=== PATIENT | male | born 1955 | race Caucasian/White ===

== ENCOUNTER 2017-10-21 11:21 | Inpatient (IN) | payer OTHER ==
[~2017-10-21] VITALS: Ht 190.5 cm; Wt 79.4 kg
--- NOTE | 2017-10-21 11:32 | ED AMS/SEIZURE/WEAK/DIZZY ---
History of Present Illness General Chief Complaint: General Adult Stated Complaint: BIBA AMS, FAILURE TO THRIVE Source: patient, old records Exam Limitations: poor historian Vital Signs & Intake/Output Vital Signs & Intake/Output Vital Signs Date Time Temp Pulse Resp B/P B/P Pulse O2 O2 Flow FiO2 Mean Ox Delivery Rate 10/21 1743 97 119/69 10/21 1630 92 20 112/68 94 Room Air 10/21 1534 99.6 94 22 112/69 95 Room Air 10/21 1418 98.7 10/21 1317 100.6 10/21 1307 100.6 115 20 110/69 96 Room Air 10/21 1208 94 Room Air 10/21 1134 98.1 122 26 106/68 93 Room Air Allergies Coded Allergies: No Known Allergies (10/21/17) Triage Nurses Notes Reviewed? yes Onset: Gradual Duration: constant Timing: unknown Injury Environment: home Severity: severe Severity Numbers: 10 HPI: Patient is a 61-year-old male with a past medical history of insulin-dependent diabetes who was brought in by ambulance and which EMS states that they received a phone call from family members for concerns of failure to thrive which patient lives in private residence by himself or EMS states that the home was very unhygienic where patient has concerns of confusion and blood sugar was noted to be 599 IV fluids were administered patient's history is limited due to confusion Patient denies any illicit drug use or alcohol use Patient denies any fever chills chest pain nausea vomiting abdominal pain He states he is compliant with his insulin PT IS C/O COUGH (Aaron Davis) Reconcile Medications Carvedilol (Coreg) 12.5 MG TABLET 1 TAB PO BID CAD Oxycodone HCl 15 MG TABLET 1 TAB PO TID PAIN (Braydon Barraza MD) Past History Travel History Traveled to [place] past 21 day No Medical History Any Pertinent Medical History? see below for history Endocrine: diabetes Surgical History Surgical History: unobtainable Family History Hx Contributory? No (Aaron Davis) Review of Systems Review of Systems Constitutional: Reports: see HPI. EENTM: Reports: no symptoms. Respiratory: Reports: see HPI, cough, short of breath. Cardiovascular: Reports: no symptoms. GI: Reports: no symptoms. Genitourinary: Reports: no symptoms. Musculoskeletal: Reports: no symptoms. Skin: Reports: no symptoms. Neurological/Psychological: Reports: no symptoms. Hematologic/Endocrine: Reports: no symptoms. Immunologic/Allergic: Reports: no symptoms. All Other Systems: Reviewed and Negative (Aaron Davis) Physical Exam Physical Exam General Appearance: lethargic Head: atraumatic Eyes: Bilateral: normal appearance, PERRL, EOMI. Ears, Nose, Throat: hearing grossly normal, DRY MUCOUS MEMBRANES Neck: normal inspection Respiratory: decreased breath sounds, rhonchi, TACHYPNEA Cardiovascular: tachycardia Peripheral Pulses: 2+ radial (R) Gastrointestinal: tenderness Neurologic/Psych: awake, ORIENTED X 1 Comments: RIGHT FOOT- NOTED 3 CM OPEN NECROTIC ULCER OF PLANTAR ASPECT OF FOOT Core Measures ACS in differential dx? Yes CVA/TIA Diagnosis Yes Sepsis Present: Yes Sepsis Focused Exam Completed? Yes (Aaron Davis) Progress Differential Diagnosis: arrythmia, alcohol intoxication, anemia, benign positional vertigo, CVA/stroke, dehydration, drug intoxication, encephalitis, electrolyte imbalance, GI bleed, hypoglycemia, hypoxia, intracranial Hem., intracranial mass/tumor, labrynthitis, meningitis, migraine PABON, multiple sclerosis, pneumonia, postural hypotension, presyncope, post-traumatic vertigo, sepsis, seizure disorder, subarachnoid Hem., UTI/pyelo, vertebrobasilar insuff Plan of Care: Orders Procedure Date/time Status Nothing by Mouth 10/22 B Active ICU LAB BUNDLE 10/22 0500 Active CBC WITHOUT DIFFERENTIAL 10/22 0500 Active TROPONIN LEVEL 10/21 2200 Active LACTIC ACID 10/21 2200 Active EKG 10/21 2200 Active LACTIC ACID 10/21 1900 Active LACTIC ACID 10/21 1730 Active BASIC METABOLIC PANEL 10/21 1730 Active Pathway - chart 10/21 1712 Active House Staff 10/21 1712 Active Code Status 10/21 1712 Active ECHOCARDIOGRAM 10/21 1712 Active TROPONIN LEVEL 10/21 1623 Complete Patient Data 10/21 1618 Active Admit to inpatient 10/21 1529 Active LACTIC ACID 10/21 1433 Complete Robles, Insertion/Removal/Asses 10/21 1358 Active CULTURE,URINE 10/21 1358 Active Add-on Test (ER Only) 10/21 1309 Active ETHANOL 10/21 1154 Complete DIRECT BILIRUBIN 10/21 1154 Complete COMPREHENSIVE METABOLIC PANEL 10/21 1154 Complete CREATINE PHOSPHOKINASE 10/21 1154 Active BLOOD CULTURE 10/21 1147 Active RAPID VIRAL INFLUENZA A 10/21 1145 Complete PARTIAL THROMBOPLASTIN TIME 10/21 1145 Complete PROTHROMBIN TIME 10/21 1145 Complete AMMONIA 10/21 1145 Complete WESTERGREN SED RATE 10/21 1145 Complete D-DIMER 10/21 1145 Complete C-REACTIVE PROTEIN 10/21 1145 Complete TROPONIN LEVEL 10/21 1134 Complete ARTERIAL BLOOD GAS (GEN) 10/21 1133 Active URINE DRUG SCREEN FOR ER ONLY 10/21 1133 Complete URINALYSIS 10/21 1133 Complete LACTIC ACID 10/21 1133 Active CBC WITHOUT DIFFERENTIAL 10/21 1133 Complete ACETONE 10/21 1133 Active EKG 10/21 1133 Active Lab Add-on Test 10/21 UNK Active VTE Mechanical Prophylaxis 10/21 UNK Active Vital Signs 10/21 UNK Active Nursing Misc 10/21 UNK Active Intake & Output 10/21 UNK Active FingerStick- Glucose 10/21 UNK Active CIWA 10/21 UNK Active Current Medications Sig/Lai Start time Last Medication Dose Stop Time Status Admin Heparin Sodium 5,000 UNIT Q8 10/21 2200 UNVr (Porcine) Insulin Human Regular 100 UNIT Q24H 10/21 1715 UNVr 10/21 (Novolin R (Insulin 1752 Drip)) Sodium Chloride 100 ML (Normal Saline 0.9%) Potassium Chloride 20 MEQ Q13H 10/21 171 UNVr (KCl 20MEQ in NS 1000ML) Sodium Chloride 1,000 ML (Normal Saline 0.9%) Folic Acid 1 MG DAILY 10/21 1703 UNVr 10/21 (Folic Acid) 1826 Multivitamins 1 TAB DAILY 10/21 1703 UNVr 10/21 (Theragran Vitamins) 1826 Thiamine HCl 100 MG DAILY 10/21 1703 UNVr 10/21 (Vitamin B1) 1826 Acetaminophen 1,000 MG Q6P PRN 10/21 1700 UNVr (Ofirmev) Vancomycin HCl 1,500 MG ONCE ONE 10/21 1245 CAN 10/21 1246 Laboratory Tests 10/21/17 1842: Sodium Pending, Potassium Pending, Chloride Pending, Carbon Dioxide Pending, Anion Gap Pending, BUN Pending, Creatinine Pending, BUN/Creatinine Ratio Pending , Glucose Pending, Lactic Acid Pending, Calcium Pending 10/21/17 1710: Troponin I 0.80 *H 10/21/17 1532: Urine Opiates Screen 204, Methadone Screen < 40, Barbiturate Screen < 60, Ur Phencyclidine Scrn < 6.00, Amphetamines Screen < 100, U Benzodiazepines Scrn < 85, Urine Cocaine Screen < 50, Urine Cannabis Screen 47.50, Urinalysis MOD H, Urine Color YEL, Urine Clarity HAZY H, Urine pH 6.0, Ur Specific [place] 1.015, Urine Protein 100 H, Urine Ketones TRACE H, Urine Nitrite POS H, Urine Bilirubin POS@ICTO H, Urine Urobilinogen 2.0 H, Ur Leukocyte Esterase SMALL H , Ur Microscopic SEDIMENT EXAMINED, Urine RBC 3-5, Urine WBC RARE, Urine Bacteria MOD H, Urine Hemoglobin LARGE H, Urine Glucose NEG 10/21/17 1418: Lactic Acid 3.1 H 10/21/17 1230: pH 7.42, pCO2 24 L, pO2 74 L, HCO3 15 L, ABG O2 Sat (Measured) 92.0 L, Carboxyhemoglobin 1.2 L, O2 Concentration % RA, O2 Delivery Method RA, Phlebotomy Draw Site RIGHT RADIAL 10/21/17 1154: Lactic Acid 5.1 H, Creatine Kinase Pending 10/21/17 1154: Ammonia < 9 L, C-Reactive Prot, Quant > 9.0 H, ESR Westergren 125 H, Serum Alcohol < 10.0 10/21/17 1154: Anion Gap 20 H, Estimated GFR 39 L, BUN/Creatinine Ratio 21.1, Glucose 467 H, Calcium 9.0, Total Bilirubin 2.3 H, Direct Bilirubin 1.7 H, AST 51, ALT 31, Alkaline Phosphatase 183 H, Troponin I 0.85 *H, Total Protein 5.3 L, Albumin 2.6 L, Globulin 2.7, Albumin/Globulin Ratio 1.0 L, PT 14.0 H, INR 1.28 H, APTT 31, D-Dimer High Sensitivty 4828 H, CBC w Diff MAN DIFF ORDERED, RBC 4.39 L, MCV 85.2, MCH 28.5, MCHC 33.4, RDW 14.5, MPV 8.9, Gran % 94.8 H, Lymphocytes % 3.2 L, Monocytes % 1.8, Eosinophils % 0.1, Basophils % 0.1, Absolute Granulocytes 12.1 H, Segmented Neutrophils 72, Band Neutrophils 20 H, Absolute Lymphocytes 0.4 L, Lymphocytes 7 L, Monocytes 1 L, Absolute Monocytes 0.2, Absolute Eosinophils 0, Absolute Basophils 0, Platelet Estimate ADEQUATE, [place] Cells RARE, Acetone Level NEGATIVE Microbiology 10/21 1532 URINE ROUT: Urine Culture - RECD 10/21 1210 BLOOD: Blood Culture - RECD 10/21 1200 NASOPHARYN: Influenza Virus A & B Rapid Smear - COMP 10/21 1200 BLOOD: Blood Culture - RECD Differential diagnoses include osteomyelitis, and sepsis Initially patient's glucose was noted to be 400 patient was given IV fluid resuscitation and subcutaneous insulin, glucose did not improve much IV insulin was administered with continuous IV fluid liter bolus administration. It was resulted me. Findings of elevated troponin, discussed admission with Dr. Hansen who is aware discussed admission with Dr. Pena for concerns of osteomyelitis who is aware however antibiotics were administered due to concerns of sepsis Patient's blood pressure remains to be stable Vanco Fortaz was administered Patient was given aspirin for concerns of elevated troponin Discussed patient with Dr. Canada who ACCEPTED the patient to the ICU DR BARRAZA also discussed patient with Dr. Canada 1209-please note that when I discussed patient's critical findings with him and my advice that he will be admitted to the hospital he is refusing this however due to his physical presentation of confusion he has not capacity to make decisions and medical admission is warranted at this time. Diagnostic Imaging: Viewed by Me: Radiology Read. Radiology Impression: acute abnormality Initial ED EKG: SINUS TACHYCARDIA 120 BPM WITH WIDENING qrs AND LBBB Comments: PATIENT: MICHELA GRUBER PRESENT AGE: 61 PATIENT ACCOUNT NO: [id number] : 59 LOCATION: [facility] ORDERING PHYSICIAN: Aaron MCFARLANE SERVICE DATE: 10/21/17 EXAM TYPE: NUC - LUNG SCAN (V/Q) EXAMINATION: PULMONARY VENTILATION PERFUSION STUDY CLINICAL INFORMATION: Shortness of breath, elevated d-dimer COMPARISON: No previous lung scan is available for comparison. CT of the chest radiographs of the chest dated 10/21/2017 are available for comparison. TECHNIQUE: Serial gamma scintillation camera images were obtained over the posterior chest during the single breath, equilibrium rebreathing and washout of 10.2 mCi Xe 133 gas. The patient then received 3.8 mCi Tc-99m MAA intravenously and a 6-view perfusion study was performed. FINDINGS: Ventilation images: On the single breath and equilibrium images there is homogeneous distribution of gas bilaterally. During the washout phase there is minimal retention bilaterally. Perfusion images: No segmental perfusion defects are present. There is minimal heterogeneity bilaterally. There are no focal anatomic appearing perfusion defects present. IMPRESSION: Very low probability of pulmonary embolism. DICTATED BY: Michela Parrish MD DATE/TIME DICTATED:10/21/171629 GAMBRELER:DREAD DATE/TIME TRANSCRIBED:10/21/171629 PATIENT: MICHELA GRUBER PRESENT AGE: 61 PATIENT ACCOUNT NO: [id number] : 59 LOCATION: [facility] ORDERING PHYSICIAN: Aaron MCFARLANE SERVICE DATE: 10/21/17 EXAM TYPE: CAT - CT ABD & PELVIS W/O IV CONTRAS; CT CHEST WO IV CONTRAST EXAMINATION: CT CHEST WITHOUT IV CONTRAST CT ABDOMEN AND PELVIS WITHOUT IV CONTRAST CLINICAL INFORMATION: Cough and chest congestion. Abdominal pain. COMPARISON: CXR from 10/21/2017 TECHNIQUE: Noncontrast multidetector CT imaging examination of the chest, abdomen and pelvis was performed. Axial images are displayed at 0.625 mm and 5 mm slice thickness. Coronal and sagittal reformatted images were generated at the technologist's workstation and submitted for review. DLP: 580 mGy-cm FINDINGS: CHEST - LUNGS and PLEURA: There are secretions along the posterior tracheal wall extending to level the daniel. Linear strand of mucus within the lumen of the right mainstem bronchus. Bronchial garnett are thickened in both lungs. Mild paraseptal emphysema of the upper lobes. Interlobular septa are thickened, bilaterally, consistent with mild edema. There are scattered bilateral nodular opacities and airspace opacities with intermixed ground glass attenuation, suggestive of multilobar pneumonia. Some of the opacities exhibit the reverse halo sign (atoll sign). Also, some of the opacities have central lucencies, suspicious for cavitary change. No pneumothorax or pleural effusion. MEDIASTINUM: Mild cardiomegaly and three-vessel coronary artery atherosclerotic calcification. The main pulmonary artery is 3 cm diameter. Thoracic aorta is normal in caliber. Mild atherosclerotic calcification of the aortic arch. No pericardial effusion. The esophagus and thyroid gland are unremarkable. LYMPHATICS: No axillary lymphadenopathy. No bulky hilar lymphadenopathy. The largest right hilar lymph node is 1 cm short axis dimension. Multiple lymph nodes are present within the mediastinum, largest in the subcarinal region measuring 1.2 cm AP. CHEST WALL/BONES: Bone density appears diffusely decreased. Old, healed fractures of the right lateral eighth rib and left lateral ninth rib. There are old appearing compression fractures of multiple vertebra. ABDOMEN AND PELVIS - HEPATOBILIARY: Liver has normal size, contour and attenuation. No evidence of focal hepatic lesion or intrahepatic bile duct dilatation. Gallbladder lumen is slightly hyperdense, suggesting presence of sludge. No radiopaque calculi, wall edema or pericholecystic inflammatory change. PANCREAS: Pancreas is diffusely atrophied. SPLEEN: Prominent spleen is 15 cm AP. No focal splenic lesion. ADRENAL GLANDS: Unremarkable. KIDNEYS, URETERS, BLADDER: Probable 0.7 cm hyperdense cyst of the mid left kidney. There is bilateral perinephric edema. There is a small, 0.2 cm calyceal stone of the left lower pole. No evidence of ureterolithiasis or hydroureteronephrosis. Urinary bladder exhibits borderline wall thickening there is perivesical edema. No bladder calculi. GI TRACT AND PERITONEUM: Stomach is unremarkable. Bowel loops are normal in caliber. Mild diverticulosis of the sigmoid colon without diverticulitis. No ascites or pneumoperitoneum. ABDOMINAL WALL: A fat-containing umbilical hernia measures 2.4 cm wide. VASCULAR: Atherosclerotic calcification of the abdominal aorta and iliac arteries without aneurysm. LYMPH NODES: No pathologic sized lymph nodes within the abdomen or pelvis. PELVIC VISCERA: Prominent prostate gland measures 4.8 x 3.5 cm and there is periprostatic edema and perivesical edema in the pelvis. No pelvic abscess. OSSEOUS STRUCTURES: Bone density appears diffusely decreased. Old L1 compression fracture with approximately 25% anterior height loss. Moderate discovertebral degenerative change of L5-S1. No aggressive osseous lesions. IMPRESSION: - Within the chest, there is mild pulmonary edema without pleural effusions. There are patchy nodular and airspace opacities in both lungs, and some of the pulmonary opacities have central cavitation. Also, some of the lesions exhibit the reversed halo sign (i.e., atoll sign), as may be seen in infectious disease and other disorders, such as vasculitis. Unable to exclude septic emboli. Other findings in the chest include atherosclerotic disease of coronary arteries and cardiomegaly. The mild hilar and mediastinal lymphadenopathy is likely reactive to the pulmonary disease. - Within the abdomen, findings include bilateral perinephric edema without ureterolithiasis or hydronephrosis. Also, there is perivesical and periprostatic edema within the pelvis. Urinary tract infection and prostatitis are possible. Consider correlation with urinalysis and urine culture. DICTATED BY: Saran Lizama MD DATE/TIME DICTATED:10/21/17 1544 GAMBRELER:DREAD DATE/TIME TRANSCRIBED: PATIENT: MICHELA GRUBER PRESENT AGE: 61 PATIENT ACCOUNT NO: [id number] : 59 LOCATION: [facility] ORDERING PHYSICIAN: Aaron MCFARLANE SERVICE DATE: 10/21/17 EXAM TYPE: CAT - CT ABD & PELVIS W/O IV CONTRAS; CT CHEST WO IV CONTRAST EXAMINATION: CT CHEST WITHOUT IV CONTRAST CT ABDOMEN AND PELVIS WITHOUT IV CONTRAST CLINICAL INFORMATION: Cough and chest congestion. Abdominal pain. COMPARISON: CXR from 10/21/2017 TECHNIQUE: Noncontrast multidetector CT imaging examination of the chest, abdomen and pelvis was performed. Axial images are displayed at 0.625 mm and 5 mm slice thickness. Coronal and sagittal reformatted images were generated at the technologist's workstation and submitted for review. DLP: 580 mGy-cm FINDINGS: CHEST - LUNGS and PLEURA: There are secretions along the posterior tracheal wall extending to level the daniel. Linear strand of mucus within the lumen of the right mainstem bronchus. Bronchial garnett are thickened in both lungs. Mild paraseptal emphysema of the upper lobes. Interlobular septa are thickened, bilaterally, consistent with mild edema. There are scattered bilateral nodular opacities and airspace opacities with intermixed ground glass attenuation, suggestive of multilobar pneumonia. Some of the opacities exhibit the reverse halo sign (atoll sign). Also, some of the opacities have central lucencies, suspicious for cavitary change. No pneumothorax or pleural effusion. MEDIASTINUM: Mild cardiomegaly and three-vessel coronary artery atherosclerotic calcification. The main pulmonary artery is 3 cm diameter. Thoracic aorta is normal in caliber. Mild atherosclerotic calcification of the aortic arch. No pericardial effusion. The esophagus and thyroid gland are unremarkable. LYMPHATICS: No axillary lymphadenopathy. No bulky hilar lymphadenopathy. The largest right hilar lymph node is 1 cm short axis dimension. Multiple lymph nodes are present within the mediastinum, largest in the subcarinal region measuring 1.2 cm AP. CHEST WALL/BONES: Bone density appears diffusely decreased. Old, healed fractures of the right lateral eighth rib and left lateral ninth rib. There are old appearing compression fractures of multiple vertebra. ABDOMEN AND PELVIS - HEPATOBILIARY: Liver has normal size, contour and attenuation. No evidence of focal hepatic lesion or intrahepatic bile duct dilatation. Gallbladder lumen is slightly hyperdense, suggesting presence of sludge. No radiopaque calculi, wall edema or pericholecystic inflammatory change. PANCREAS: Pancreas is diffusely atrophied. SPLEEN: Prominent spleen is 15 cm AP. No focal splenic lesion. ADRENAL GLANDS: Unremarkable. KIDNEYS, URETERS, BLADDER: Probable 0.7 cm hyperdense cyst of the mid left kidney. There is bilateral perinephric edema. There is a small, 0.2 cm calyceal stone of the left lower pole. No evidence of ureterolithiasis or hydroureteronephrosis. Urinary bladder exhibits borderline wall thickening there is perivesical edema. No bladder calculi. GI TRACT AND PERITONEUM: Stomach is unremarkable. Bowel loops are normal in caliber. Mild diverticulosis of the sigmoid colon without diverticulitis. No ascites or pneumoperitoneum. ABDOMINAL WALL: A fat-containing umbilical hernia measures 2.4 cm wide. VASCULAR: Atherosclerotic calcification of the abdominal aorta and iliac arteries without aneurysm. LYMPH NODES: No pathologic sized lymph nodes within the abdomen or pelvis. PELVIC VISCERA: Prominent prostate gland measures 4.8 x 3.5 cm and there is periprostatic edema and perivesical edema in the pelvis. No pelvic abscess. OSSEOUS STRUCTURES: Bone density appears diffusely decreased. Old L1 compression fracture with approximately 25% anterior height loss. Moderate discovertebral degenerative change of L5-S1. No aggressive osseous lesions. IMPRESSION: - Within the chest, there is mild pulmonary edema without pleural effusions. There are patchy nodular and airspace opacities in both lungs, and some of the pulmonary opacities have central cavitation. Also, some of the lesions exhibit the reversed halo sign (i.e., atoll sign), as may be seen in infectious disease and other disorders, such as vasculitis. Unable to exclude septic emboli. Other findings in the chest include atherosclerotic disease of coronary arteries and cardiomegaly. The mild hilar and mediastinal lymphadenopathy is likely reactive to the pulmonary disease. - Within the abdomen, findings include bilateral perinephric edema without ureterolithiasis or hydronephrosis. Also, there is perivesical and periprostatic edema within the pelvis. Urinary tract infection and prostatitis are possible. Consider correlation with urinalysis and urine culture. DICTATED BY: Saran Lizama MD DATE/TIME DICTATED:10/21/171543 GAMBRELER:DREAD DATE/TIME TRANSCRIBED: PATIENT: MICHELA GRUBER PRESENT AGE: 61 PATIENT ACCOUNT NO: [id number] : 59 LOCATION: [facility] ORDERING PHYSICIAN: Aaron MCFARLANE SERVICE DATE: 10/21/17 EXAM TYPE: CAT - CT HEAD WO IV CONTRAST EXAMINATION: CT HEAD WITHOUT CONTRAST CLINICAL INFORMATION: Confusion COMPARISON: None TECHNIQUE: Contiguous axial imaging was performed from the skull base to vertex without intravenous administration of contrast. DLP: 615 mGy-cm FINDINGS: There is no evidence of acute intracranial hemorrhage or territorial infarction. No abnormal mass effect or midline shift is seen. Dill to white matter differentiation is well preserved. No extra-axial fluid collections are identified. The ventricles are normal in size. There is no abnormal attenuation within the brain parenchyma. The osseous structures and soft tissues are normal. There has been a right ocular lens extraction. Incidental trochlea calcifications are visualized bilaterally. There is near complete opacification of the right frontal and scattered right anterior ethmoid air cells. There is complete opacification of the imaged right maxillary sinus. The left maxillary sinus is diminutive with sclerotic and thickened garnett and mild mucosal thickening. There appears to have been prior antrostomy on the left. The visualized nasal cavity and nasopharynx are clear. There is trace opacification at the mastoid tips bilaterally. The middle ear cavities are clear. IMPRESSION: No acute intracranial pathology. Scattered and fairly extensive inflammatory disease within the paranasal sinuses asymmetrically on the right. Partially visualized postsurgical changes involving the left maxillary sinus with sclerosis and thickening of the left maxillary wall compatible with sequela of chronic inflammation. DICTATED BY: Castillo Cordova MD DATE/TIME DICTATED:10/21/171447 GAMBRELER:DREAD PATIENT: MICHELA GRUBER PRESENT AGE: 61 PATIENT ACCOUNT NO: [id number] : 59 LOCATION: [facility] ORDERING PHYSICIAN: Aaron MCFARLANE SERVICE DATE: 03/ EXAM TYPE: RAD - XRY-CHEST XRAY, TWO VIEWS EXAMINATION: XR CHEST CLINICAL INFORMATION: Shortness of breath COMPARISON: None TECHNIQUE: 2 views of the chest were obtained. FINDINGS: Diffuse thickening of peribronchial interstitium from airway inflammation and/or interstitial edema. Also, septal lines are seen in the periphery of each mid to lower lung zone. Patchy opacity is present in the right upper lobe. No pleural effusion or pneumothorax. Cardiac silhouette is borderline enlarged. The 0.7 cm nodular opacity projecting over the left anterior fifth rib on the frontal radiograph probably represents a nipple shadow. Bones appear diffusely osteopenic. IMPRESSION: - Mild cardiomegaly and diffuse pulmonary edema. - The patchy opacity in the right upper lobe could represent edema or pneumonia. - The nodular focus projecting over the left anterior fifth rib on the frontal view probably represents a nipple shadow. This could be confirmed on a follow-up radiograph obtained with nipple markers. DICTATED BY: Saran Lizama MD DATE/TIME DICTATED:10/21/17 1354 GAMBRELER:DRAED DATE/TIME TRANSCRIBED:10/21/17 / PATIENT: MICHELA GRUBER PRESENT AGE: 61 PATIENT ACCOUNT NO: [id number] : 59 LOCATION: [facility] ORDERING PHYSICIAN: Aaron MCFARLANE SERVICE DATE: 10/21/17 EXAM TYPE: RAD - XRY-FOOT COMPLETE, R EXAMINATION: XR FOOT, RIGHT CLINICAL INFORMATION: Necrotic open wound on the plantar aspect of the foot. COMPARISON: There are no prior studies for comparison. TECHNIQUE: AP, lateral, and oblique views of the right foot. FINDINGS: There are severe bony destructive changes involving the distal aspects of the second third and fourth metatarsals. The bony destructive changes involving the third digit are particularly concerning with irregularity of the distal aspect of the metatarsal concerning for acute bony destructive changes, the findings are less prominent on the fourth metatarsal and minimally present in the distal second metatarsal. Extensive degenerative changes are present in the first digit with prominent hallux valgus deformity and bulky osteophyte formation at the metatarsal phalangeal joint. Extensive degenerative changes involving the distal fifth metatarsal phalangeal joint involving numerous subchondral cysts. The skin defect is identified in the mid foot at the level of the tarsometatarsal joints on the plantar aspect of the foot extending towards the forefoot.. IMPRESSION: 1. Extensive bony destructive changes are present in the second through fourth digits, most concerning in the second and third digits with non corticated distal aspects of the remaining portion of the metadiaphysis of the second and third digits. Findings are concerning for acute osteomyelitis. 2. Open wound with skin defect identified on the plantar aspect of the midfoot, the ulcer is present at the level of the mid foot closer to the tarsal metatarsal joint spaces rather than the distal metatarsal regions however. DICTATED BY: Shoshana Chen MD DATE/TIME DICTATED:10/21/171352 PATIENT: MICHELA GRUBER PRESENT AGE: 61 PATIENT ACCOUNT NO: [id number] : 59 LOCATION: [facility] ORDERING PHYSICIAN: Aaron MCFARLANE SERVICE DATE: 10/21/17 EXAM TYPE: RAD - XRY-FINGERS, RIGHT EXAMINATION: XR FINGER, RIGHT CLINICAL INFORMATION: Chronic wound at the distal aspect of the right fifth digit. Shortness of breath. COMPARISON: None TECHNIQUE: PA, lateral, and oblique views of the right small finger. FINDINGS: Bones are diffusely osteopenic. There is a ulceration at the lateral (radial) margin of the small finger distal phalanx. No underlying osseous changes ostomy line is identified. There is diffuse uniform joint space narrowing at the wrist and MCP joints with ulnar deviation in the palmar subluxation of the proximal phalanges. There is significant cortical irregularity at the second, third, and fourth metacarpal heads with resultant osteophytes. Erosions are likely present at the metacarpal heads, though these may be cystic changes related to the adjacent arthropathy. No significant erosions are identified around the carpus. There is sclerosis along the ulnar margin of the lunate due to remodeling from abutment of the ulna. There is marked triscaphe joint space narrowing without erosions. IMPRESSION: Soft tissue ulceration at the radial margin of the small finger distal phalanx without underlying findings of osteomyelitis. Diffuse uniform joint space narrowing in the wrist and MCP joints with superimposed palmar subluxation and ulnar deviation of the proximal phalanges as well as erosive/cystic changes at the metacarpal heads. These findings may represent the sequela of rheumatoid arthritis or, alternatively, degenerative arthritis superimposed upon a nonerosive arthropathy such as systemic lupus erythematosus. DICTATED BY: Ayaz Moncada MD DATE/TIME DICTATED:10/21/176 GAMBRELER:DREAD DATE/TIME TRANSCRIBED:10/21/17 (Aaron Davis) ED Sepsis Exam Date of Focused Sepsis Exam: 10/21/17 Time of Focused Sepsis Exam: 1101 Sepsis Cardiac Exam: Tachycardia Sepsis Resp Exam: DECREASE BREATH SOUNDS Sepsis Cap Refill Exam: <2 Sec Sepsis Peripheral Pulse Exam: Normal Sepsis Peripheral Pulse Location: Radial Sepsis Skin Color Exam: Normal for Ethnicity Skin Temp/Moisture Exam: Warm/Dry (Aaron Davis) Departure Departure Disposition: STILL A PATIENT Condition: Critical Clinical Impression Primary Impression: Sepsis Secondary Impressions: ANURAG (acute kidney injury), Bandemia, Elevated troponin, Hyperglycemia, Osteomyelitis of right foot, Pneumonia, Pyelonephritis, UTI ( urinary tract infection) Departure Forms: Customer Survey General Discharge Information Admission Note Spoke With: Migue Canada MD Documentation of Exam: Documentation of any treatments & extenuating circumstances including Concerns Regarding Discharge (functional status, medication knowledge or non-compliance, living conditions, etc.) that warrant an admission rather than observation: [ Patient requires ICU admission, patient requires IV fluids IV antibiotics and infectious disease consult cardiology consult podiatry consult repeat labs, endocrinology consult] (Aaron Davis) Departure Prescriptions: Current Visit Scripts Oxycodone HCl 1 TAB PO TID #90 TAB Carvedilol (Coreg) 1 TAB PO BID #60 TAB PA/HEAD TEACHER Co-Sign Statement Statement: ED Attending supervision documentation- x I saw and evaluated the patient. I have also reviewed all the pertinent lab results and diagnostic results. I agree with the findings and the plan of care as documented in the PA's/HEAD TEACHER's documentation. Multiple infectious sources poor follow up care. elevated troponin/NSTEMI [] I have reviewed the ED Record and agree with the PA's/HEAD TEACHER's documentation. [] Additions or exceptions (if any) to the PAs/HEAD TEACHER's note and plan are summarized below: [] (Shawn CARD,Braydon) Critical Care Note Critical Care Note Critical Care Time: 75-104 min (Aaron Davis)
[2017-10-21 12:13] LABS: ABSOLUTE BASOPHIL COUNT 0 /CUMM (0.0-0.2); ABSOLUTE EOSINOPHIL COUNT 0 /CUMM (0.0-0.7); ABSOLUTE GRANULOCYTE CT 12.1 /CUMM (1.4-6.5); ABSOLUTE LYMPH COUNT 0.4 /CUMM (1.2-3.4); ABSOLUTE MONOCYTE COUNT 0.2 /CUMM (0.10-0.60); BASOPHIL % 0.1 % (0.0-2.0); EOSINOPHIL % 0.1 % (0-5); GRANULOCYTE % 94.8 % (42.2-75.2); HEMATOCRIT 37.4 % (42-52); MEAN CORPUSCULAR HGB 28.5 PG (27.0-31.0); MEAN CORPUSCULAR HGB CONC 33.4 G/DL (33.0-37.0); MEAN CORPUSCULAR VOLUME 85.2 FL (80.0-94.0); MEAN PLATELET VOLUME 8.9 FL (7.4-10.4); PLATELET COUNT 179 /CUMM (130-400); RBC DISTRIBUTION WIDTH 14.5 % (11.5-14.5); RED BLOOD CELL CT 4.39 /CUMM (4.70-6.10); WHITE BLOOD CELL COUNT 12.8 /CUMM (4.8-10.8)
[2017-10-21 12:34] LABS: PTT 31 SEC (25-37)
--- NOTE | 2017-10-21 14:00 | RADIOLOGY REPORT ---
EXAMINATION: XR FOOT, RIGHT CLINICAL INFORMATION: Necrotic open wound on the plantar aspect of the foot. COMPARISON: There are no prior studies for comparison. TECHNIQUE: AP, lateral, and oblique views of the right foot. FINDINGS: There are severe bony destructive changes involving the distal aspects of the second third and fourth metatarsals. The bony destructive changes involving the third digit are particularly concerning with irregularity of the distal aspect of the metatarsal concerning for acute bony destructive changes, the findings are less prominent on the fourth metatarsal and minimally present in the distal second metatarsal. Extensive degenerative changes are present in the first digit with prominent hallux valgus deformity and bulky osteophyte formation at the metatarsal phalangeal joint. Extensive degenerative changes involving the distal fifth metatarsal phalangeal joint involving numerous subchondral cysts. The skin defect is identified in the mid foot at the level of the tarsometatarsal joints on the plantar aspect of the foot extending towards the forefoot.. IMPRESSION: 1. Extensive bony destructive changes are present in the second through fourth digits, most concerning in the second and third digits with non corticated distal aspects of the remaining portion of the metadiaphysis of the second and third digits. Findings are concerning for acute osteomyelitis. 2. Open wound with skin defect identified on the plantar aspect of the midfoot, the ulcer is present at the level of the mid foot closer to the tarsal metatarsal joint spaces rather than the distal metatarsal regions however.
--- NOTE | 2017-10-21 14:01 | RADIOLOGY REPORT ---
EXAMINATION: XR CHEST CLINICAL INFORMATION: Shortness of breath COMPARISON: None TECHNIQUE: 2 views of the chest were obtained. FINDINGS: Diffuse thickening of peribronchial interstitium from airway inflammation and/or interstitial edema. Also, septal lines are seen in the periphery of each mid to lower lung zone. Patchy opacity is present in the right upper lobe. No pleural effusion or pneumothorax. Cardiac silhouette is borderline enlarged. The 0.7 cm nodular opacity projecting over the left anterior fifth rib on the frontal radiograph probably represents a nipple shadow. Bones appear diffusely osteopenic. IMPRESSION: - Mild cardiomegaly and diffuse pulmonary edema. - The patchy opacity in the right upper lobe could represent edema or pneumonia. - The nodular focus projecting over the left anterior fifth rib on the frontal view probably represents a nipple shadow. This could be confirmed on a follow-up radiograph obtained with nipple markers.
--- NOTE | 2017-10-21 14:05 | RADIOLOGY REPORT ---
EXAMINATION: XR FINGER, RIGHT CLINICAL INFORMATION: Chronic wound at the distal aspect of the right fifth digit. Shortness of breath. COMPARISON: None TECHNIQUE: PA, lateral, and oblique views of the right small finger. FINDINGS: Bones are diffusely osteopenic. There is a ulceration at the lateral (radial) margin of the small finger distal phalanx. No underlying osseous changes ostomy line is identified. There is diffuse uniform joint space narrowing at the wrist and MCP joints with ulnar deviation in the palmar subluxation of the proximal phalanges. There is significant cortical irregularity at the second, third, and fourth metacarpal heads with resultant osteophytes. Erosions are likely present at the metacarpal heads, though these may be cystic changes related to the adjacent arthropathy. No significant erosions are identified around the carpus. There is sclerosis along the ulnar margin of the lunate due to remodeling from abutment of the ulna. There is marked triscaphe joint space narrowing without erosions. IMPRESSION: Soft tissue ulceration at the radial margin of the small finger distal phalanx without underlying findings of osteomyelitis. Diffuse uniform joint space narrowing in the wrist and MCP joints with superimposed palmar subluxation and ulnar deviation of the proximal phalanges as well as erosive/cystic changes at the metacarpal heads. These findings may represent the sequela of rheumatoid arthritis or, alternatively, degenerative arthritis superimposed upon a nonerosive arthropathy such as systemic lupus erythematosus.
--- NOTE | 2017-10-21 14:55 | CT SCAN REPORT ---
EXAMINATION: CT HEAD WITHOUT CONTRAST CLINICAL INFORMATION: Confusion COMPARISON: None TECHNIQUE: Contiguous axial imaging was performed from the skull base to vertex without intravenous administration of contrast. DLP: 615 mGy-cm FINDINGS: There is no evidence of acute intracranial hemorrhage or territorial infarction. No abnormal mass effect or midline shift is seen. Dill to white matter differentiation is well preserved. No extra-axial fluid collections are identified. The ventricles are normal in size. There is no abnormal attenuation within the brain parenchyma. The osseous structures and soft tissues are normal. There has been a right ocular lens extraction. Incidental trochlea calcifications are visualized bilaterally. There is near complete opacification of the right frontal and scattered right anterior ethmoid air cells. There is complete opacification of the imaged right maxillary sinus. The left maxillary sinus is diminutive with sclerotic and thickened garnett and mild mucosal thickening. There appears to have been prior antrostomy on the left. The visualized nasal cavity and nasopharynx are clear. There is trace opacification at the mastoid tips bilaterally. The middle ear cavities are clear. IMPRESSION: No acute intracranial pathology. Scattered and fairly extensive inflammatory disease within the paranasal sinuses asymmetrically on the right. Partially visualized postsurgical changes involving the left maxillary sinus with sclerosis and thickening of the left maxillary wall compatible with sequela of chronic inflammation.
--- NOTE | 2017-10-21 16:11 | CT SCAN REPORT ---
EXAMINATION: CT CHEST WITHOUT IV CONTRAST CT ABDOMEN AND PELVIS WITHOUT IV CONTRAST CLINICAL INFORMATION: Cough and chest congestion. Abdominal pain. COMPARISON: CXR from 10/21/2017 TECHNIQUE: Noncontrast multidetector CT imaging examination of the chest, abdomen and pelvis was performed. Axial images are displayed at 0.625 mm and 5 mm slice thickness. Coronal and sagittal reformatted images were generated at the technologist's workstation and submitted for review. DLP: 580 mGy-cm FINDINGS: CHEST - LUNGS and PLEURA: There are secretions along the posterior tracheal wall extending to level the daniel. Linear strand of mucus within the lumen of the right mainstem bronchus. Bronchial garnett are thickened in both lungs. Mild paraseptal emphysema of the upper lobes. Interlobular septa are thickened, bilaterally, consistent with mild edema. There are scattered bilateral nodular opacities and airspace opacities with intermixed ground glass attenuation, suggestive of multilobar pneumonia. Some of the opacities exhibit the reverse halo sign (atoll sign). Also, some of the opacities have central lucencies, suspicious for cavitary change. No pneumothorax or pleural effusion. MEDIASTINUM: Mild cardiomegaly and three-vessel coronary artery atherosclerotic calcification. The main pulmonary artery is 3 cm diameter. Thoracic aorta is normal in caliber. Mild atherosclerotic calcification of the aortic arch. No pericardial effusion. The esophagus and thyroid gland are unremarkable. LYMPHATICS: No axillary lymphadenopathy. No bulky hilar lymphadenopathy. The largest right hilar lymph node is 1 cm short axis dimension. Multiple lymph nodes are present within the mediastinum, largest in the subcarinal region measuring 1.2 cm AP. CHEST WALL/BONES: Bone density appears diffusely decreased. Old, healed fractures of the right lateral eighth rib and left lateral ninth rib. There are old appearing compression fractures of multiple vertebra. ABDOMEN AND PELVIS - HEPATOBILIARY: Liver has normal size, contour and attenuation. No evidence of focal hepatic lesion or intrahepatic bile duct dilatation. Gallbladder lumen is slightly hyperdense, suggesting presence of sludge. No radiopaque calculi, wall edema or pericholecystic inflammatory change. PANCREAS: Pancreas is diffusely atrophied. SPLEEN: Prominent spleen is 15 cm AP. No focal splenic lesion. ADRENAL GLANDS: Unremarkable. KIDNEYS, URETERS, BLADDER: Probable 0.7 cm hyperdense cyst of the mid left kidney. There is bilateral perinephric edema. There is a small, 0.2 cm calyceal stone of the left lower pole. No evidence of ureterolithiasis or hydroureteronephrosis. Urinary bladder exhibits borderline wall thickening there is perivesical edema. No bladder calculi. GI TRACT AND PERITONEUM: Stomach is unremarkable. Bowel loops are normal in caliber. Mild diverticulosis of the sigmoid colon without diverticulitis. No ascites or pneumoperitoneum. ABDOMINAL WALL: A fat-containing umbilical hernia measures 2.4 cm wide. VASCULAR: Atherosclerotic calcification of the abdominal aorta and iliac arteries without aneurysm. LYMPH NODES: No pathologic sized lymph nodes within the abdomen or pelvis. PELVIC VISCERA: Prominent prostate gland measures 4.8 x 3.5 cm and there is periprostatic edema and perivesical edema in the pelvis. No pelvic abscess. OSSEOUS STRUCTURES: Bone density appears diffusely decreased. Old L1 compression fracture with approximately 25% anterior height loss. Moderate discovertebral degenerative change of L5-S1. No aggressive osseous lesions. IMPRESSION: - Within the chest, there is mild pulmonary edema without pleural effusions. There are patchy nodular and airspace opacities in both lungs, and some of the pulmonary opacities have central cavitation. Also, some of the lesions exhibit the reversed halo sign (i.e., atoll sign), as may be seen in infectious disease and other disorders, such as vasculitis. Unable to exclude septic emboli. Other findings in the chest include atherosclerotic disease of coronary arteries and cardiomegaly. The mild hilar and mediastinal lymphadenopathy is likely reactive to the pulmonary disease. - Within the abdomen, findings include bilateral perinephric edema without ureterolithiasis or hydronephrosis. Also, there is perivesical and periprostatic edema within the pelvis. Urinary tract infection and prostatitis are possible. Consider correlation with urinalysis and urine culture.
--- NOTE | 2017-10-21 16:18 | History & Physical ---
Masood Loco MD 10/21/17 1617: General Information and HPI History of Present Illness: 61-year-old man with past medical history significant for insulin-dependent diabetes mellitus and coronary artery disease status post stent "for years ago" brought in by ambulance for evaluation of altered mental status and "failure to thrive". Patient was reportedly altered upon ED arrival but now is awake and alert and oriented to person, place, and time. He reports that on Saturday he "overdid it" when he ate a large amount of pizza. All weekend he states that he remained in bed with profound fatigue and denies any other symptoms. He admits to decreased oral intake and often is noncompliant with his medications. Review of systems Specifically he denies any headache, fever, chills, blurred/double vision, headedness/dizziness, chest pain, palpitations, heartburn, shortness of breath, cough, nausea, vomiting, diarrhea. Past medical [id number] diabetes mellitus, hypertension, hyperlipidemia, coronary artery disease, BPH Allergies-no known drug allergies Medications-reconciled and all [facility] medical record Surgical history-none Family history-unknown Social history Patient reports drinking 6 beers per day for "many years", smokes 2 packs of cigarettes per day since age 17, uses marijuana daily. Lives alone in a duplex in [place] and has a made help with cooking/cleaning. 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 Patient is often noncompliant with his physician follow-ups and medication regimen. He does not exercise, plays sports , or go to the gym. He has no dietary restrictions. Reportedly uses [facility] in [facility] for most of his meds, but they had no record of him. [facility] on [address] in [place] reports only monthly prescriptions of Oxycodone with a distant history of coreg that he hasnt picked up. 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 Home Who Do You Live With? self Primary Language: Turkish Smoking Status: Current Everyday Smoker ETOH Use: heavy use Illicit Drug Use: UTD Functional Ability ADLs Independent: dressing, eating, toileting, bathing. Ambulation: independent IADLs Independent: shopping, finances, telephone, transportation, medication admin. Needs Assist: housework, food prep. Employment History Employment Employed Profession/Employer [employer] Review of Systems Review of Systems Constitutional: Reports: see HPI. Exam & Diagnostic Data Last 24 Hrs of Vital Signs/I&O Vital Signs Date Time Temp Pulse Resp B/P B/P Pulse O2 O2 Flow FiO2 Mean Ox Delivery Rate 10/21 1534 99.6 94 22 112/69 95 Room Air 10/21 1418 98.7 10/21 1317 100.6 10/21 1307 100.6 115 20 110/69 96 Room Air 10/21 1208 94 Room Air 10/21 1134 98.1 122 26 106/68 93 Room Air Intake & Output 10/21 1600 10/21 0800 10/21 0000 Intake Total 5250 Output Total 400 Balance 4850 Intake, IV 5250 Output, Urine 400 Patient 88.451 kg Weight Weight Reported by Patient Measurement Method Physical Exam General Appearance Alert, Oriented X3, Cooperative, No Acute Distress Skin No Rashes, No Breakdown HEENT Atraumatic, PERRLA, EOMI, Mucous Membr. moist/pink, Poor dentition Neck Supple, No JVD Cardiovascular Regular Rate, Normal S1, Normal S2, No Murmurs, Gallops Lungs Diminish bibasilar airflow with occasional rhonchi Abdomen Normal Bowel Sounds, Soft, No Tenderness, No Hepatospenomegaly, No Masses Neurological Normal Speech, Strength at 5/5 X4 Ext, Normal Tone, Sensation Intact, Cranial Nerves 3-12 NL Extremities No Clubbing, No Cyanosis, Skin changes to right foot without any obvious drainage Vascular Normal Pulses, Pulses Symmetrical Sepsis Peripheral Pulse Location: Dorsalis Pedis Sepsis Peripheral Pulse Exam: Normal Sepsis Cap Refill Exam: <2 Sec Last 24 Hrs of Labs/[place]: Laboratory Tests 10/21/17 1710: Troponin I Pending 10/21/17 1532: Urine Opiates Screen 204, Methadone Screen < 40, Barbiturate Screen < 60, Ur Phencyclidine Scrn < 6.00, Amphetamines Screen < 100, U Benzodiazepines Scrn < 85, Urine Cocaine Screen < 50, Urine Cannabis Screen 47.50, Urinalysis MOD H, Urine Color YEL, Urine Clarity HAZY H, Urine pH 6.0, Ur Specific Gregory 1.015, Urine Protein 100 H, Urine Ketones TRACE H, Urine Nitrite POS H, Urine Bilirubin POS@ICTO H, Urine Urobilinogen 2.0 H, Ur Leukocyte Esterase SMALL H , Ur Microscopic SEDIMENT EXAMINED, Urine RBC 3-5, Urine WBC RARE, Urine Bacteria MOD H, Urine Hemoglobin LARGE H, Urine Glucose NEG 10/21/17 1418: Lactic Acid 3.1 H 10/21/17 1230: pH 7.42, pCO2 24 L, pO2 74 L, HCO3 15 L, ABG O2 Sat (Measured) 92.0 L, Carboxyhemoglobin 1.2 L, O2 Concentration % RA, O2 Delivery Method RA, Phlebotomy Draw Site RIGHT RADIAL 10/21/17 1154: Lactic Acid 5.1 H 10/21/17 1154: Ammonia < 9 L, C-Reactive Prot, Quant > 9.0 H, ESR Westergren 125 H, Serum Alcohol < 10.0 10/21/17 1154: Anion Gap 20 H, Estimated GFR 39 L, BUN/Creatinine Ratio 21.1, Glucose 467 H, Calcium 9.0, Total Bilirubin 2.3 H, Direct Bilirubin 1.7 H, AST 51, ALT 31, Alkaline Phosphatase 183 H, Troponin I 0.85 *H, Total Protein 5.3 L, Albumin 2.6 L, Globulin 2.7, Albumin/Globulin Ratio 1.0 L, PT 14.0 H, INR 1.28 H, APTT 31, D-Dimer High Sensitivty 4828 H, CBC w Diff MAN DIFF ORDERED, RBC 4.39 L, MCV 85.2, MCH 28.5, MCHC 33.4, RDW 14.5, MPV 8.9, Gran % 94.8 H, Lymphocytes % 3.2 L, Monocytes % 1.8, Eosinophils % 0.1, Basophils % 0.1, Absolute Granulocytes 12.1 H, Segmented Neutrophils 72, Band Neutrophils 20 H, Absolute Lymphocytes 0.4 L, Lymphocytes 7 L, Monocytes 1 L, Absolute Monocytes 0.2, Absolute Eosinophils 0, Absolute Basophils 0, Platelet Estimate ADEQUATE, Theresa Cells RARE, Acetone Level NEGATIVE Microbiology 10/21 1532 URINE ROUT: Urine Culture - RECD 10/21 1210 BLOOD: Blood Culture - RECD 10/21 1200 NASOPHARYN: Influenza Virus A & B Rapid Smear - COMP 10/21 1200 BLOOD: Blood Culture - RECD Diagnostic Data EKG Results ST with LBBB CXR Results IMPRESSION: - Mild cardiomegaly and diffuse pulmonary edema. - The patchy opacity in the right upper lobe could represent edema or pneumonia. - The nodular focus projecting over the left anterior fifth rib on the frontal view probably represents a nipple shadow. This could be confirmed on a follow-up radiograph obtained with nipple markers. Assessment/Plan Assessment: 61-year-old man with past medical history of only insulin-dependent diabetes mellitus brought in by ambulance for evaluation of altered mental status and "failure to thrive". ED course -Vitals: MAXIMUM TEMPERATURE 100.6, HR 92-1-2, RR 20-26, SBP 106-119, DBP 68-69, O2 93-96% on room air -CBC: WBC/bands 12.8/20, Hgb/HCT 12.5/37.4, platelet 179 -BMP: Sodium 142, potassium 4.4, chloride 107, CO2 16, urea 38, creatinine 1.8, anion gap 20, glucose 467 -LFT: AST 51, ALT 31, ALP 183, total bilirubin 2.3, direct bilirubin 1.7 -Miscellaneous: ESR 125, CRP >9, lactic acid 5.1, troponin I 0.85, ammonia <9, albumin 2.6, acetone negative -Coags: INR 1.28, d-dimer 4828 -Urinalysis: Trace ketones with positive nitrates/leukocyte esterase, large hemoglobin with moderate bacteria, rare WBC -Urine toxicology: Positive for opiates and cannabis -ABG: PH 7.42, PCO2 24, PO2 74, HCO3 15 -EKG: Sinus tachycardia with left bundle branch block -Rapid Flu: negative -CXR: - Mild cardiomegaly and diffuse pulmonary edema. - The patchy opacity in the right upper lobe could represent edema or pneumonia. - The nodular focus projecting over the left anterior fifth rib on the frontal view probably represents a nipple shadow. This could be confirmed on a follow-up radiograph obtained with nipple markers. -Right foot x-ray: 1. Extensive bony destructive changes are present in the second through fourth digits, most concerning in the second and third digits with non corticated distal aspects of the remaining portion of the metadiaphysis of the second and third digits. Findings are concerning for acute osteomyelitis. 2. Open wound with skin defect identified on the plantar aspect of the midfoot, the ulcer is present at the level of the mid foot closer to the tarsal metatarsal joint spaces rather than the distal metatarsal regions however. -Right hand x-ray: -Soft tissue ulceration at the radial margin of the small finger distal phalanx without underlying findings of osteomyelitis. -Diffuse uniform joint space narrowing in the wrist and MCP joints with superimposed palmar subluxation and ulnar deviation of the proximal phalanges as well as erosive/cystic changes at the metacarpal heads. These findings may represent the sequela of rheumatoid arthritis or, alternatively, degenerative arthritis superimposed upon a nonerosive arthropathy such as systemic lupus erythematosus. -CT chest/abdomen/pelvis: - Within the chest, there is mild pulmonary edema without pleural effusions. There are patchy nodular and airspace opacities in both lungs, and some of the pulmonary opacities have central cavitation. Also, some of the lesions exhibit the reversed halo sign (i.e., atoll sign), as may be seen in infectious disease and other disorders, such as vasculitis. Unable to exclude septic emboli. Other findings in the chest include atherosclerotic disease of coronary arteries and cardiomegaly. The mild hilar and mediastinal lymphadenopathy is likely reactive to the pulmonary disease. - Within the abdomen, findings include bilateral perinephric edema without ureterolithiasis or hydronephrosis. Also, there is perivesical and periprostatic edema within the pelvis. Urinary tract infection and prostatitis are possible. Consider correlation with urinalysis and urine culture. -CT head without IV contrast: -No acute intracranial pathology. -Scattered and fairly extensive inflammatory disease within the paranasal sinuses asymmetrically on the right. Partially visualized postsurgical changes involving the left maxillary sinus with sclerosis and thickening of the left maxillary wall compatible with sequela of chronic inflammation. -VQ scan: -Very low probability of pulmonary embolism. -ED Interventions: -ASA 325 mg PO ONCE -NS 6L Bolus -Vancomycin 1 g IV ONCE -Ceftazidime 1 g IV ONCE -Novolin 16 units IV -Actaminophen 1 g IV -Blood/Urine cultures Patient's altered mental status in the context of sepsis and infection is most likely due to a toxic metabolic encephalopathy. Elevated ESR/CRP with x-ray findings suggestive of osteomyelitis are likely the cause; however chest x-ray has findings consistent with pulmonary edema versus pneumonia. Patient meets sepsis criteria through tachycardia, leukocytosis/bandemia, and temperature. Patient's acute kidney injury is most likely due to prerenal azotemia. Patient is being kept NPO overnight for debridement of his right foot tomorrow. CAT scan of his chest/abdomen/pelvis demonstrated pulmonary edema with opacities with central cavitations and perinephric edema, periprostatic edema, and possible prostatitis without any nephrolithiasis or hydronephrosis. VQ scan was low probability for pulmonary embolism. Patient has hyperglycemia with negative acetone; and and gap is elevated but pH is otherwise normal. Patient does not appear to be in diabetic ketoacidosis but given his multiple medical comorbidities and persistently high glucose he is empirically started on an insulin drip. Patient's troponins are elevated without subjective chest pain. EKG demonstrates a left bundle branch block. Serial troponins, echocardiogram, and cardiology evaluation. CT demonstrated cavitary pulmonary lesions concerning for septic emboli for which endocarditis must be considered. Problem list -Sepsis -Altered mental status, probable toxic metabolic encephalopathy -Possible pneumonia -Possible pyelonephritis -Prostatitis -Cavitary pulmonary lesions, possible septic emboli -Right foot second-fourth digit osteomyelitis -Elevated lactic acid -Acute kidney injury, probable prerenal azotemia -Anion gap metabolic acidosis -Hyperglycemia -Elevated troponins, possibly demand ischemia -Left bundle branch block -Insulin-dependent diabetes mellitus -Hypertension -Hyperlipidemia -CAD s/p stent 2013 Plan -ICU admission -Accu-Cheks every hour -Insulin drip @ 2 units/hr -CIWA -Normal saline at 75 mL per hour + 20 KCl -Vancomycin 1g IV daily, adjust for creatinine clearance -Ceftazidime 1 g IV Q8H -Thiamine / Folate / Multivitamin -Confirm home med list -Cardiology consult for elevated troponins -Infectious disease consult for infectious evaluation -Podiatry consult for right foot osteomyelitis -Endocrinology consult for hyperglycemia -Follow-up cultures and sensitivities -Trend troponins/EKG until peak or 3 negative sets -Trend lactic acid until normal -Obtain sputum culture -Check CPK -Echocardiogram -Pain control with acetaminophen -Nothing by mouth for OR in morning -DVT prophylaxis with subcutaneous heparin -FULL CODE As Ranked By This Provider Problem List: 1. Sepsis 2. Osteomyelitis of right foot Core Measures/Misc (04/21) Acute Coronary Syndrome ACS Diagnosis: No Congestive Heart Failure Congestive Heart Failure Diagnosis No Cerebrovascular Accident CVA/TIA Diagnosis: No VTE (View Protocol) VTE Risk Factors Age>40 No Mechanical VTE Prophylaxis d/t N/A MechProphylax Ordered No VTE Pharm Prophylaxis d/t NA PharmProphylax ordered Sepsis (View protocol) Sepsis Present: Yes Dread CARD,Migue Rodriguez 10/21/172025: Attending MD Review Statement Attending Statement Attending MD Statement: examined this patient, discuss w/resident/PA/STUDENT UNION CONSULTANT, agreed w/resident/PA/STUDENT UNION CONSULTANT, discussed with nursing, reviewed images
--- NOTE | 2017-10-21 16:38 | NUCLEAR MEDICINE REPORT ---
EXAMINATION: PULMONARY VENTILATION PERFUSION STUDY CLINICAL INFORMATION: Shortness of breath, elevated d-dimer COMPARISON: No previous lung scan is available for comparison. CT of the chest radiographs of the chest dated 10/21/2017 are available for comparison. TECHNIQUE: Serial gamma scintillation camera images were obtained over the posterior chest during the single breath, equilibrium rebreathing and washout of 10.2 mCi Xe 133 gas. The patient then received 3.8 mCi Tc-99m MAA intravenously and a 6-view perfusion study was performed. FINDINGS: Ventilation images: On the single breath and equilibrium images there is homogeneous distribution of gas bilaterally. During the washout phase there is minimal retention bilaterally. Perfusion images: No segmental perfusion defects are present. There is minimal heterogeneity bilaterally. There are no focal anatomic appearing perfusion defects present. IMPRESSION: Very low probability of pulmonary embolism.
[2017-10-21] MEDS ORDERED: COREG12.5 M1 PO (18:00)
[2017-10-21] MEDS ORDERED: OXYCODONE HCL15 M1 PO (18:00)
--- NOTE | 2017-10-21 18:37 | Cons- Infect Disease ---
General Information and HPI Consulting Request Date of Consult: 10/21/17 Requested By: Migue Canada MD Reason for Consult: Rule out sepsis Source of Information: patient History of Present Illness: This is a 61-year-old man with a heavy smoking and alcohol history, coronary artery disease, status post stent, diabetes, status post left transmetatarsal amputation, with a chronic plantar ulcer on the right foot for the past 6 months , admitted today after he was found by the police at home, unkempt and covered in urine, with a history of increasing fatigue, weakness and decreased po intake for the past 3 days. On admission he was febrile to 100.6, with a blood pressure of 106/68. Laboratory data revealed a white blood cell count of 13,000 , with 72 segs and 20 bands, glucose 467, BUN/creatinine 38 and 1.8, bilirubin 2.3, alk phosphatase 183, troponin 0.85, serum alcohol level less than 10, INR 1.28, d-dimer 4828. Urinalysis 3-5 RBCs/rare WBCs. Chest x-ray revealed a patchy opacity in the right upper lobe, with mild cardiomegaly and diffuse pulmonary edema. X-ray of the right foot revealed extensive bony destructive changes in the second through fourth digits. X-ray of the right fingers revealed findings suggesting the sequelae of rheumatoid arthritis or degenerative arthritis superimposed on a non-erosive arthropathy. CT of the head was negative for any acute process. CT of the chest, abdomen and pelvis revealed mild pulmonary edema, with patchy nodular airspace opacities in both lungs, with central cavitation in some of the opacities; some of the lesions exhibit the reversed halo sign; bilateral perinephric edema, with a prominent prostate. A lung scan revealed a very low probability of pulmonary embolism. He was given IV fluids and begun on an insulin drip. He was also given Vancomycin and Ceftazidime. At present he does not report any specific complaints. He denies any chest pain, shortness of breath or cough. He has no GI or symptoms and he denies any pain in his right foot. 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 Home Who Do You Live With? self Primary Language: Hebrew Smoking Status: Current Everyday Smoker ETOH Use: heavy use Illicit Drug Use: UTD Functional Ability ADLs Independent: dressing, eating, toileting, bathing. Ambulation: independent IADLs Independent: shopping, finances, telephone, transportation, medication admin. Needs Assist: housework, food prep. Employment History Employment: Employed Profession/Employer: [employer] Review of Systems Review of Systems All Other Systems: Reviewed and Negative Exam & Diagnostic Data Last 24 Hrs of Vital Signs/I&O Vital Signs Date Time Temp Pulse Resp B/P B/P Pulse O2 O2 Flow FiO2 Mean Ox Delivery Rate 10/21 1743 97 119/69 10/21 1630 92 20 112/68 94 Room Air 10/21 1534 99.6 94 22 112/69 95 Room Air 10/21 1418 98.7 10/21 1317 100.6 10/21 1307 100.6 115 20 110/69 96 Room Air 10/21 1208 94 Room Air 10/21 1134 98.1 122 26 106/68 93 Room Air Intake & Output 10/21 1600 10/21 0800 10/21 0000 Intake Total 5250 Output Total 400 Balance 4850 Intake, IV 5250 Output, Urine 400 Patient 195 lb Weight Weight Reported by Patient Measurement Method Physical Exam Other Physical Findings: MAXIMUM TEMPERATURE 100.6. He is awake and alert in no acute distress. Skin reveals no rash. HEENT dry oral mucosa. Neck is supple with no adenopathy. Lungs are clear. Heart regular rhythm with no murmur. Abdomen is soft, nontender with positive bowel sounds. Back no CVA tenderness. Extremities status post left TMA; right foot with a deep, necrotic plantar ulcer, with purulent drainage; decreased pulses bilaterally, with no cyanosis, clubbing or edema; right fifth finger necrotic, with slight surrounding erythema, tender to palpation. Neuro is without focality. Robles catheter is in place. Last 24 Hours of Lab Results: Laboratory Tests 10/21 10/21 10/21 1710 1532 1418 Chemistry Lactic Acid (0.7 - 2.1 mmol/L) 3.1 H Troponin I (<0.11 ng/ml) 0.80 *H Toxicology Urine Opiates Screen (>2000 NG/ML) 204 Methadone Screen (>300 NG/ML) < 40 Barbiturate Screen (>200 NG/ML) < 60 Ur Phencyclidine Scrn (>25 NG/ML) < 6.00 Amphetamines Screen (>1000 NG/ML) < 100 U Benzodiazepines Scrn (>200 NG/ML) < 85 Urine Cocaine Screen (>300 NG/ML) < 50 Urine Cannabis Screen (>50 NG/ML) 47.50 Urines Urinalysis MOD H Urine Color (YEL,AMB,STR) YEL Urine Clarity (CLEAR) HAZY H Urine pH (5.0 - 8.0) 6.0 Ur Specific [place] (1.001 - 1.035) 1.015 Urine Protein (NEG,<30 MG/DL) 100 H Urine Ketones (NEG) TRACE H Urine Nitrite (NEG) POS H Urine Bilirubin (NEG) POS@ICTO H Urine Urobilinogen (0.1 - 1.0 EU/dl) 2.0 H Ur Leukocyte Esterase (NEG) SMALL H Ur Microscopic SEDIMENT EXAMINED Urine RBC (0 - 5 /HPF) 3-5 Urine WBC (0 - 2 /HPF) RARE Urine Bacteria (NEG/NONE) MOD H Urine Hemoglobin (NEG) LARGE H Urine Glucose (N MG/DL) NEG 10/21 10/21 10/21 1230 1154 1154 Blood Gas pH (7.35 - 7.45 PH) 7.42 pCO2 (35 - 45 TORR) 24 L pO2 (80 - 100 TORR) 74 L HCO3 (21 - 28 MEQ/L) 15 L ABG O2 Sat (Measured) (>96.0 %) 92.0 L Carboxyhemoglobin (1.5 - 5.0 %) 1.2 L O2 Concentration % RA O2 Delivery Method RA Chemistry Lactic Acid (0.7 - 2.1 mmol/L) 5.1 H Ammonia (9 - 30 umol/L) < 9 L Creatine Kinase (55 - 170 U/L) Pending C-Reactive Prot, Quant (<1.0 mg/dL) > 9.0 H Hematology ESR Westergren (0 - 10 MM) 125 H Miscellaneous Phlebotomy Draw Site RIGHT RADIAL Toxicology Serum Alcohol (<10 MG/DL) < 10.0 10/21 1154 Chemistry Sodium (137 - 145 mmol/L) 142 Potassium (3.5 - 5.1 mmol/L) 4.4 Chloride (98 - 107 mmol/L) 107 Carbon Dioxide (22 - 30 mmol/L) 16 L Anion Gap (5 - 16) 20 H BUN (9 - 20 mg/dL) 38 H Creatinine (0.7 - 1.2 mg/dL) 1.8 H Estimated GFR (>60 ml/min) 39 L BUN/Creatinine Ratio (7 - 25 %) 21.1 Glucose (65 - 99 mg/dL) 467 H Calcium (8.4 - 10.2 mg/dL) 9.0 Total Bilirubin (0.2 - 1.3 mg/dL) 2.3 H Direct Bilirubin (< 0.4 mg/dL) 1.7 H AST (17 - 59 U/L) 51 ALT (21 - 72 U/L) 31 Alkaline Phosphatase (< 127 U/L) 183 H Troponin I (<0.11 ng/ml) 0.85 *H Total Protein (6.3 - 8.2 g/dL) 5.3 L Albumin (3.5 - 5.0 g/dL) 2.6 L Globulin (1.9 - 4.2 gm/dL) 2.7 Albumin/Globulin Ratio (1.1 - 2.2 %) 1.0 L Coagulation PT (9.4 - 12.5 SEC) 14.0 H INR (0.90 - 1.17) 1.28 H APTT (25 - 37 SEC) 31 D-Dimer High Sensitivty (0 - 243 ng/ml) 4828 H Hematology CBC w Diff MAN DIFF ORDERED WBC (4.8 - 10.8 /CUMM) 12.8 H RBC (4.70 - 6.10 /CUMM) 4.39 L Hgb (14.0 - 18.0 G/DL) 12.5 L Hct (42 - 52 %) 37.4 L MCV (80.0 - 94.0 FL) 85.2 MCH (27.0 - 31.0 PG) 28.5 MCHC (33.0 - 37.0 G/DL) 33.4 RDW (11.5 - 14.5 %) 14.5 Plt Count (130 - 400 /CUMM) 179 MPV (7.4 - 10.4 FL) 8.9 Gran % (42.2 - 75.2 %) 94.8 H Lymphocytes % (20.5 - 51.1 %) 3.2 L Monocytes % (1.7 - 9.3 %) 1.8 Eosinophils % (0 - 5 %) 0.1 Basophils % (0.0 - 2.0 %) 0.1 Absolute Granulocytes (1.4 - 6.5 /CUMM) 12.1 H Segmented Neutrophils (42.2 - 75.2 %) 72 Band Neutrophils (0.0 - 5.0 %) 20 H Absolute Lymphocytes (1.2 - 3.4 /CUMM) 0.4 L Lymphocytes (20.5 - 51.1 %) 7 L Monocytes (1.7 - 9.3 %) 1 L Absolute Monocytes (0.10 - 0.60 /CUMM) 0.2 Absolute Eosinophils (0.0 - 0.7 /CUMM) 0 Absolute Basophils (0.0 - 0.2 /CUMM) 0 Platelet Estimate (ADEQUATE) ADEQUATE Theresa Cells RARE Toxicology Acetone Level (NEGATIVE) NEGATIVE Last 24 Hours of [place] Results: Blood cultures October 21 pending Urine culture October 21 pending Rapid flu swab October 21 negative Diagnostic Data Recent Imaging Findings: Chest x-ray revealed a patchy opacity in the right upper lobe, with mild cardiomegaly and diffuse pulmonary edema. X-ray of the right foot revealed extensive bony destructive changes in the second through fourth digits. X-ray of the right fingers revealed findings suggesting the sequelae of rheumatoid arthritis or degenerative arthritis superimposed on a non-erosive arthropathy. CT of the head was negative for any acute process. CT of the chest, abdomen and pelvis revealed mild pulmonary edema, with patchy nodular airspace opacities in both lungs, with central cavitation in some of the opacities; some of the lesions exhibit the reversed halo sign; bilateral perinephric edema, with a prominent prostate. V/Q scan revealed a very low probability of pulmonary embolism. 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 for the past 6 months , admitted today after he was found by the police at home, unkempt and covered in urine, with a history of increasing fatigue, weakness and decreased po intake for the past 3 days, found to have a low-grade fever with a deep, foul-smelling plantar ulcer on the right foot, with a leukocytosis/bandemia, renal insufficiency, elevated liver enzymes, and an elevated troponin, with an x-ray of the right foot suggestive of osteomyelitis of the right second through fourth digits and with a CT of the chest revealing patchy nodular airspace opacities in both lungs, some of which contain central cavitation. His clinical picture is consistent with sepsis. He has several possible sources including the right foot, with a chronic, deep, foul-smelling plantar ulcer and with the x-ray suggesting underlying osteomyelitis, the lungs, with bilateral patchy opacities, some containing central cavitation, suggestive of multiple lung abscesses or embolic disease, and the right fifth finger, with a necrotic, tender lesion. Endocarditis must be considered, given the question of embolic disease to the lungs, though there is no history of IV drug abuse. He is apparently scheduled for right foot surgery in the a.m. and suspect he may require a transmetatarsal amputation and, possibly, eventually, a right BKA. He was covered broadly with antibiotics in the ER and these can be continued pending cultures, possibly with the addition of anaerobic coverage. The elevated troponin is of unclear significance with his renal failure. Suggestion: 1. Await right foot surgery in the a.m. 2. Plastic surgery evaluation of his right fifth finger 3. Attempt to obtain a sputum culture 4. Follow-up echocardiogram 5. Add Flagyl 500 mg IV every 8 hours 6. Continue Vancomycin 1 g IV every 24 hours (would increase to every 12 hours if his repeat creatinine this evening is decreased) and Ceftazidime 1 g IV every 8 hours Consult Acknowledgment - Thank you for your consult request.
[2017-10-21 20:00] VITALS: BP 130/96
--- NOTE | 2017-10-21 20:21 | Admission Certification ---
Admission Certification Certification Statement - As attending physician, I certify that at the time of - admission, based on clinical presentation, severity of - symptoms, need for further diagnostic testing and - therapeutic interventions, and risk of adverse outcomes - without in-hospital treatment, in my clinical assessment, - this patient requires an acute hospital stay for a minimum - of two nights or longer. I have also considered psychsocial - factors such as support system, advanced age, financial - issues, cognitive issues, and failed out-patient treatments, - past re-admission history, safety of patient, and lack of - compliance as applicable. Specific rationale supporting this admission is: The patient is being admitted to the [facility] for sepsis of urologic origin. He requires frequent monitoring and volume resusicitation of for sepsis.
--- NOTE | 2017-10-21 20:35 | Cons- Endocrinology ---
General Information and HPI Consulting Request Date of Consult: 10/21/17 Requested By: ICU team Reason for Consult: management of severe hyperglycemia in the setting of sepsis Source of Information: patient, old records Exam Limitations: confusion, poor historian History of Present Illness: 61-year-old man with past medical history significant for diabetes mellitus and coronary artery disease status post stent placement, was brought in by ambulance for evaluation of altered mental status. On Saturday he "overdid it" when he ate a large amount of pizza. Then patient was in bed with profound fatigue over the weekend. In ER, his glucose level was over 400 along with Cr 1.8, bicarb 16, AG 20, troponin 0.8 and CPK 1485. He received sc insulin 8 units and NS 6 liters in ER. X-ray of the right foot revealed extensive bony destructive changes. X-ray of the right fingers revealed findings suggesting the sequelae of rheumatoid arthritis or degenerative arthritis superimposed on a non-erosive arthropathy. Drug screening was positive for opiates and marijuana. Currently he is in ICU and is receiving D5NS with KCL at 75 ml/hour and insulin drip 2 units per hour. He will be NPO overnight for foot procedure tomorrow. Allergies/Medications Allergies: Coded Allergies: No Known Allergies (10/21/17) Home Med List: Carvedilol (Coreg) 12.5 MG TABLET 1 TAB PO BID CAD Clopidogrel Bisulfate (Clopidogrel) 75 MG TABLET 1 TAB PO DAILY CAD/CHI ( Reported) Ibuprofen (Motrin Ib) 200 MG TABLET 1 TAB PO Q6H PRN PAIN (Reported) Insulin Regular (Novolin R Inj) 1,000 UNITS/10 ML KELVIN 15 UNITS SC BID DIABETES (Reported) Leflunomide (Arava) 20 MG TABLET 1 TAB PO DAILY RHEUMATOID ARTHRITIS ( Reported) Lisinopril 20 MG TABLET 1 TAB PO DAILY HTN (Reported) Oxycodone HCl 15 MG TABLET 1 TAB PO TID PAIN Prednisone 5 MG TABLET 1 TAB PO DAILY RHEUMATOID ARTHRITIS (Reported) Review of Systems Review of Systems Constitutional: Reports: see HPI, malaise, weakness. Cardiovascular: Denies: chest pain. Respiratory: Denies: short of breath. GI: Denies: abdominal pain. Musculoskeletal: Reports: see HPI. Hematologic/Endocrine: Reports: polydipsia. 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 Home Who Do You Live With? self Primary Language: Tajik Smoking Status: Current Everyday Smoker ETOH Use: heavy use Illicit Drug Use: UTD Functional Ability ADLs Independent: dressing, eating, toileting, bathing. Ambulation: independent IADLs Independent: shopping, finances, telephone, transportation, medication admin. Needs Assist: housework, food prep. Employment History Employment: Employed Profession/Employer: [employer] Exam & Diagnostic Data Last 24 Hrs of Vital Signs/I&O Vital Signs Date Time Temp Pulse Resp B/P B/P Pulse O2 O2 Flow FiO2 Mean Ox Delivery Rate 10/21 1916 99.0 115 18 133/87 98 Room Air 10/21 1743 97 119/69 10/21 1630 92 20 112/68 94 Room Air 10/21 1534 99.6 94 22 112/69 95 Room Air 10/21 1418 98.7 10/21 1317 100.6 10/21 1307 100.6 115 20 110/69 96 Room Air 10/21 1208 94 Room Air 10/21 1134 98.1 122 26 106/68 93 Room Air Intake & Output 10/21 1600 10/21 0800 10/21 0000 Intake Total 5250 Output Total 400 Balance 4850 Intake, IV 5250 Output, Urine 400 Patient 195 lb Weight Weight Reported by Patient Measurement Method Physical Exam General Appearance: lethargic Neck: supple Respiratory: decreased breath sounds Cardiovascular: regular rate/rhythm Extremities: lesions in his right foot. Labs/[place] Results: Laboratory Tests 10/21 10/21 10/21 1842 1710 1532 Chemistry Sodium (137 - 145 mmol/L) 146 H Potassium (3.5 - 5.1 mmol/L) 3.8 Chloride (98 - 107 mmol/L) 117 H Carbon Dioxide (22 - 30 mmol/L) 16 L Anion Gap (5 - 16) 13 BUN (9 - 20 mg/dL) 37 H Creatinine (0.7 - 1.2 mg/dL) 1.5 H Estimated GFR (>60 ml/min) 48 L BUN/Creatinine Ratio (7 - 25 %) 24.7 Glucose (65 - 99 mg/dL) 223 H Lactic Acid (0.7 - 2.1 mmol/L) 3.1 H Calcium (8.4 - 10.2 mg/dL) 7.3 L Troponin I (<0.11 ng/ml) 0.80 *H Toxicology Urine Opiates Screen (>2000 NG/ML) 204 Methadone Screen (>300 NG/ML) < 40 Barbiturate Screen (>200 NG/ML) < 60 Ur Phencyclidine Scrn (>25 NG/ML) < 6.00 Amphetamines Screen (>1000 NG/ML) < 100 U Benzodiazepines Scrn (>200 NG/ML) < 85 Urine Cocaine Screen (>300 NG/ML) < 50 Urine Cannabis Screen (>50 NG/ML) 47.50 Urines Urinalysis MOD H Urine Color (YEL,AMB,STR) YEL Urine Clarity (CLEAR) HAZY H Urine pH (5.0 - 8.0) 6.0 Ur Specific [place] (1.001 - 1.035) 1.015 Urine Protein (NEG,<30 MG/DL) 100 H Urine Ketones (NEG) TRACE H Urine Nitrite (NEG) POS H Urine Bilirubin (NEG) POS@ICTO H Urine Urobilinogen (0.1 - 1.0 EU/dl) 2.0 H Ur Leukocyte Esterase (NEG) SMALL H Ur Microscopic SEDIMENT EXAMINED Urine RBC (0 - 5 /HPF) 3-5 Urine WBC (0 - 2 /HPF) RARE Urine Bacteria (NEG/NONE) MOD H Urine Hemoglobin (NEG) LARGE H Urine Glucose (N MG/DL) NEG 10/21 10/21 10/21 10/21 1418 1230 1154 1154 Blood Gas pH (7.35 - 7.45 PH) 7.42 pCO2 (35 - 45 TORR) 24 L pO2 (80 - 100 TORR) 74 L HCO3 (21 - 28 MEQ/L) 15 L ABG O2 Sat (Measured) (>96.0 %) 92.0 L Carboxyhemoglobin (1.5 - 5.0 %) 1.2 L O2 Concentration % RA O2 Delivery Method RA Chemistry Lactic Acid (0.7 - 2.1 mmol/L) 3.1 H 5.1 H Ammonia (9 - 30 umol/L) < 9 L C-Reactive Prot, Quant (<1.0 mg/dL) > 9.0 H Hematology ESR Westergren (0 - 10 MM) 125 H Miscellaneous Phlebotomy Draw Site RIGHT RADIAL Toxicology Serum Alcohol (<10 MG/DL) < 10.0 10/21 1154 Chemistry Sodium (137 - 145 mmol/L) 142 Potassium (3.5 - 5.1 mmol/L) 4.4 Chloride (98 - 107 mmol/L) 107 Carbon Dioxide (22 - 30 mmol/L) 16 L Anion Gap (5 - 16) 20 H BUN (9 - 20 mg/dL) 38 H Creatinine (0.7 - 1.2 mg/dL) 1.8 H Estimated GFR (>60 ml/min) 39 L BUN/Creatinine Ratio (7 - 25 %) 21.1 Glucose (65 - 99 mg/dL) 467 H Calcium (8.4 - 10.2 mg/dL) 9.0 Total Bilirubin (0.2 - 1.3 mg/dL) 2.3 H Direct Bilirubin (< 0.4 mg/dL) 1.7 H AST (17 - 59 U/L) 51 ALT (21 - 72 U/L) 31 Alkaline Phosphatase (< 127 U/L) 183 H Creatine Kinase (55 - 170 U/L) 1485 H Troponin I (<0.11 ng/ml) 0.85 *H Total Protein (6.3 - 8.2 g/dL) 5.3 L Albumin (3.5 - 5.0 g/dL) 2.6 L Globulin (1.9 - 4.2 gm/dL) 2.7 Albumin/Globulin Ratio (1.1 - 2.2 %) 1.0 L Coagulation PT (9.4 - 12.5 SEC) 14.0 H INR (0.90 - 1.17) 1.28 H APTT (25 - 37 SEC) 31 D-Dimer High Sensitivty (0 - 243 ng/ml) 4828 H Hematology CBC w Diff MAN DIFF ORDERED WBC (4.8 - 10.8 /CUMM) 12.8 H RBC (4.70 - 6.10 /CUMM) 4.39 L Hgb (14.0 - 18.0 G/DL) 12.5 L Hct (42 - 52 %) 37.4 L MCV (80.0 - 94.0 FL) 85.2 MCH (27.0 - 31.0 PG) 28.5 MCHC (33.0 - 37.0 G/DL) 33.4 RDW (11.5 - 14.5 %) 14.5 Plt Count (130 - 400 /CUMM) 179 MPV (7.4 - 10.4 FL) 8.9 Gran % (42.2 - 75.2 %) 94.8 H Lymphocytes % (20.5 - 51.1 %) 3.2 L Monocytes % (1.7 - 9.3 %) 1.8 Eosinophils % (0 - 5 %) 0.1 Basophils % (0.0 - 2.0 %) 0.1 Absolute Granulocytes (1.4 - 6.5 /CUMM) 12.1 H Segmented Neutrophils (42.2 - 75.2 %) 72 Band Neutrophils (0.0 - 5.0 %) 20 H Absolute Lymphocytes (1.2 - 3.4 /CUMM) 0.4 L Lymphocytes (20.5 - 51.1 %) 7 L Monocytes (1.7 - 9.3 %) 1 L Absolute Monocytes (0.10 - 0.60 /CUMM) 0.2 Absolute Eosinophils (0.0 - 0.7 /CUMM) 0 Absolute Basophils (0.0 - 0.2 /CUMM) 0 Platelet Estimate (ADEQUATE) ADEQUATE Theresa Cells RARE Toxicology Acetone Level (NEGATIVE) NEGATIVE Assessment/Plan Assessment/Plan 61-year-old man with past medical history significant for diabetes mellitus and coronary artery disease status post stent placement, was brought in by ambulance for evaluation of altered mental status. DM management: 1. start Levemir 20 units twice a day; 2. continue D5 1/2 NS at 75 ml/hour; 3. monitor electrolytes tonight; 4. start Novolog coverage every 4 hours--detail see the inpatient DM order; 5. monitor FSGs. will follow. Inpatient Diabetes Orders Every 4 Hours: Bolus Insulin: Novolog < 80 mg/dl: no coverage 80-100 mg/dl: no coverage 101-120 mg/dl: 3 units 121-150 mg/dl: 3 units 151-200 mg/dl: 5 units 201-250 mg/dl: 7 units 251-300 mg/dl: 9 units 301-350 mg/dl: 11 units 351-400 mg/dl: 13 units > 400 mg/dl: 15 units Consult Acknowledgment - Thank you for your consult request.
--- NOTE | 2017-10-21 20:37 | Event Note ---
Event Note Event Note: Situation: Repeat chemistry demonstrated improved anion gap and blood glucose Background 61 year old man with multiple medical problems admitted for multifactorial sepsis with right foot osteomyelitis. He is an insulin dependent diabetes with initially high glucose for which an insulin drip was started. Assessment Case discussed with certified medical coder Dr. Franco whom advised changing fluids to D5 1/2 NS + KCl and to discontinued insulin drip and start levemir and novolog insulin every four hours. Plan: -D5 1/2 NS + 20 mEq KCL @75mL/hr -Levemir 20 units SC BID -Novolog SSI -Accuchecks Q4H -Discontinue insulin drip -Remain NPO for surgery / AMS
--- NOTE | 2017-10-21 20:47 | RADIOLOGY REPORT ---
EXAMINATION: XR PORTABLE CHEST CLINICAL INFORMATION: Tachypnea. Question pulmonary edema or effusion. Cavitary lesions. Sepsis. Status post 7 L of fluid. COMPARISON: CT chest from 2:36 PM the same day. TECHNIQUE: Portable frontal view of the chest was obtained. FINDINGS: The cardiomediastinal silhouette is stable across modalities. There is hazy opacification at the periphery of the right lung and patchy/nodular opacification seen in both lungs, which are much better visualized on the recent CT, and appear to correlate with some platelike and multifocal nodular areas of opacification. Superimposed on this there is no convincing evidence of evolving pulmonary edema. No pleural effusions or pneumothorax. No acute osseous abnormalities are visualized. IMPRESSION: Stable appearance of the chest since the chest CT of earlier the same day demonstrating multifocal nodular opacities within the lungs, with a more platelike area of faint opacification in the right lung corresponding to a larger area of airspace consolidation on CT, without interval development of pulmonary edema.
[2017-10-21] MEDS ORDERED: PREDNISONE5 M1 PO (21:24)
[2017-10-21] MEDS ORDERED: ARAVA20 M1 PO (21:24)
[2017-10-21] MEDS ORDERED: NOVOLIN R100 UNIT/1 SC (21:25)
[2017-10-21] MEDS ORDERED: MOTRIN IB200 M1 PO (21:25)
[2017-10-21] MEDS ORDERED: LISINOPRIL20 M1 PO (21:25)
[2017-10-21] MEDS ORDERED: CLOPIDOGREL75 M1 PO (21:26)
--- NOTE | 2017-10-21 21:43 | Cons- Cardiology ---
General Information and HPI Consulting Request Date of Consult: 10/21/17 Requested By: Migue Canada MD History of Present Illness: This patient is a 61 year old male with history of hypertension, dyslipidemia, diabetes and known coronary artery disease who was brought to the ER for evaluation of unresponsiveness. When he did not respond to a text the patient's former girlfriend called EMS who found the patient confused and incontinent lying in urine. He also had a very elevated blood glucose. The patient was living in unclean surroundings. It is reported that he had eaten a pizza a couple nithgs back and then remained in bed. The patient denies any chest discomfort, shortness of breath, lightheadedness or palpitations. At baseline, he can walk at only a moderate rate but he attributes his inability to be more active on a large hole he has in his right foot. It should be noted that this patient is non-compliant with taking his medications. In the ER the patient was noted to have an elevated troponin of 0.85. Allergies/Medications Allergies: Coded Allergies: No Known Allergies (10/21/17) Home Med List: Carvedilol (Coreg) 12.5 MG TABLET 1 TAB PO BID CAD Clopidogrel Bisulfate (Clopidogrel) 75 MG TABLET 1 TAB PO DAILY CAD/CHI ( Reported) Ibuprofen (Motrin Ib) 200 MG TABLET 1 TAB PO Q6H PRN PAIN (Reported) Insulin Regular (Novolin R Inj) 1,000 UNITS/10 ML KELVIN 15 UNITS SC BID DIABETES (Reported) Leflunomide (Arava) 20 MG TABLET 1 TAB PO DAILY RHEUMATOID ARTHRITIS ( Reported) Lisinopril 20 MG TABLET 1 TAB PO DAILY HTN (Reported) Oxycodone HCl 15 MG TABLET 1 TAB PO TID PAIN Prednisone 5 MG TABLET 1 TAB PO DAILY RHEUMATOID ARTHRITIS (Reported) Review of Systems Review of Systems: A review of systems is remarkable for a severe foot ulcer. 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 Home Who Do You Live With? self Primary Language: Bulgarian Smoking Status: Current Everyday Smoker ETOH Use: heavy use Illicit Drug Use: UTD Functional Ability ADLs Independent: dressing, eating, toileting, bathing. Ambulation: independent IADLs Independent: shopping, finances, telephone, transportation, medication admin. Needs Assist: housework, food prep. Employment History Employment: Employed Profession/Employer [employer] Exam & Diagnostic Data Vital Signs and I&O Vital Signs Date Time Temp Pulse Resp B/P B/P Pulse O2 O2 Flow FiO2 Mean Ox Delivery Rate 10/21 1916 99.0 115 18 133/87 98 Room Air 10/21 1743 97 119/69 10/21 1630 92 20 112/68 94 Room Air 10/21 1534 99.6 94 22 112/69 95 Room Air 10/21 1418 98.7 10/21 1317 100.6 10/21 1307 100.6 115 20 110/69 96 Room Air 10/21 1208 94 Room Air 10/21 1134 98.1 122 26 106/68 93 Room Air Intake & Output 10/21 1600 10/21 0800 10/21 0000 10/20 1600 10/20 0800 10/20 0000 Intake Total 5250 Output Total 400 Balance 4850 Intake, IV 5250 Output, Urine 400 Patient 195 lb Weight Weight Reported by Patient Measurement Method Physical Exam: General: WD/WN male in NAD; alert and oriented x 3 HEENT: NC/AT, PERRL, EOMI Neck: no JVD, no carotid bruit Heart: RRR with 2/6 systolic murmur Lungs: clear bilaterally Abdomen: soft, NT, +ve bowel sounds Extremties: no edema, left TMA, right plantar uler Assessment/Plan Assessment/Plan * This patient has a mildly increased troponin consistent with a type 2 WV. There may be some artifactual rise in troponin from decreased clearance in the setting of decreased renal function. There is no clear evidence of decompensated congestive heart failure. This patient should be on a statin, aspirin, Coreg and an ACEI. * This patient has osteomyelitis and anticipates surgery for this condition. He is at mildly increased risk due to his current WV but this is not considered high risk surgery. * Obtain an echocardiogram. Consult Acknowledgment - Thank you for your consult request.
[2017-10-21 22:00] VITALS: BP 115/59
--- NOTE | 2017-10-21 23:05 | ECHOCARDIOGRAM REPORT ---
MICHELA GRUBER Age: 61 : 1955 Gender: M Exam Date: 10/21/2017 17:43 Exam Location: ER Ht (in): 74 Wt (lb): 195 BSA: 2.15 BP: 112 / 69 Ordering Physician: Masood Loco MD Referring Physician: Chencho Hansen MD, PhD Technologist: Lilo Garcia ORIANA Room Number: ER#1 Indications: HYPOTENSION Rhythm: Sinus Technical Quality: fair FINDINGS Left Ventricle Normal left ventricular size with mild left ventricular hypertrophy. Mildly decreasaed systolic function with anterioseptal hypokinesis at the base and mid ventricle Normal left ventricular diastolic filling pattern for age. The ejection fraction is visually estimated at 40%. Right Ventricle The right ventricle is normal in size and function. Right Atrium The right atrium is normal in size. Left Atrium The left atrium is mildly enlarged. The interatrial septum is intact. Mitral Valve The mitral valve is normal in structure and function. There is mild mitral regurgitation. Aortic Valve Structurally normal aortic valve without significant sclerosis or stenosis. There is no aortic regurgitation. Tricuspid Valve The tricuspid valve is normal in structure and function. There is trace tricuspid regurgitation. Pulmonary artery systolic pressure is normal. Pulmonic Valve Structurally normal pulmonic valve. There is trace pulmonic regurgitation. Pericardium Normal pericardium without effusion. No pleural effusion. Great Vessels Normal aortic root dimension. The aortic arch and great vessels are well seen and are normal. CONCLUSIONS 1. Mildly decreased EF of 45% with anteroseptal hypokinesis. 2. Mild left ventricular hypertrophy. 3. Mild left atrial enalargement. 4. Mild mitrak regurgitationl 5. Trace pulmonic regurgitation. Chencho Hansen M.D. (Electronically Signed) Final Date: 21 October 2017 23:04 MEASUREMENTS (Male / Female) Normal Values 2D ECHO LV Diastolic Diameter PLAX 6.0 cm 4.2 - 5.9 / 3.9 - 5.3 cm LV Systolic Diameter PLAX 4.9 cm 2.1 - 4.0 cm LV Fractional Shortening PLAX 18.3 % 25 - 46 % LV Ejection Fraction 2D Teich 37.3 % IVS Diastolic Thickness 1.2 cm LVPW Diastolic Thickness 1.2 cm LV Relative Wall Thickness 0.4 RV Internal Dim ED PLAX 3.0 cm 1.9 - 3.8 cm LVOT Diameter 1.9 cm Aortic Root Diameter 3.2 cm LA Systolic Diameter LX 4.3 cm 3.0 - 4.0 / 2.7 - 3.8 cm LA Volume 28.0 cm 18 - 58 / 22 - 52 cm Ascending Aorta Diameter 3.1 cm DOPPLER AV Peak Velocity 174.0 cm/s AV Peak Gradient 12.1 mmHg AV Mean Velocity 112.0 cm/s AV Mean Gradient 6.0 mmHg AV Velocity Time Integral 28.0 cm LVOT Peak Velocity 107.0 cm/s LVOT Peak Gradient 4.6 mmHg LVOT Mean Velocity 67.5 cm/s LVOT Mean Gradient 2.0 mmHg LVOT Velocity Time Integral 17.7 cm LVOT Stroke Volume 50.2 cm AV Area Cont Eq vti 1.8 cm AV Area Cont Eq pk 1.7 cm MV Peak Velocity 90.3 cm/s MV Peak Gradient 3.3 mmHg MV Mean Velocity 60.4 cm/s MV Mean Gradient 2.0 mmHg Mitral E Point Velocity 101.0 cm/s Mitral A Point Velocity 74.5 cm/s Mitral E to A Ratio 1.4 MV PHT Velocity 93.7 cm/s MV Deceleration Hoke 359.0 cm/s MV Pressure Half Time 78.3 ms MV Area PHT 2.8 cm MV Deceleration Time 124.0 ms PV Peak Velocity 121.0 cm/s PV Peak Gradient 5.9 mmHg PV Mean Velocity 74.5 cm/s PV Mean Gradient 3.0 mmHg PV Velocity Time Integral 22.9 cm LV E' Lateral Velocity 10.6 cm/s Mitral E to LV E' Lateral Ratio 9.5 LV E' Septal Velocity 6.5 cm/s Mitral E to LV E' Septal Ratio 15.5
[2017-10-22] VITALS (9 sets, daily range): BP systolic 90–104; BP diastolic 50–66
[2017-10-22 05:24] LABS: ABSOLUTE BASOPHIL COUNT 0 /CUMM (0.0-0.2); ABSOLUTE EOSINOPHIL COUNT 0.1 /CUMM (0.0-0.7); ABSOLUTE GRANULOCYTE CT 8.7 /CUMM (1.4-6.5); ABSOLUTE LYMPH COUNT 0.4 /CUMM (1.2-3.4); ABSOLUTE MONOCYTE COUNT 0.1 /CUMM (0.10-0.60); BASOPHIL % 0.4 % (0.0-2.0); EOSINOPHIL % 0.7 % (0-5); MEAN CORPUSCULAR HGB 28.3 PG (27.0-31.0); MEAN CORPUSCULAR HGB CONC 32.7 G/DL (33.0-37.0); MEAN CORPUSCULAR VOLUME 86.5 FL (80.0-94.0); MEAN PLATELET VOLUME 9.2 FL (7.4-10.4); PLATELET COUNT 145 /CUMM (130-400); RBC DISTRIBUTION WIDTH 14.6 % (11.5-14.5); RED BLOOD CELL CT 3.41 /CUMM (4.70-6.10); WHITE BLOOD CELL COUNT 9.3 /CUMM (4.8-10.8)
[2017-10-22 05:38] LABS: HEMATOCRIT 29.5 % (42-52)
--- NOTE | 2017-10-22 07:47 | Cons- CRCU ---
General Information and HPI Allergies/Medications Allergies: Coded Allergies: No Known Allergies (10/21/17) Home Med List: Carvedilol (Coreg) 12.5 MG TABLET 1 TAB PO BID CAD Clopidogrel Bisulfate (Clopidogrel) 75 MG TABLET 1 TAB PO DAILY CAD/CHI ( Reported) Ibuprofen (Motrin Ib) 200 MG TABLET 1 TAB PO Q6H PRN PAIN (Reported) Insulin Regular (Novolin R Inj) 1,000 UNITS/10 ML KELVIN 15 UNITS SC BID DIABETES (Reported) Leflunomide (Arava) 20 MG TABLET 1 TAB PO DAILY RHEUMATOID ARTHRITIS ( Reported) Lisinopril 20 MG TABLET 1 TAB PO DAILY HTN (Reported) Oxycodone HCl 15 MG TABLET 1 TAB PO TID PAIN Prednisone 5 MG TABLET 1 TAB PO DAILY RHEUMATOID ARTHRITIS (Reported) Past History Travel History Traveled to [facility] past 21 day No Medical History Neurological: NONE EENT: NONE Cardiovascular: hypertension, hyperlipidemia, myocardial infarction Respiratory: NONE Gastrointestinal: NONE Hepatic: NONE Renal: NONE Musculoskeletal: osteoarthritis Psychiatric: chronic pain disorder Endocrine: diabetes Blood Disorders: NONE Cancer(s): NONE 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 Home Who Do You Live With? self Primary Language: [place] Smoking Status: Current Everyday Smoker ETOH Use: heavy use Illicit Drug Use: UTD Functional Ability ADLs Independent: dressing, eating, toileting, bathing. Ambulation: independent IADLs Independent: shopping, finances, telephone, transportation, medication admin. Needs Assist: housework, food prep. Employment History Employment: Employed Profession/Employer: [employer] Assessment/Plan CRCU Consult Acknowledgment - Thank you for your consult request.
--- NOTE | 2017-10-22 08:41 | PN- CRCU ---
Subjective HPI/Critical Care Issues: The patient is awake and alert. He remains intermittently confused. He is currently afebrile and is hemodynamically stable. There were no significant overnight events reported. Objective Current Medications: Current Medications Sig/Lai Start time Last Medication Dose Route Stop Time Status Admin Acetaminophen 1,000 MG Q6P PRN 10/21 1700 AC IV Acetaminophen 0 .STK-MED ONE 10/21 1317 DC PO Acetaminophen 0 .STK-MED ONE 10/21 1317 DC IV Acetaminophen 1,000 MG ONCE ONE 10/21 1315 DC 10/21 N/A 1 UNIT IV 10/21 1329 1317 Aspirin 0 .STK-MED ONE 10/21 1318 DC PO Aspirin 325 MG ONCE ONE 10/21 1315 DC 10/21 PO 10/21 1316 1317 Ceftazidime 1,000 MG IQ8 10/22 0000 AC 10/22 IV 0002 Ceftazidime 0 .STK-MED ONE 10/21 1254 DC .ROUTE Ceftazidime 1,000 MG ONCE ONE 10/21 1245 DC 10/21 IV 10/21 1246 1301 Folic Acid 0 .STK-MED ONE 10/21 1824 DC PO Folic Acid 1 MG DAILY 10/21 1703 AC 10/21 PO 1826 Heparin Sodium 5,000 UNIT Q8 10/21 2200 AC 10/22 (Porcine) SC 0645 Insulin Aspart 0 Q4 10/21 2200 AC 10/22 SC 0653 Insulin Detemir 20 UNITS BID 10/21 2200 AC 10/21 SC 2113 Insulin Human Regular 100 UNIT Q24H 10/21 1715 DC 10/21 Sodium Chloride 100 ML IV 1752 Insulin Human Regular 8 UNITS ONCE ONE 10/21 1430 DC 10/21 IV 10/21 1431 1542 Insulin Human Regular 8 UNITS ONCE ONE 10/21 1200 DC 10/21 SC 10/21 1201 1159 Multivitamins 0 .STK-MED ONE 10/21 1824 DC PO Multivitamins 1 TAB DAILY 10/21 1703 AC 10/21 PO 1826 Potassium Chloride 20 MEQ .[Q13] 10/21 2015 CAN IV Potassium Chloride 20 MEQ Q13H 10/21 2014 AC 10/21 Dextrose/Sodium 1,000 ML IV 2016 Chloride Potassium Chloride 20 MEQ Q13H 10/21 1930 DC Dextrose/Sodium 1,000 ML IV Chloride Potassium Chloride 20 MEQ .[Q13] 10/21 1915 CAN IV Potassium Chloride 20 MEQ Q13H 10/21 1715 DC 10/21 Sodium Chloride 1,000 ML IV 1903 Prednisone 5 MG DAILY 10/22 1000 AC PO Sodium Chloride 500 ML BOLUS ONE 10/21 1545 DC 10/21 IV 10/21 1644 1633 Sodium Chloride 1,000 ML BOLUS ONE 10/21 1515 DC 10/21 IV 10/21 1614 1415 Sodium Chloride 1,000 ML BOLUS ONE 10/21 1400 DC 10/21 IV 10/21 1459 1317 Sodium Chloride 1,000 ML BOLUS ONE 10/21 1245 DC 10/21 IV 10/21 1344 1240 Sodium Chloride 1,000 ML BOLUS ONE 10/21 1200 DC 10/21 IV 10/21 1259 1206 Sodium Chloride 1,000 ML BOLUS ONE 10/21 1145 DC 10/21 IV 10/21 1244 1200 Thiamine HCl 0 .STK-MED ONE 10/21 1824 DC PO Thiamine HCl 100 MG DAILY 10/21 1703 AC 10/21 PO 1826 Vancomycin HCl 1,000 MG DAILY 10/22 1000 AC Dextrose/Water 250 ML IV Vancomycin HCl 1,500 MG ONCE ONE 10/21 1245 CAN IV 10/21 1246 Vancomycin HCl 1,500 MG ONCE ONE 10/21 1245 DC 10/21 Sodium Chloride 250 ML IV 10/21 1414 1316 Physical Exam General Appearance awake, follows commands, not oriented to place HEENT Atraumatic, PERRLA Neck Supple, No JVD Cardiovascular Regular Rate, Normal S1, Normal S2, No Murmurs Lungs Diminished bibasilar airflow with occasional rhonchi Abdomen Normal Bowel Sounds, Soft, No Tenderness, No Hepatospenomegaly, No Masses Neurological Normal Speech, Strength at 5/5 X4 Ext, Normal Tone, Sensation Intact Extremities No Clubbing, No Cyanosis, Skin changes to right foot without any obvious drainage Vital Signs & I&O Last 24 Hrs of Vitals and I&O: Vital Signs Date Time Temp Pulse Resp B/P B/P Pulse O2 O2 Flow FiO2 Mean Ox Delivery Rate 10/22 0400 93 Room Air 10/22 0000 98.6 116 20 104/50 10/22 0000 98.6 116 20 104/50 94 Room Air 10/22 0000 93 Room Air 10/21 2200 111 32 115/59 10/22 1999 111 20 130/96 10/22 1999 99.1 111 20 130/96 10/21 2000 95 Room Air 10/21 1916 99.0 115 18 133/87 98 Room Air 10/21 1743 97 119/69 10/21 1630 92 20 112/68 94 Room Air 10/21 1534 99.6 94 22 112/69 95 Room Air 10/21 1418 98.7 10/21 1317 100.6 10/21 1307 100.6 115 20 110/69 96 Room Air 10/21 1208 94 Room Air 10/21 1134 98.1 122 26 106/68 93 Room Air Intake & Output 10/22 1600 10/22 0800 10/22 0000 Intake Total 506 396 Output Total 580 250 Balance -74 146 Intake, IV 506 396 Output, Urine 580 250 Patient 189 lb Weight Weight Bed scale Measurement Method Results Last 24 Hrs of Lab Results: Laboratory Tests 10/22/17 0805: Lactic Acid Pending 10/22/17 0435: Anion Gap 11, Estimated GFR 52 L, Glucose 120 H, Lactic Acid 2.5 H, Calcium 7.5 L, Phosphorus 1.9 L, Magnesium 2.2, Total Bilirubin 2.7 H, AST 110 H, ALT 45, Troponin I Pending, Albumin 1.9 L, CBC w Diff MAN DIFF ORDERED, RBC 3.41 L, MCV 86.5, MCH 28.3, MCHC 32.7 L, RDW 14.6 H, MPV 9.2, Gran % 93.0 H, Lymphocytes % 4.8 L, Monocytes % 1.1 L, Eosinophils % 0.7, Basophils % 0.4, Absolute Granulocytes 8.7 H, Segmented Neutrophils 74, Band Neutrophils 17 H, Absolute Lymphocytes 0.4 L, Lymphocytes 7 L, Monocytes 2, Absolute Monocytes 0.1, Absolute Eosinophils 0.1, Absolute Basophils 0, Platelet Estimate ADEQUATE, Polychromasia 1+, Hypochromic-Microcytic 1+, Poikilocytosis 1+, Ovalocytes 1+, [place] Cells FEW, Elliptocytes FEW, Fld Total RBCs Counted 100 10/22/17 0230: Lactic Acid 2.2 H 10/21/17 2215: Anion Gap 9, Estimated GFR 48 L, BUN/Creatinine Ratio 25.3 H, Lactic Acid 2.7 H, Troponin I 0.84 *H 10/21/17 2100: Lactic Acid Cancelled 10/21/17 1842: Anion Gap 13, Estimated GFR 48 L, BUN/Creatinine Ratio 24.7, Glucose 223 H, Lactic Acid 3.1 H, Calcium 7.3 L 10/21/17 1710: Troponin I 0.80 *H 10/21/17 1532: Urine Opiates Screen 204, Methadone Screen < 40, Barbiturate Screen < 60, Ur Phencyclidine Scrn < 6.00, Amphetamines Screen < 100, U Benzodiazepines Scrn < 85, Urine Cocaine Screen < 50, Urine Cannabis Screen 47.50, Urinalysis MOD H, Urine Color YEL, Urine Clarity HAZY H, Urine pH 6.0, Ur Specific [place] 1.015, Urine Protein 100 H, Urine Ketones TRACE H, Urine Nitrite POS H, Urine Bilirubin POS@ICTO H, Urine Urobilinogen 2.0 H, Ur Leukocyte Esterase SMALL H , Ur Microscopic SEDIMENT EXAMINED, Urine RBC 3-5, Urine WBC RARE, Urine Bacteria MOD H, Urine Hemoglobin LARGE H, Urine Glucose NEG 10/21/17 1418: Lactic Acid 3.1 H 10/21/17 1230: pH 7.42, pCO2 24 L, pO2 74 L, HCO3 15 L, ABG O2 Sat (Measured) 92.0 L, Carboxyhemoglobin 1.2 L, O2 Concentration % RA, O2 Delivery Method RA, Phlebotomy Draw Site RIGHT RADIAL 10/21/17 1154: Lactic Acid 5.1 H 10/21/17 1154: Ammonia < 9 L, C-Reactive Prot, Quant > 9.0 H, ESR [place]gren 125 H, Serum Alcohol < 10.0 10/21/17 1154: Anion Gap 20 H, Estimated GFR 39 L, BUN/Creatinine Ratio 21.1, Glucose 467 H, Calcium 9.0, Total Bilirubin 2.3 H, Direct Bilirubin 1.7 H, AST 51, ALT 31, Alkaline Phosphatase 183 H, Creatine Kinase 1485 H, Troponin I 0.85 *H, Total Protein 5.3 L, Albumin 2.6 L, Globulin 2.7, Albumin/Globulin Ratio 1.0 L, PT 14.0 H, INR 1.28 H, APTT 31, D-Dimer High Sensitivty 4828 H, CBC w Diff MAN DIFF ORDERED, RBC 4.39 L, MCV 85.2, MCH 28.5, MCHC 33.4, RDW 14.5, MPV 8.9, Gran % 94.8 H, Lymphocytes % 3.2 L, Monocytes % 1.8, Eosinophils % 0.1, Basophils % 0.1, Absolute Granulocytes 12.1 H, Segmented Neutrophils 72, Band Neutrophils 20 H, Absolute Lymphocytes 0.4 L, Lymphocytes 7 L, Monocytes 1 L , Absolute Monocytes 0.2, Absolute Eosinophils 0, Absolute Basophils 0, Platelet Estimate ADEQUATE, [place] Cells RARE, Acetone Level NEGATIVE Impression/Plan Impression/Plan Impression/Plan: 1. Sepsis, with significant right foot ulcerations which will need amputation per podiatry. Blood cultures positive for gram-negative rods. 2. Altered mental status, with toxic metabolic encephalopathy. 3. Possible aspiration pneumonia. 4. ETOH abuse. 5. Prostatitis. 6. Cavitary pulmonary lesions, possible septic emboli. 7. Lactic acidosis due to sepsis. 8. Acute kidney injury, with improving creatinine post resuscitation with fluids. 9. Elevated troponins, possibly demand ischemia with left bundle branch block. 10. Insulin-dependent diabetes mellitus 11. Multiple comorbidities including hypertension, hyperlipidemia and CAD status post stenting in 2014. Recommendations: * Psychiatry evaluation for competency. * Cardiac clearance for possible amputation tomorrow. Will follow cardiology recommendations. * Follow up culture data. * Continue empiric antibiotics for gram-negative rods found and blood cultures ( Vanco and ceftaz). Will follow up ID recommendations. * Continue Levemir, NovoLog and Accu-Cheks as per endocrinology. * Advance diet as there is no plan for surgery today. * Decrease IV fluids to 50 ML per hour. * Monitor strict I's and O's. * Monitor CIWA scores. * Continue multivitamin, thiamine and folate. * DVT prophylaxis at all times.
--- NOTE | 2017-10-22 11:24 | PN- Infect Dx ---
Subjective Subjective: MAXIMUM TEMPERATURE 100.6. His blood pressure is borderline. He apparently complained of multiple joint aches secondary to his arthritis. Objective Last 24 Hrs of Vital Signs/I&O Vital Signs Date Time Temp Pulse Resp B/P B/P Pulse O2 O2 Flow FiO2 Mean Ox Delivery Rate 10/22 1000 106 30 90/57 10/22 0800 99.3 108 30 104/50 10/22 0800 99.0 108 30 104/50 93 Room Air 10/22 0800 93 Room Air 10/22 0400 93 Room Air 10/22 0000 98.6 116 20 104/50 10/22 0000 98.6 116 20 104/50 94 Room Air 10/22 0000 93 Room Air 10/21 2200 111 32 115/59 10/22 1999 111 20 130/96 10/22 1999 99.1 111 20 130/96 10/21 2000 95 Room Air 10/21 1916 99.0 115 18 133/87 98 Room Air 10/21 1743 97 119/69 10/21 1630 92 20 112/68 94 Room Air 10/21 1534 99.6 94 22 112/69 95 Room Air 10/21 1418 98.7 10/21 1317 100.6 10/21 1307 100.6 115 20 110/69 96 Room Air 10/21 1208 94 Room Air 10/21 1134 98.1 122 26 106/68 93 Room Air Intake & Output 10/22 1600 10/22 0800 10/22 0000 Intake Total 506 396 Output Total 580 250 Balance -74 146 Intake, IV 506 396 Output, Urine 580 250 Patient 189 lb Weight Weight Bed scale Measurement Method Physical Exam Other Physical Findings: He is lethargic and mildly confused but in no acute distress Lungs scattered rhonchi Heart regular rhythm with no murmur Abdomen is soft, nontender with positive bowel sounds Extremities right wrist swelling and tenderness on minimal palpation; right foot dressing intact Robles catheter remains in place Results Last 24 Hours of Lab Results: Laboratory Tests 10/22 10/22 10/22 0950 0805 0435 Chemistry Sodium (137 - 145 mmol/L) 150 H Potassium (3.5 - 5.1 mmol/L) 3.9 Chloride (98 - 107 mmol/L) 121 H Carbon Dioxide (22 - 30 mmol/L) 18 L Anion Gap (5 - 16) 11 BUN (9 - 20 mg/dL) 40 H Creatinine (0.7 - 1.2 mg/dL) 1.4 H Estimated GFR (>60 ml/min) 52 L Glucose (65 - 99 mg/dL) 120 H Lactic Acid (0.7 - 2.1 mmol/L) 2.3 H 2.5 H Calcium (8.4 - 10.2 mg/dL) 7.5 L Phosphorus (2.5 - 4.5 mg/dL) 1.9 L Magnesium (1.6 - 2.3 mg/dL) 2.2 Total Bilirubin (0.2 - 1.3 mg/dL) 2.7 H AST (17 - 59 U/L) 110 H ALT (21 - 72 U/L) 45 Troponin I (<0.11 ng/ml) Pending 0.87 *H Albumin (3.5 - 5.0 g/dL) 1.9 L Hematology CBC w Diff MAN DIFF ORDERED WBC (4.8 - 10.8 /CUMM) 9.3 RBC (4.70 - 6.10 /CUMM) 3.41 L Hgb (14.0 - 18.0 G/DL) 9.6 L Hct (42 - 52 %) 29.5 L MCV (80.0 - 94.0 FL) 86.5 MCH (27.0 - 31.0 PG) 28.3 MCHC (33.0 - 37.0 G/DL) 32.7 L RDW (11.5 - 14.5 %) 14.6 H Plt Count (130 - 400 /CUMM) 145 MPV (7.4 - 10.4 FL) 9.2 Gran % (42.2 - 75.2 %) 93.0 H Lymphocytes % (20.5 - 51.1 %) 4.8 L Monocytes % (1.7 - 9.3 %) 1.1 L Eosinophils % (0 - 5 %) 0.7 Basophils % (0.0 - 2.0 %) 0.4 Absolute Granulocytes (1.4 - 6.5 /CUMM) 8.7 H Segmented Neutrophils (42.2 - 75.2 %) 74 Band Neutrophils (0.0 - 5.0 %) 17 H Absolute Lymphocytes (1.2 - 3.4 /CUMM) 0.4 L Lymphocytes (20.5 - 51.1 %) 7 L Monocytes (1.7 - 9.3 %) 2 Absolute Monocytes (0.10 - 0.60 /CUMM) 0.1 Absolute Eosinophils (0.0 - 0.7 /CUMM) 0.1 Absolute Basophils (0.0 - 0.2 /CUMM) 0 Platelet Estimate (ADEQUATE) ADEQUATE Polychromasia 1+ Hypochromic-Microcytic 1+ Poikilocytosis 1+ Ovalocytes 1+ Theresa Cells FEW Elliptocytes FEW Other Body Source Fld Total RBCs Counted (%) 100 10/22 10/21 10/21 10/21 10/21 0230 2215 2100 1842 1710 Chemistry Sodium (137 - 145 mmol/L) 144 146 H Potassium (3.5 - 5.1 mmol/L) 3.7 3.8 Chloride (98 - 107 mmol/L) 117 H 117 H Carbon Dioxide (22 - 30 mmol/L) 18 L 16 L Anion Gap (5 - 16) 9 13 BUN (9 - 20 mg/dL) 38 H 37 H Creatinine (0.7 - 1.2 mg/dL) 1.5 H 1.5 H Estimated GFR (>60 ml/min) 48 L 48 L BUN/Creatinine Ratio (7 - 25 %) 25.3 H 24.7 Glucose (65 - 99 mg/dL) 223 H Lactic Acid (0.7 - 2.1 mmol/L) 2.2 H 2.7 H Cancelled 3.1 H Calcium (8.4 - 10.2 mg/dL) 7.3 L Troponin I (<0.11 ng/ml) 0.84 *H 0.80 *H 10/21 10/21 1532 1418 Chemistry Lactic Acid (0.7 - 2.1 mmol/L) 3.1 H Toxicology Urine Opiates Screen (>2000 NG/ML) 204 Methadone Screen (>300 NG/ML) < 40 Barbiturate Screen (>200 NG/ML) < 60 Ur Phencyclidine Scrn (>25 NG/ML) < 6.00 Amphetamines Screen (>1000 NG/ML) < 100 U Benzodiazepines Scrn (>200 NG/ML) < 85 Urine Cocaine Screen (>300 NG/ML) < 50 Urine Cannabis Screen (>50 NG/ML) 47.50 Urines Urinalysis MOD H Urine Color (YEL,AMB,STR) YEL Urine Clarity (CLEAR) HAZY H Urine pH (5.0 - 8.0) 6.0 Ur Specific Burke (1.001 - 1.035) 1.015 Urine Protein (NEG,<30 MG/DL) 100 H Urine Ketones (NEG) TRACE H Urine Nitrite (NEG) POS H Urine Bilirubin (NEG) POS@ICTO H Urine Urobilinogen (0.1 - 1.0 EU/dl) 2.0 H Ur Leukocyte Esterase (NEG) SMALL H Ur Microscopic SEDIMENT EXAMINED Urine RBC (0 - 5 /HPF) 3-5 Urine WBC (0 - 2 /HPF) RARE Urine Bacteria (NEG/NONE) MOD H Urine Hemoglobin (NEG) LARGE H Urine Glucose (N MG/DL) NEG 10/21 10/21 10/21 1230 1154 1154 Blood Gas pH (7.35 - 7.45 PH) 7.42 pCO2 (35 - 45 TORR) 24 L pO2 (80 - 100 TORR) 74 L HCO3 (21 - 28 MEQ/L) 15 L ABG O2 Sat (Measured) (>96.0 %) 92.0 L Carboxyhemoglobin (1.5 - 5.0 %) 1.2 L O2 Concentration % RA O2 Delivery Method RA Chemistry Lactic Acid (0.7 - 2.1 mmol/L) 5.1 H Ammonia (9 - 30 umol/L) < 9 L C-Reactive Prot, Quant (<1.0 mg/dL) > 9.0 H Hematology ESR Westergren (0 - 10 MM) 125 H Miscellaneous Phlebotomy Draw Site RIGHT RADIAL Toxicology Serum Alcohol (<10 MG/DL) < 10.0 10/21 1154 Chemistry Sodium (137 - 145 mmol/L) 142 Potassium (3.5 - 5.1 mmol/L) 4.4 Chloride (98 - 107 mmol/L) 107 Carbon Dioxide (22 - 30 mmol/L) 16 L Anion Gap (5 - 16) 20 H BUN (9 - 20 mg/dL) 38 H Creatinine (0.7 - 1.2 mg/dL) 1.8 H Estimated GFR (>60 ml/min) 39 L BUN/Creatinine Ratio (7 - 25 %) 21.1 Glucose (65 - 99 mg/dL) 467 H Calcium (8.4 - 10.2 mg/dL) 9.0 Total Bilirubin (0.2 - 1.3 mg/dL) 2.3 H Direct Bilirubin (< 0.4 mg/dL) 1.7 H AST (17 - 59 U/L) 51 ALT (21 - 72 U/L) 31 Alkaline Phosphatase (< 127 U/L) 183 H Creatine Kinase (55 - 170 U/L) 1485 H Troponin I (<0.11 ng/ml) 0.85 *H Total Protein (6.3 - 8.2 g/dL) 5.3 L Albumin (3.5 - 5.0 g/dL) 2.6 L Globulin (1.9 - 4.2 gm/dL) 2.7 Albumin/Globulin Ratio (1.1 - 2.2 %) 1.0 L Coagulation PT (9.4 - 12.5 SEC) 14.0 H INR (0.90 - 1.17) 1.28 H APTT (25 - 37 SEC) 31 D-Dimer High Sensitivty (0 - 243 ng/ml) 4828 H Hematology CBC w Diff MAN DIFF ORDERED WBC (4.8 - 10.8 /CUMM) 12.8 H RBC (4.70 - 6.10 /CUMM) 4.39 L Hgb (14.0 - 18.0 G/DL) 12.5 L Hct (42 - 52 %) 37.4 L MCV (80.0 - 94.0 FL) 85.2 MCH (27.0 - 31.0 PG) 28.5 MCHC (33.0 - 37.0 G/DL) 33.4 RDW (11.5 - 14.5 %) 14.5 Plt Count (130 - 400 /CUMM) 179 MPV (7.4 - 10.4 FL) 8.9 Gran % (42.2 - 75.2 %) 94.8 H Lymphocytes % (20.5 - 51.1 %) 3.2 L Monocytes % (1.7 - 9.3 %) 1.8 Eosinophils % (0 - 5 %) 0.1 Basophils % (0.0 - 2.0 %) 0.1 Absolute Granulocytes (1.4 - 6.5 /CUMM) 12.1 H Segmented Neutrophils (42.2 - 75.2 %) 72 Band Neutrophils (0.0 - 5.0 %) 20 H Absolute Lymphocytes (1.2 - 3.4 /CUMM) 0.4 L Lymphocytes (20.5 - 51.1 %) 7 L Monocytes (1.7 - 9.3 %) 1 L Absolute Monocytes (0.10 - 0.60 /CUMM) 0.2 Absolute Eosinophils (0.0 - 0.7 /CUMM) 0 Absolute Basophils (0.0 - 0.2 /CUMM) 0 Platelet Estimate (ADEQUATE) ADEQUATE Theresa Cells RARE Toxicology Acetone Level (NEGATIVE) NEGATIVE Last 24 Hours of [place] Results: Blood cultures 2 October 21 positive for Staph aureus Urine culture October 21 greater than 100,000 colonies of Staph aureus Recent Imaging Studies: Echocardiogram October 21 reveals mild mitral regurgitation, with no vegetations noted; mildly decreased ejection fraction of 45% Assessment/Plan ID Impression: Staph aureus sepsis, most likely secondary to his necrotic, purulent, chronic right foot plantar ulcer, with his x-ray revealing evidence of osteomyelitis of the second through fourth digits. He was scheduled for a right transmetatarsal amputation today, but this apparently is to be deferred secondary to patient's reluctance and apparent concern regarding his elevated troponin. He appears to have defervesced and white blood cell count has decreased on Vancomycin, which was not redosed overnight, and Ceftazidime and, given his culture results, his antibiotics can be adjusted. His bilateral pulmonary opacities, some containing central cavitation, likely represents seeding from the Staph aureus bacteremia. His multiple joint complaints may be secondary to his underlying arthritis but can also be seen with Staph aureus sepsis/endocarditis. His positive urine culture also likely represents seeding from his bacteremia. Suggestion: 1. Await decision regarding right foot surgery 2. Repeat blood cultures 2 3. Plastic surgery evaluation of his right fifth finger 4. Will need to consider a ANNA at some point 5. Discontinue Ceftazidime and Flagyl 6. Continue Vancomycin 1.5 g IV every 24 hours
--- NOTE | 2017-10-22 11:49 | PN- Resident CRCU ---
Subjective HPI/CRCU Issues: Patient was seen and examined today. Patient is alert and oriented to time and person, but not place. Patient reports bilateral arm and hand pain 2/2 arthritis on steroids. Patient denies chest pain, palpitations, shortness of breath, fever /chills, abdominal pain, nausea/vomitting, or foot pain. Objective Vital Signs & I&O Last 8 Hrs of Vitals and I&O: Vital Signs Date Time Temp Pulse Resp B/P B/P Pulse O2 O2 Flow FiO2 Mean Ox Delivery Rate 10/22 1800 102 30 95/56 10/22 1600 98.1 103 32 92/50 10/22 1600 98.1 103 32 92/50 95 Nasal 2.0L Cannula 10/22 1600 95 Nasal 2.0L Cannula 10/22 1400 105 34 94/52 10/22 1200 98.8 105 30 96/54 10/22 1200 96 Room Air 10/22 1000 106 30 90/57 10/22 0800 99.3 108 30 104/50 10/22 0800 99.0 108 30 104/50 93 Room Air 10/22 0800 93 Room Air 10/22 0400 93 Room Air 10/22 0000 98.6 116 20 104/50 10/22 0000 98.6 116 20 104/50 94 Room Air 10/22 0000 93 Room Air 10/21 2200 111 32 115/59 10/22 1999 111 20 130/96 10/22 1999 99.1 111 20 130/96 10/21 2000 95 Room Air Intake & Output 10/22 1600 10/22 0800 10/22 0000 Intake Total 720 506 396 Output Total 375 580 250 Balance 345 -74 146 Intake, IV 720 506 396 Output, Urine 375 580 250 Patient 189 lb Weight Weight Bed scale Measurement Method Intake & Output 10/22 1600 Intake Total 720 Output Total 375 Balance 345 Intake, IV 720 Output, Urine 375 Exam General Appearance: well developed/nourished, no apparent distress, alert, awake , comfortable Head: atraumatic Respiratory: crackles, rhonchi, mild respiratory distress, appears to be taking shallow rapid breaths Cardiovascular: regular rate/rhythm Gastrointestinal: normal bowel sounds, soft, non-tender Extremities: left foot s/p TMA, right foot covered with gauze, patient has a plantar deep necrotic lesion, with decreased sensation of foot, decreased pulses bilaterally Cranial Nerves: normal hearing, normal speech, PERRL Current Medications: Current Medications Sig/Lai Start time Last Medication Dose Route Stop Time Status Admin Acetaminophen 1,000 MG Q6P PRN 10/21 1700 AC IV Ceftazidime 1,000 MG IQ8 10/22 0930 CAN IV Ceftazidime 1,000 MG IQ8 10/22 0000 DC 10/22 IV 0819 Dextrose/Water 1,000 ML ONCE ONE 10/22 0830 DC 10/22 IV 10/22 2149 0845 Folic Acid 1 MG DAILY 10/21 1703 AC 10/21 PO 1826 Furosemide 20 MG ONCE ONE 10/22 1230 DC 10/22 IV 10/22 1231 1310 Heparin Sodium 5,000 UNIT Q8 10/21 2200 AC 10/22 (Porcine) SC 1411 Hydrocortisone 50 MG Q12 10/22 2200 AC Sodium Succinate IV Hydrocortisone 25 MG ONE ONE 10/22 1215 DC 10/22 Sodium Succinate IV 10/22 1216 1246 Hydrocortisone 25 MG ONE ONE 10/22 1030 DC 10/22 Sodium Succinate IV 10/22 1031 1031 Insulin Aspart 0 Q4 10/21 2200 AC 10/22 SC 1711 Insulin Detemir 8 UNITS BID 10/22 2200 AC SC Insulin Detemir 12 UNITS BID 10/22 1000 DC SC Insulin Detemir 20 UNITS BID 10/21 2200 DC 10/21 SC 2113 Insulin Human Regular 100 UNIT Q24H 10/21 1715 DC 10/21 Sodium Chloride 100 ML IV 1752 Metronidazole 500 MG IQ8 10/22 0930 DC 10/22 N/A 1 UNIT IV 1121 Multivitamins 1 TAB DAILY 10/21 170 AC 10/21 PO 1826 Potassium Chloride 20 MEQ .[Q13] 10/21 2014 CAN IV Potassium Chloride 20 MEQ Q13H 10/21 2014 DC 10/21 Dextrose/Sodium 1,000 ML IV 2016 Chloride Potassium Chloride 20 MEQ Q13H 10/21 1930 DC Dextrose/Sodium 1,000 ML IV Chloride Potassium Phosphate 15 mMol ONE ONE 10/22 1045 DC 10/22 Dextrose/Water 250 ML IV 10/22 1449 1126 Prednisone 5 MG DAILY 10/22 1000 AC PO Thiamine HCl 100 MG DAILY 10/21 1703 AC 10/21 PO 1826 Vancomycin HCl 1,500 MG DAILY 10/22 1124 AC 10/22 Dextrose/Water 250 ML IV 1214 Vancomycin HCl 1,000 MG DAILY 10/22 1000 DC Dextrose/Water 250 ML IV Vancomycin HCl 1,250 MG Q12H 10/22 1000 DC Dextrose/Water 250 ML IV Results Results: Laboratory Tests 10/22/17 1600: Anion Gap 11, Estimated GFR 48 L, Glucose 165 H, Lactic Acid 2.0, Calcium 7.4 L, Phosphorus 3.6, Magnesium 2.1, Total Bilirubin 3.7 H, AST 136 H, ALT 52, Albumin 1.9 L 10/22/17 1327: Lactic Acid Cancelled 10/22/17 1215: pH 7.45, pCO2 22 L, pO2 71 L, HCO3 15 L, ABG O2 Sat (Measured) 92.0 L, P-50 (Temp Corrected) N, Carboxyhemoglobin 2.0, O2 Concentration % .21, Temperature 99.3, O2 Delivery Method RA, Phlebotomy Draw Site RIGHT RADIAL 10/22/17 1150: Anion Gap 15, Estimated GFR 48 L, Glucose 88, Lactic Acid 2.2 H, Calcium 7.9 L, Phosphorus 2.4 L, Magnesium 2.2, Total Bilirubin 3.4 H, AST 137 H, ALT 44, Sbq-W-Bmyxoojqwlx Pept 32999 H, Albumin 2.0 L 10/22/17 0950: Troponin I 0.79 *H 10/22/17 0805: Lactic Acid 2.3 H 10/22/17 0435: Anion Gap 11, Estimated GFR 52 L, Glucose 120 H, Hemoglobin A1c 7.2 H, Lactic Acid 2.5 H, Calcium 7.5 L, Phosphorus 1.9 L, Magnesium 2.2, Total Bilirubin 2.7 H, AST 110 H, ALT 45, Troponin I 0.87 *H, Albumin 1.9 L, Cortisol AM Sample 50.1 H, CBC w Diff MAN DIFF ORDERED, RBC 3.41 L, MCV 86.5, MCH 28.3, MCHC 32.7 L, RDW 14.6 H, MPV 9.2, Gran % 93.0 H, Lymphocytes % 4.8 L, Monocytes % 1.1 L, Eosinophils % 0.7, Basophils % 0.4, Absolute Granulocytes 8.7 H, Segmented Neutrophils 74, Band Neutrophils 17 H, Absolute Lymphocytes 0.4 L, Lymphocytes 7 L, Monocytes 2, Absolute Monocytes 0.1, Absolute Eosinophils 0.1, Absolute Basophils 0, Platelet Estimate ADEQUATE, Polychromasia 1+, Hypochromic-Microcytic 1+, Poikilocytosis 1+, Ovalocytes 1+, Theresa Cells FEW, Elliptocytes FEW, Fld Total RBCs Counted 100 10/22/17 0230: Lactic Acid 2.2 H 10/21/17 2215: Anion Gap 9, Estimated GFR 48 L, BUN/Creatinine Ratio 25.3 H, Lactic Acid 2.7 H, Troponin I 0.84 *H 10/21/17 2100: Lactic Acid Cancelled 10/21/17 1842: Anion Gap 13, Estimated GFR 48 L, BUN/Creatinine Ratio 24.7, Glucose 223 H, Lactic Acid 3.1 H, Calcium 7.3 L 10/21/17 1710: Troponin I 0.80 *H 10/21/17 1532: Urine Opiates Screen 204, Methadone Screen < 40, Barbiturate Screen < 60, Ur Phencyclidine Scrn < 6.00, Amphetamines Screen < 100, U Benzodiazepines Scrn < 85, Urine Cocaine Screen < 50, Urine Cannabis Screen 47.50, Urinalysis MOD H, Urine Color YEL, Urine Clarity HAZY H, Urine pH 6.0, Ur Specific [place] 1.015, Urine Protein 100 H, Urine Ketones TRACE H, Urine Nitrite POS H, Urine Bilirubin POS@ICTO H, Urine Urobilinogen 2.0 H, Ur Leukocyte Esterase SMALL H , Ur Microscopic SEDIMENT EXAMINED, Urine RBC 3-5, Urine WBC RARE, Urine Bacteria MOD H, Urine Hemoglobin LARGE H, Urine Glucose NEG 10/21/17 1418: Lactic Acid 3.1 H 10/21/17 1230: pH 7.42, pCO2 24 L, pO2 74 L, HCO3 15 L, ABG O2 Sat (Measured) 92.0 L, Carboxyhemoglobin 1.2 L, O2 Concentration % RA, O2 Delivery Method RA, Phlebotomy Draw Site RIGHT RADIAL 10/21/17 1154: Lactic Acid 5.1 H 10/21/17 1154: Ammonia < 9 L, C-Reactive Prot, Quant > 9.0 H, ESR Westergren 125 H, Serum Alcohol < 10.0 10/21/17 1154: Anion Gap 20 H, Estimated GFR 39 L, BUN/Creatinine Ratio 21.1, Glucose 467 H, Calcium 9.0, Total Bilirubin 2.3 H, Direct Bilirubin 1.7 H, AST 51, ALT 31, Alkaline Phosphatase 183 H, Creatine Kinase 1485 H, Troponin I 0.85 *H, Total Protein 5.3 L, Albumin 2.6 L, Globulin 2.7, Albumin/Globulin Ratio 1.0 L, PT 14.0 H, INR 1.28 H, APTT 31, D-Dimer High Sensitivty 4828 H, CBC w Diff MAN DIFF ORDERED, RBC 4.39 L, MCV 85.2, MCH 28.5, MCHC 33.4, RDW 14.5, MPV 8.9, Gran % 94.8 H, Lymphocytes % 3.2 L, Monocytes % 1.8, Eosinophils % 0.1, Basophils % 0.1, Absolute Granulocytes 12.1 H, Segmented Neutrophils 72, Band Neutrophils 20 H, Absolute Lymphocytes 0.4 L, Lymphocytes 7 L, Monocytes 1 L , Absolute Monocytes 0.2, Absolute Eosinophils 0, Absolute Basophils 0, Platelet Estimate ADEQUATE, [place] Cells RARE, Acetone Level NEGATIVE Microbiology 10/21 1200 NASOPHARYN: Influenza Virus A & B Rapid Smear - COMP Impression/Plan Impression/Problem List Impression: 61-year-old man with past medical history of only insulin-dependent diabetes mellitus brought in by ambulance for evaluation of altered mental status and "failure to thrive". ED course -Vitals: MAXIMUM TEMPERATURE 100.6, HR 92-1-2, RR 20-26, SBP 106-119, DBP 68-69, O2 93-96% on room air -CBC: WBC/bands 12.8/20, Hgb/HCT 12.5/37.4, platelet 179 -BMP: Sodium 142, potassium 4.4, chloride 107, CO2 16, urea 38, creatinine 1.8, anion gap 20, glucose 467 -LFT: AST 51, ALT 31, ALP 183, total bilirubin 2.3, direct bilirubin 1.7 -Miscellaneous: ESR 125, CRP >9, lactic acid 5.1, troponin I 0.85, ammonia <9, albumin 2.6, acetone negative -Coags: INR 1.28, d-dimer 4828 -Urinalysis: Trace ketones with positive nitrates/leukocyte esterase, large hemoglobin with moderate bacteria, rare WBC -Urine toxicology: Positive for opiates and cannabis -ABG: PH 7.42, PCO2 24, PO2 74, HCO3 15 -EKG: Sinus tachycardia with left bundle branch block -Rapid Flu: negative -CXR: - Mild cardiomegaly and diffuse pulmonary edema. - The patchy opacity in the right upper lobe could represent edema or pneumonia. - The nodular focus projecting over the left anterior fifth rib on the frontal view probably represents a nipple shadow. This could be confirmed on a follow-up radiograph obtained with nipple markers. -Right foot x-ray: 1. Extensive bony destructive changes are present in the second through fourth digits, most concerning in the second and third digits with non corticated distal aspects of the remaining portion of the metadiaphysis of the second and third digits. Findings are concerning for acute osteomyelitis. 2. Open wound with skin defect identified on the plantar aspect of the midfoot, the ulcer is present at the level of the mid foot closer to the tarsal metatarsal joint spaces rather than the distal metatarsal regions however. -Right hand x-ray: -Soft tissue ulceration at the radial margin of the small finger distal phalanx without underlying findings of osteomyelitis. -Diffuse uniform joint space narrowing in the wrist and MCP joints with superimposed palmar subluxation and ulnar deviation of the proximal phalanges as well as erosive/cystic changes at the metacarpal heads. These findings may represent the sequela of rheumatoid arthritis or, alternatively, degenerative arthritis superimposed upon a nonerosive arthropathy such as systemic lupus erythematosus. -CT chest/abdomen/pelvis: - Within the chest, there is mild pulmonary edema without pleural effusions. There are patchy nodular and airspace opacities in both lungs, and some of the pulmonary opacities have central cavitation. Also, some of the lesions exhibit the reversed halo sign (i.e., atoll sign), as may be seen in infectious disease and other disorders, such as vasculitis. Unable to exclude septic emboli. Other findings in the chest include atherosclerotic disease of coronary arteries and cardiomegaly. The mild hilar and mediastinal lymphadenopathy is likely reactive to the pulmonary disease. - Within the abdomen, findings include bilateral perinephric edema without ureterolithiasis or hydronephrosis. Also, there is perivesical and periprostatic edema within the pelvis. Urinary tract infection and prostatitis are possible. Consider correlation with urinalysis and urine culture. -CT head without IV contrast: -No acute intracranial pathology. -Scattered and fairly extensive inflammatory disease within the paranasal sinuses asymmetrically on the right. Partially visualized postsurgical changes involving the left maxillary sinus with sclerosis and thickening of the left maxillary wall compatible with sequela of chronic inflammation. -VQ scan: -Very low probability of pulmonary embolism. -ED Interventions: -ASA 325 mg PO ONCE -NS 6L Bolus -Vancomycin 1 g IV ONCE -Ceftazidime 1 g IV ONCE -Novolin 16 units IV -Actaminophen 1 g IV -Blood/Urine cultures CAT scan of his chest/abdomen/pelvis demonstrated pulmonary edema with opacities with central cavitations and perinephric edema, periprostatic edema, and possible prostatitis without any nephrolithiasis or hydronephrosis. VQ scan was low probability for pulmonary embolism. Patient is admitted to the ICU for management of the following: Respiratory: Acute hypoxic respiratory failure in setting of congestive heart failure: Patient today had increased respiratory effort with crackles heard of lung exam. A chest xray was obtained showing vascular congestion and a proBNP was elevated to 21,700. Patient received 6L of NS boluses on day of admission due to sepsis and lactic acidosis. An ABG was performed showing an ABG O2 saturation of 92%. - respiratory therapy on board - continue to monitor vitals closely - IV lasix x 1 today - oxygen supplementation with nasal cannula Infection: Sepsis secondary to right foot osteomyelitis Patient was initially being covered with Vancomycin, Ceftazidine and Flagyl for MRSA, gram negative coverage including pseudomonas and anaerobic organisms in the setting of diabetic food infection. Patient's cultures growing gram positive cocci in clusters. - IV Vancomycin dosed based on renal clearance @ 1.5 gm IV q24 hours - Patient will require a vanc trough level before fourth dose - continue to follow up blood cultures for sensitivities - repeated blood cultures today Cavitary lesions on CT - concern for septic emboli Transthoracic echo negative for vegetations. Patient may require ANNA. UTI/Pyelonephritis Urine culture growing staph aureus likely seeding from bacteremia. CT Abd showed perinephric stranding indicating possible pyelonephritis. No stones or hydronephrosis seen. Patient has no CVA tenderness at this time. - Continue IV Vancomycin - Follow up urine culture for sensitivities Cardiac: Elevated troponins Patient's troponins peaked to 0.87. EKG showing a left bundle branch block. Elevated troponins likely due to demand ischemia in the setting of kidney failure and sepsis. Patient seen by cardiology. Recommended aspirin, statin, abdi inhibitor and coreg. The latter two have been held in the setting of acute renal failure and hypotension. ECHO was done showing mildly decreased EF of 45% with anteroseptal hypokinesis. - continue to follow cardiology recommendations - continue aspirin and statin Heme: Anemia Patient had an acute drop in his H/H. There is no evidence of bleeding at this time. Likely hemodilutional after recieivng multiple boluses of IV fluids. - continue to monitor H/H Metabolic: Diabetes Patient presented with hyperglycemia with an elevated anion gap without ketones with a normal pH. Due to patient's multiple comorbidities and perisitently high sugars he was started on an insulin drip which was discontinued after a few hours. Patient has hyperglycemia with negative acetone; and and gap is elevated but pH is otherwise normal. Patient does not appear to be in diabetic ketoacidosis but given his multiple medical comorbidities and persistently high glucose he is empirically started on an insulin drip. Alimentary: Patient was initially NPO in setting of AMS and in anticipation of surgery today. Surgery was held today. Patient had a formal swallow evaluation and was started on a mechanical ground diet with thin liquis. NPO for possible surgery tomorrow pending podiatry recommendations Neurology: AMS Patient's altered mental status in the context of sepsis and infection is most likely due to a toxic metabolic encephalopathy. CT head was negative for acute intracranial pathology. Patient has no focal neurological deficits except for decreased sensation in his feet bilaterally which is likely in diabetic neuropathy. - continue to monitor with neurochecks - formal psychiatry evaluation for competency Nephrology: Acute kidney injury: Likely in the setting of prerenal azotemia and hypoperfusion due to sepsis. Patient has received multiple fluid boluses. IV fluids are currently being used cautiously in setting of congestive heart failure and respiratory distress. - continue to monitor creatinine - continue to monitor strict I/O - avoid nephrotoxic agents DVT PPx: SQ Heparin, ALPS Code: Full code Problem List: 1. Sepsis 2. Osteomyelitis of right foot 3. UTI (urinary tract infection) 4. ANURAG (acute kidney injury) 5. Elevated troponin 6. Pneumonia Pain Ratin Tomorrow's Labs & Rationales: cbc cmp Plan DVT/Prophylaxis: mechanical, pharmacological
--- NOTE | 2017-10-22 11:57 | RADIOLOGY REPORT ---
EXAMINATION: XR PORTABLE CHEST CLINICAL INFORMATION: Fluid overload, tachypnea with ejection fraction 45%. COMPARISON: Portable chest x-ray dated 10/21/2017. TECHNIQUE: Portable frontal view of the chest was obtained. FINDINGS: There is prominence and indistinctness of the central pulmonary vasculature, however no blunting the costophrenic angles is noted. The cardiac silhouette is not enlarged. Increasing densities are noted in the lateral aspects of both lower lungs thought to represent superimposed soft tissue rather than interval development of focal areas of airspace opacification, however repeat imaging follow-up is recommended.. IMPRESSION: 1. Indistinctness of the central pulmonary vasculature is consistent with pulmonary vascular congestion. No definite pleural effusions are noted. 2. Increased densities in the lateral aspects of the lower lungs is thought to represent superimposition of soft tissue rather than new focal areas of airspace opacification. Follow-up imaging is recommended.
--- NOTE | 2017-10-22 12:04 | PN- Diabetes ---
Assessment/Plan Diabetes Assessment: 61-year-old man with past medical history significant for diabetes mellitus and coronary artery disease status post stent placement, was brought in by ambulance for evaluation of altered mental status. Patient has a necrotic, purulent, chronic right foot plantar ulcer. He was scheduled for a right transmetatarsal amputation today which was deferred secondary to patient's reluctance and his current condition. His BP has been borderline low. He used to take prednisone chronically for his arthritis. Overnight, he was put on levemir 20 units twice a day, Novolog coverage every 4 hours and D51/2 NS at 75 ml/hour. His FSGs were 173, 161, 144 and 120. The blood culture was positive for Gram positive cocci in cluster. Am lab showed sodium 150. Plan: 1. decrease Levemir to 8 units twice a day; 2. adjust Novolog coverrage every 4 hours; detail see the insulin order sheet; 3. recommend stress dose of steroid-- hydrocortisone 50 mg iv twice a day; 4. recommend changing IVF to D5 w and monitoring electrolytes twice a day; 5. monitor FSGs and vital sign; the target of his glucose level is between 100 and 200. will follow. Subjective Subjective: He appears confused and lethargic. Objective Last 24 Hrs of Vital Signs/I&O Vital Signs Date Time Temp Pulse Resp B/P B/P Pulse O2 O2 Flow FiO2 Mean Ox Delivery Rate 10/22 1000 106 30 90/57 10/22 0800 99.3 108 30 104/50 10/22 0800 99.0 108 30 104/50 93 Room Air 10/22 0800 93 Room Air 10/22 0400 93 Room Air 10/22 0000 98.6 116 20 104/50 03 0000 98.6 116 20 104/50 94 Room Air 10/22 0000 93 Room Air 10/21 2200 111 32 115/59 10/22 1999 111 20 130/96 10/22 1999 99.1 111 20 130/96 10/22 1999 95 Room Air 10/21 1916 99.0 115 18 133/87 98 Room Air 10/21 1743 97 119/69 10/21 1630 92 20 112/68 94 Room Air 10/21 1534 99.6 94 22 112/69 95 Room Air 10/21 1418 98.7 03 1317 100.6 10/21 1307 100.6 115 20 110/69 96 Room Air Intake & Output 10/22 1600 10/22 0800 10/22 0000 Intake Total 506 396 Output Total 580 250 Balance -74 146 Intake, IV 506 396 Output, Urine 580 250 Patient 189 lb Weight Weight Bed scale Measurement Method Findings Pertinent Lab/[place] Results: Laboratory Tests 10/22 10/22 10/22 1150 0950 0805 Chemistry Sodium Pending Potassium Pending Chloride Pending Carbon Dioxide Pending Anion Gap Pending BUN Pending Creatinine Pending Glucose Pending Lactic Acid (0.7 - 2.1 mmol/L) Pending 2.3 H Calcium Pending Phosphorus Pending Magnesium Pending Total Bilirubin Pending AST Pending ALT Pending Troponin I (<0.11 ng/ml) 0.79 *H Albumin Pending 10/22 10/22 10/21 0435 0230 2215 Chemistry Sodium (137 - 145 mmol/L) 150 H 144 Potassium (3.5 - 5.1 mmol/L) 3.9 3.7 Chloride (98 - 107 mmol/L) 121 H 117 H Carbon Dioxide (22 - 30 mmol/L) 18 L 18 L Anion Gap (5 - 16) 11 9 BUN (9 - 20 mg/dL) 40 H 38 H Creatinine (0.7 - 1.2 mg/dL) 1.4 H 1.5 H Estimated GFR (>60 ml/min) 52 L 48 L BUN/Creatinine Ratio (7 - 25 %) 25.3 H Glucose (65 - 99 mg/dL) 120 H Hemoglobin A1c (4.2 - 5.8 %) 7.2 H Lactic Acid (0.7 - 2.1 mmol/L) 2.5 H 2.2 H 2.7 H Calcium (8.4 - 10.2 mg/dL) 7.5 L Phosphorus (2.5 - 4.5 mg/dL) 1.9 L Magnesium (1.6 - 2.3 mg/dL) 2.2 Total Bilirubin (0.2 - 1.3 mg/dL) 2.7 H AST (17 - 59 U/L) 110 H ALT (21 - 72 U/L) 45 Troponin I (<0.11 ng/ml) 0.87 *H 0.84 *H Albumin (3.5 - 5.0 g/dL) 1.9 L Cortisol AM Sample (4.46 - 22.7 ug/dL) Pending Hematology CBC w Diff MAN DIFF ORDERED WBC (4.8 - 10.8 /CUMM) 9.3 RBC (4.70 - 6.10 /CUMM) 3.41 L Hgb (14.0 - 18.0 G/DL) 9.6 L Hct (42 - 52 %) 29.5 L MCV (80.0 - 94.0 FL) 86.5 MCH (27.0 - 31.0 PG) 28.3 MCHC (33.0 - 37.0 G/DL) 32.7 L RDW (11.5 - 14.5 %) 14.6 H Plt Count (130 - 400 /CUMM) 145 MPV (7.4 - 10.4 FL) 9.2 Gran % (42.2 - 75.2 %) 93.0 H Lymphocytes % (20.5 - 51.1 %) 4.8 L Monocytes % (1.7 - 9.3 %) 1.1 L Eosinophils % (0 - 5 %) 0.7 Basophils % (0.0 - 2.0 %) 0.4 Absolute Granulocytes (1.4 - 6.5 /CUMM) 8.7 H Segmented Neutrophils (42.2 - 75.2 %) 74 Band Neutrophils (0.0 - 5.0 %) 17 H Absolute Lymphocytes (1.2 - 3.4 /CUMM) 0.4 L Lymphocytes (20.5 - 51.1 %) 7 L Monocytes (1.7 - 9.3 %) 2 Absolute Monocytes (0.10 - 0.60 /CUMM) 0.1 Absolute Eosinophils (0.0 - 0.7 /CUMM) 0.1 Absolute Basophils (0.0 - 0.2 /CUMM) 0 Platelet Estimate (ADEQUATE) ADEQUATE Polychromasia 1+ Hypochromic-Microcytic 1+ Poikilocytosis 1+ Ovalocytes 1+ Theresa Cells FEW Elliptocytes FEW Other Body Source Fld Total RBCs Counted (%) 100 10/21 10/21 10/21 2100 1842 1710 Chemistry Sodium (137 - 145 mmol/L) 146 H Potassium (3.5 - 5.1 mmol/L) 3.8 Chloride (98 - 107 mmol/L) 117 H Carbon Dioxide (22 - 30 mmol/L) 16 L Anion Gap (5 - 16) 13 BUN (9 - 20 mg/dL) 37 H Creatinine (0.7 - 1.2 mg/dL) 1.5 H Estimated GFR (>60 ml/min) 48 L BUN/Creatinine Ratio (7 - 25 %) 24.7 Glucose (65 - 99 mg/dL) 223 H Lactic Acid (0.7 - 2.1 mmol/L) Cancelled 3.1 H Calcium (8.4 - 10.2 mg/dL) 7.3 L Troponin I (<0.11 ng/ml) 0.80 *H 10/21 10/21 1532 1418 Chemistry Lactic Acid (0.7 - 2.1 mmol/L) 3.1 H Toxicology Urine Opiates Screen (>2000 NG/ML) 204 Methadone Screen (>300 NG/ML) < 40 Barbiturate Screen (>200 NG/ML) < 60 Ur Phencyclidine Scrn (>25 NG/ML) < 6.00 Amphetamines Screen (>1000 NG/ML) < 100 U Benzodiazepines Scrn (>200 NG/ML) < 85 Urine Cocaine Screen (>300 NG/ML) < 50 Urine Cannabis Screen (>50 NG/ML) 47.50 Urines Urinalysis MOD H Urine Color (YEL,AMB,STR) YEL Urine Clarity (CLEAR) HAZY H Urine pH (5.0 - 8.0) 6.0 Ur Specific [place] (1.001 - 1.035) 1.015 Urine Protein (NEG,<30 MG/DL) 100 H Urine Ketones (NEG) TRACE H Urine Nitrite (NEG) POS H Urine Bilirubin (NEG) POS@ICTO H Urine Urobilinogen (0.1 - 1.0 EU/dl) 2.0 H Ur Leukocyte Esterase (NEG) SMALL H Ur Microscopic SEDIMENT EXAMINED Urine RBC (0 - 5 /HPF) 3-5 Urine WBC (0 - 2 /HPF) RARE Urine Bacteria (NEG/NONE) MOD H Urine Hemoglobin (NEG) LARGE H Urine Glucose (N MG/DL) NEG 10/21 1230 Blood Gas pH (7.35 - 7.45 PH) 7.42 pCO2 (35 - 45 TORR) 24 L pO2 (80 - 100 TORR) 74 L HCO3 (21 - 28 MEQ/L) 15 L ABG O2 Sat (Measured) (>96.0 %) 92.0 L Carboxyhemoglobin (1.5 - 5.0 %) 1.2 L O2 Concentration % RA O2 Delivery Method RA Miscellaneous Phlebotomy Draw Site RIGHT RADIAL
--- NOTE | 2017-10-22 23:27 | PN- Cardiology ---
Subjective Subjective: * Patient reports not feeling well without any specific complaints of chest discomfort or shortness of breath. * sinus rhythm * troponin is trending down Objective Vital Signs and I&Os Vital Signs Date Time Temp Pulse Resp B/P B/P Pulse O2 O2 Flow FiO2 Mean Ox Delivery Rate 10/22 2200 98.6 96 28 103/66 10/23 1999 98.6 72 28 102/54 10/22 2000 97 Nasal 2.0L Cannula 10/22 1800 102 30 95/56 10/22 1600 98.1 103 32 92/50 10/22 1600 98.1 103 32 92/50 95 Nasal 2.0L Cannula 10/22 1600 95 Nasal 2.0L Cannula 10/22 1400 105 34 94/52 10/22 1200 98.8 105 30 96/54 10/22 1200 96 Room Air 10/22 1000 106 30 90/57 10/22 0800 99.3 108 30 104/50 10/22 0800 99.0 108 30 104/50 93 Room Air 10/22 0800 93 Room Air 10/22 0400 93 Room Air 10/22 0000 98.6 116 20 104/50 10/22 0000 98.6 116 20 104/50 94 Room Air 10/22 0000 93 Room Air Intake & Output 10/22 1600 10/22 0800 10/22 0000 10/21 1600 10/21 0800 10/21 0000 Intake Total 720 481 054 4837 Output Total 375 580 250 400 Balance 345 -74 146 4850 Intake, IV 720 027 235 7402 Output, Urine 375 580 250 400 Patient 189 lb 195 lb Weight Weight Bed scale Reported by Patient Measurement Method Physical Exam: General: WD/WN male in NAD; alert and oriented x 3 HEENT: NC/AT, PERRL, EOMI Neck: no JVD, no carotid bruit Heart: RRR with 2/6 systolic murmur Lungs: clear bilaterally Abdomen: soft, NT, +ve bowel sounds Extremties: no edema, left TMA, right plantar uler Assessment/Plan Assessment/Plan * This patient has a mildly increased troponin consistent with a type 2 GA. There may be some artifactual rise in troponin from decreased clearance in the setting of decreased renal function. There is no clear evidence of decompensated congestive heart failure. This patient should be on a statin, aspirin and Coreg 3.125mg BID. * This patient has osteomyelitis and anticipates surgery for this condition. In consideration of his GA he is at mildly increased, but not prohibitive risk, for this low risk surgery. * Obtain an echocardiogram. Continue telemetry? Yes
[2017-10-23] VITALS (12 sets, daily range): BP systolic 99–141; BP diastolic 58–73
[2017-10-23 05:40] LABS: ABSOLUTE BASOPHIL COUNT 0 /CUMM (0.0-0.2); ABSOLUTE EOSINOPHIL COUNT 0 /CUMM (0.0-0.7); ABSOLUTE GRANULOCYTE CT 8.4 /CUMM (1.4-6.5); ABSOLUTE LYMPH COUNT 1.1 /CUMM (1.2-3.4); ABSOLUTE MONOCYTE COUNT 0 /CUMM (0.10-0.60); BASOPHIL % 0 % (0.0-2.0); EOSINOPHIL % 0.2 % (0-5); GRANULOCYTE % 88.3 % (42.2-75.2); HEMATOCRIT 25.3 % (42-52); MEAN CORPUSCULAR HGB 28.7 PG (27.0-31.0); MEAN CORPUSCULAR HGB CONC 33.8 G/DL (33.0-37.0); MEAN CORPUSCULAR VOLUME 84.7 FL (80.0-94.0); MEAN PLATELET VOLUME 9.6 FL (7.4-10.4); PLATELET COUNT 145 /CUMM (130-400); RBC DISTRIBUTION WIDTH 15.2 % (11.5-14.5); RED BLOOD CELL CT 2.99 /CUMM (4.70-6.10); WHITE BLOOD CELL COUNT 9.5 /CUMM (4.8-10.8)
--- NOTE | 2017-10-23 06:21 | PN- Resident CRCU ---
Subjective HPI/CRCU Issues: Patient had no acute events overnight. Was seen and examined today. Patient is alert and oriented 3 however expresses delusions of "letting his dog eat him." Patient denies any chest pain, palpitations, shortness of breath, abdominal pain, nausea/vomiting, lower extremity pain. Patient states he's having bilateral hand/arm pain. Vitals: MAXIMUM TEMPERATURE: 98.6, heart rate: 70s to 90s, respiration rate 22-30, blood pressure systolic 99-141 over diastolic 54-73, saturating at 95-99% on 2 L nasal cannula. Labs: WBC: 9.5, H&H 8.6 and 25.3, platelets 145 Sodium 151, potassium 4.0, chloride 122, bicarbonate 18, BUN 49, creatinine 1.5, glucose 159, calcium 7.7, phosphorus 3.5, magnesium 2.4, T bili 2.7, AST 127, ALT 63, albumin 1.9, vitamin B12 909, folate 15.5, TSH 0.964, free T4 0.84 Microbiology: Blood cultures 2 from October 22 growing gram-positive cocci Urine culture from October 21 growing MRSA Blood culture 2 from October 21 growing MRSA Objective Vital Signs & I&O Last 8 Hrs of Vitals and I&O: Vital Signs Date Time Temp Pulse Resp B/P B/P Pulse O2 O2 Flow FiO2 Mean Ox Delivery Rate 10/23 1600 97.5 88 20 141/73 10/23 1600 97.5 88 20 120/60 99 Nasal 2.0L Cannula 10/23 1600 98 Room Air 10/23 1400 82 22 128/68 10/23 1200 98.0 90 24 110/60 10/23 1200 96 Nasal 2.0L Cannula 10/23 1000 87 22 118/62 10/23 0800 98.2 91 22 120/64 10/23 0800 98.2 91 22 120/64 95 Nasal 2.0L Cannula 10/23 0800 95 Nasal 2.0L Cannula 10/23 0600 98.1 74 24 117/59 10/23 0400 98.1 76 26 99/58 10/23 0400 95 Nasal 2.0L Cannula 10/23 0200 97.9 82 26 104/61 10/23 0000 97.9 96 30 106/58 10/23 0000 97.9 96 29 106/58 95 Nasal 2.0L Cannula 10/23 0000 95 Nasal 2.0L Cannula 10/22 2199 98.6 96 28 103/66 10/23 1999 98.6 72 28 102/54 10/23 1999 97 Nasal 2.0L Cannula 10/22 1800 102 30 95/56 Intake & Output 10/23 1600 10/23 0800 10/23 0000 Intake Total 520 360 Output Total 675 450 550 Balance -155 -450 -190 Intake, IV 280 Intake, Oral 240 360 Number 1 Bowel Movements Output, Urine 675 450 550 Patient 189 lb Weight Intake & Output 10/23 1600 Intake Total 520 Output Total 675 Balance -155 Intake, IV 280 Intake, Oral 240 Output, Urine 675 Patient 189 lb Weight Exam General Appearance: well developed/nourished, no apparent distress, alert, awake , comfortable Head: atraumatic Ears, Nose, Throat: dry mucosal membranes Respiratory: crackles, rhonchi Cardiovascular: regular rate/rhythm Gastrointestinal: normal bowel sounds, soft, non-tender Extremities: right foot plantar surface with large area of necrosis with visible bone, no discharge, right hand fifth digit with a necrotic lesion on the tip, decreased cap refill in the right fifth digit left foot s/p tma, poorly palpable pulses bilaterally Cranial Nerves: normal hearing, normal speech, PERRL Sepsis Skin Exam (color): Normal for Ethnicity Current Medications: Current Medications Sig/Lai Start time Last Medication Dose Route Stop Time Status Admin Acetaminophen 1,000 MG Q6P PRN 10/21 1699 AC IV Aspirin 81 MG DAILY 10/23 1000 AC 10/23 PO 1601 Atorvastatin Cal[place] 80 [place] [address]/23 170 AC PO Folic Acid 1 MG DAILY 10/21 170 AC 10/23 PO 1601 Heparin Sodium 5,000 UNIT Q8 10/21 2199 AC 10/23 (Porcine) SC 1420 Hydrocortisone 50 MG Q12 10/22 2199 AC 10/23 Sodium Succinate IV 0955 Insulin Aspart 0 TIDAC 10/23 170 AC 10/23 SC 1627 Insulin Aspart 0 Q4 10/21 2199 DC 10/22 SC 2136 Insulin Detemir 8 UNITS BID 10/22 2199 AC 10/23 SC 1420 Insulin Human Regular 0 Q4 10/23 1000 DC SC Insulin Human Regular 0 Q6 10/23 0245 DC 10/23 SC 0612 Multivitamins 1 TAB DAILY 10/21 1702 AC 10/23 PO 1601 Prednisone 5 MG DAILY 10/22 1000 AC PO Thiamine HCl 100 MG DAILY 10/21 1703 AC 10/23 PO 1601 Vancomycin HCl 1,500 MG DAILY 10/22 1124 AC 10/23 Dextrose/Water 250 ML IV 0923 Impression/Plan Impression/Problem List Impression: 61-year-old man with past medical history of only insulin-dependent diabetes mellitus brought in by ambulance for evaluation of altered mental status and "failure to thrive". ED course -Vitals: MAXIMUM TEMPERATURE 100.6, HR 92-1-2, RR 20-26, SBP 106-119, DBP 68-69, O2 93-96% on room air -CBC: WBC/bands 12.8/20, Hgb/HCT 12.5/37.4, platelet 179 -BMP: Sodium 142, potassium 4.4, chloride 107, CO2 16, urea 38, creatinine 1.8, anion gap 20, glucose 467 -LFT: AST 51, ALT 31, ALP 183, total bilirubin 2.3, direct bilirubin 1.7 -Miscellaneous: ESR 125, CRP >9, lactic acid 5.1, troponin I 0.85, ammonia <9, albumin 2.6, acetone negative -Coags: INR 1.28, d-dimer 4828 -Urinalysis: Trace ketones with positive nitrates/leukocyte esterase, large hemoglobin with moderate bacteria, rare WBC -Urine toxicology: Positive for opiates and cannabis -ABG: PH 7.42, PCO2 24, PO2 74, HCO3 15 -EKG: Sinus tachycardia with left bundle branch block -Rapid Flu: negative -CXR: - Mild cardiomegaly and diffuse pulmonary edema. - The patchy opacity in the right upper lobe could represent edema or pneumonia. - The nodular focus projecting over the left anterior fifth rib on the frontal view probably represents a nipple shadow. This could be confirmed on a follow-up radiograph obtained with nipple markers. -Right foot x-ray: 1. Extensive bony destructive changes are present in the second through fourth digits, most concerning in the second and third digits with non corticated distal aspects of the remaining portion of the metadiaphysis of the second and third digits. Findings are concerning for acute osteomyelitis. 2. Open wound with skin defect identified on the plantar aspect of the midfoot, the ulcer is present at the level of the mid foot closer to the tarsal metatarsal joint spaces rather than the distal metatarsal regions however. -Right hand x-ray: -Soft tissue ulceration at the radial margin of the small finger distal phalanx without underlying findings of osteomyelitis. -Diffuse uniform joint space narrowing in the wrist and MCP joints with superimposed palmar subluxation and ulnar deviation of the proximal phalanges as well as erosive/cystic changes at the metacarpal heads. These findings may represent the sequela of rheumatoid arthritis or, alternatively, degenerative arthritis superimposed upon a nonerosive arthropathy such as systemic lupus erythematosus. -CT chest/abdomen/pelvis: - Within the chest, there is mild pulmonary edema without pleural effusions. There are patchy nodular and airspace opacities in both lungs, and some of the pulmonary opacities have central cavitation. Also, some of the lesions exhibit the reversed halo sign (i.e., atoll sign), as may be seen in infectious disease and other disorders, such as vasculitis. Unable to exclude septic emboli. Other findings in the chest include atherosclerotic disease of coronary arteries and cardiomegaly. The mild hilar and mediastinal lymphadenopathy is likely reactive to the pulmonary disease. - Within the abdomen, findings include bilateral perinephric edema without ureterolithiasis or hydronephrosis. Also, there is perivesical and periprostatic edema within the pelvis. Urinary tract infection and prostatitis are possible. Consider correlation with urinalysis and urine culture. -CT head without IV contrast: -No acute intracranial pathology. -Scattered and fairly extensive inflammatory disease within the paranasal sinuses asymmetrically on the right. Partially visualized postsurgical changes involving the left maxillary sinus with sclerosis and thickening of the left maxillary wall compatible with sequela of chronic inflammation. -VQ scan: -Very low probability of pulmonary embolism. -ED Interventions: -ASA 325 mg PO ONCE -NS 6L Bolus -Vancomycin 1 g IV ONCE -Ceftazidime 1 g IV ONCE -Novolin 16 units IV -Actaminophen 1 g IV -Blood/Urine cultures CAT scan of his chest/abdomen/pelvis demonstrated pulmonary edema with opacities with central cavitations and perinephric edema, periprostatic edema, and possible prostatitis without any nephrolithiasis or hydronephrosis. VQ scan was low probability for pulmonary embolism. Patient is admitted to the ICU for management of the following: Respiratory: Acute hypoxic respiratory failure in setting of congestive heart failure: Patient today had increased respiratory effort with crackles heard of lung exam. A chest xray was obtained showing vascular congestion and a proBNP was elevated to 21,700. Patient received 6L of NS boluses on day of admission due to sepsis and lactic acidosis. An ABG was performed on 10/22 showing an ABG O2 saturation of 92%. Patient received IV lasix x 1 on 10/22. - respiratory therapy on board - continue to monitor vitals closely - oxygen supplementation with nasal cannula Infection: Sepsis secondary to right foot osteomyelitis Patient was initially being covered with Vancomycin, Ceftazidine and Flagyl for MRSA, gram negative coverage including pseudomonas and anaerobic organisms in the setting of diabetic foot infection. Patient's cultures from 10/22 growing gram positive cocci in clusters. - IV Vancomycin dosed based on renal clearance @ 1.5 gm IV q24 hours - Patient will require a vanc trough level before fourth dose - continue to follow up blood cultures for sensitivities - repeated blood cultures today - NPO for possible surgery tomorrow pending MRI today Cavitary lesions on CT - concern for septic emboli Transthoracic echo negative for vegetations. Patient may require ANNA. UTI/Pyelonephritis Urine culture growing staph aureus likely seeding from bacteremia. CT Abd showed perinephric stranding indicating possible pyelonephritis. No stones or hydronephrosis seen. Patient has no CVA tenderness at this time. - Continue IV Vancomycin for MRSA UTI Cardiac: Elevated troponins Patient's troponins peaked to 0.87. EKG showing a left bundle branch block. Elevated troponins likely due to demand ischemia in the setting of kidney failure and sepsis. Patient seen by cardiology. Recommended aspirin, statin, abdi inhibitor and coreg. The latter two have been held in the setting of acute renal failure and hypotension. ECHO was done showing mildly decreased EF of 45% with anteroseptal hypokinesis. - continue to follow cardiology recommendations - continue aspirin and statin Heme: Anemia Patient had an acute drop in his H/H. There is no evidence of bleeding at this time. Likely hemodilutional after recieivng multiple boluses of IV fluids. - continue to monitor H/H Metabolic: Diabetes Patient presented with hyperglycemia with an elevated anion gap without ketones with a normal pH. Due to patient's multiple comorbidities and perisitently high sugars he was started on an insulin drip which was discontinued after a few hours. Patient has hyperglycemia with negative acetone; and and gap is elevated but pH is otherwise normal. Patient does not appear to be in diabetic ketoacidosis but given his multiple medical comorbidities and persistently high glucose he is empirically started on an insulin drip. Hypernatremia Likely secondary to withholding IV fluids in the setting of fluid overload and respiratory distress and IV lasix. As patient is not going to surgery today, will encourage good PO intake. - repeat BEP tonight Alimentary: Patient had a formal swallow evaluation and was started on a mechanical ground diet with thin liquis. NPO for possible surgery tomorrow pending podiatry recommendations and MRI today Neurology: AMS Patient's altered mental status in the context of sepsis and infection is most likely due to a toxic metabolic encephalopathy. CT head was negative for acute intracranial pathology. Patient has no focal neurological deficits except for decreased sensation in his feet bilaterally which is likely in diabetic neuropathy. Patient failed formal psychiatry evaluation for competency. Patient' s daughter is the person to contact regarding consent for procedures. - continue to monitor with neurochecks Nephrology: Acute kidney injury: Likely in the setting of prerenal azotemia and hypoperfusion due to sepsis. Patient has received multiple fluid boluses. IV fluids are currently being used cautiously in setting of congestive heart failure and respiratory distress. - continue to monitor creatinine - continue to monitor strict I/O - avoid nephrotoxic agents DVT PPx: SQ Heparin, ALPS Code: Full code Problem List: 1. Sepsis 2. Osteomyelitis of right foot 3. Elevated troponin 4. UTI (urinary tract infection) 5. Hyperglycemia Pain Ratin Tomorrow's Labs & Rationales: cbc bep Plan DVT/Prophylaxis: mechanical, pharmacological
--- NOTE | 2017-10-23 09:21 | PN- Infect Dx ---
Subjective Subjective: Afebrile on steroids. He does not offer any complaints. Objective Last 24 Hrs of Vital Signs/I&O Vital Signs Date Time Temp Pulse Resp B/P B/P Pulse O2 O2 Flow FiO2 Mean Ox Delivery Rate 10/23 0600 98.1 74 24 117/59 10/23 0400 98.1 76 26 99/58 10/23 0400 95 Nasal 2.0L Cannula 10/23 0200 97.9 82 26 104/61 10/23 0000 97.9 96 30 106/58 10/23 0000 97.9 96 29 106/58 95 Nasal 2.0L Cannula 10/23 0000 95 Nasal 2.0L Cannula 10/22 2200 98.6 96 28 103/66 10/22 2000 98.6 72 28 102/54 10/22 2000 97 Nasal 2.0L Cannula 10/22 1800 102 30 95/56 10/22 1600 98.1 103 32 92/50 10/22 1600 98.1 103 32 92/50 95 Nasal 2.0L Cannula 10/22 1600 95 Nasal 2.0L Cannula 10/22 1400 105 34 94/52 10/22 1200 98.8 105 30 96/54 10/22 1200 96 Room Air 10/22 1000 106 30 90/57 Intake & Output 10/23 1600 10/23 0800 10/23 0000 Intake Total 360 Output Total 450 550 Balance -450 -190 Intake, Oral 360 Number 1 Bowel Movements Output, Urine 450 550 Patient 189 lb Weight Physical Exam Other Physical Findings: He is awake and alert but confused, in no acute distress Lungs decreased breath sounds bilaterally Heart regular rhythm with no murmur Abdomen is soft, nontender with positive bowel sounds Extremities deep, necrotic foul-smelling plantar ulcer of the right foot; tender joints in both wrists and shoulders; necrotic lesion on the right fifth finger Robles catheter remains in place Results Last 24 Hours of Lab Results: Laboratory Tests 10/23 10/22 10/22 0455 1600 1327 Chemistry Sodium (137 - 145 mmol/L) 151 H 147 H Potassium (3.5 - 5.1 mmol/L) 4.0 4.0 Chloride (98 - 107 mmol/L) 122 H 119 H Carbon Dioxide (22 - 30 mmol/L) 18 L 17 L Anion Gap (5 - 16) 12 11 BUN (9 - 20 mg/dL) 49 H 41 H Creatinine (0.7 - 1.2 mg/dL) 1.5 H 1.5 H Estimated GFR (>60 ml/min) 48 L 48 L Glucose (65 - 99 mg/dL) 159 H 165 H Lactic Acid (0.7 - 2.1 mmol/L) 2.0 Cancelled Calcium (8.4 - 10.2 mg/dL) 7.7 L 7.4 L Phosphorus (2.5 - 4.5 mg/dL) 3.5 3.6 Magnesium (1.6 - 2.3 mg/dL) 2.4 H 2.1 Total Bilirubin (0.2 - 1.3 mg/dL) 2.7 H 3.7 H AST (17 - 59 U/L) 127 H 136 H ALT (21 - 72 U/L) 63 52 Albumin (3.5 - 5.0 g/dL) 1.9 L 1.9 L Hematology CBC w Diff MAN DIFF ORDERED WBC (4.8 - 10.8 /CUMM) 9.5 RBC (4.70 - 6.10 /CUMM) 2.99 L Hgb (14.0 - 18.0 G/DL) 8.6 L Hct (42 - 52 %) 25.3 L MCV (80.0 - 94.0 FL) 84.7 MCH (27.0 - 31.0 PG) 28.7 MCHC (33.0 - 37.0 G/DL) 33.8 RDW (11.5 - 14.5 %) 15.2 H Plt Count (130 - 400 /CUMM) 145 MPV (7.4 - 10.4 FL) 9.6 Gran % (42.2 - 75.2 %) 88.3 H Lymphocytes % (20.5 - 51.1 %) 11.2 L Monocytes % (1.7 - 9.3 %) 0.3 L Eosinophils % (0 - 5 %) 0.2 Basophils % (0.0 - 2.0 %) 0 Absolute Granulocytes (1.4 - 6.5 /CUMM) 8.4 H Segmented Neutrophils (42.2 - 75.2 %) 73 Band Neutrophils (0.0 - 5.0 %) 12 H Absolute Lymphocytes (1.2 - 3.4 /CUMM) 1.1 L Lymphocytes (20.5 - 51.1 %) 10 L Monocytes (1.7 - 9.3 %) 5 Absolute Monocytes (0.10 - 0.60 /CUMM) 0 L Absolute Eosinophils (0.0 - 0.7 /CUMM) 0 Absolute Basophils (0.0 - 0.2 /CUMM) 0 Platelet Estimate (ADEQUATE) ADEQUATE Polychromasia 1+ Anisocytosis 1+ Stomatocytes FEW Theresa Cells 1+ Elliptocytes FEW 10/22 10/22 10/22 1215 1150 0950 Blood Gas pH (7.35 - 7.45 PH) 7.45 pCO2 (35 - 45 TORR) 22 L pO2 (80 - 100 TORR) 71 L HCO3 (21 - 28 MEQ/L) 15 L ABG O2 Sat (Measured) (>96.0 %) 92.0 L P-50 (Temp Corrected) N Carboxyhemoglobin (1.5 - 5.0 %) 2.0 O2 Concentration % .21 Temperature (97.0 - 100.0 FARH) 99.3 O2 Delivery Method RA Chemistry Sodium (137 - 145 mmol/L) 154 H Potassium (3.5 - 5.1 mmol/L) 3.7 Chloride (98 - 107 mmol/L) 122 H Carbon Dioxide (22 - 30 mmol/L) 17 L Anion Gap (5 - 16) 15 BUN (9 - 20 mg/dL) 39 H Creatinine (0.7 - 1.2 mg/dL) 1.5 H Estimated GFR (>60 ml/min) 48 L Glucose (65 - 99 mg/dL) 88 Lactic Acid (0.7 - 2.1 mmol/L) 2.2 H Calcium (8.4 - 10.2 mg/dL) 7.9 L Phosphorus (2.5 - 4.5 mg/dL) 2.4 L Magnesium (1.6 - 2.3 mg/dL) 2.2 Total Bilirubin (0.2 - 1.3 mg/dL) 3.4 H AST (17 - 59 U/L) 137 H ALT (21 - 72 U/L) 44 Troponin I (<0.11 ng/ml) 0.79 *H Ijv-[id number] Pept (<125 pg/mL) 01498 H Albumin (3.5 - 5.0 g/dL) 2.0 L Miscellaneous Phlebotomy Draw Site RIGHT RADIAL Last 24 Hours of [place] Results: Blood cultures October 21 positive for MRSA Blood cultures October 22 positive for gram-positive cocci Recent Imaging Studies: Chest x-ray October 22 pulmonary vasculature congestion Assessment/Plan ID Impression: Stable, with temperatures and white blood cell count normal (on steroids), on Vancomycin Day 2 of treatment for MRSA sepsis, presumably secondary to his chronic necrotic, purulent, foul-smelling right foot plantar ulcer, with his x- ray revealing evidence of osteomyelitis of the second through fourth digits. He is scheduled for a right transmetatarsal amputation, but this is apparently pending consent, which he apparently is unable to provide, and suspect he may require a right BKA given the extent of his ulcer. His bilateral pulmonary opacities, some containing central cavitation, likely represents seeding from the Staph aureus bacteremia. His multiple joint complaints may be secondary to sepsis or endocarditis, with seeding of the joints also a possibility. His positive urine culture presumably represents seeding from his bacteremia. Suggestion: 1. Await decision regarding right foot surgery 2. Repeat blood cultures 2 3. Plastic surgery evaluation of his right fifth finger 4. Will need to consider a ANNA at some point 5. Continue Vancomycin
--- NOTE | 2017-10-23 11:01 | Cons- Psychiatry ---
Psychiatric Consult Date of Consult: 10/23/17 Reason for Consult: "For competency" Re-formulated as: Does the patient have the capacity to make a decision about a medically necessary surgery." History of Present Illness: 61-year-old , domiciled male brought in by ambulance from home on 10/21/2017 at 1146 with a chief complaint of altered mental status, probable urinary tract infection and infected right foot wound. His family, who lives 2 hours away, including a daughter, Winsome, [phone], and son Nam, [phone], and Winsome's mother, Donya, all live 2 hours away, and couldn't contact the patient for 3 days. Upon EMS arrival, triage note indicates that the house was unkempt the patient was found covered in urine, confused, tachypneic, with blood glucose of 409. The patient has a history of insulin-dependent diabetes mellitus. 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 Allergies: Coded Allergies: No Known Allergies (10/21/17) Current Medications: Current Medications Sig/Lai Start time Last Medication Dose Route Stop Time Status Admin Acetaminophen 1,000 MG Q6P PRN 10/21 170 AC IV Aspirin 81 MG DAILY 10/23 1000 AC PO Atorvastatin Calcium 80 MG 1700 10/23 1700 AC PO Ceftazidime 1,000 MG IQ8 10/22 0000 DC 10/22 IV 0819 Dextrose/Water 1,000 ML ONCE ONE 10/22 0830 DC 10/22 IV 10/22 2149 0845 Folic Acid 1 MG DAILY 10/21 1703 AC 10/21 PO 1826 Furosemide 20 MG ONCE ONE 10/22 1230 DC 10/22 IV 10/22 1231 1310 Heparin Sodium 5,000 UNIT Q8 10/21 2200 AC 10/23 (Porcine) SC 0612 Hydrocortisone 50 MG Q12 10/22 220 AC 10/23 Sodium Succinate IV 0955 Hydrocortisone 25 MG ONE ONE 10/22 1215 DC 10/22 Sodium Succinate IV 10/22 1216 1246 Insulin Aspart 0 Q4 10/21 2200 DC 10/22 SC 2136 Insulin Detemir 8 UNITS BID 10/22 2200 AC 10/22 SC 2136 Insulin Detemir 12 UNITS BID 10/22 1000 DC SC Insulin Human Regular 0 Q4 10/23 1000 AC SC Insulin Human Regular 0 Q6 10/23 0245 DC 10/23 SC 0612 Metronidazole 500 MG IQ8 10/22 0930 DC 10/22 N/A 1 UNIT IV 1121 Multivitamins 1 TAB DAILY 10/21 1703 AC 10/21 PO 1826 Potassium Phosphate 15 mMol ONE ONE 10/22 1045 DC 10/22 Dextrose/Water 250 ML IV 10/22 1449 1126 Prednisone 5 MG DAILY 10/22 1000 AC PO Thiamine HCl 100 MG DAILY 10/21 1703 AC 10/21 PO 1826 Vancomycin HCl 1,500 MG DAILY 10/22 1124 AC 10/23 Dextrose/Water 250 ML IV 0955 Vancomycin HCl 1,250 MG Q12H 10/22 1000 DC Dextrose/Water 250 ML IV Past History Past Medical History Neurological: NONE EENT: NONE Cardiovascular: hypertension, hyperlipidemia, myocardial infarction Respiratory: NONE Gastrointestinal: NONE Hepatic: NONE Renal: NONE Musculoskeletal: osteoarthritis Psychiatric: chronic pain disorder, substance abuse Endocrine: diabetes Blood Disorders: NONE Cancer(s): NONE CARE CONSULTANT/Reproductive: NONE Past Surgical History Surgical History: amputation of toes on the left foot Psychosocial History Strengths/Capabilities: Supportive family Physical Limitations (Interventions): Unknown at this time, but probable difficulty with ambulation Psychiatric Treatment History Psych Treatment Psychiatric Treatment No (denies) Diagnosis: Delirium due to medical condition Risk Factors: chronic/serious med cond., substance abuse, lack of outcome concern, lives alone, male Substance Use/Abuse History Drug Use/Abuse Substances Used/Abused Yes Substance Used/Abused Marijuana First Use not evaluated Last Used prior to admission How much used/taken 2 with 3 "tokes" per day How often daily For how long not evaluated Substance Abuse Treatment Substance Abuse Treatment Past Substance Abuse [place] No (denies) Assessment/Plan Mental Status Orientation: Confused, Person Affect: Constricted Speech: Slurred, Soft Neuro-vegetative: WNL Mental Status Exam: The patient is lying in his bed, drowsy, but arousable. He is calm and cooperative. Folstein/MMSE score today was 9/25. 3 stage commands, write a sentence, and copy a design, where not evaluated, due to the patient's difficulty in moving his hands. He had deficits in orientation, knows who he is, the year the day or week the state, knows that he is in the hospital and that the president is Mr. Cho. He is not oriented to season day month town or what part of the hospital he is in. He is able to register 3 objects, but could not recall any of them. He is unable to perform subtraction at this time. He is able to spell the word world forward, but when asked to spell it backwards he spells it forward on 2 occasions. He identifies a pen as a "striker" and a TV as "[employer]." He is able to repeat a phrase correctly. He denies any history of auditory or visual hallucinations. He denies feelings of depression or anxiety. He denies hopelessness, helplessness, worthlessness or guilty feelings. He denies suicidal or homicidal ideation, and denies any history of suicide attempt. He reports his current substance use as 2-3 bottles of Heineken light per day, and smokes cannabis, "a couple of tokes per day" to relax. He denies the use of other drugs. He reports that he lives by himself, and identified his daughter, Winsome, and reported his son's name differently on 2 occasions. He offered a confused explanation for the identity of Winsome's mother, Donya and could not remember her name. Capacity evaluation: 1. The patient is able to express a choice. 2. He is able to understand that he has an infection in his foot requires treatment, currently with an antibiotic, and a proposal to to breathe the wound. 3. He is able to appreciate the facts in the case, and states that he needs to care for the infected wound in his foot, and that if he does not have the surgery, possibly including amputation, he could lose his foot. After further explanation, the patient is able to state that if he does not have the surgery, he could also lose his life. 4. The patient endorses the current antibiotic regimen, as well as the idea for surgery to his foot. At this time, he would authorize a cleaning out of the wound, although we understand that a decision for a partial amputation may not be able to be made until debridement of the wound. The patient does not wish to have any amputation. He would prefer to delay the surgery for a week or 2, and the reason for this is, "there is too much going on." Lab Results: Laboratory Tests 10/23 10/22 10/22 0455 1600 1327 Chemistry Sodium (137 - 145 mmol/L) 151 H 147 H Potassium (3.5 - 5.1 mmol/L) 4.0 4.0 Chloride (98 - 107 mmol/L) 122 H 119 H Carbon Dioxide (22 - 30 mmol/L) 18 L 17 L Anion Gap (5 - 16) 12 11 BUN (9 - 20 mg/dL) 49 H 41 H Creatinine (0.7 - 1.2 mg/dL) 1.5 H 1.5 H Estimated GFR (>60 ml/min) 48 L 48 L Glucose (65 - 99 mg/dL) 159 H 165 H Lactic Acid (0.7 - 2.1 mmol/L) 2.0 Cancelled Calcium (8.4 - 10.2 mg/dL) 7.7 L 7.4 L Phosphorus (2.5 - 4.5 mg/dL) 3.5 3.6 Magnesium (1.6 - 2.3 mg/dL) 2.4 H 2.1 Total Bilirubin (0.2 - 1.3 mg/dL) 2.7 H 3.7 H AST (17 - 59 U/L) 127 H 136 H ALT (21 - 72 U/L) 63 52 Albumin (3.5 - 5.0 g/dL) 1.9 L 1.9 L Hematology CBC w Diff MAN DIFF ORDERED WBC (4.8 - 10.8 /CUMM) 9.5 RBC (4.70 - 6.10 /CUMM) 2.99 L Hgb (14.0 - 18.0 G/DL) 8.6 L Hct (42 - 52 %) 25.3 L MCV (80.0 - 94.0 FL) 84.7 MCH (27.0 - 31.0 PG) 28.7 MCHC (33.0 - 37.0 G/DL) 33.8 RDW (11.5 - 14.5 %) 15.2 H Plt Count (130 - 400 /CUMM) 145 MPV (7.4 - 10.4 FL) 9.6 Gran % (42.2 - 75.2 %) 88.3 H Lymphocytes % (20.5 - 51.1 %) 11.2 L Monocytes % (1.7 - 9.3 %) 0.3 L Eosinophils % (0 - 5 %) 0.2 Basophils % (0.0 - 2.0 %) 0 Absolute Granulocytes (1.4 - 6.5 /CUMM) 8.4 H Segmented Neutrophils (42.2 - 75.2 %) 73 Band Neutrophils (0.0 - 5.0 %) 12 H Absolute Lymphocytes (1.2 - 3.4 /CUMM) 1.1 L Lymphocytes (20.5 - 51.1 %) 10 L Monocytes (1.7 - 9.3 %) 5 Absolute Monocytes (0.10 - 0.60 /CUMM) 0 L Absolute Eosinophils (0.0 - 0.7 /CUMM) 0 Absolute Basophils (0.0 - 0.2 /CUMM) 0 Platelet Estimate (ADEQUATE) ADEQUATE Polychromasia 1+ Anisocytosis 1+ Stomatocytes FEW [place] Cells 1+ Elliptocytes FEW 10/22 10/22 1215 1150 Blood Gas pH (7.35 - 7.45 PH) 7.45 pCO2 (35 - 45 TORR) 22 L pO2 (80 - 100 TORR) 71 L HCO3 (21 - 28 MEQ/L) 15 L ABG O2 Sat (Measured) (>96.0 %) 92.0 L P-50 (Temp Corrected) N Carboxyhemoglobin (1.5 - 5.0 %) 2.0 O2 Concentration % .21 Temperature (97.0 - 100.0 FARH) 99.3 O2 Delivery Method RA Chemistry Sodium (137 - 145 mmol/L) 154 H Potassium (3.5 - 5.1 mmol/L) 3.7 Chloride (98 - 107 mmol/L) 122 H Carbon Dioxide (22 - 30 mmol/L) 17 L Anion Gap (5 - 16) 15 BUN (9 - 20 mg/dL) 39 H Creatinine (0.7 - 1.2 mg/dL) 1.5 H Estimated GFR (>60 ml/min) 48 L Glucose (65 - 99 mg/dL) 88 Lactic Acid (0.7 - 2.1 mmol/L) 2.2 H Calcium (8.4 - 10.2 mg/dL) 7.9 L Phosphorus (2.5 - 4.5 mg/dL) 2.4 L Magnesium (1.6 - 2.3 mg/dL) 2.2 Total Bilirubin (0.2 - 1.3 mg/dL) 3.4 H AST (17 - 59 U/L) 137 H ALT (21 - 72 U/L) 44 [id number] Pept (<125 pg/mL) 78716 H Albumin (3.5 - 5.0 g/dL) 2.0 L Miscellaneous Phlebotomy Draw Site RIGHT RADIAL Diffential Diagnosis: Delirium due to another medical condition, specifically an infective process. Impression: Although the patient is able to meet 3 of the 4 criteria for capacity to make a decision about his important surgery, his reasoning does not indicate sufficient grasp of the urgency. He states that he wants to put off the surgery because "there's too much going on," however, he is not suicidal, yet even after explanation that he could likely relapse into sepsis, and possibly , the patient does not want to change his mind about having the surgery. The Folstein score indicates moderate cognitive impairment. In the setting of suspected delirium, the patient does not have capacity to make decision about surgery today. His next of kin is his daughter, Winsome, who is present. A reversible dementia screen should be completed. High suspicion for alcohol withdrawal should be considered, despite the patient' s report of only 2-3 beers per day. Wernicke-Korsakoff cannot be ruled out at this point. Provisional Treatment Plan: 1. The patient does not have capacity to make a decision about his surgery today. 2. Please complete and reversible dementia screen, including vitamin B12/folate , TSHR, Lyme titer, RPR/VDRL. Head imaging has been completed, and shows no acute process. Please correct any electrolyte abnormalities, as indicated. The patient does have at least one infective process, osteomyelitis in the right foot. We also suspect that he may have a urinary tract infection, possibly affecting his mental status. 3. Please start high-dose thiamine therapy, under the proactive assumption that the patient may be detoxing from alcohol. Please start CIWA protocol for monitoring alcohol withdrawal, and initiate alcohol withdrawal protocol, if indicated. 4. Please feel free to consult with the hospital legal department regarding decisional capacity, although we suspect this will probably pass to one of his children. We may have other thoughts on this for the day is out. Case discussed with the validation leader psychiatrist, Dr. Gabriela Sorto, who agrees with the plan. Thank you for this consult.
--- NOTE | 2017-10-23 14:15 | PN- Diabetes ---
Assessment/Plan Diabetes Assessment: 61-year-old man with past medical history significant for diabetes mellitus and coronary artery disease status post stent placement, was brought in by ambulance for evaluation of altered mental status. Patient has a necrotic, purulent, chronic right foot plantar ulcer. He was scheduled for a right transmetatarsal amputation today which was deferred secondary to patient's reluctance and his current condition. His BP has been borderline low. He used to take prednisone chronically for his arthritis. He was placed on stress dose of steroid-- Hydrocortisone 50 mg iv twice a day. Currently he is on levemir 8 units twice a day, RISS every 6 hours. IVF was discontinued due to fluid overload. The blood culture was positive for Gram positive cocci in cluster. Am lab showed sodium 151. Patient is kept NPO for possible foot procedure today. His FSGs were 167, 174 and 165. Plan: 1. continue the current stress dose of steroid--- hydrocortisone 50 mg iv twice a day; 2. continue Levemir 8 units twice a day; 3. continue RISS everey 6 hours for now; 4. encourage patient to drink more water when he is ready to eat and to monitor electrolytes twice a day. will follow. Subjective Subjective: Patient stated that he didn't want to ahve surgery done. However, he appears confused. Objective Last 24 Hrs of Vital Signs/I&O Vital Signs Date Time Temp Pulse Resp B/P B/P Pulse O2 O2 Flow FiO2 Mean Ox Delivery Rate 10/23 1200 98.0 90 24 110/60 10/23 1200 96 Nasal 2.0L Cannula 10/23 1000 87 22 118/62 10/23 0800 98.2 91 22 120/64 10/23 0800 98.2 91 22 120/64 95 Nasal 2.0L Cannula 10/23 0800 95 Nasal 2.0L Cannula 10/23 0600 98.1 74 24 117/59 10/23 0400 98.1 76 26 99/58 10/23 0400 95 Nasal 2.0L Cannula 10/23 0200 97.9 82 26 104/61 10/23 0000 97.9 96 30 106/58 10/23 0000 97.9 96 29 106/58 95 Nasal 2.0L Cannula 10/23 0000 95 Nasal 2.0L Cannula 10/22 2200 98.6 96 28 103/66 10/22 2000 98.6 72 28 102/54 03/20 2000 97 Nasal 2.0L Cannula 10/22 1800 102 30 95/56 10/22 1600 98.1 103 32 92/50 10/22 1600 98.1 103 32 50 95 Nasal 2.0L Cannula 10/22 1600 95 Nasal 2.0L Cannula Intake & Output 10/23 1600 10/23 0800 10/23 0000 Intake Total 360 Output Total 450 550 Balance -450 -190 Intake, Oral 360 Number 1 Bowel Movements Output, Urine 450 550 Patient 189 lb Weight Findings Pertinent Lab/[place] Results: Laboratory Tests 10/23 10/23 10/22 0500 0455 1600 Chemistry Sodium (137 - 145 mmol/L) 151 H 147 H Potassium (3.5 - 5.1 mmol/L) 4.0 4.0 Chloride (98 - 107 mmol/L) 122 H 119 H Carbon Dioxide (22 - 30 mmol/L) 18 L 17 L Anion Gap (5 - 16) 12 11 BUN (9 - 20 mg/dL) 49 H 41 H Creatinine (0.7 - 1.2 mg/dL) 1.5 H 1.5 H Estimated GFR (>60 ml/min) 48 L 48 L Glucose (65 - 99 mg/dL) 159 H 165 H Lactic Acid (0.7 - 2.1 mmol/L) 2.0 Calcium (8.4 - 10.2 mg/dL) 7.7 L 7.4 L Phosphorus (2.5 - 4.5 mg/dL) 3.5 3.6 Magnesium (1.6 - 2.3 mg/dL) 2.4 H 2.1 Total Bilirubin (0.2 - 1.3 mg/dL) 2.7 H 3.7 H AST (17 - 59 U/L) 127 H 136 H ALT (21 - 72 U/L) 63 52 Albumin (3.5 - 5.0 g/dL) 1.9 L 1.9 L Vitamin B12 (239 - 931 pg/mL) 909 Folate (2.76 - 20.0 ng/mL) 15.5 TSH (0.270 - 4.200 uIU/mL) 0.964 Free T4 (0.64 - 1.79 ng/dL) 0.84 Hematology CBC w Diff MAN DIFF ORDERED WBC (4.8 - 10.8 /CUMM) 9.5 RBC (4.70 - 6.10 /CUMM) 2.99 L Hgb (14.0 - 18.0 G/DL) 8.6 L Hct (42 - 52 %) 25.3 L MCV (80.0 - 94.0 FL) 84.7 MCH (27.0 - 31.0 PG) 28.7 MCHC (33.0 - 37.0 G/DL) 33.8 RDW (11.5 - 14.5 %) 15.2 H Plt Count (130 - 400 /CUMM) 145 MPV (7.4 - 10.4 FL) 9.6 Gran % (42.2 - 75.2 %) 88.3 H Lymphocytes % (20.5 - 51.1 %) 11.2 L Monocytes % (1.7 - 9.3 %) 0.3 L Eosinophils % (0 - 5 %) 0.2 Basophils % (0.0 - 2.0 %) 0 Absolute Granulocytes (1.4 - 6.5 /CUMM) 8.4 H Segmented Neutrophils (42.2 - 75.2 %) 73 Band Neutrophils (0.0 - 5.0 %) 12 H Absolute Lymphocytes (1.2 - 3.4 /CUMM) 1.1 L Lymphocytes (20.5 - 51.1 %) 10 L Monocytes (1.7 - 9.3 %) 5 Absolute Monocytes (0.10 - 0.60 /CUMM) 0 L Absolute Eosinophils (0.0 - 0.7 /CUMM) 0 Absolute Basophils (0.0 - 0.2 /CUMM) 0 Platelet Estimate (ADEQUATE) ADEQUATE Polychromasia 1+ Anisocytosis 1+ Stomatocytes FEW Theresa Cells 1+ Elliptocytes FEW Serology RPR Titer/FTA (NONREACTIVE) NONREACTIVE Lyme Disease Antibody (RATIO) Pending
--- NOTE | 2017-10-23 18:18 | PN- Cardiology ---
Subjective Subjective: * No complaints. * sinus rhythm with BBB * H/H 8.6/25.3 Objective Vital Signs and I&Os Vital Signs Date Time Temp Pulse Resp B/P B/P Pulse O2 O2 Flow FiO2 Mean Ox Delivery Rate 10/23 1600 97.5 88 20 141/73 10/23 1600 97.5 88 20 120/60 99 Nasal 2.0L Cannula 10/23 1600 98 Room Air 10/23 1400 82 22 128/68 10/23 1200 98.0 90 24 110/60 10/23 1200 96 Nasal 2.0L Cannula 10/23 1000 87 22 118/62 10/23 0800 98.2 91 22 120/64 10/23 0800 98.2 91 22 120/64 95 Nasal 2.0L Cannula 10/23 0800 95 Nasal 2.0L Cannula 10/23 0600 98.1 74 24 117/59 10/23 0400 98.1 76 26 99/58 10/23 0400 95 Nasal 2.0L Cannula 10/23 0200 97.9 82 26 104/61 10/23 0000 97.9 96 30 106/58 10/23 0000 97.9 96 29 106/58 95 Nasal 2.0L Cannula 10/23 0000 95 Nasal 2.0L Cannula 10/22 2200 98.6 96 28 103/66 10/23 1999 98.6 72 28 102/54 10/23 1999 97 Nasal 2.0L Cannula Intake & Output 10/23 1600 10/23 0800 10/23 0000 10/22 1600 10/22 0800 10/22 0000 Intake Total 520 360 720 506 396 Output Total 675 450 550 375 580 250 Balance -155 -450 -190 345 -74 146 Intake, IV 280 720 506 396 Intake, Oral 240 360 Number 1 Bowel Movements Output, Urine 675 450 550 375 580 250 Patient 189 lb 189 lb Weight Weight Bed scale Measurement Method Physical Exam: General: WD/WN male in NAD; alert and oriented x 3 HEENT: NC/AT, PERRL, EOMI Neck: no JVD, no carotid bruit Heart: RRR with 2/6 systolic murmur Lungs: clear bilaterally Abdomen: soft, NT, +ve bowel sounds Extremties: no edema, left TMA, right plantar ulcer Assessment/Plan Assessment/Plan * This patient has a mildly increased troponin consistent with a type 2 NH. There may be some artifactual rise in troponin from decreased clearance in the setting of decreased renal function. There is no clear evidence of decompensated congestive heart failure. This patient should be on a statin, aspirin and Coreg 3.125mg BID. * This patient has osteomyelitis and anticipates surgery for this condition. In consideration of his NH he is at mildly increased, but not prohibitive risk, for this low risk surgery. * H/H is trending down. Not clearly dilutional. The patient has an elevated sodium and creatinine consistent with a pre-renal state. Would pursue an anemia workup with iron, B12, folate, serum haptoglobin, reticulocyte count and guaiac all stools. Follow CBC. Continue telemetry? Yes
[2017-10-24] VITALS (7 sets, daily range): BP systolic 112–150; BP diastolic 56–67
[2017-10-24 05:16] LABS: ABSOLUTE BASOPHIL COUNT 0 /CUMM (0.0-0.2); ABSOLUTE EOSINOPHIL COUNT 0 /CUMM (0.0-0.7); ABSOLUTE GRANULOCYTE CT 11.8 /CUMM (1.4-6.5); ABSOLUTE LYMPH COUNT 0.5 /CUMM (1.2-3.4); ABSOLUTE MONOCYTE COUNT 0.1 /CUMM (0.10-0.60); BASOPHIL % 0 % (0.0-2.0); EOSINOPHIL % 0 % (0-5); GRANULOCYTE % 95.1 % (42.2-75.2); HEMATOCRIT 25.8 % (42-52); MEAN CORPUSCULAR HGB 28.1 PG (27.0-31.0); MEAN CORPUSCULAR HGB CONC 33.5 G/DL (33.0-37.0); MEAN PLATELET VOLUME 9.4 FL (7.4-10.4); PLATELET COUNT 151 /CUMM (130-400); RED BLOOD CELL CT 3.07 /CUMM (4.70-6.10); WHITE BLOOD CELL COUNT 12.4 /CUMM (4.8-10.8)
--- NOTE | 2017-10-24 07:44 | PN- Resident CRCU ---
See Addendum Subjective HPI/CRCU Issues: Overnight issues: Patient reports headache. Denies pain elsewhere. Denies chest pain, SOB, palpitations, fever/chills, abdominal pain, n/v/c/d. Denies foot pain. Vitals: MAXIMUM TEMPERATURE 98.3, heart rate 80-108, sinus rhythm. Sinus tach, bundle branch block, respiratory rate 2238, blood pressure 103-132/60-77, 92-98% on room air previously on 2 L nasal cannula Total intake 930, total output 1994 Labs: WBC 12.4 with 95.1% granulocytes, 95 segmented neutrophils, 1 band (up from 9.5) , H&H 8.6 and 25.8, platelets 151 Sodium 147, potassium 4.1, chloride 117, bicarbonate 17, BUN 54, creatinine 1.2, calcium 7.5, phosphorus 2.9, magnesium 2.3, total bili 2.4, AST 156, ALT 82, albumin 1.9 Microbiology: Blood cultures 2 from October 22 growing gram-positive cocci Blood cultures 2 from October 22 growing gram-positive cocci Urine culture from October 21 growing MRSA Blood culture 2 from October 21 growing MRSA Objective Vital Signs & I&O Last 8 Hrs of Vitals and I&O: Vital Signs Date Time Temp Pulse Resp B/P B/P Pulse O2 O2 Flow FiO2 Mean Ox Delivery Rate 10/24 1221 93 148/70 Exam General Appearance: well developed/nourished, alert, awake, confused, alert and oriented x2 Head: atraumatic Respiratory: normal breath sounds, lungs clear Cardiovascular: regular rate/rhythm Gastrointestinal: normal bowel sounds, soft, non-tender Extremities: right foot plantar necrotic ulcer covered with a dry kerlix, left foot s/p tma, right hand fifth digit necrosis at tip Cranial Nerves: normal hearing, normal speech, PERRL Skin Temp/Moisture Exam: Warm/Dry Sepsis Skin Exam (color): Normal for Ethnicity Current Medications: Current Medications Sig/Lai Start time Last Medication Dose Route Stop Time Status Admin Acetaminophen 1,000 MG Q6P PRN 10/21 1700 AC IV Aspirin 81 MG DAILY 10/23 1000 AC 10/24 PO 1027 Atorvastatin Calcium 80 MG 1700 10/23 1700 AC 10/23 PO 1811 Carvedilol 3.125 MG BID 10/24 1000 AC 10/24 PO 1221 Folic Acid 1 MG DAILY 10/21 1703 AC 10/24 PO 1224 Heparin Sodium 5,000 UNIT Q8 10/21 2200 AC 10/24 (Porcine) SC 1339 Hydrocortisone 50 MG Q12 10/22 220 AC 10/24 Sodium Succinate IV 1027 Insulin Aspart 0 TIDAC/HS 10/24 1200 AC 10/24 SC 10/24 2300 1235 Insulin Aspart 0 TIDAC 10/23 1700 DC 10/23 SC 10/23 2300 1627 Insulin Detemir 8 UNITS BID 10/22 220 AC 10/24 SC 1027 Insulin Human Regular 0 Q6 10/24 2359 AC SC Insulin Human Regular 0 Q6 10/23 2359 DC 10/24 SC 0631 Multivitamins 1 TAB DAILY 10/21 170 AC 10/24 PO 1224 Potassium Chloride 40 MEQ ONCE ONE 10/24 0045 DC 10/24 PO 10/24 0046 0057 Prednisone 5 MG DAILY 10/22 1000 AC 10/24 PO 1027 Thiamine HCl 500 MG Q8H 10/24 2130 AC Sodium Chloride 250 ML IV 10/27 0629 Thiamine HCl 500 MG TID 10/24 1000 DC 10/24 Sodium Chloride 250 ML IV 10/26 2259 1334 Thiamine HCl 100 MG DAILY 10/21 1703 DC 10/23 PO 1601 Vancomycin HCl 1,000 MG Q12 10/24 2199 AC Dextrose/Water 250 ML IV Vancomycin HCl 1,500 MG DAILY 10/22 1124 DC 10/24 Dextrose/Water 250 ML IV 1027 Impression/Plan Impression/Problem List Impression: 61-year-old man with past medical history of only insulin-dependent diabetes mellitus brought in by ambulance for evaluation of altered mental status and "failure to thrive". ED course -Vitals: MAXIMUM TEMPERATURE 100.6, HR 92-1-2, RR 20-26, SBP 106-119, DBP 68-69, O2 93-96% on room air -CBC: WBC/bands 12.8/20, Hgb/HCT 12.5/37.4, platelet 179 -BMP: Sodium 142, potassium 4.4, chloride 107, CO2 16, urea 38, creatinine 1.8, anion gap 20, glucose 467 -LFT: AST 51, ALT 31, ALP 183, total bilirubin 2.3, direct bilirubin 1.7 -Miscellaneous: ESR 125, CRP >9, lactic acid 5.1, troponin I 0.85, ammonia <9, albumin 2.6, acetone negative -Coags: INR 1.28, d-dimer 4828 -Urinalysis: Trace ketones with positive nitrates/leukocyte esterase, large hemoglobin with moderate bacteria, rare WBC -Urine toxicology: Positive for opiates and cannabis -ABG: PH 7.42, PCO2 24, PO2 74, HCO3 15 -EKG: Sinus tachycardia with left bundle branch block -Rapid Flu: negative -CXR: - Mild cardiomegaly and diffuse pulmonary edema. - The patchy opacity in the right upper lobe could represent edema or pneumonia. - The nodular focus projecting over the left anterior fifth rib on the frontal view probably represents a nipple shadow. This could be confirmed on a follow-up radiograph obtained with nipple markers. -Right foot x-ray: 1. Extensive bony destructive changes are present in the second through fourth digits, most concerning in the second and third digits with non corticated distal aspects of the remaining portion of the metadiaphysis of the second and third digits. Findings are concerning for acute osteomyelitis. 2. Open wound with skin defect identified on the plantar aspect of the midfoot, the ulcer is present at the level of the mid foot closer to the tarsal metatarsal joint spaces rather than the distal metatarsal regions however. -Right hand x-ray: -Soft tissue ulceration at the radial margin of the small finger distal phalanx without underlying findings of osteomyelitis. -Diffuse uniform joint space narrowing in the wrist and MCP joints with superimposed palmar subluxation and ulnar deviation of the proximal phalanges as well as erosive/cystic changes at the metacarpal heads. These findings may represent the sequela of rheumatoid arthritis or, alternatively, degenerative arthritis superimposed upon a nonerosive arthropathy such as systemic lupus erythematosus. -CT chest/abdomen/pelvis: - Within the chest, there is mild pulmonary edema without pleural effusions. There are patchy nodular and airspace opacities in both lungs, and some of the pulmonary opacities have central cavitation. Also, some of the lesions exhibit the reversed halo sign (i.e., atoll sign), as may be seen in infectious disease and other disorders, such as vasculitis. Unable to exclude septic emboli. Other findings in the chest include atherosclerotic disease of coronary arteries and cardiomegaly. The mild hilar and mediastinal lymphadenopathy is likely reactive to the pulmonary disease. - Within the abdomen, findings include bilateral perinephric edema without ureterolithiasis or hydronephrosis. Also, there is perivesical and periprostatic edema within the pelvis. Urinary tract infection and prostatitis are possible. Consider correlation with urinalysis and urine culture. -CT head without IV contrast: -No acute intracranial pathology. -Scattered and fairly extensive inflammatory disease within the paranasal sinuses asymmetrically on the right. Partially visualized postsurgical changes involving the left maxillary sinus with sclerosis and thickening of the left maxillary wall compatible with sequela of chronic inflammation. -VQ scan: -Very low probability of pulmonary embolism. -ED Interventions: -ASA 325 mg PO ONCE -NS 6L Bolus -Vancomycin 1 g IV ONCE -Ceftazidime 1 g IV ONCE -Novolin 16 units IV -Actaminophen 1 g IV -Blood/Urine cultures CAT scan of his chest/abdomen/pelvis demonstrated pulmonary edema with opacities with central cavitations and perinephric edema, periprostatic edema, and possible prostatitis without any nephrolithiasis or hydronephrosis. VQ scan was low probability for pulmonary embolism. Patient is admitted to the ICU for management of the following: Respiratory: Acute hypoxic respiratory failure in setting of congestive heart failure: Patient today had increased respiratory effort with crackles heard of lung exam. A chest xray was obtained showing vascular congestion and a proBNP was elevated to 21,700. Patient received 6L of NS boluses on day of admission due to sepsis and lactic acidosis. An ABG was performed on 10/22 showing an ABG O2 saturation of 92%. Patient received IV lasix x 1 on 10/22. Patient weaned off oxygen today. - respiratory therapy on board - continue to monitor vitals closely Infection: Sepsis secondary to right foot osteomyelitis Patient was initially being covered with Vancomycin, Ceftazidine and Flagyl for MRSA, gram negative coverage including pseudomonas and anaerobic organisms in the setting of diabetic foot infection. Patient's cultures from 10/22 and 10/23 growing gram positive cocci in clusters. MRI showing osteomyelitis - IV Vancomycin dosed increased to 1mg IV BID as renal function has improved - Patient will require a vanc trough level before fourth dose - continue to follow up blood cultures for sensitivities - repeated blood cultures today - NPO for possible surgery tomorrow Cavitary lesions on CT - concern for septic emboli Transthoracic echo negative for vegetations. Patient may require ANNA. UTI/Pyelonephritis Urine culture growing staph aureus likely seeding from bacteremia. CT Abd showed perinephric stranding indicating possible pyelonephritis. No stones or hydronephrosis seen. Patient has no CVA tenderness at this time. - Continue IV Vancomycin for MRSA UTI Cardiac: Elevated troponins Patient's troponins peaked to 0.87. EKG showing a left bundle branch block. Elevated troponins likely due to demand ischemia in the setting of kidney failure and sepsis. Patient seen by cardiology. Recommended aspirin, statin, abdi inhibitor and coreg. The latter two have been held in the setting of acute renal failure and hypotension. ECHO was done showing mildly decreased EF of 45% with anteroseptal hypokinesis. - continue to follow cardiology recommendations - continue aspirin and statin Heme: Anemia Patient had an acute drop in his H/H. There is no evidence of bleeding at this time. Likely hemodilutional after recieivng multiple boluses of IV fluids. - continue to monitor H/H Metabolic: Diabetes Patient presented with hyperglycemia with an elevated anion gap without ketones with a normal pH. Due to patient's multiple comorbidities and perisitently high sugars he was started on an insulin drip which was discontinued after a few hours. Patient has hyperglycemia with negative acetone; and and gap is elevated but pH is otherwise normal. Due to patient's multiple medical comorbidities and persistently high glucose he was empirically started on an insulin drip for a few hours on day of admission. - Insulin SS with accuchecks TIDAC/qHS - Novolog SS today - Novolin SS after midnight - Consistent Carbohydrate diet - Levemir 8 units BID - Endocrinology consulted. Appreciate recommendations. Adrenal Insufficiency - IV hydrocortisone 50mg BID - If patient requires general anesthesia tomorrow with surgery must be given 100mg IV hydrocortison prior to anesthesia Hypernatremia Likely secondary to withholding IV fluids in the setting of fluid overload and respiratory distress and IV lasix. As patient is not going to surgery today, will encourage good PO intake. Alimentary: Patient had a formal swallow evaluation and was started on a mechanical ground diet with thin liquis. NPO for possible surgery tomorrow Neurology: AMS Patient's altered mental status in the context of sepsis and infection is most likely due to a toxic metabolic encephalopathy. CT head was negative for acute intracranial pathology. Patient has no focal neurological deficits except for decreased sensation in his feet bilaterally which is likely in diabetic neuropathy. Patient failed formal psychiatry evaluation for competency. Patient' s daughter is the person to contact regarding consent for procedures. - continue to monitor with neurochecks Nephrology: Acute kidney injury: Likely in the setting of prerenal azotemia and hypoperfusion due to sepsis. Patient has received multiple fluid boluses. IV fluids are currently being used cautiously in setting of congestive heart failure and respiratory distress. Creatinine improving. - continue to monitor creatinine - continue to monitor strict I/O - avoid nephrotoxic agents DVT PPx: SQ Heparin, ALPS Code: Full code Problem List: 1. Sepsis 2. Osteomyelitis of right foot 3. ANURAG (acute kidney injury) Pain Ratin Pain Location: head Tomorrow's Labs & Rationales: cbc- infection bep - hypernatremia, anurag Plan DVT/Prophylaxis: mechanical, pharmacological
--- NOTE | 2017-10-24 09:58 | MRI REPORT ---
EXAMINATION: MRI RIGHT FOOT CLINICAL INFORMATION: Osteomyelitis, right mid foot. COMPARISON: X-ray 10/21/2017 TECHNIQUE: MRI in a high-field magnet without contrast. FINDINGS: Open wound with soft tissue defect along the plantar aspect of the midfoot, measuring 2.6 cm transverse x 2.8 cm proximal - distal. There is edema in the underlying soft tissues/muscles, presumably reflecting cellulitis. There is a focus of fluid in the plantar aspect of the midfoot, reference image 18 series 6, 7, 8 series 4, measuring 0.8 cm transverse x 0.6 cm proximal distal. Differential consideration includes abscess. Absence of the distal aspect of the 2nd metatarsal, which may reflect destructive changes or postsurgical changes. There is edema in the distal margin of the residual 2nd metatarsal with bright T2, low T1 signal, suspicious for osteomyelitis. There is an ossification noted medial to the 2nd metatarsal on x-ray, less evident on the MRI. There is edema marginating the 1st tarsometatarsal joint, appearing degenerative in nature. Destructive changes/postsurgical changes involving the distal aspect of the 3rd and 4th metatarsals. No significant marrow edema to indicate definite osteomyelitis in this region. Marked degenerative changes present in the 5th MTP joint. Marked degenerative changes in the 1st MTP joint as well. Prominent hallux valgus with bony irregularity and subchondral edema marginating the joint, probably related to the marked degenerative changes rather than infectious etiology. There are abnormal changes noted in the hallux sesamoids as well, probably related to arthritic changes. Limited evaluation of the toes with flexed positioning of the toes, without definite osteomyelitis evident. There is edema in the intrinsic muscles of the foot. Visualized tendons are intact.No evidence of edema. IMPRESSION: 1. Soft tissue defect/wound on the plantar aspect of the midfoot measuring 2.6 x 2.8 cm. Fluid collection in the plantar soft tissues measuring 0.8 x 0.6 cm, which could represent an abscess. 2. Absence of the distal 2nd metatarsal. This may be secondary to destructive changes or postsurgical changes. Abnormal edema in the distal aspect of the residual 2nd metatarsal shaft, suspicious for osteomyelitis. 3. Marked abnormality associated with the 1st and 5th MTP joint. Marked abnormality in the hallux sesamoids as well. These findings are suspected to represent advanced arthritic changes. Infectious etiology cannot be excluded in the appropriate clinical circumstance. If there is clinical concern for infection in this region, further evaluation with a WBC bone scan may be helpful. 4. Destructive changes/postsurgical changes of the distal aspect of the 3rd and 4th metatarsals. No definite acute osteomyelitis is evident by MRI.
--- NOTE | 2017-10-24 10:01 | PN- Infect Dx ---
Subjective Subjective: Afebrile on steroids without complaints Objective Last 24 Hrs of Vital Signs/I&O Vital Signs Date Time Temp Pulse Resp B/P B/P Pulse O2 O2 Flow FiO2 Mean Ox Delivery Rate 10/24 0600 101 36 133/67 10/24 0400 97.8 90 20 112/60 10/24 0400 94 Room Air 10/24 0200 98 26 127/66 10/24 0000 98.2 98 20 120/62 10/24 0000 94 Nasal Room Air Cannula 10/24 0000 98.2 98 30 120/60 94 Nasal 2.0L Cannula 10/23 2200 98.3 94 28 133/66 10/24 1999 97.4 79 20 120/60 10/24 1999 97.4 79 20 120/60 96 Room Air 10/23 1954 96 Room Air 10/23 1800 76 28 109/65 10/23 1600 97.5 88 20 141/73 10/23 1600 97.5 88 20 120/60 99 Nasal 2.0L Cannula 10/23 1600 98 Room Air 10/23 1400 82 22 128/68 10/23 1200 98.0 90 24 110/60 10/23 1200 96 Nasal 2.0L Cannula 10/23 1000 87 22 118/62 Intake & Output 10/24 1600 10/24 0800 10/24 0000 Intake Total 50 360 Output Total 670 650 Balance -620 -290 Intake, Oral 50 360 Output, Urine 670 650 Physical Exam Other Physical Findings: He is easily arousable and in no acute distress Lungs are clear Heart regular rhythm with no murmur Abdomen is soft, nontender with positive bowel sounds Extremities right necrotic plantar ulcer unchanged with no surrounding erythema; tender on palpation over both upper extremities, with full range of motion over the joints; necrotic right fifth finger unchanged Robles catheter remains in place Results Last 24 Hours of Lab Results: Laboratory Tests 10/24 10/23 0350 2143 Chemistry Sodium (137 - 145 mmol/L) 147 H 142 Potassium (3.5 - 5.1 mmol/L) 4.1 3.6 Chloride (98 - 107 mmol/L) 117 H 115 H Carbon Dioxide (22 - 30 mmol/L) 17 L 18 L Anion Gap (5 - 16) 13 10 BUN (9 - 20 mg/dL) 54 H 52 H Creatinine (0.7 - 1.2 mg/dL) 1.2 1.2 Estimated GFR (>60 ml/min) > 60 > 60 Glucose (65 - 99 mg/dL) 168 H 147 H Calcium (8.4 - 10.2 mg/dL) 7.5 L 7.6 L Phosphorus (2.5 - 4.5 mg/dL) 2.9 2.9 Magnesium (1.6 - 2.3 mg/dL) 2.3 2.3 Total Bilirubin (0.2 - 1.3 mg/dL) 2.4 H 2.4 H AST (17 - 59 U/L) 156 H 144 H ALT (21 - 72 U/L) 82 H 72 Albumin (3.5 - 5.0 g/dL) 1.9 L 1.9 L Hematology CBC w Diff MAN DIFF ORDERED WBC (4.8 - 10.8 /CUMM) 12.4 H RBC (4.70 - 6.10 /CUMM) 3.07 L Hgb (14.0 - 18.0 G/DL) 8.6 L Hct (42 - 52 %) 25.8 L MCV (80.0 - 94.0 FL) 84.0 MCH (27.0 - 31.0 PG) 28.1 MCHC (33.0 - 37.0 G/DL) 33.5 RDW (11.5 - 14.5 %) 15.0 H Plt Count (130 - 400 /CUMM) 151 MPV (7.4 - 10.4 FL) 9.4 Gran % (42.2 - 75.2 %) 95.1 H Lymphocytes % (20.5 - 51.1 %) 3.9 L Monocytes % (1.7 - 9.3 %) 1.0 L Eosinophils % (0 - 5 %) 0 Basophils % (0.0 - 2.0 %) 0 Absolute Granulocytes (1.4 - 6.5 /CUMM) 11.8 H Segmented Neutrophils (42.2 - 75.2 %) 95 H Band Neutrophils (0.0 - 5.0 %) 1 Absolute Lymphocytes (1.2 - 3.4 /CUMM) 0.5 L Lymphocytes (20.5 - 51.1 %) 2 L Monocytes (1.7 - 9.3 %) 2 Absolute Monocytes (0.10 - 0.60 /CUMM) 0.1 Absolute Eosinophils (0.0 - 0.7 /CUMM) 0 Absolute Basophils (0.0 - 0.2 /CUMM) 0 Platelet Estimate (ADEQUATE) ADEQUATE Normochromic RBCs VERIFIED Poikilocytosis 2+ Ovalocytes 1+ Theresa Cells 1+ Other Body Source Fld Total RBCs Counted (%) 100 Last 24 Hours of [place] Results: Blood cultures October 22 positive for MRSA Blood cultures October 23 positive for gram-positive cocci in clusters Assessment/Plan ID Impression: Persistent MRSA bacteremia, most likely secondary to the infected right foot plantar ulcer, with plans for probable transmetatarsal amputation either today or tomorrow, status post MRI of the right foot yesterday, with results pending. He remains afebrile (on steroids) with his white blood cell count increased today, possibly secondary to steroids, on Vancomycin Day 3. His bilateral pulmonary opacities, some containing central cavitation, likely represent seeding from the Staph aureus bacteremia. His multiple joint complaints may be secondary to sepsis or endocarditis, with seeding of the joints also a possibility. His liver enzymes are slightly increased, possibly secondary to sepsis versus alcoholic hepatitis versus seeding of the liver from the bacteremia, with his initial CT of the abdomen and pelvis negative, versus another process. Suggestion: 1. Repeat blood cultures 2 2. Follow-up MRI of the right foot 3. Await right foot surgery 4. Plastic surgery evaluation of his right fifth finger 5. Consider ANNA at some point 6. Increase Vancomycin to 1 g IV every 12 hours
--- NOTE | 2017-10-24 10:28 | PN- Diabetes ---
Assessment/Plan Diabetes Assessment: 61-year-old man with past medical history significant for diabetes mellitus and coronary artery disease status post stent placement, was brought in by ambulance for evaluation of altered mental status. Patient has a necrotic, purulent, chronic right foot plantar ulcer. He was scheduled for a right transmetatarsal amputation which was deferred secondary to patient's reluctance and his current condition. His BP was borderline low. He used to take prednisone chronically for his arthritis. He was placed on stress dose of steroid-- Hydrocortisone 50 mg iv twice a day. Currently he is on levemir 8 units twice a day, RISS every 6 hours. Patient is kept NPO for possible foot procedure. His FSGs were 187, 139, 137 and 168. The blood culture was positive for Gram positive cocci in cluster. Plan: 1. continue the current stress dose of steroid--- hydrocortisone 50 mg iv twice a day; 2. continue Levemir 8 units twice a day; 3. continue RISS everey 6 hours for now; 4. encourage patient to drink more water when he is ready to eat and to monitor electrolytes twice a day. will follow. Plan: continue the current treatment for now; if the foot procedure requirs general anesthesia, I will recommend hydrocortisone 100 mg iv x 1 right before the induction of anesthesia. continue monitoring his FSGs and electrolytes. will follow. Subjective Subjective: He has been kept NPO again. Objective Last 24 Hrs of Vital Signs/I&O Vital Signs Date Time Temp Pulse Resp B/P B/P Pulse O2 O2 Flow FiO2 Mean Ox Delivery Rate 10/24 0600 101 36 133/67 10/24 0400 97.8 90 20 112/60 10/24 0400 94 Room Air 10/24 0200 98 26 127/66 10/24 0000 98.2 98 20 120/62 10/24 0000 94 Nasal Room Air Cannula 10/24 0000 98.2 98 30 120/60 94 Nasal 2.0L Cannula 10/23 2200 98.3 94 28 133/66 10/24 1999 97.4 79 20 120/60 10/24 1999 97.4 79 20 120/60 96 Room Air 10/23 1954 96 Room Air 10/23 1800 76 28 109/65 10/23 1600 97.5 88 20 141/73 10/23 1600 97.5 88 20 120/60 99 Nasal 2.0L Cannula 10/23 1600 98 Room Air 10/23 1400 82 22 128/68 10/23 1200 98.0 90 24 110/60 10/23 1200 96 Nasal 2.0L Cannula Intake & Output 10/24 1600 10/24 0800 10/24 0000 Intake Total 50 360 Output Total 670 650 Balance -620 -290 Intake, Oral 50 360 Output, Urine 670 650 Findings Pertinent Lab/[place] Results: Laboratory Tests 10/24 10/24 10/23 0500 0350 2143 Chemistry Sodium (137 - 145 mmol/L) 147 H 142 Potassium (3.5 - 5.1 mmol/L) 4.1 3.6 Chloride (98 - 107 mmol/L) 117 H 115 H Carbon Dioxide (22 - 30 mmol/L) 17 L 18 L Anion Gap (5 - 16) 13 10 BUN (9 - 20 mg/dL) 54 H 52 H Creatinine (0.7 - 1.2 mg/dL) 1.2 1.2 Estimated GFR (>60 ml/min) > 60 > 60 Glucose (65 - 99 mg/dL) 168 H 147 H Calcium (8.4 - 10.2 mg/dL) 7.5 L 7.6 L Phosphorus (2.5 - 4.5 mg/dL) 2.9 2.9 Magnesium (1.6 - 2.3 mg/dL) 2.3 2.3 Iron (49 - 181 ug/dL) 12 L TIBC (261 - 462 ug/dL) Pending Ferritin (17.9 - 464 ng/mL) Pending Total Bilirubin (0.2 - 1.3 mg/dL) 2.4 H 2.4 H AST (17 - 59 U/L) 156 H 144 H ALT (21 - 72 U/L) 82 H 72 Albumin (3.5 - 5.0 g/dL) 1.9 L 1.9 L Hematology CBC w Diff MAN DIFF ORDERED WBC (4.8 - 10.8 /CUMM) 12.4 H RBC (4.70 - 6.10 /CUMM) 3.07 L Hgb (14.0 - 18.0 G/DL) 8.6 L Hct (42 - 52 %) 25.8 L MCV (80.0 - 94.0 FL) 84.0 MCH (27.0 - 31.0 PG) 28.1 MCHC (33.0 - 37.0 G/DL) 33.5 RDW (11.5 - 14.5 %) 15.0 H Plt Count (130 - 400 /CUMM) 151 MPV (7.4 - 10.4 FL) 9.4 Gran % (42.2 - 75.2 %) 95.1 H Lymphocytes % (20.5 - 51.1 %) 3.9 L Monocytes % (1.7 - 9.3 %) 1.0 L Eosinophils % (0 - 5 %) 0 Basophils % (0.0 - 2.0 %) 0 Absolute Granulocytes (1.4 - 6.5 /CUMM) 11.8 H Segmented Neutrophils (42.2 - 75.2 %) 95 H Band Neutrophils (0.0 - 5.0 %) 1 Absolute Lymphocytes (1.2 - 3.4 /CUMM) 0.5 L Lymphocytes (20.5 - 51.1 %) 2 L Monocytes (1.7 - 9.3 %) 2 Absolute Monocytes (0.10 - 0.60 /CUMM) 0.1 Absolute Eosinophils (0.0 - 0.7 /CUMM) 0 Absolute Basophils (0.0 - 0.2 /CUMM) 0 Platelet Estimate (ADEQUATE) ADEQUATE Normochromic RBCs VERIFIED Poikilocytosis 2+ Ovalocytes 1+ [place] Cells 1+ Haptoglobin Pending Other Body Source Fld Total RBCs Counted (%) 100
--- NOTE | 2017-10-24 13:47 | Cons- Plastic Surgery ---
General Information and HPI Consulting Request Date of Consult: 10/24/17 Requested By: Dread CARD,Migue Rodriguez Reason for Consult: Right small finger injury Source of Information: patient (md) Exam Limitations: not alert/orientated, confusion History of Present Illness: Patient was brought to the hospital with septic condition. While being treated it was noted he had an as sure the distal right small finger. Remote history of questionable septic emboli according to in turn. Patient although confused reports no trauma to his hands that he remembers and ex- who is present and states he does not use finger sticks. He denies pain at the site and no active drainage ex- states it's been there 6 months. Allergies/Medications Allergies: Coded Allergies: No Known Allergies (10/21/17) Home Med List: Carvedilol (Coreg) 12.5 MG TABLET 1 TAB PO BID CAD Clopidogrel Bisulfate (Clopidogrel) 75 MG TABLET 1 TAB PO DAILY CAD/CHI ( Reported) Ibuprofen (Motrin Ib) 200 MG TABLET 1 TAB PO Q6H PRN PAIN (Reported) Insulin Regular (Novolin R Inj) 1,000 UNITS/10 ML KELVIN 15 UNITS SC BID DIABETES (Reported) Leflunomide (Arava) 20 MG TABLET 1 TAB PO DAILY RHEUMATOID ARTHRITIS ( Reported) Lisinopril 20 MG TABLET 1 TAB PO DAILY HTN (Reported) Oxycodone HCl 15 MG TABLET 1 TAB PO TID PAIN Prednisone 5 MG TABLET 1 TAB PO DAILY RHEUMATOID ARTHRITIS (Reported) Past History Medical History Neurological: NONE EENT: NONE Cardiovascular: hypertension, hyperlipidemia, myocardial infarction Respiratory: NONE Gastrointestinal: NONE Hepatic: NONE Renal: NONE Musculoskeletal: osteoarthritis Psychiatric: chronic pain disorder, substance abuse Endocrine: diabetes Blood Disorders: NONE Cancer(s): NONE 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 Home Who Do You Live With? self Primary Language: Divehi Smoking Status: Current Everyday Smoker ETOH Use: heavy use Illicit Drug Use: UTD Functional Ability ADLs Independent: dressing, eating, toileting, bathing. Ambulation: independent IADLs Independent: shopping, finances, telephone, transportation, medication admin. Needs Assist: housework, food prep. Employment History Employment: Employed Profession/Employer: [employer] Review of Systems Review of Systems: Patient confused Exam & Diagnostic Data Vital Signs and I&O Vital Signs Date Time Temp Pulse Resp B/P B/P Pulse O2 O2 Flow FiO2 Mean Ox Delivery Rate 10/24 1221 93 148/70 10/24 0600 101 36 133/67 10/24 0400 97.8 90 20 112/60 10/24 0400 94 Room Air 10/24 0200 98 26 127/66 10/24 0000 98.2 98 20 120/62 10/24 0000 94 Nasal Room Air Cannula 10/24 0000 98.2 98 30 120/60 94 Nasal 2.0L Cannula 10/23 2200 98.3 94 28 133/66 10/24 1999 97.4 79 20 120/60 10/24 1999 97.4 79 20 120/60 96 Room Air 10/23 1954 96 Room Air 10/23 1800 76 28 109/65 10/23 1600 97.5 88 20 141/73 10/23 1600 97.5 88 20 120/60 99 Nasal 2.0L Cannula 10/23 1600 98 Room Air 10/23 1400 82 22 128/68 Intake & Output 10/24 1600 10/24 0800 10/24 0000 10/23 1600 10/23 0800 10/23 0000 Intake Total 50 360 520 360 Output Total 670 650 675 450 550 Balance -620 -290 -155 -450 -190 Intake, IV 280 Intake, Oral 50 360 240 360 Number 1 Bowel Movements Output, Urine 670 650 675 450 550 Patient 189 lb Weight Physical Exam: Right hand shows the radial volar right small finger soft tissue pad with necrosis that is dry without surrounding cellulitis nor would contents beneath. It involves the distal radial aspect of the nail bed with loss of nail plate adherence is nontender. X-ray shows no involvement of the cortical bone Assessment/Plan Assessment/Plan Stable soft tissue necrosis right small finger question etiology. Patient is less than cooperative. With x-ray negative can follow-up as an outpatient for debridement and the biopsy is necessary. Follow-up office upon discharge. Ends dictation Consult Acknowledgment - Thank you for your consult request.
--- NOTE | 2017-10-24 21:31 | PN- Cardiology ---
Subjective Subjective: * Patient reports intermittent chest pain which was first noted a couple months ago. No current shortness of breath. * increased LFT's and increased WBC count Objective Vital Signs and I&Os Vital Signs Date Time Temp Pulse Resp B/P B/P Pulse O2 O2 Flow FiO2 Mean Ox Delivery Rate 10/25 2115 97.8 77 18 145/65 95 10/24 1600 97.4 71 20 122/56 10/24 1600 97.4 71 20 122/56 99 Room Air 10/24 1221 93 148/70 10/24 0800 98.3 94 22 150/62 10/24 0800 98.3 94 22 150/62 93 Room Air 10/24 0600 101 36 133/67 10/24 0400 97.8 90 20 112/60 10/24 0400 94 Room Air 10/24 0200 98 26 127/66 10/24 0000 98.2 98 20 120/62 10/24 0000 94 Nasal Room Air Cannula 10/24 0000 98.2 98 30 120/60 94 Nasal 2.0L Cannula 10/23 2200 98.3 94 28 133/66 Intake & Output 10/24 1600 10/24 0800 10/24 0000 10/23 1600 10/23 0800 10/23 0000 Intake Total 1475 50 360 520 360 Output Total 1000 670 650 675 450 550 Balance 475 -620 -290 -155 -450 -190 Intake, IV 515 280 Intake, Oral 960 50 360 240 360 Number 0 1 Bowel Movements Output, Urine 1000 670 650 675 450 550 Patient 189 lb Weight Physical Exam: General: WD/WN male in NAD; alert and oriented x 3 HEENT: NC/AT, PERRL, EOMI Neck: no JVD, no carotid bruit Heart: RRR with 2/6 systolic murmur Lungs: clear bilaterally Abdomen: soft, NT, +ve bowel sounds Extremties: no edema, left TMA, right plantar ulcer Assessment/Plan Assessment/Plan * This patient has a mildly increased troponin consistent with a type 2 ME. There may be some artifactual rise in troponin from decreased clearance in the setting of decreased renal function. In consideration of his chest pain and increased cardiac enzymes and peripheral vascular disease it is almost certain that this patient has myocardial ischemia. There is no clear evidence of decompensated congestive heart failure. This patient should be on a statin, aspirin and Coreg 3.125mg BID. Add NTG paste 1/2 inch Q 6 hours. * This patient has osteomyelitis and anticipates surgery for this condition. In consideration of his ME he is at mildly increased, but not prohibitive risk, for this low risk surgery. * H/H is trending down. Not clearly dilutional. The patient has an elevated sodium and creatinine consistent with a pre-renal state. Would pursue an anemia workup including reticulocyte count and guaiac all stools. Follow CBC. Continue telemetry? Yes
[2017-10-25 06:30] VITALS: BP 132/72
--- NOTE | 2017-10-25 07:25 | PN- Housestaff ---
Reggie CARD,Monica 10/25/17 0725: Subjective Follow-up For: MRSA osteomyelitis with persistent bacteremia Right foot TMA - today Steroid dependence with adrenal insufficiency Subjective: Seen and examined Remained stable, oriented 3. Not very comprehensive. Still in pain, daughter (POA) at bedside. Informed about the procedure and obtained consent from her before the procedure. Review of Systems Constitutional: Reports: see HPI. Objective Last 24 Hrs of Vital Signs/I&O Vital Signs Date Time Temp Pulse Resp B/P B/P Pulse O2 O2 Flow FiO2 Mean Ox Delivery Rate 10/24 2202 87 140/60 10/24 2116 97.8 77 18 145/65 95 10/24 1600 97.4 71 20 122/56 10/24 1600 97.4 71 20 122/56 99 Room Air 10/24 1221 93 148/70 10/24 0800 98.3 94 22 150/62 10/24 0800 98.3 94 22 150/62 93 Room Air Intake & Output 10/25 0800 10/25 0000 10/24 1600 Intake Total 60 1475 Output Total 1000 Balance 60 475 Intake, IV 515 Intake, Oral 60 960 Number 0 Bowel Movements Output, Urine 1000 Physical Exam General Appearance: Alert, Oriented X3, Cooperative Skin: No Rashes, No Breakdown, WOUND IN THE RIGHT LOWER EXTREMITY, SCAB IN THE LEFT FOOT Skin Temp/Moisture Exam: Warm/Dry HEENT: Atraumatic, PERRLA, EOMI Neck: Supple Cardiovascular: Normal S1, Normal S2 Lungs: Clear to Auscultation, Normal Air Movement Abdomen: Normal Bowel Sounds, Soft, No Tenderness Neurological: Normal Speech Extremities: No Clubbing, No Cyanosis Current Medications: Current Medications Sig/Lai Start time Last Medication Dose Route Stop Time Status Admin Acetaminophen 1,000 MG Q6P PRN 10/21 170 AC IV Aspirin 81 MG DAILY 10/23 1000 AC 10/25 PO 0927 Atorvastatin Calcium 80 MG 1700 10/23 1700 AC 10/24 PO 1756 Carvedilol 3.125 MG BID 10/24 1000 AC 10/25 PO 0937 Fentanyl Citrate 0 .STK-MED ONE 10/25 1227 DC .ROUTE Folic Acid 1 MG DAILY 10/21 1703 AC 10/25 PO 0928 Heparin Sodium 5,000 UNIT Q8 10/210 AC 10/25 (Porcine) SC 0645 Hydrocortisone 100 MG ONE ONE 10/25 1200 DC 10/25 Sodium Succinate IV 10/25 1201 1229 Hydrocortisone 25 MG Q12 10/25 1000 AC 10/25 Sodium Succinate IV 0928 Hydrocortisone 50 MG Q12 10/22 2200 DC 10/24 Sodium Succinate IV 220 Insulin Aspart 0 TIDAC 10/26 0800 AC SC Insulin Aspart 0 TIDAC/HS 10/24 1200 DC 10/24 SC 10/24 2300 1755 Insulin Detemir 8 UNITS BID 10/22 2200 AC 10/25 SC 0931 Insulin Human Regular 0 Q6 10/24 2359 DC 10/25 SC 0643 Midazolam HCl 0 .STK-MED ONE 10/25 1228 DC .ROUTE Multivitamins 1 TAB DAILY 10/21 1703 AC 10/25 PO 0928 Prednisone 5 MG DAILY 10/22 1000 DC 10/24 PO 1027 Thiamine HCl 500 MG Q8H 10/24 2130 AC 10/25 Sodium Chloride 250 ML IV 10/27 0629 1601 Vancomycin HCl 1,000 MG Q12 10/24 220 AC 10/25 Dextrose/Water 250 ML IV 09 Last 24 Hrs of Lab/[place] Results Last 24 Hrs of Labs/Mics: Laboratory Tests 10/25/17 0636: Anion Gap 14, Estimated GFR > 60, Glucose 180 H, Calcium 7.6 L, Phosphorus 3.2 , Magnesium 2.2, Total Bilirubin 2.0 H, AST 106 H, ALT 83 H, Albumin 1.9 L, CBC w Diff NO MAN DIFF REQ, RBC 3.05 L, MCV 83.4, MCH 28.6, MCHC 34.3, RDW 15.2 H, MPV 9.2, Gran % 95.0 H, Lymphocytes % 4.9 L, Monocytes % 0.1 L, Eosinophils % 0, Basophils % 0, Absolute Granulocytes 10.9 H, Absolute Lymphocytes 0.6 L, Absolute Monocytes 0 L, Absolute Eosinophils 0, Absolute Basophils 0 Microbiology 10/25 1315 EXTREMITIE: Gross Specimen Examination - RES 10/25 131 EXTREMITIE: Gram Stain - RES 10/25 0950 BLOOD: Blood Culture - RECD 10/25 08 BLOOD: Blood Culture - RECD Assessment/Plan Assessment: Patient is a 61-year-old male with past medical history significant for insulin- dependent diabetes mellitus, rheumatoid arthritis on prednisone & leflunomide, coronary artery disease status post stenting, left TMA, chronic right foot ulcer was brought to [place] after found by division order analyst at home altered and unkempt, covered with the urine. Vitals at admission is significant for MAXIMUM TEMPERATURE of 100.6, blood pressure 106/68 mmHg. White count of 13,000 with 72 segments and bands. Troponin of 0.85, elevated d-dimer. Chest x-ray showing patchy opacity in the right upper lobe and mild cardiomegaly. X-ray of Right foot revealed extensive destructive changes in the second to fourth digits. CT of chest is significant for central cavitation and opacities in both lungs. CT abdomen Prominent perinephric edema with prominent prostate. Admitted to ICU initially on 10/21/2017 given sepsis secondary to diabetic foot infection. He did have persistent MRSA bacteremia with extensive seeding into lungs, urine, joints. Once he was hemodynamic stable transferred to telemetry overnight. Plan Problem list MRSA osteomyelitis with persistent bacteremia Iatrogenic Steroid induced adrenal insufficiency Insulin-dependent diabetic mellitus Cavitation in the lung Type II LA Encephalopathy Inflammatory anemia MRSA osteomyelitis with persistent bacteremia Appear secondary to uncontrolled diabetes and on steroids giving room for rapid progression. Initially started broad with IV ceftazidime and Flagyl and transitioned to IV vancomycin after cultures results. MRI did show abscess of right foot. Blood cultures were persistently positive. ESR 125. Underwent tarsometatarsal amputation today. Needs ANNA to rule out endocarditis ( predictably positive). 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 Placed on IV hydrocortisone to maintain his blood pressure. Today he is transitioned to IV 25 mg q12 of hydrocortisone. Before the surgery a single dose of IV 100 mg given (stress dose). Endocrinology has been following the patient. * Continue hydrocodone 25 mg IV every 12 * Monitor blood pressure * Single dose of midazolam and fentanyl were given during anesthesia. Insulin-dependent diabetic mellitus HbA1c of 7.2. Sugars remained relatively controlled on current regimen * Continue Levemir 8 units twice a day and NovoLog sliding scale per endocrinology. Intermixed ground glass attenuation on imaging suggestive of ? multilobar pneumonia Imaging shows opacities exhibiting reverse halo sign ( atoll sign). Also, some of the opacities have central lucencies, suspicious for cavitary change. Given MRSA bacteremia, seeding should be first differential. However patient has been on leflunomide so tuberculosis should be second in the differential. * Saturating well on room air * Continue to monitor Type II LA Probes trended down. He had a history of coronary artery disease with diabetes. Echocardiogram did show EF of 40% with anteroseptal hypokinesis (?old). Mild mitral regurgitation without any obvious digitations. Further evaluation with ANNA is mandatory. Cardiology has been following would appreciate their recommendations. * Continue ASA, Coreg, Statin for now * ANNA next week Encephalopathy Patient continues to be altered despite aggressive treatment of his infection. Given his alcohol history continue IV thiamine for the benefit of doubt ( Wernicke's). Urine toxicology rule out upper etiologies including opiates. * Continue IV thiamine Inflammatory anemia H&H of 8.7/25 with ferritin 1500, iron of 12, TIBC 143 suggestive of anemia of chronic disease/inflammation related. Obvious source could be osteomyelitis. Treating current condition should help with his anemia as well. * Monitor H&H * Start oral iron when feasible. DVT prophylaxis SC heparin Code status full code patient is not competent, daughter is POA and makes all the decisions. Problem List: 1. Sepsis 2. Bandemia 3. Osteomyelitis of right foot 4. Elevated troponin Pain Ratin Pain Location: right foot Pain Goal: Pain 4 or less Pain Plan: IV morphine Tomorrow's Labs & Rationales: cbc, bep to monitor H&H, Cr postoperative Gina CARD,Tiffani 10/25/17 1245: Attending MD Review Statement Attending Statement Attending MD Statement: examined this patient, discuss w/resident/PA/PIGGERY WORKER, agreed w/resident/PA/PIGGERY WORKER, discussed with family, reviewed EMR data (avail), discussed with nursing, discussed with case mgmt, amended to note Attending Assessment/Plan: Patient seen and examined. He was transferred out of the intensive care unit yesterday. Each are reviewed. Case discussed with care providers. Family is present at bedside. On examination he is alert and oriented 3. He denies any acute distress. Heart sounds are regular. Lungs are clear to auscultation bilaterally. Abdomen soft and nontender. He has no peripheral edema. He has intact dressing over the right foot. He is status post transmetatarsal amputation of the left foot. Problems: 1. Acute hypoxic respiratory failure; secondary to congestive heart failure. 2. MRSA bacteremia with septic emboli to the lungs from right foot osteomyelitis. 3. Elevated troponins likely secondary to demand ischemia. Troponin peaked is not consistent with a myocardial infarction. 4. Anemia. 5. Uncontrolled diabetes requiring insulin drip on admission. 6. Adrenal insufficiency; on steroid therapy. 7. Toxic metabolic encephalopathy; improving. 8. Acute kidney injury; improving. 9. Hypernatremia. Plan: -Patient is scheduled to undergo debridement and possible amputation by podiatry service today. -Continue antibiotic therapy with vancomycin with duration as directed by the ID service. -Endocrinology recommendations appreciated for management of his adrenal insufficiency and diabetes mellitus. -Likely due to volume depletion brought about by glucosuria from his hyperglycemia. Patient did not receive aggressive IV hydration on admission due to respiratory symptoms. Levels are currently improving. -If hypernatremia begins to worsen would recommend calculating free water deficit and correcting slowly with half normal saline. Worsening hypernatremia should be avoided in order to prevent worsening of his encephalopathy.
[2017-10-25 08:00] VITALS: BP 144/70
--- NOTE | 2017-10-25 08:00 | Transfer of Care Summary ---
Hospital Course Course Hospital Course: 61-year-old man with past medical history of insulin-dependent diabetes mellitus s/p left TMA, rheumatoid arthritis on steroids, diabetic neuropathy, CAD s/p stents brought in by ambulance for evaluation of altered mental status and "failure to thrive". Patient is admitted to the ICU for management of the followin. Acute hypoxic respiratory failure 2/2 congestive heart failure 2. Sepsis 2/2 Right Foot Osteomyeltitis 3. Gram Positive Bacteremia 4. AMS 2/2 Sepsis 5. Hyperglycemia 6. Diabetes Mellitus 7. ANURAG 8. Adrenal Insufficiency 9. Cavitary Pulmonary Lesions 10. Anemia 11. Chronic wound of Right 5th Digit Acute hypoxic respiratory failure in setting of congestive heart failure: Patient had increased respiratory effort with with clinical evidence of hypervolemia with CXR showing vascular congestion and elevated proBNP. Patient received 6L of NS boluses on day of admission due to sepsis and lactic acidosis. Patient was diuresed cautiously with lasix x 1 with imrpovement in respiration and was weaned off oxygen. - respiratory therapy on board - continue to monitor vitals closely Sepsis secondary to right foot osteomyelitis and gram positive bacteremia Patient was initially being covered with Vancomycin, Ceftazidine and Flagyl for MRSA, gram negative coverage including pseudomonas and anaerobic organisms in the setting of open necrotic diabetic foot infection. Patient's cultures from and 10/23 growing gram positive cocci in clusters. Right foot MRI showing osteomyelitis. Patient had cavitary lesions in the lungs on CT which was concerning for septic emboli raising concern for endocarditis however these may be due to seeding from bacteremia. - IV Vancomycin dosed increased to 1mg IV BID as renal function has improved - Patient will require a vanc trough level before fourth dose - Continue to follow up blood cultures for sensitivities - Follow up on repeat blood cultures. - Patient was kept NPO on 10/[address] Otero on 10/25 - Patient may require ANNA. Encephalopathy Patient's altered mental status in the context of sepsis and infection is most likely due to a toxic metabolic encephalopathy. CT head was negative for acute intracranial pathology. Patient has no focal neurological deficits except for decreased sensation in his feet bilaterally which is likely in diabetic neuropathy. Patient failed formal psychiatry evaluation for competency. Patient' s daughter is the person to contact regarding consent for procedures. Patient also has known alcohol use which leads to consideration of wernicke's encephalopathy. Patient was started on high dose IV thiamine. - continue high dose IV thiamine - continue multivitamin and folic acid - continue to monitor with neurochecks UTI/Pyelonephritis Urine culture growing staph aureus likely seeding from bacteremia. CT Abd showed perinephric stranding indicating possible pyelonephritis. No stones or hydronephrosis seen. Patient has no CVA tenderness at this time. - Continue IV Vancomycin presumed MRSA Type II [place] Patient's troponins peaked to 0.87. EKG showing a left bundle branch block. Elevated troponins likely due to supply demand ischemia in the setting of sepsis. Patient seen by cardiology. Recommended aspirin, statin, abdi inhibitor and coreg. The latter two have been held in the setting of acute renal failure and hypotension. ECHO was done showing mildly decreased EF of 45% with anteroseptal hypokinesis. - continue to follow cardiology recommendations - continue aspirin and statin Diabetes: Patient presented with hyperglycemia with an elevated anion gap without ketones with a normal pH. Due to patient's multiple comorbidities and perisitently high sugars he was started on an insulin drip which was discontinued after a few hours. - Insulin SS with accuchecks TIDAC/qHS - Levemir 8 units BID - Endocrinology consulted. Adrenal Insufficiency Patient was on chronic steroids prior to admission. - IV hydrocortisone 50mg BID - If patient requires general anesthesia for surgery on 10/25, he must be given 100mg IV hydrocortisone prior to anesthesia. ANURAG: Likely in the setting of prerenal azotemia and hypoperfusion due to sepsis. Patient has received multiple fluid boluses. IV fluids are currently being used cautiously in setting of congestive heart failure and respiratory distress. Creatinine improving. - continue to monitor creatinine - continue to monitor strict I/O - avoid nephrotoxic agents Normocytic Anemia: Patient had an acute drop in his H/H which may be hemodilutional. No evidence of acute bleeding. B12 and folate levels wnl. - monitor H/H - iron studies DVT PPx: SQ Heparin, ALPS Diet: Diabetic diet (mechanical ground diet with thin liquids) Code: Full code Pertinent Lab Results: CHEST XRAY (10/21): IMPRESSION: - Mild cardiomegaly and diffuse pulmonary edema. - The patchy opacity in the right upper lobe could represent edema or pneumonia. - The nodular focus projecting over the left anterior fifth rib on the frontal view probably represents a nipple shadow. This could be confirmed on a follow-up radiograph obtained with nipple markers. RIGHT FOOT XRAY (10/21): IMPRESSION: 1. Extensive bony destructive changes are present in the second through fourth digits, most concerning in the second and third digits with non corticated distal aspects of the remaining portion of the metadiaphysis of the second and third digits. Findings are concerning for acute osteomyelitis. 2. Open wound with skin defect identified on the plantar aspect of the midfoot, the ulcer is present at the level of the mid foot closer to the tarsal metatarsal joint spaces rather than the distal metatarsal regions however. XRAY of RIGHT FINGER: IMPRESSION: Soft tissue ulceration at the radial margin of the small finger distal phalanx without underlying findings of osteomyelitis. Diffuse uniform joint space narrowing in the wrist and MCP joints with superimposed palmar subluxation and ulnar deviation of the proximal phalanges as well as erosive/cystic changes at the metacarpal heads. These findings may represent the sequela of rheumatoid arthritis or, alternatively, degenerative arthritis superimposed upon a nonerosive arthropathy such as systemic lupus erythematosus. ABD PELVIS CT: IMPRESSION: - Within the chest, there is mild pulmonary edema without pleural effusions. There are patchy nodular and airspace opacities in both lungs, and some of the pulmonary opacities have central cavitation. Also, some of the lesions exhibit the reversed halo sign (i.e., atoll sign), as may be seen in infectious disease and other disorders, such as vasculitis. Unable to exclude septic emboli. Other findings in the chest include atherosclerotic disease of coronary arteries and cardiomegaly. The mild hilar and mediastinal lymphadenopathy is likely reactive to the pulmonary disease. - Within the abdomen, findings include bilateral perinephric edema without ureterolithiasis or hydronephrosis. Also, there is perivesical and periprostatic edema within the pelvis. Urinary tract infection and prostatitis are possible. Consider correlation with urinalysis and urine culture. HEAD CT: IMPRESSION: No acute intracranial pathology. Scattered and fairly extensive inflammatory disease within the paranasal sinuses asymmetrically on the right. Partially visualized postsurgical changes involving the left maxillary sinus with sclerosis and thickening of the left maxillary wall compatible with sequela of chronic inflammation. V/Q SCAN: IMPRESSION: Very low probability of pulmonary embolism. ECHO: CONCLUSIONS 1. Mildly decreased EF of 45% with anteroseptal hypokinesis. 2. Mild left ventricular hypertrophy. 3. Mild left atrial enalargement. 4. Mild mitrak regurgitationl 5. Trace pulmonic regurgitation. CHEST XRAY (10/22): IMPRESSION: 1. Indistinctness of the central pulmonary vasculature is consistent with pulmonary vascular congestion. No definite pleural effusions are noted. 2. Increased densities in the lateral aspects of the lower lungs is thought to represent superimposition of soft tissue rather than new focal areas of airspace opacification. Follow-up imaging is recommended. FOOT MRI: IMPRESSION: 1. Soft tissue defect/wound on the plantar aspect of the midfoot measuring 2.6 x 2.8 cm. Fluid collection in the plantar soft tissues measuring 0.8 x 0.6 cm, which could represent an abscess. 2. Absence of the distal 2nd metatarsal. This may be secondary to destructive changes or postsurgical changes. Abnormal edema in the distal aspect of the residual 2nd metatarsal shaft, suspicious for osteomyelitis. 3. Marked abnormality associated with the 1st and 5th MTP joint. Marked abnormality in the hallux sesamoids as well. These findings are suspected to represent advanced arthritic changes. Infectious etiology cannot be excluded in the appropriate clinical circumstance. If there is clinical concern for infection in this region, further evaluation with a WBC bone scan may be helpful. 4. Destructive changes/postsurgical changes of the distal aspect of the 3rd and 4th metatarsals. No definite acute osteomyelitis is evident by MRI. Assessment/Plan: See above
[2017-10-25 08:01] LABS: ABSOLUTE BASOPHIL COUNT 0 /CUMM (0.0-0.2); ABSOLUTE EOSINOPHIL COUNT 0 /CUMM (0.0-0.7); ABSOLUTE GRANULOCYTE CT 10.9 /CUMM (1.4-6.5); ABSOLUTE LYMPH COUNT 0.6 /CUMM (1.2-3.4); ABSOLUTE MONOCYTE COUNT 0 /CUMM (0.10-0.60); BASOPHIL % 0 % (0.0-2.0); EOSINOPHIL % 0 % (0-5); HEMATOCRIT 25.4 % (42-52); MEAN CORPUSCULAR HGB 28.6 PG (27.0-31.0); MEAN CORPUSCULAR HGB CONC 34.3 G/DL (33.0-37.0); MEAN CORPUSCULAR VOLUME 83.4 FL (80.0-94.0); MEAN PLATELET VOLUME 9.2 FL (7.4-10.4); PLATELET COUNT 171 /CUMM (130-400); RBC DISTRIBUTION WIDTH 15.2 % (11.5-14.5); RED BLOOD CELL CT 3.05 /CUMM (4.70-6.10); WHITE BLOOD CELL COUNT 11.5 /CUMM (4.8-10.8)
--- NOTE | 2017-10-25 11:21 | PN- Infect Dx ---
Subjective Subjective: Afebrile on steroids. He does not offer any complaints. Objective Last 24 Hrs of Vital Signs/I&O Vital Signs Date Time Temp Pulse Resp B/P B/P Pulse O2 O2 Flow FiO2 Mean Ox Delivery Rate 10/25 0937 100 144/70 10/25 0630 99.5 104 18 132/72 96 10/24 2203 87 140/60 10/24 2116 97.8 77 18 145/65 95 10/24 1600 97.4 71 20 122/56 10/24 1600 97.4 71 20 12256 99 Room Air 10/24 1221 93 148/70 Intake & Output 10/25 1600 10/25 0800 10/25 0000 Intake Total 270 60 Output Total 1000 Balance -730 60 Intake, IV 270 Intake, Oral 0 60 Output, Urine 1000 Physical Exam Other Physical Findings: He is somewhat more alert and responsive in no acute distress Lungs scattered rhonchi Heart regular rhythm with no murmur Abdomen is soft, nontender with positive bowel sounds Extremities less tenderness on palpation of both upper extremities, with full range of motion of all joints Robles catheter remains in place Results Last 24 Hours of Lab Results: Laboratory Tests 10/26 635 Chemistry Sodium (137 - 145 mmol/L) 146 H Potassium (3.5 - 5.1 mmol/L) 4.0 Chloride (98 - 107 mmol/L) 116 H Carbon Dioxide (22 - 30 mmol/L) 16 L Anion Gap (5 - 16) 14 BUN (9 - 20 mg/dL) 45 H Creatinine (0.7 - 1.2 mg/dL) 1.1 Estimated GFR (>60 ml/min) > 60 Glucose (65 - 99 mg/dL) 180 H Calcium (8.4 - 10.2 mg/dL) 7.6 L Phosphorus (2.5 - 4.5 mg/dL) 3.2 Magnesium (1.6 - 2.3 mg/dL) 2.2 Total Bilirubin (0.2 - 1.3 mg/dL) 2.0 H AST (17 - 59 U/L) 106 H ALT (21 - 72 U/L) 83 H Albumin (3.5 - 5.0 g/dL) 1.9 L Hematology CBC w Diff NO MAN DIFF REQ WBC (4.8 - 10.8 /CUMM) 11.5 H RBC (4.70 - 6.10 /CUMM) 3.05 L Hgb (14.0 - 18.0 G/DL) 8.7 L Hct (42 - 52 %) 25.4 L MCV (80.0 - 94.0 FL) 83.4 MCH (27.0 - 31.0 PG) 28.6 MCHC (33.0 - 37.0 G/DL) 34.3 RDW (11.5 - 14.5 %) 15.2 H Plt Count (130 - 400 /CUMM) 171 MPV (7.4 - 10.4 FL) 9.2 Gran % (42.2 - 75.2 %) 95.0 H Lymphocytes % (20.5 - 51.1 %) 4.9 L Monocytes % (1.7 - 9.3 %) 0.1 L Eosinophils % (0 - 5 %) 0 Basophils % (0.0 - 2.0 %) 0 Absolute Granulocytes (1.4 - 6.5 /CUMM) 10.9 H Absolute Lymphocytes (1.2 - 3.4 /CUMM) 0.6 L Absolute Monocytes (0.10 - 0.60 /CUMM) 0 L Absolute Eosinophils (0.0 - 0.7 /CUMM) 0 Absolute Basophils (0.0 - 0.2 /CUMM) 0 Last 24 Hours of [place] Results: Blood cultures October 24 positive for gram-positive cocci in clusters Recent Imaging Studies: MRI of the right foot October 23 revealed a soft tissue defect in the plantar aspect of the midfoot, with a fluid collection in the soft tissues; absence of the distal second metatarsal, possibly secondary to destructive changes with abnormal edema in the distal aspect of the residual second metatarsal shaft suspicious for osteomyelitis; marked abnormality associated with the first and fifth MTP joint and the hallux sesamoids, felt to represent advanced arthritic changes; destructive changes of the distal aspect of the third and fourth metatarsals with no definite osteomyelitis Assessment/Plan ID Impression: Persistent MRSA bacteremia, most likely secondary to the infected right foot plantar ulcer, with the MRI results revealing evidence of a probable abscess as well as osteomyelitis, and he is scheduled for a probable transmetatarsal amputation later today. He remains afebrile (on steroids) with his white blood cell count mildly increased, possibly secondary to steroids, now Day 4 of Vancomycin. His bilateral pulmonary opacities, some containing central cavitation, likely represent seeding from the Staph aureus bacteremia, but endocarditis remains a concern. His multiple joint complaints appears somewhat improved today and may be secondary to sepsis or endocarditis. His elevated liver enzymes are likely secondary to sepsis or alcoholic hepatitis and are decreasing. Suggestion: 1. Repeat blood cultures 2 2. Await right foot surgery later today 3. Remove Robles catheter 4. Taper steroids 5. Consider ANNA at some point 6. Consider Vascular surgery evaluation 7. Continue Vancomycin
--- NOTE | 2017-10-25 11:57 | PN- Diabetes ---
Assessment/Plan Diabetes Assessment: 61-year-old man with past medical history significant for diabetes mellitus and coronary artery disease status post stent placement, was brought in by ambulance for evaluation of altered mental status. Patient has a necrotic, purulent, chronic right foot plantar ulcer. He was scheduled for a right transmetatarsal amputation which was deferred secondary to patient's reluctance and his current condition. His BP was borderline low. He used to take prednisone chronically for his arthritis. He was placed on stress dose of steroid-- Hydrocortisone 50 mg iv twice a day. Currently he is on levemir 8 units twice a day, RISS every 6 hours. Patient is kept NPO for foot procedure. His FSGs were 168, 200, 211, 218 and 194. The blood culture was positive for Gram positive cocci in cluster. Plan: 1. Decrease hydrocortisone to 25 mg iv twice a day; 2. if the foot procedure requirs general anesthesia, I will recommend hydrocortisone 100 mg iv x 1 right before the induction of anesthesia; if the foot procedure doesn't requirs general anesthesia, I will recommend hydrocortisone 50 mg iv x 1 right before the procedure. 3. continue the current insulin regimen for now; 4. continue monitoring his FSGs and electrolytes. will follow. Subjective Subjective: He is still confused. Objective Last 24 Hrs of Vital Signs/I&O Vital Signs Date Time Temp Pulse Resp B/P B/P Pulse O2 O2 Flow FiO2 Mean Ox Delivery Rate 10/25 0937 100 144/70 10/25 0630 99.5 104 18 132/72 96 10/24 2203 87 140/60 10/24 2116 97.8 77 18 145/65 95 10/24 1600 97.4 71 20 122/56 10/24 1600 97.4 71 20 122/56 99 Room Air 10/24 1221 93 148/70 Intake & Output 10/25 1600 10/25 0800 10/25 0000 Intake Total 270 60 Output Total 1000 Balance -730 60 Intake, IV 270 Intake, Oral 0 60 Output, Urine 1000 Findings Pertinent Lab/[place] Results: Laboratory Tests 10/25 0636 Chemistry Sodium (137 - 145 mmol/L) 146 H Potassium (3.5 - 5.1 mmol/L) 4.0 Chloride (98 - 107 mmol/L) 116 H Carbon Dioxide (22 - 30 mmol/L) 16 L Anion Gap (5 - 16) 14 BUN (9 - 20 mg/dL) 45 H Creatinine (0.7 - 1.2 mg/dL) 1.1 Estimated GFR (>60 ml/min) > 60 Glucose (65 - 99 mg/dL) 180 H Calcium (8.4 - 10.2 mg/dL) 7.6 L Phosphorus (2.5 - 4.5 mg/dL) 3.2 Magnesium (1.6 - 2.3 mg/dL) 2.2 Total Bilirubin (0.2 - 1.3 mg/dL) 2.0 H AST (17 - 59 U/L) 106 H ALT (21 - 72 U/L) 83 H Albumin (3.5 - 5.0 g/dL) 1.9 L Hematology CBC w Diff NO MAN DIFF REQ WBC (4.8 - 10.8 /CUMM) 11.5 H RBC (4.70 - 6.10 /CUMM) 3.05 L Hgb (14.0 - 18.0 G/DL) 8.7 L Hct (42 - 52 %) 25.4 L MCV (80.0 - 94.0 FL) 83.4 MCH (27.0 - 31.0 PG) 28.6 MCHC (33.0 - 37.0 G/DL) 34.3 RDW (11.5 - 14.5 %) 15.2 H Plt Count (130 - 400 /CUMM) 171 MPV (7.4 - 10.4 FL) 9.2 Gran % (42.2 - 75.2 %) 95.0 H Lymphocytes % (20.5 - 51.1 %) 4.9 L Monocytes % (1.7 - 9.3 %) 0.1 L Eosinophils % (0 - 5 %) 0 Basophils % (0.0 - 2.0 %) 0 Absolute Granulocytes (1.4 - 6.5 /CUMM) 10.9 H Absolute Lymphocytes (1.2 - 3.4 /CUMM) 0.6 L Absolute Monocytes (0.10 - 0.60 /CUMM) 0 L Absolute Eosinophils (0.0 - 0.7 /CUMM) 0 Absolute Basophils (0.0 - 0.2 /CUMM) 0
--- NOTE | 2017-10-25 14:11 | Operative Report ---
Operative/Inv Procedure Report Surgery Date: 10/25/17 Name of Procedure: 1 open TMA right foot Pre-Operative Diagnosis: 1 osteomyelitis right forefoot Post-Operative Diagnosis: The same Estimated Blood Loss: less than 50ml Surgeon/Marketing Communications Manager: CAMPOS WILKINSON DPM Anesthesia: moderate sedation, block Operative/Procedure Note Note: After obtaining informed consent the patient was brought to the operating room and placed on the operating table in the supine position. The patient isn't securely fastened to the operating table utilizing safety belt. After administration of IV sedation, 10 mL of 0.5% Marcaine plain was infiltrated about the patient's right ankle. The right foot and ankle then scrubbed prepped and draped in usual aseptic manner. Attention directed right foot, where a fishmouth-type and sedation encompassing the first and fifth digits was marked out a skin marker. A 15 blade was utilized to develop full-thickness flaps dorsally and plantarly. A sagittal bone saw was utilized performed through and through osteotomies to the first, second, third, fourth and fifth metatarsal shaft. The distal osseous segment was freed and passed from the operative field. Specimen was sent for both microbiologic and pathologic inspection. The open wound was then irrigated with 3 L of normal sterile saline infusion 50,000 units of bacitracin. Following this, the foot was redraped and surgeon's top was changed clean gloves. Any bleeding vessels identified were cauterized or ligated as encountered. Nipple was then packed with iodoform and 3-0 nylon retention sutures were placed. The foot was then dressed with 4 x 4's EBD pad Kerlix and Rene wrap. The patient is noted tolerate both procedure and anesthesia well and the patient was transported from the operating room to recovery with vital signs stable.
[2017-10-25 15:31] VITALS: BP 136/70
--- NOTE | 2017-10-25 22:08 | PN- Cardiology ---
Subjective Subjective: * Patient reports intermittent chest pain which was first noted a couple months ago. No current current chest paint or shortness of breath. * Decreaseing, but still abnormal LFT's and increased WBC count * status post transmetatarsal amputation Objective Vital Signs and I&Os Vital Signs Date Time Temp Pulse Resp B/P B/P Pulse O2 O2 Flow FiO2 Mean Ox Delivery Rate 10/25 1600 Nasal 2.0L Cannula 10/25 1531 97.9 72 20 136/70 94 10/25 0937 100 144/70 10/25 0800 100 144/70 10/25 0630 99.5 104 18 132/72 96 10/24 2203 87 140/60 Intake & Output 10/25 1600 10/25 0800 10/25 0000 10/24 1600 10/24 0800 10/24 0000 Intake Total 850 371 98 5584 50 360 Output Total 700 1000 1000 670 650 Balance 150 -730 60 475 -620 -290 Intake, IV 850 270 515 Intake, Oral 0 60 960 50 360 Number 0 Bowel Movements Output, Urine 700 1000 1000 670 650 Physical Exam: General: WD/WN male in NAD; alert and oriented x 3 HEENT: NC/AT, PERRL, EOMI Neck: no JVD, no carotid bruit Heart: RRR with 2/6 systolic murmur Lungs: clear bilaterally Abdomen: soft, NT, +ve bowel sounds Extremties: no edema, left TMA, right TMA amputation Assessment/Plan Assessment/Plan * This patient has a mildly increased troponin consistent with a type 2 IA although there may be some artifactual rise in troponin from decreased clearance in the setting of decreased renal function. In consideration of his chest pain and increased cardiac enzymes and peripheral vascular disease it is almost certain that this patient has myocardial ischemia. There is no clear evidence of decompensated congestive heart failure. This patient should be on a statin, aspirin and Coreg 3.125mg BID. Add NTG paste 1/2 inch Q 6 hours. Continue telemetry? Yes
[2017-10-25 22:20] VITALS: BP 118/62
[2017-10-26 07:15] VITALS: BP 136/82
--- NOTE | 2017-10-26 08:27 | PN- Housestaff ---
Subjective Follow-up For: MRSA osteomyelitis with persistent bacteremia Right foot TMA - today Steroid dependence with adrenal insufficiency Chest pain Tele-Events Since Last Visit: Normal sinus rhythm, bundle branch block, 7080 Subjective: Patient was seen and examined at bedside, complaints of chest pain 10/10 in severity, not related to breathing or movement, not reproducible with palpation. Denies any abdominal pain, nausea, vomiting, diarrhea or constipation. Blood culture from 10/25 was positive for gram-positive cocci. Review of Systems Constitutional: Reports: see HPI. Objective Last 24 Hrs of Vital Signs/I&O Vital Signs Date Time Temp Pulse Resp B/P B/P Pulse O2 O2 Flow FiO2 Mean Ox Delivery Rate 10/26 0715 97.5 93 18 136/82 95 Nasal Cannula 10/26 0501 98.1 10/26 0000 Nasal 2.0L Cannula 10/25 2251 99.6 10/25 2220 99.0 100 18 118/62 95 Nasal 2.0L Cannula 10/25 2204 103 118/62 10/25 1600 Nasal 2.0L Cannula 10/25 1531 97.9 72 20 136/70 94 10/25 0937 100 144/70 Intake & Output 10/26 1600 10/26 0800 10/26 0000 Intake Total 110 1810 Output Total 800 Balance 110 1010 Intake, IV 10 560 Intake, Oral 100 1250 Number 1 1 Bowel Movements Output, Urine 800 Patient 197 lb Weight Weight Bed scale Measurement Method Physical Exam General Appearance: Alert, Cooperative, No Acute Distress, lethargic Neck: Supple, No JVD, No thryomegaly Cardiovascular: Normal S1, Normal S2 Lungs: Clear to Auscultation, Normal Air Movement Abdomen: Normal Bowel Sounds, Soft, No Tenderness Neurological: Normal Speech Extremities: No Clubbing, No Cyanosis Vascular: Normal Pulses Current Medications: Current Medications Sig/Lai Start time Last Medication Dose Route Stop Time Status Admin Acetaminophen 1,000 MG Q6P PRN 10/21 170 AC 10/25 IV 2251 Aspirin 81 MG DAILY 10/23 1000 AC 10/26 PO 1041 Atorvastatin Calcium 80 MG 1700 10/23 1700 AC 10/25 PO 1814 Carvedilol 3.125 MG BID 10/24 1000 AC 10/26 PO 1042 Fentanyl Citrate 0 .STK-MED ONE 10/25 1227 DC .ROUTE Folic Acid 1 MG DAILY 10/21 1703 AC 10/26 PO 1042 Heparin Sodium 5,000 UNIT Q8 10/21 2200 AC 10/26 (Porcine) SC 0534 Hydrocortisone 100 MG ONE ONE 10/25 1200 DC 10/25 Sodium Succinate IV 10/25 1201 1229 Hydrocortisone 25 MG Q12 10/25 1000 AC 10/26 Sodium Succinate IV 1043 Insulin Aspart 0 TIDAC 10/26 0800 DC SC Insulin Aspart 0 TIDAC 10/25 1830 AC 10/26 SC 0819 Insulin Detemir 8 UNITS BID 10/22 2200 AC 10/26 SC 1043 Insulin Human Regular 0 Q6 10/24 2359 DC 10/25 SC 0643 Meperidine HCl 50 MG .STK-MED ONE 10/25 1411 DC IM 10/25 1412 Midazolam HCl 0 .STK-MED ONE 10/25 1228 DC .ROUTE Morphine Sulfate 4 MG .STK-MED ONE 10/25 1427 DC IM 10/25 1428 Morphine Sulfate 4 MG .STK-MED ONE 10/25 1411 DC IM 10/25 1412 Multivitamins 1 TAB DAILY 10/21 1703 AC 10/26 PO 1042 Nitroglycerin 0.5 GM Q6 10/26 0850 AC 10/26 TOP 0905 Thiamine HCl 500 MG Q8H 10/24 2130 AC 10/26 Sodium Chloride 250 ML IV 10/27 0629 0533 Vancomycin HCl 1,000 MG Q12 10/24 220 AC 10/26 Dextrose/Water 250 ML IV 1042 Last 24 Hrs of Lab/[place] Results Last 24 Hrs of Labs/Mics: Laboratory Tests 10/26/17 0930: Troponin I 0.15 *H 10/26/17 0700: Anion Gap 12, Estimated GFR > 60, BUN/Creatinine Ratio 33.3 H, CBC w Diff MAN DIFF ORDERED, RBC 3.05 L, MCV 84.5, MCH 28.3, MCHC 33.5, RDW 15.3 H, MPV 9.4, Gran % 89.8 H, Lymphocytes % 9.2 L, Monocytes % 0.5 L, Eosinophils % 0.2, Basophils % 0.3, Absolute Granulocytes 7.3 H, Segmented Neutrophils 85 H, Band Neutrophils 9 H, Absolute Lymphocytes 0.8 L, Lymphocytes 6 L, Absolute Monocytes 0 L, Absolute Eosinophils 0, Absolute Basophils 0, Nucleated RBCs 1 H, Platelet Estimate ADEQUATE, Polychromasia 1+, Hypochromic-Microcytic 1+, Poikilocytosis 1+, Anisocytosis 1+ Microbiology 10/26 929 BLOOD: Blood Culture - RECD 10/26 929 BLOOD: Blood Culture - RECD 10/25 1314 EXTREMITIE: Gross Specimen Examination - RES 10/25 1314 EXTREMITIE: Gram Stain - RES Assessment/Plan Assessment: Patient is a 61-year-old male with past medical history significant for insulin- dependent diabetes mellitus, rheumatoid arthritis on prednisone & leflunomide, coronary artery disease status post stenting, left TMA, chronic right foot ulcer was brought to [facility] after found by upper cutter machine at home altered and unkempt, covered with the urine. Vitals at admission is significant for MAXIMUM TEMPERATURE of 100.6, blood pressure 106/68 mmHg. White count of 13,000 with 72 segments and bands. Troponin of 0.85, elevated d-dimer. Chest x-ray showing patchy opacity in the right upper lobe and mild cardiomegaly. X-ray of Right foot revealed extensive destructive changes in the second to fourth digits. CT of chest is significant for central cavitation and opacities in both lungs. CT abdomen Prominent perinephric edema with prominent prostate. Admitted to ICU initially on 10/21/2017 given sepsis secondary to diabetic foot infection. He did have persistent MRSA bacteremia with extensive seeding into lungs, urine, joints. Once he was hemodynamic stable transferred to telemetry overnight. Plan Problem list MRSA osteomyelitis with persistent bacteremia Iatrogenic Steroid induced adrenal insufficiency Insulin-dependent diabetic mellitus Cavitation in the lung Type II ME Encephalopathy Inflammatory anemia MRSA osteomyelitis with persistent bacteremia Appear secondary to uncontrolled diabetes and on steroids giving room for rapid progression. Initially started broad with IV ceftazidime and Flagyl and transitioned to IV vancomycin after cultures results. MRI did show abscess of right foot. Blood cultures were persistently positive. ESR 125. Underwent tarsometatarsal amputation yesterday. Needs ANNA to rule out endocarditis ( predictably positive). Blood culture from 0 10/25 was positive for gram-positive cocci. 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 Placed on IV hydrocortisone to maintain his blood pressure. Today he is transitioned to IV 25 mg q12 of hydrocortisone. Before the surgery a single dose of IV 100 mg given (stress dose). Endocrinology has been following the patient. * Continue hydrocodone 25 mg IV every 12 * Monitor blood pressure * Single dose of midazolam and fentanyl were given during anesthesia. Insulin-dependent diabetic mellitus HbA1c of 7.2. Sugars remained relatively controlled on current regimen * Continue Levemir 8 units twice a day and NovoLog sliding scale per endocrinology. Intermixed ground glass attenuation on imaging suggestive of ? multilobar pneumonia Imaging shows opacities exhibiting reverse halo sign ( atoll sign). Also, some of the opacities have central lucencies, suspicious for cavitary change. Given MRSA bacteremia, seeding should be first differential. However patient has been on leflunomide so tuberculosis should be second in the differential. * Saturating well on room air * Continue to monitor Type II ME Probes trended down. He had a history of coronary artery disease with diabetes. Echocardiogram did show EF of 40% with anteroseptal hypokinesis (?old). Mild mitral regurgitation without any obvious digitations. Further evaluation with ANNA is mandatory. Cardiology has been following would appreciate their recommendations. * Continue ASA, Coreg, Statin for now * ANNA next week Chest pain: Nitropaste 0.5 g every 6 as needed Tropes trending down No EKG changes Encephalopathy Patient continues to be altered despite aggressive treatment of his infection. Given his alcohol history continue IV thiamine for the benefit of doubt ( Wernicke's). Urine toxicology rule out upper etiologies including opiates. * Continue IV thiamine Inflammatory anemia H&H of 8.7/25 with ferritin 1500, iron of 12, TIBC 143 suggestive of anemia of chronic disease/inflammation related. Obvious source could be osteomyelitis. Treating current condition should help with his anemia as well. * Monitor H&H * Start oral iron when feasible. DVT prophylaxis SC heparin Code status full code patient is not competent, daughter is POA and makes all the decisions. Problem List: 1. UTI (urinary tract infection) 2. Pyelonephritis 3. Osteomyelitis of right foot Pain Ratin Pain Location: N/A Pain Goal: Remain pain free Pain Plan: PATHWAY Tomorrow's Labs & Rationales: CBC BEP BLOOD CULTURE
[2017-10-26 08:56] LABS: ABSOLUTE BASOPHIL COUNT 0 /CUMM (0.0-0.2); ABSOLUTE EOSINOPHIL COUNT 0 /CUMM (0.0-0.7); ABSOLUTE GRANULOCYTE CT 7.3 /CUMM (1.4-6.5); ABSOLUTE LYMPH COUNT 0.8 /CUMM (1.2-3.4); ABSOLUTE MONOCYTE COUNT 0 /CUMM (0.10-0.60); BASOPHIL % 0.3 % (0.0-2.0); EOSINOPHIL % 0.2 % (0-5); GRANULOCYTE % 89.8 % (42.2-75.2); HEMATOCRIT 25.7 % (42-52); MEAN CORPUSCULAR HGB 28.3 PG (27.0-31.0); MEAN CORPUSCULAR HGB CONC 33.5 G/DL (33.0-37.0); MEAN CORPUSCULAR VOLUME 84.5 FL (80.0-94.0); MEAN PLATELET VOLUME 9.4 FL (7.4-10.4); PLATELET COUNT 161 /CUMM (130-400); RBC DISTRIBUTION WIDTH 15.3 % (11.5-14.5); RED BLOOD CELL CT 3.05 /CUMM (4.70-6.10); WHITE BLOOD CELL COUNT 8.2 /CUMM (4.8-10.8)
--- NOTE | 2017-10-26 11:06 | PN- Cardiology ---
Subjective Subjective: The patient is complaining of chest pain today. This is poorly characterized. His EKG shows left bundle branch block and is nondiagnostic. Troponin is 0.15 which is significantly less than previous and probably just a residual of his previous elevation. However it will need to be trended. He is currently on nitroglycerin paste, carvedilol, atorvastatin, aspirin. Objective Vital Signs and I&Os Vital Signs Date Time Temp Pulse Resp B/P B/P Pulse O2 O2 Flow FiO2 Mean Ox Delivery Rate 10/26 1042 98.8 96 20 120/68 10/26 0715 97.5 93 18 136/82 95 Nasal Cannula 10/26 0501 98.1 10/26 0000 Nasal 2.0L Cannula 10/25 225 99.6 10/25 2220 99.0 100 18 118/62 95 Nasal 2.0L Cannula 10/25 2204 103 118/62 10/25 1600 Nasal 2.0L Cannula 10/25 1531 97.9 72 20 136/70 94 Intake & Output 10/26 1600 10/26 0800 10/26 0000 10/25 1600 10/25 0800 10/25 0000 Intake Total 110 1810 850 270 60 Output Total 689 324 5298 Balance 110 1010 150 -730 60 Intake, IV 10 560 850 270 Intake, Oral 100 1250 0 60 Number 1 1 Bowel Movements Output, Urine 475 840 2303 Patient 197 lb Weight Weight Bed scale Measurement Method Physical Exam: He is somewhat lethargic Chest is clear Heart reveals regular rhythm and no murmurs Extremities are unchanged Current Medications: Current Medications Sig/Lai Start time Last Medication Dose Route Stop Time Status Admin Acetaminophen 1,000 MG Q6P PRN 10/21 1700 AC 10/25 IV 2251 Aspirin 81 MG DAILY 10/23 1000 AC 10/26 PO 1041 Atorvastatin Calcium 80 MG 1700 10/23 1700 AC 10/25 PO 1814 Carvedilol 3.125 MG BID 10/24 1000 AC 10/26 PO 1042 Fentanyl Citrate 0 .STK-MED ONE 10/25 1227 DC .ROUTE Folic Acid 1 MG DAILY 10/21 1703 AC 10/26 PO 1042 Heparin Sodium 5,000 UNIT Q8 10/21 2200 AC 10/26 (Porcine) SC 0534 Hydrocortisone 100 MG ONE ONE 10/25 1200 DC 10/25 Sodium Succinate IV 10/25 1201 1229 Hydrocortisone 25 MG Q12 10/25 1000 AC 10/26 Sodium Succinate IV 1043 Insulin Aspart 0 TIDAC 10/26 0800 DC SC Insulin Aspart 0 TIDAC 10/25 1830 AC 10/26 SC 0819 Insulin Detemir 8 UNITS BID 10/22 2200 AC 10/26 SC 1043 Insulin Human Regular 0 Q6 10/24 2359 DC 10/25 SC 0643 Meperidine HCl 50 MG .STK-MED ONE 10/25 1411 DC IM 10/25 1412 Midazolam HCl 0 .STK-MED ONE 10/25 1228 DC .ROUTE Morphine Sulfate 4 MG .STK-MED ONE 10/25 1427 DC IM 10/25 1428 Morphine Sulfate 4 MG .STK-MED ONE 10/25 1411 DC IM 10/25 1412 Multivitamins 1 TAB DAILY 10/21 1703 AC 10/26 PO 1042 Nitroglycerin 0.5 GM Q6 10/26 0850 AC 10/26 TOP 0905 Thiamine HCl 500 MG Q8H 10/24 2130 AC 10/26 Sodium Chloride 250 ML IV 10/27 0629 0533 Vancomycin HCl 1,000 MG Q12 10/24 2200 AC 10/26 Dextrose/Water 250 ML IV 1042 Results Last 48 Hrs of Labs/Mics: Laboratory Tests 10/26/17 0930: Troponin I Pending 10/26/17 0700: Anion Gap 12, Estimated GFR > 60, BUN/Creatinine Ratio 33.3 H, CBC w Diff MAN DIFF ORDERED, RBC 3.05 L, MCV 84.5, MCH 28.3, MCHC 33.5, RDW 15.3 H, MPV 9.4, Gran % 89.8 H, Lymphocytes % 9.2 L, Monocytes % 0.5 L, Eosinophils % 0.2, Basophils % 0.3, Absolute Granulocytes 7.3 H, Segmented Neutrophils 85 H, Band Neutrophils 9 H, Absolute Lymphocytes 0.8 L, Lymphocytes 6 L, Absolute Monocytes 0 L, Absolute Eosinophils 0, Absolute Basophils 0, Nucleated RBCs 1 H, Platelet Estimate ADEQUATE, Polychromasia 1+, Hypochromic-Microcytic 1+, Poikilocytosis 1+, Anisocytosis 1+ 10/25/17 0636: Anion Gap 14, Estimated GFR > 60, Glucose 180 H, Calcium 7.6 L, Phosphorus 3.2 , Magnesium 2.2, Total Bilirubin 2.0 H, AST 106 H, ALT 83 H, Albumin 1.9 L, CBC w Diff NO MAN DIFF REQ, RBC 3.05 L, MCV 83.4, MCH 28.6, MCHC 34.3, RDW 15.2 H, MPV 9.2, Gran % 95.0 H, Lymphocytes % 4.9 L, Monocytes % 0.1 L, Eosinophils % 0, Basophils % 0, Absolute Granulocytes 10.9 H, Absolute Lymphocytes 0.6 L, Absolute Monocytes 0 L, Absolute Eosinophils 0, Absolute Basophils 0 Assessment/Plan Assessment/Plan The patient is having chest pain. He undoubtedly has underlying ischemic heart disease. We will trend his troponins. He is not a good candidate for invasive evaluation because of his underlying problems including sepsis and renal disease. I would continue him on his usual cardiac medications at this time. Continue telemetry? Yes
--- NOTE | 2017-10-26 12:37 | PN- Att Addend ---
Attending Addendum Attending Brief Note Patient seen and examined. Plan of care discussed with the medical team and the patient. Available lab work and radiology test reports were reviewed. Patient is lying in bed this morning and he appears lethargic. He denies any pain in the right foot. He is status post TMA yesterday. He denies any fever chills chest pain difficulty breathing nausea vomiting or abdominal pain. Exam: General: Patient awake lethargic he is partially oriented without any distress CVS: S1 plus S2 without any murmur or gallops Chest: Few scattered crepitation without any wheeze. There is no respiratory distress. Abdomen: Soft non-tender, bowel sound present, no guarding or rebound TABLET COATER: Awake alert oriented without any focal neuro deficit and follows commands appropriately Extremities: Right foot is covered in dressing; No edema; no clubbing or cyanosis noted Current Medications Sig/Lai Start time Last Medication Dose Route Stop Time Status Admin Acetaminophen 1,000 MG Q6P PRN 10/21 1700 AC 10/25 IV 2251 Aspirin 81 MG DAILY 10/23 1000 AC 10/26 PO 1041 Atorvastatin Calcium 80 MG 1700 10/23 1700 AC 10/25 PO 1814 Carvedilol 3.125 MG BID 10/24 1000 AC 10/26 PO 1042 Folic Acid 1 MG DAILY 10/21 1703 AC 10/26 PO 1042 Heparin Sodium 5,000 UNIT Q8 10/21 2200 AC 10/26 (Porcine) SC 0534 Hydrocortisone 25 MG Q12 10/25 1000 AC 10/26 Sodium Succinate IV 1043 Insulin Aspart 0 TIDAC/HS 10/26 1700 UNVr SC Insulin Aspart 0 TIDAC 10/26 0800 DC SC Insulin Aspart 0 TIDAC 10/25 1830 DC 10/26 SC 0819 Insulin Detemir 10 UNITS BID 10/26 2200 UNVr SC Insulin Detemir 8 UNITS BID 10/22 2200 DC 10/26 SC 1043 Insulin Human Regular 0 Q6 10/24 2359 DC 10/25 SC 0643 Meperidine HCl 50 MG .STK-MED ONE 10/25 1411 DC IM 10/25 1412 Morphine Sulfate 4 MG .STK-MED ONE 10/25 1427 DC IM 10/25 1428 Morphine Sulfate 4 MG .STK-MED ONE 10/25 1411 DC IM 10/25 1412 Multivitamins 1 TAB DAILY 10/21 1703 AC 10/26 PO 1042 Nitroglycerin 0.5 GM Q6 10/26 0850 10/26 TOP 0905 Thiamine HCl 500 MG Q8H 10/24 2130 10/26 Sodium Chloride 250 ML IV 10/27 0629 0533 Vancomycin HCl 1,000 MG Q12 10/24 2200 10/26 Dextrose/Water 250 ML IV 1042 Laboratory Tests 10/26/17 0930: Troponin I 0.15 *H 10/26/17 0700: Anion Gap 12, Estimated GFR > 60, BUN/Creatinine Ratio 33.3 H, CBC w Diff MAN DIFF ORDERED, RBC 3.05 L, MCV 84.5, MCH 28.3, MCHC 33.5, RDW 15.3 H, MPV 9.4, Gran % 89.8 H, Lymphocytes % 9.2 L, Monocytes % 0.5 L, Eosinophils % 0.2, Basophils % 0.3, Absolute Granulocytes 7.3 H, Segmented Neutrophils 85 H, Band Neutrophils 9 H, Absolute Lymphocytes 0.8 L, Lymphocytes 6 L, Absolute Monocytes 0 L, Absolute Eosinophils 0, Absolute Basophils 0, Nucleated RBCs 1 H, Platelet Estimate ADEQUATE, Polychromasia 1+, Hypochromic-Microcytic 1+, Poikilocytosis 1+, Anisocytosis 1+ 10/25/17 0636: Anion Gap 14, Estimated GFR > 60, Glucose 180 H, Calcium 7.6 L, Phosphorus 3.2 , Magnesium 2.2, Total Bilirubin 2.0 H, AST 106 H, ALT 83 H, Albumin 1.9 L, CBC w Diff NO MAN DIFF REQ, RBC 3.05 L, MCV 83.4, MCH 28.6, MCHC 34.3, RDW 15.2 H, MPV 9.2, Gran % 95.0 H, Lymphocytes % 4.9 L, Monocytes % 0.1 L, Eosinophils % 0, Basophils % 0, Absolute Granulocytes 10.9 H, Absolute Lymphocytes 0.6 L, Absolute Monocytes 0 L, Absolute Eosinophils 0, Absolute Basophils 0 10/24/17 0500: Haptoglobin 687 H 10/24/17 0350: Anion Gap 13, Estimated GFR > 60, Glucose 168 H, Calcium 7.5 L, Phosphorus 2.9 , Magnesium 2.3, Iron 12 L, TIBC 143 L, Ferritin 1550.0 H, Total Bilirubin 2.4 H, AST 156 H, ALT 82 H, Albumin 1.9 L, CBC w Diff MAN DIFF ORDERED, RBC 3.07 L, MCV 84.0, MCH 28.1, MCHC 33.5, RDW 15.0 H, MPV 9.4, Gran % 95.1 H, Lymphocytes % 3.9 L, Monocytes % 1.0 L, Eosinophils % 0, Basophils % 0, Absolute Granulocytes 11.8 H, Segmented Neutrophils 95 H, Band Neutrophils 1, Absolute Lymphocytes 0.5 L, Lymphocytes 2 L, Monocytes 2, Absolute Monocytes 0.1, Absolute Eosinophils 0, Absolute Basophils 0, Platelet Estimate ADEQUATE, Normochromic RBCs VERIFIED, Poikilocytosis 2+, Ovalocytes 1+, [place] Cells 1+, Fld Total RBCs Counted 100 10/23/173: Anion Gap 10, Estimated GFR > 60, Glucose 147 H, Calcium 7.6 L, Phosphorus 2.9 , Magnesium 2.3, Total Bilirubin 2.4 H, AST 144 H, ALT 72, Albumin 1.9 L Microbiology 10/26 09 BLOOD: Blood Culture - RECD 10/26 929 BLOOD: Blood Culture - RECD 10/25 131 EXTREMITIE: Gross Specimen Examination - RES 10/25 131 EXTREMITIE: Gram Stain - RES 10/25 0950 BLOOD: Blood Culture - RES GRAM POSITIVE COCCI 10/25 0829 BLOOD: Blood Culture - RES GRAM POSITIVE COCCI 10/24 0918 BLOOD: Blood Culture - COMP METH RESIST STAPH AUREUS 10/24 09 BLOOD: Blood Culture - COMP METH RESIST STAPH AUREUS Vital Signs Date Time Temp Pulse Resp B/P B/P Pulse O2 O2 Flow FiO2 Mean Ox Delivery Rate 10/26 1042 98.8 96 20 120/68 10/26 0715 97.5 93 18 136/82 95 Nasal Cannula 10/26 0501 98.1 10/26 0000 Nasal 2.0L Cannula 10/25 2251 99.6 10/25 2220 99.0 100 18 118/62 95 Nasal 2.0L Cannula 10/25 2204 103 118/62 10/25 1600 Nasal 2.0L Cannula 10/25 1531 97.9 72 20 136/70 94 Intake & Output 10/26 1600 10/26 0800 10/26 0000 Intake Total 110 1810 Output Total 800 Balance 110 1010 Intake, IV 10 560 Intake, Oral 100 1250 Number 1 1 Bowel Movements Output, Urine 800 Patient 197 lb Weight Weight Bed scale Measurement Method Assessment * Right foot osteomyelitis status post TMA October 25 * Persistent MRSA bacteremia likely originating from osteomyelitis * Suspected the pulmonary abscesses from bacteremia * insulin-dependent diabetes mellitus, * rheumatoid arthritis on prednisone & leflunomide, * coronary artery disease status post stenting, * History of left TMA, chronic right foot ulcer Plan * Await ANNA * Continue vancomycin * Consider switching IV Tylenol to oral Tylenol * Continue stress dose hydrocortisone 25 mg twice a day * Agree with increasing Levemir 10 units twice a day
--- NOTE | 2017-10-26 12:39 | PN- Diabetes ---
Assessment/Plan Diabetes Assessment: 61-year-old man with past medical history significant for diabetes mellitus and coronary artery disease status post stent placement, was brought in by ambulance for evaluation of altered mental status. Patient has a necrotic, purulent, chronic right foot plantar ulcer. He was scheduled for a right transmetatarsal amputation which was deferred secondary to patient's reluctance and his current condition. His BP was borderline low. He used to take prednisone chronically for his arthritis. He was placed on stress dose of steroid-- Hydrocortisone 50 mg iv twice a day. Hydrocortisone was decreased to 25 mg iv twice a day. But he did receive a dose of hydrocortisone 100 mg iv before hid foot procedure on 2017. Currently he is on levemir 8 units twice a day, Novolog coverage before meals. His FSGs were 194,222, 208 and 232. The blood culture was positive for Gram positive cocci in cluster. Plan: 1. increase Levemir to 10 units twice a day; 2. adjust Novolog coverage before meals and add Novolog coverage at bedtime; detai see the inpatient DM orders; 3, monitor FSGs; 4. continue hydrocortisone 25 mg iv twice a day for now. will follow. Inpatient Diabetes Orders Before Each Meal: Bolus Insulin: Novolog < 80 mg/dl: no coverage 80-100 mg/dl: no coverage 101-120 mg/dl: 3 units 121-150 mg/dl: 3 units 151-200 mg/dl: 5 units 201-250 mg/dl: 7 units 251-300 mg/dl: 9 units 301-350 mg/dl: 11 units 351-400 mg/dl: 13 units > 400 mg/dl: 15 units Bedtime: Bolus Insulin: Novolog < 80 mg/dl: no coverage 80-100 mg/dl: no coverage 101-120 mg/dl: no coverage 121-150 mg/dl: no coverage 151-200 mg/dl: no coverage 201-250 mg/dl: no coverage 251-300 mg/dl: 2 units 301-350 mg/dl: 3 units 351-400 mg/dl: 4 units > 400 mg/dl: 5 units Subjective Subjective: His po intake is poor. He appears lethargic. Objective Last 24 Hrs of Vital Signs/I&O Vital Signs Date Time Temp Pulse Resp B/P B/P Pulse O2 O2 Flow FiO2 Mean Ox Delivery Rate 10/26 1042 98.8 96 20 120/68 10/26 0715 97.5 93 18 136/82 95 Nasal Cannula 10/26 0501 98.1 10/26 0000 Nasal 2.0L Cannula 10/25 2251 99.6 10/25 2220 99.0 100 18 118/62 95 Nasal 2.0L Cannula 10/25 2204 103 118/62 10/25 1600 Nasal 2.0L Cannula 10/25 1531 97.9 72 20 136/70 94 Intake & Output 10/26 1600 10/26 0800 10/26 0000 Intake Total 110 1810 Output Total 800 Balance 110 1010 Intake, IV 10 560 Intake, Oral 100 1250 Number 1 1 Bowel Movements Output, Urine 800 Patient 197 lb Weight Weight Bed scale Measurement Method Findings Pertinent Lab/[place] Results: Laboratory Tests 10/26 10/26 0930 0700 Chemistry Sodium (137 - 145 mmol/L) 141 Potassium (3.5 - 5.1 mmol/L) 3.7 Chloride (98 - 107 mmol/L) 113 H Carbon Dioxide (22 - 30 mmol/L) 17 L Anion Gap (5 - 16) 12 BUN (9 - 20 mg/dL) 40 H Creatinine (0.7 - 1.2 mg/dL) 1.2 Estimated GFR (>60 ml/min) > 60 BUN/Creatinine Ratio (7 - 25 %) 33.3 H Troponin I (<0.11 ng/ml) 0.15 *H Hematology CBC w Diff MAN DIFF ORDERED WBC (4.8 - 10.8 /CUMM) 8.2 RBC (4.70 - 6.10 /CUMM) 3.05 L Hgb (14.0 - 18.0 G/DL) 8.6 L Hct (42 - 52 %) 25.7 L MCV (80.0 - 94.0 FL) 84.5 MCH (27.0 - 31.0 PG) 28.3 MCHC (33.0 - 37.0 G/DL) 33.5 RDW (11.5 - 14.5 %) 15.3 H Plt Count (130 - 400 /CUMM) 161 MPV (7.4 - 10.4 FL) 9.4 Gran % (42.2 - 75.2 %) 89.8 H Lymphocytes % (20.5 - 51.1 %) 9.2 L Monocytes % (1.7 - 9.3 %) 0.5 L Eosinophils % (0 - 5 %) 0.2 Basophils % (0.0 - 2.0 %) 0.3 Absolute Granulocytes (1.4 - 6.5 /CUMM) 7.3 H Segmented Neutrophils (42.2 - 75.2 %) 85 H Band Neutrophils (0.0 - 5.0 %) 9 H Absolute Lymphocytes (1.2 - 3.4 /CUMM) 0.8 L Lymphocytes (20.5 - 51.1 %) 6 L Absolute Monocytes (0.10 - 0.60 /CUMM) 0 L Absolute Eosinophils (0.0 - 0.7 /CUMM) 0 Absolute Basophils (0.0 - 0.2 /CUMM) 0 Nucleated RBCs (0.0 - 0.0 /100WBC) 1 H Platelet Estimate (ADEQUATE) ADEQUATE Polychromasia 1+ Hypochromic-Microcytic 1+ Poikilocytosis 1+ Anisocytosis 1+
[2017-10-26 22:35] VITALS: BP 118/60
[2017-10-27 06:34] VITALS: BP 124/62
--- NOTE | 2017-10-27 08:30 | PN- Infect Dx ---
Subjective Subjective: MAXIMUM TEMPERATURE 102.6 on steroids. He does not offer any complaints. Objective Last 24 Hrs of Vital Signs/I&O Vital Signs Date Time Temp Pulse Resp B/P B/P Pulse O2 O2 Flow FiO2 Mean Ox Delivery Rate 10/27 0634 100.2 103 20 124/62 95 Nasal Cannula 10/27 0000 Nasal 2.0L Cannula 10/26 2235 97.6 73 20 118/60 94 Nasal 2.0L Cannula 10/26 2113 74 118/60 10/26 1600 Nasal 2.0L Cannula 10/26 1400 101.4 10/26 1220 102.6 10/26 1100 99.5 10/26 1042 98.8 96 20 120/68 Intake & Output 10/27 1600 10/27 0800 10/27 0000 Intake Total 500 480 Output Total Balance 500 480 Intake, IV 500 Intake, Oral 480 Number 1 Bowel Movements Patient 200 lb Weight Weight Bed scale Measurement Method Physical Exam Other Physical Findings: He is more awake and alert in no acute distress Lungs decreased breath sounds bilaterally Heart regular rhythm with a 1/6 systolic ejection murmur Abdomen is soft, nontender with positive bowel sounds Extremities right foot dressing intact; decreased inflammation and tenderness of the upper extremities Results Last 24 Hours of Lab Results: Laboratory Tests 10/26 10/26 1500 0930 Chemistry Troponin I (<0.11 ng/ml) Cancelled 0.15 *H Last 24 Hours of [place] Results: Blood cultures 2 October 26 positive for gram-positive cocci in clusters OR culture October 25 labeled right foot bone positive for Staph aureus Assessment/Plan ID Impression: Persistent MRSA bacteremia, now 2 days status post open transmetatarsal amputation of the right foot, with recent fevers despite stress steroids and now 6 days of Vancomycin, possibly secondary to a residual infection in the right foot versus the lungs, with bilateral pulmonary opacities, some containing central cavitation, felt to represent seeding from the bacteremia, versus endocarditis versus seeding elsewhere. Suggestion: 1. Repeat chest x-ray 2. Obtain a urinalysis and urine culture 3. Repeat blood cultures 2 today 4. Would pursue a ANNA 5. Vancomycin trough level with his next dose 6. Reevaluation of his right foot per Podiatry 7. Consider Vascular surgery evaluation 8. Continue Vancomycin
--- NOTE | 2017-10-27 11:53 | PN- Cardiology ---
Subjective Subjective: The patient is not having any more chest pains. His initial troponin was 0.15 but was not repeated. There have been no significant arrhythmias. His blood cultures remain positive. ANNA has been recommended by infectious disease. Objective Vital Signs and I&Os Vital Signs Date Time Temp Pulse Resp B/P B/P Pulse O2 O2 Flow FiO2 Mean Ox Delivery Rate 10/27 0916 103 129/62 10/27 0634 100.2 103 20 124/62 95 Nasal Cannula 10/27 0000 Nasal 2.0L Cannula 10/26 2235 97.6 73 20 118/60 94 Nasal 2.0L Cannula 10/26 2113 74 118/60 10/26 1600 Nasal 2.0L Cannula 10/26 1400 101.4 10/26 1220 102.6 Intake & Output 10/27 1600 10/27 0800 10/27 0000 10/26 1600 10/26 0800 10/26 0000 Intake Total 500 480 003 005 2782 Output Total 400 800 Balance 500 480 438 740 4918 Intake, IV 500 630 10 560 Intake, Oral 480 662 220 6193 Number 1 0 1 1 Bowel Movements Output, Urine 400 800 Patient 200 lb 197 lb Weight Weight Bed scale Bed scale Measurement Method Physical Exam: He is in no distress, more alert than previous but insists he would like to leave the hospital. HEENT exam normal Chest is clear Heart regular rhythm soft systolic murmur at the base Extremities right foot wrapped Current Medications: Current Medications Sig/Lai Start time Last Medication Dose Route Stop Time Status Admin Acetaminophen 1,000 MG Q6P PRN 10/21 1700 AC 10/26 IV 1220 Aspirin 81 MG DAILY 10/23 1000 AC 10/27 PO 0916 Atorvastatin Calcium 80 MG 1700 10/23 1700 AC 10/26 PO 1723 Carvedilol 3.125 MG BID 10/24 1000 AC 10/27 PO 0916 Folic Acid 1 MG DAILY 10/21 1703 AC 10/27 PO 0915 Heparin Sodium 5,000 UNIT Q8 10/21 2200 AC 10/27 (Porcine) SC 0554 Hydrocortisone 25 MG Q12 10/25 1000 AC 10/27 Sodium Succinate IV 0915 Insulin Aspart 0 TIDAC/HS 10/26 1700 AC SC Insulin Aspart 0 TIDAC 10/25 1830 DC 10/26 SC 0819 Insulin Detemir 8 UNITS BID 10/27 2200 AC SC Insulin Detemir 10 UNITS BID 10/26 2200 DC 10/27 SC 0916 Insulin Detemir 8 UNITS BID 10/22 2200 DC 10/26 SC 1043 Multivitamins 1 TAB DAILY 10/21 1703 AC 10/27 PO 0915 Nitroglycerin 0.5 GM Q6 10/26 0850 AC 10/27 TOP 0554 Thiamine HCl 500 MG Q8H 10/24 2130 DC 10/27 Sodium Chloride 250 ML IV 10/27 0629 0553 Vancomycin HCl 1,000 MG Q12 10/24 2200 AC 10/27 Dextrose/Water 250 ML IV 0915 Results Last 48 Hrs of Labs/Mics: Laboratory Tests 10/26/17 1500: Troponin I Cancelled 10/26/17 0930: Troponin I 0.15 *H 10/26/17 0700: Anion Gap 12, Estimated GFR > 60, BUN/Creatinine Ratio 33.3 H, CBC w Diff MAN DIFF ORDERED, RBC 3.05 L, MCV 84.5, MCH 28.3, MCHC 33.5, RDW 15.3 H, MPV 9.4, Gran % 89.8 H, Lymphocytes % 9.2 L, Monocytes % 0.5 L, Eosinophils % 0.2, Basophils % 0.3, Absolute Granulocytes 7.3 H, Segmented Neutrophils 85 H, Band Neutrophils 9 H, Absolute Lymphocytes 0.8 L, Lymphocytes 6 L, Absolute Monocytes 0 L, Absolute Eosinophils 0, Absolute Basophils 0, Nucleated RBCs 1 H, Platelet Estimate ADEQUATE, Polychromasia 1+, Hypochromic-Microcytic 1+, Poikilocytosis 1+, Anisocytosis 1+ Assessment/Plan Assessment/Plan The patient remains septic. It does not appear that his chest pain was cardiac yesterday, although a second troponin was not done. Infectious disease consult is suggesting a transesophageal echo be done to rule out endocarditis with the persistent staph aureus bacteremia. This can be scheduled for next week. Continue telemetry? Yes
--- NOTE | 2017-10-27 12:00 | PN- Att Addend ---
Attending Addendum Attending Brief Note Patient seen and examined. Plan of care discussed with the medical team and the patient. Available lab work and radiology test reports were reviewed. Patient is lying in bed this morning and he appears lethargic and pale. He denies any pain in the right foot. He denies any difficulty breathing or chest pain. He was noted to be febrile with MAXIMUM TEMPERATURE 101.4. He is status post TMA on Saturday. He denies any fever chills chest pain difficulty breathing nausea vomiting or abdominal pain. Exam: General: Patient awake lethargic he is partially oriented without any distress; appears pale and edematous CVS: S1 plus S2 without any murmur or gallops Chest: Few scattered crepitation without any wheeze. There is no respiratory distress. 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 alert oriented without any focal neuro deficit and follows commands appropriately Extremities: Right foot is covered in dressing; No edema; no clubbing or cyanosis noted Assessment * Right foot osteomyelitis status post TMA October 25 * Recurrent fever despite TMA * Rule out endocarditis * Persistent MRSA bacteremia likely originating from osteomyelitis * Suspected the pulmonary abscesses from bacteremia * insulin-dependent diabetes mellitus, * rheumatoid arthritis on prednisone & leflunomide, * coronary artery disease status post stenting, * History of left TMA, chronic right foot ulcer * Hypernatremia- resolved Plan * Await ANNA * Continue vancomycin * Agree with panculture, UA, chest x-ray * Continue stress dose hydrocortisone 25 mg twice a day * VASC surgery consultation Current Medications Sig/Lai Start time Last Medication Dose Route Stop Time Status Admin Acetaminophen 1,000 MG Q6P PRN 10/21 1700 AC 10/26 IV 1220 Aspirin 81 MG DAILY 10/23 1000 AC 10/27 PO 0916 Atorvastatin Calcium 80 MG 1700 10/23 1700 AC 10/26 PO 1723 Carvedilol 3.125 MG BID 10/24 1000 AC 10/27 PO 0916 Folic Acid 1 MG DAILY 10/21 1703 AC 10/27 PO 0915 Heparin Sodium 5,000 UNIT Q8 10/21 2200 AC 10/27 (Porcine) SC 0554 Hydrocortisone 25 MG Q12 10/25 1000 AC 10/27 Sodium Succinate IV 0915 Insulin Aspart 0 TIDAC/HS 10/26 1700 AC SC Insulin Aspart 0 TIDAC 10/25 1830 DC 10/26 SC 0819 Insulin Detemir 8 UNITS BID 10/27 2199 [facility] Insulin Detemir 10 UNITS BID 10/26 2199 DC 10/27 SC 0916 Insulin Detemir 8 UNITS BID 10/22 2199 DC 10/26 SC 1043 Multivitamins 1 TAB DAILY 10/21 170 AC 10/27 PO 0915 Nitroglycerin 0.5 GM Q6 10/26 0850 AC 10/27 TOP 0554 Thiamine HCl 500 MG Q8H 10/24 2129 DC 10/27 Sodium Chloride 250 ML IV 10/27 0629 0553 Vancomycin HCl 1,000 MG Q12 10/24 2199 AC 10/27 Dextrose/Water 250 ML IV 0915 Vital Signs Date Time Temp Pulse Resp B/P B/P Pulse O2 O2 Flow FiO2 Mean Ox Delivery Rate 10/27 0916 103 129/62 10/27 0634 100.2 103 20 124/62 95 Nasal Cannula 10/27 0000 Nasal 2.0L Cannula 10/26 2235 97.6 73 20 118/60 94 Nasal 2.0L Cannula 10/26 2113 74 118/60 10/26 1600 Nasal 2.0L Cannula 10/26 1400 101.4 10/26 1220 102.6 Intake & Output 10/27 1600 10/27 0800 10/27 0000 Intake Total 500 480 Output Total Balance 500 480 Intake, IV 500 Intake, Oral 480 Number 1 Bowel Movements Patient 200 lb Weight Weight Bed scale Measurement Method
--- NOTE | 2017-10-27 12:17 | PN- Diabetes ---
Assessment/Plan Diabetes Assessment: 61-year-old man with past medical history significant for diabetes mellitus and coronary artery disease status post stent placement, was brought in by ambulance for evaluation of altered mental status. Patient has a necrotic, purulent, chronic right foot plantar ulcer. He was scheduled for a right transmetatarsal amputation which was deferred secondary to patient's reluctance and his current condition. His BP was borderline low. He used to take prednisone chronically for his arthritis. He was placed on stress dose of steroid-- Hydrocortisone 50 mg iv twice a day. Hydrocortisone was decreased to 25 mg iv twice a day. But he did receive a dose of hydrocortisone 100 mg iv before hid foot procedure on 2017. Currently he is on levemir 10 units twice a day, Novolog coverage before meals. His FSGs were 164, 130, 128 and 74. The blood culture was positive for Gram positive cocci in cluster ( MRSA). Plan: 1. decrease Levemir to 8 units twice a day; 2. adjust Novolog coverage before meals; detai see the inpatient DM orders; 3, monitor FSGs; 4. continue hydrocortisone 25 mg iv twice a day for now. will follow. Inpatient Diabetes Orders Before Each Meal: Bolus Insulin: Novolog < 80 mg/dl: no coverage 80-100 mg/dl: no coverage 101-120 mg/dl: 2 units 121-150 mg/dl: 2 units 151-200 mg/dl: 4 units 201-250 mg/dl: 6 units 251-300 mg/dl: 8 units 301-350 mg/dl: 10 units 351-400 mg/dl: 12 units > 400 mg/dl: 14 units Subjective Subjective: His po intake has been poor. Objective Last 24 Hrs of Vital Signs/I&O Vital Signs Date Time Temp Pulse Resp B/P B/P Pulse O2 O2 Flow FiO2 Mean Ox Delivery Rate 10/27 0916 103 129/62 10/27 0634 100.2 103 20 124/62 95 Nasal Cannula 10/27 0000 Nasal 2.0L Cannula 10/26 2235 97.6 73 20 118/60 94 Nasal 2.0L Cannula 10/26 2113 74 118/60 10/26 1600 Nasal 2.0L Cannula 10/26 1400 101.4 10/26 1220 102.6 Intake & Output 10/27 1600 10/27 0800 10/27 0000 Intake Total 500 480 Output Total Balance 500 480 Intake, IV 500 Intake, Oral 480 Number 1 Bowel Movements Patient 200 lb Weight Weight Bed scale Measurement Method Findings Pertinent Lab/[place] Results: Laboratory Tests 10/26 1500 Chemistry Troponin I Cancelled
--- NOTE | 2017-10-27 13:17 | Cons- Vascular Surgery ---
General Information and HPI Consulting Request Date of Consult: 10/27/17 Requested By: Tiffani Fuentes MD Reason for Consult: Infection and breakdown right TMA Source of Information: patient, old records Exam Limitations: poor historian History of Present Illness: 61y/o man presented with failure to thrive and MS changes. Workup revealed possible septic emboli. He is an insulin dependent diabetic, and was found to have right pedal ulcers. He underwent TMA on 10/25/17 for nonsalvageable toes and possible pedal sepsis. He remains on vancomycin, but has persistent leukocytosis. I was consulted to evaluate pedal perfusion. No prior hx of pedal rest pain. Denies calf claudication or prior pedal ulcers. Infectious endocarditis has not been ruled out. Allergies/Medications Allergies: Coded Allergies: No Known Allergies (10/21/17) Home Med List: Carvedilol (Coreg) 12.5 MG TABLET 1 TAB PO BID CAD Clopidogrel Bisulfate (Clopidogrel) 75 MG TABLET 1 TAB PO DAILY CAD/CHI ( Reported) Ibuprofen (Motrin Ib) 200 MG TABLET 1 TAB PO Q6H PRN PAIN (Reported) Insulin Regular (Novolin R Inj) 1,000 UNITS/10 ML KELVIN 15 UNITS SC BID DIABETES (Reported) Leflunomide (Arava) 20 MG TABLET 1 TAB PO DAILY RHEUMATOID ARTHRITIS ( Reported) Lisinopril 20 MG TABLET 1 TAB PO DAILY HTN (Reported) Oxycodone HCl 15 MG TABLET 1 TAB PO TID PAIN Prednisone 5 MG TABLET 1 TAB PO DAILY RHEUMATOID ARTHRITIS (Reported) Current Medications: Current Medications Sig/Lai Start time Last Medication Dose Route Stop Time Status Admin Acetaminophen 1,000 MG Q6P PRN 10/21 1700 AC 10/26 IV 1220 Aspirin 81 MG DAILY 10/23 1000 AC 10/27 PO 0916 Atorvastatin Calcium 80 MG 1700 10/23 1700 AC 10/26 PO 1723 Carvedilol 3.125 MG BID 10/24 1000 AC 10/27 PO 0916 Folic Acid 1 MG DAILY 10/21 1703 AC 10/27 PO 0915 Heparin Sodium 5,000 UNIT Q8 10/21 2200 AC 10/27 (Porcine) SC 0554 Hydrocortisone 25 MG Q12 10/25 1000 AC 10/27 Sodium Succinate IV 0915 Insulin Aspart 0 TIDAC/HS 10/26 1700 AC SC Insulin Detemir 8 UNITS BID 10/27 2199 AC SC Insulin Detemir 10 UNITS BID 10/26 220 DC 10/27 SC 0916 Multivitamins 1 TAB DAILY 10/21 1703 AC 10/27 PO 0915 Nitroglycerin 0.5 GM Q6 10/26 0850 AC 10/27 TOP 0554 Thiamine HCl 500 MG Q8H 10/24 2129 DC 10/27 Sodium Chloride 250 ML IV 10/27 0629 0553 Vancomycin HCl 1,000 MG Q12 10/24 2199 AC 10/27 Dextrose/Water 250 ML IV 0915 Past History Medical History Neurological: NONE EENT: NONE Cardiovascular: hypertension, hyperlipidemia, myocardial infarction Respiratory: NONE Gastrointestinal: NONE Hepatic: NONE Renal: NONE Musculoskeletal: osteoarthritis Psychiatric: chronic pain disorder, substance abuse Endocrine: diabetes Blood Disorders: NONE Cancer(s): NONE 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 Home Who Do You Live With? self Primary Language: Danish Smoking Status: Current Everyday Smoker ETOH Use: heavy use Illicit Drug Use: UTD Functional Ability ADLs Independent: dressing, eating, toileting, bathing. Ambulation: independent IADLs Independent: shopping, finances, telephone, transportation, medication admin. Needs Assist: housework, food prep. Employment History Employment: Employed Profession/Employer: [employer] Review of Systems Review of Systems: Improved mental status, but still delayed responses. Aware of surroundings. Denies chest pain, dyspnea. Anxious to leave hospital Right foot pain improved from yesterday. Denies pedal rest pain. Review of Systems Constitutional: Denies: no symptoms. EENTM: Denies: no symptoms. Cardiovascular: Denies: no symptoms. Respiratory: Denies: no symptoms. GI: Denies: no symptoms. Genitourinary: Denies: no symptoms. Musculoskeletal: Reports: see HPI. Skin: Denies: no symptoms. Neurological/Psychological: Reports: see HPI. Hematologic/Endocrine: Denies: no symptoms. Immunologic/Allergic: Denies: no symptoms. Exam & Diagnostic Data Vital Signs and I&O Vital Signs Date Time Temp Pulse Resp B/P B/P Pulse O2 O2 Flow FiO2 Mean Ox Delivery Rate 10/27 0916 103 129/62 10/27 0634 100.2 103 20 124/62 95 Nasal Cannula 10/27 0000 Nasal 2.0L Cannula 10/26 2235 97.6 73 20 118/60 94 Nasal 2.0L Cannula 10/26 2113 74 118/60 10/26 1600 Nasal 2.0L Cannula 10/26 1400 101.4 Intake & Output 10/27 1600 10/27 0800 10/27 0000 10/26 1600 10/26 0800 10/26 0000 Intake Total 500 480 014 509 6991 Output Total 400 800 Balance 500 480 464 591 6305 Intake, IV 500 630 10 560 Intake, Oral 480 071 733 6930 Number 1 0 1 1 Bowel Movements Output, Urine 400 800 Patient 90.86 kg 89.443 kg Weight Weight Bed scale Bed scale Measurement Method Physical Exam: PERRL, EOMI Somnolent, delayed responses to questions. RR CTA-B Abd soft, NT, ND Palpable femoral and brachial pulses bilat. Palpable right popliteal and DP pulses Right foot in dressing, minimal serosanguinous drainage No edema VARELA Last 24 Hours of Labs: Laboratory Tests 10/26 1500 Chemistry Troponin I Cancelled Assessment/Plan Assessment/Plan Right pedal sepsis He is s/p TMA for pedal ulcers/osteomyelitis with possible sepsis. Infected tissue has been presumably removed from the foot. He has palpable pedal pulses, indicating adequate pedal perfusion to heal the amputation. No indication for revascularization at this time. Follow up with me in 2 weeks for SAMANTHA testing. Statin and antiplatelet Rx strongly recommended. Problem List: 1. Sepsis Consult Acknowledgment - Thank you for your consult request. Attending MD Review Statement Attending Statement Attending MD Statement: examined this patient
[2017-10-27 14:57] VITALS: BP 118/44
--- NOTE | 2017-10-27 15:20 | RADIOLOGY REPORT ---
EXAMINATION: XR PORTABLE CHEST CLINICAL INFORMATION: Aspiration pneumonia COMPARISON: Previous chest x-rays most recent 10/22/[address] 10/21/2017 TECHNIQUE: Portable frontal view of the chest was obtained. FINDINGS: The cardiac silhouette is enlarged but stable. Hilar and mediastinal contours are unremarkable. There are bilateral nodular opacities seen throughout the lungs. The largest lesions are in the peripheral left lower lung measuring 3.5 cm and right upper lung measuring 2 x 3 cm. These do not appear appreciably changed from previous exams. There is no significant pleural effusion. There are degenerative changes of the spine and shoulders joints. IMPRESSION: No appreciable change in the bilateral pulmonary nodular opacities from previous exams.
[2017-10-27 16:00] VITALS: BP 118/44
--- NOTE | 2017-10-27 18:59 | CT SCAN REPORT ---
EXAMINATION: CT CHEST, ABDOMEN AND PELVIS WITHOUT CONTRAST CLINICAL INFORMATION: Sepsis. COMPARISON: CT of the chest abdomen and pelvis done on 10/21/2017. TECHNIQUE: Multidetector volumetric imaging was performed from the thoracic inlet through the pubic symphysis without administration of any oral or intravenous contrast. Sagittal and coronal reformatted images were obtained on the technologist's workstation. 1148.8 mGy-cm. FINDINGS: Evaluation is technically limited due to lack of oral and intravenous contrast. CHEST: LUNGS: There are multiple new scattered ill-defined nodules identified throughout both lung reddy, some of them shows subtle cavitations. Confluent dense groundglass opacification is also noted, specifically at left lung apex, new since prior study. Confluent pleural-based groundglass opacification is noted at lingula laterally, new since prior study, measures 4.1 x 2.2 cm (see the thomas images). Previously documented pleural-based convex opacity seen at posterior inferior medial aspect of the right upper lobe of the lung anterior to the right major fissure appears smaller (see the thomas images). Otherwise, overall, there is significant interval progression of disease present. Differential diagnostic consideration would include septic emboli as well as transbronchial spread of infection, and inflammatory process. No definite evidence of any abscess formation visualized. The tracheobronchial tree appeared patent. . MEDIASTINUM: Few shotty prevascular, paratracheal and subcarinal lymph nodes are noted. Atherosclerotic disease including coronary artery calcifications are present. Mild enlargement of the left ventricle is noted. No significant change. PERICARDIUM/PLEURA: Interval development of bilateral small pleural effusions is noted. CHEST WALL/AXILLA: Unremarkable. ABDOMEN/PELVIS: LIVER, GALLBLADDER, BILIARY TREE: The liver is normal in size, shape, and attenuation. No focal hepatic lesion or biliary ductal dilatation is present. The gallbladder is unremarkable with no evidence of radiopaque gallstones, gallbladder wall thickening, or pericholecystic inflammatory changes. PANCREAS: Unremarkable. SPLEEN: Mildly enlarged, measures 15 cm at its maximum anteroposterior dimension, unchanged. ADRENAL GLANDS: Unremarkable. KIDNEYS AND URETERS: Persistent stable mild perinephric stranding is present bilaterally without evidence of any hydronephrosis or calculi. BLADDER: Suboptimally distended, shows apparent diffuse urinary bladder wall thickening, may represent changes secondary to suboptimal distention, outlet obstruction, superimposed infection or combination thereof. GASTROINTESTINAL TRACT: Colonic diverticulosis related changes are noted within the sigmoid colon. There is no CT features of acute diverticulitis. The appendix is not visualized. The small bowel loops are decompressed. There is a small sliding hiatal hernia present. No significant change. ABDOMINAL WALL: Stable fat-containing periumbilical hernia is noted. LYMPH NODES: Normal. VASCULAR: Mild diffuse atherosclerotic disease is noted within the aorta and is branches without aneurysm formations. PELVIC VISCERA: The prostate is prominent, measures 4.8 x 2.5 cm. There is no free fluid and/or free air present. No significant change. OSSEOUS STRUCTURES: No significant change since 10/21/2017. IMPRESSION: 1. Significant interval progression of disease is noted within the chest, specifically in the lungs bilaterally in the form of interval increase in size as well as number of previously detected multifocal lung nodules including interval development of dense groundglass opacification and pleural-based masses, as described above since the prior study dated 10/21/2017. Many of the nodules shows cavitation. 2. Interval development of small bilateral pleural effusions. 3. No significant change within the abdomen and pelvis since the prior study dated 10/21/2017.
[2017-10-27 22:50] VITALS: BP 140/60
[2017-10-28 07:01] VITALS: BP 150/70
--- NOTE | 2017-10-28 07:34 | PN- Housestaff ---
Subjective Follow-up For: MRSA osteomyelitis with persistent bacteremia s/p Right foot TMA Steroid dependence with adrenal insufficiency Subjective: Seen and examined Patient was in distress due to prolonged hospitalization. Wants to go home soon. Informed he might need more time to discharge. Review of Systems Constitutional: Reports: see HPI. Objective Last 24 Hrs of Vital Signs/I&O Vital Signs Date Time Temp Pulse Resp B/P B/P Pulse O2 O2 Flow FiO2 Mean Ox Delivery Rate 10/28 0701 98.5 83 20 150/70 95 Room Air 10/27 2250 98.6 85 20 140/60 94 Room Air 10/27 2141 80 140/66 10/27 1600 Room Air 10/27 1600 98.5 83 20 118/44 10/27 1457 98.5 83 20 118/44 95 Room Air 10/27 0916 103 129/62 Intake & Output 10/28 0800 10/28 0000 10/27 1600 Intake Total 120 430 670 Output Total 100 Balance 120 430 570 Intake, IV 250 270 Intake, Oral 120 180 400 Number 3 1 Bowel Movements Output, Urine 100 Patient 90.718 kg Weight Weight Bed scale Measurement Method Physical Exam General Appearance: Alert, Oriented X3, Cooperative, No Acute Distress Skin: No Rashes, No Breakdown Skin Temp/Moisture Exam: Warm/Dry Neck: Supple Cardiovascular: Normal S1, Normal S2, systolic murmur present Lungs: Clear to Auscultation, Normal Air Movement Current Medications: Current Medications Sig/Lai Start time Last Medication Dose Route Stop Time Status Admin Acetaminophen 1,000 MG Q6P PRN 10/21 1700 AC 10/26 IV 1220 Aspirin 81 MG DAILY 10/23 1000 AC 10/28 PO 0910 Atorvastatin Calcium 80 MG 1700 10/23 1700 AC 10/27 PO 1909 Carvedilol 3.125 MG BID 10/24 1000 AC 10/28 PO 0910 Folic Acid 1 MG DAILY 10/21 1703 AC 10/28 PO 0910 Heparin Sodium 5,000 UNIT Q8 10/21 2200 AC 10/28 (Porcine) SC 0614 Hydrocortisone 12.5 MG Q12 10/28 1000 AC 10/28 Sodium Succinate IV 0908 Hydrocortisone 25 MG Q12 10/25 1000 DC 10/27 Sodium Succinate IV 2126 Insulin Aspart 0 TIDAC/HS 10/26 1700 AC SC Insulin Detemir 6 UNITS BID 10/28 1000 AC 10/28 SC 0907 Insulin Detemir 8 UNITS BID 10/27 2200 NC 10/27 IA 2125 Insulin Detemir 10 UNITS BID 10/26 220 NC 10/27 IA 0916 Multivitamins 1 TAB DAILY 10/21 1703 10/28 PO 0910 Nitroglycerin 0.5 GM Q6 10/26 0850 10/28 TOP 0614 Nystatin 1 VANI TID PRN 10/27 1500 10/28 TOP 0908 Vancomycin HCl 1,000 MG Q12 10/24 220 10/28 Dextrose/Water 250 ML IV 0907 Vitamin A/Vitamin D 1 VANI Q6-PRN PRN 10/27 1500 TOP Last 24 Hrs of Lab/[place] Results Last 24 Hrs of Labs/Mics: Laboratory Tests 10/27/17 2142: Vancomycin Trough 21.0 H 10/27/17 1430: Urinalysis MOD H, Urine Color YEL, Urine Clarity HAZY H, Urine pH 6.0, Ur Specific [place] 1.015, Urine Protein 30 H, Urine Ketones NEG, Urine Nitrite NEG, Urine Bilirubin NEG@ICTO, Urine Urobilinogen 4.0 H, Ur Leukocyte Esterase TRACE H, Ur Microscopic SEDIMENT EXAMINED, Urine RBC 3-5, Urine WBC 5-10 H, Ur Epithelial Cells RARE, Urine Bacteria FEW H, Granular Casts FEW H, Urine Hemoglobin LARGE H, Urine Glucose NEG Microbiology 10/28 1024 BLOOD: Blood Culture - COLB 10/28 1024 BLOOD: Blood Culture - COLB 10/27 1430 URINE ROUT: Urine Culture - RES 10/27 1430 BLOOD: Blood Culture - RES GRAM POSITIVE COCCI 10/27 1415 BLOOD: Blood Culture - RES GRAM POSITIVE COCCI Assessment/Plan Assessment: Patient is a 61-year-old male with past medical history significant for insulin- dependent diabetes mellitus, rheumatoid arthritis on prednisone & leflunomide, coronary artery disease status post stenting, left TMA, chronic right foot ulcer was brought to [place] after found by marketing and development coordinator at home altered and unkempt, covered with the urine. Vitals at admission is significant for MAXIMUM TEMPERATURE of 100.6, blood pressure 106/68 mmHg. White count of 13,000 with 72 segments and bands. Troponin of 0.85, elevated d-dimer. Chest x-ray showing patchy opacity in the right upper lobe and mild cardiomegaly. X-ray of Right foot revealed extensive destructive changes in the second to fourth digits. CT of chest is significant for central cavitation and opacities in both lungs. CT abdomen Prominent perinephric edema with prominent prostate. Admitted to ICU initially on 10/21/2017 given sepsis secondary to diabetic foot infection. He did have persistent MRSA bacteremia with extensive seeding into lungs, urine, joints. Once he was hemodynamic stable transferred to telemetry overnight. Plan Problem list MRSA osteomyelitis with persistent bacteremia Iatrogenic Steroid induced adrenal insufficiency Insulin-dependent diabetic mellitus Cavitation in the lung Type II MD Encephalopathy Inflammatory anemia MRSA osteomyelitis with persistent bacteremia Appear secondary to uncontrolled diabetes and on steroids giving room for rapid progression. Initially started broad with IV ceftazidime and Flagyl and transitioned to IV vancomycin after cultures results. MRI did show abscess of right foot. Blood cultures were persistently positive. ESR 125. Underwent tarsometatarsal amputation. Needs ANNA to rule out endocarditis (predictably positive). * Repeat blood cultures until remain negative * ANNA tomorrow * Continue IV vancomycin 1.5gm Q24hr * NPO from midnight for ANNA in the AM and wound closure in the PM. (Iatrogenic) Steroid induced adrenal insufficiency He did have suppression of his pituitary axis secondary to chronic steroid intake. Placed on IV hydrocortisone to maintain his blood pressure. Today he is transitioned to IV 25 mg q12 of hydrocortisone. Before the surgery a single dose of IV 100 mg given (stress dose). Endocrinology has been following the patient. * Continue hydrocodone 12.5 mg IV every 12 * Monitor blood pressure Insulin-dependent diabetic mellitus HbA1c of 7.2. Sugars remained relatively controlled on current regimen * Continue Levemir 6 units twice a day and NovoLog sliding scale per endocrinology. Intermixed ground glass attenuation on imaging suggestive of ? multilobar pneumonia Imaging shows opacities exhibiting reverse halo sign ( atoll sign). Also, some of the opacities have central lucencies, suspicious for cavitary change. Given MRSA bacteremia, seeding should be first differential. However patient has been on leflunomide so tuberculosis should be second in the differential. * Saturating well on room air * Continue to monitor Type II MD Probes trended down. He had a history of CAD with diabetes. Echocardiogram did show EF of 40% with anteroseptal hypokinesis (?old). Mild mitral regurgitation without any obvious digitations. Further evaluation with ANNA is mandatory. Cardiology has been following would appreciate their recommendations. * Continue ASA, Coreg, Statin for now * ANNA next week Encephalopathy Patient continues to be altered despite aggressive treatment of his infection. Improved after giving IV thiamine for few days. Probably alcohol related. Inflammatory anemia H&H of 8.7/25 with ferritin 1500, iron of 12, TIBC 143 suggestive of anemia of chronic disease/inflammation related. Obvious source could be osteomyelitis. Treating current condition should help with his anemia as well. * Monitor H&H * We will start oral iron from tomorrow. DVT prophylaxis SC heparin Code status full code patient is competent, daughter is POA and makes most of the decisions. Problem List: 1. Sepsis 2. Osteomyelitis of right foot 3. Elevated troponin Pain Ratin Pain Location: right foot Pain Goal: Pain 4 or less Pain Plan: tylenol prn Tomorrow's Labs & Rationales: cbc to monitor white count bep to monitor Cr, electrolytes
--- NOTE | 2017-10-28 08:30 | PN- Diabetes ---
Assessment/Plan Diabetes Assessment: 61-year-old man with past medical history significant for diabetes mellitus and coronary artery disease status post stent placement, was brought in by ambulance for evaluation of altered mental status. Patient has a necrotic, purulent, chronic right foot plantar ulcer. His BP was borderline low. He used to take prednisone chronically for his arthritis. He was placed on stress dose of steroid-- Hydrocortisone 50 mg iv twice a day. Hydrocortisone was decreased to 25 mg iv twice a day. But he did receive a dose of hydrocortisone 100 mg iv before hid foot procedure on 2017. The blood culture was positive for Gram positive cocci in cluster ( MRSA). Currently he is on levemir 8 units twice a day, Novolog coverage before meals. His FSGs were 166, 177, 149 and 83. Plan: 1. decrease Hydrocortisone to 12.5 mg twice a day; 2. decrease Levemir to 6 units twice a day; 3. continue the current Novolog coverage before meals and current Novolog coverage at bedtime. 4. monitor FSGs. will follow. Subjective Subjective: He feels okay this morning. Objective Last 24 Hrs of Vital Signs/I&O Vital Signs Date Time Temp Pulse Resp B/P B/P Pulse O2 O2 Flow FiO2 Mean Ox Delivery Rate 10/28 0701 98.5 83 20 150/70 95 Room Air 10/27 2250 98.6 85 20 140/60 94 Room Air 10/27 2141 80 140/66 10/27 1600 Room Air 10/27 1600 98.5 83 20 118/44 10/27 1457 98.5 83 20 118/44 95 Room Air 10/27 0916 103 129/62 Intake & Output 10/28 1600 10/28 0800 10/28 0000 Intake Total 120 430 Output Total Balance 120 430 Intake, IV 250 Intake, Oral 120 180 Number 3 Bowel Movements Output, Urine Patient 200 lb Weight Weight Bed scale Measurement Method Findings Pertinent Lab/[place] Results: Laboratory Tests 10/27 1430 Toxicology Vancomycin Trough (10.0 - 20.0 ug/mL) 21.0 H Urines Urinalysis MOD H Urine Color (YEL,AMB,STR) YEL Urine Clarity (CLEAR) HAZY H Urine pH (5.0 - 8.0) 6.0 Ur Specific [place] (1.001 - 1.035) 1.015 Urine Protein (NEG,<30 MG/DL) 30 H Urine Ketones (NEG) NEG Urine Nitrite (NEG) NEG Urine Bilirubin (NEG) NEG@ICTO Urine Urobilinogen (0.1 - 1.0 EU/dl) 4.0 H Ur Leukocyte Esterase (NEG) TRACE H Ur Microscopic SEDIMENT EXAMINED Urine RBC (0 - 5 /HPF) 3-5 Urine WBC (0 - 2 /HPF) 5-10 H Ur Epithelial Cells (NONE,FEW) RARE Urine Bacteria (NEG/NONE) FEW H Granular Casts (NONE /LPF) FEW H Urine Hemoglobin (NEG) LARGE H Urine Glucose (N MG/DL) NEG
[2017-10-28 10:00] VITALS: BP 140/80
--- NOTE | 2017-10-28 11:40 | PN- Infect Dx ---
Subjective Subjective: Afebrile on steroids. He feels well with no complaints Objective Last 24 Hrs of Vital Signs/I&O Vital Signs Date Time Temp Pulse Resp B/P B/P Pulse O2 O2 Flow FiO2 Mean Ox Delivery Rate 10/28 0910 90 138/70 10/28 0701 98.5 83 20 150/70 95 Room Air 10/27 2250 98.6 85 20 140/60 94 Room Air 10/27 2141 80 140/66 10/27 1600 Room Air 10/27 1600 98.5 83 20 118/44 10/27 1457 98.5 83 20 118/44 95 Room Air Intake & Output 10/28 1600 10/28 0800 10/28 0000 Intake Total 120 430 Output Total Balance 120 430 Intake, IV 250 Intake, Oral 120 180 Number 3 Bowel Movements Output, Urine Patient 200 lb Weight Weight Bed scale Measurement Method Physical Exam Other Physical Findings: He is more awake and alert in no acute distress Lungs decreased breath sounds at the left base Heart regular rhythm with no murmur Extremities right foot status post TMA, with minimal erythema; plantar ulcer persists with purulent drainage; right forearm swelling/ecchymosis Results Last 24 Hours of Lab Results: Laboratory Tests 10/272 1430 Toxicology Vancomycin Trough (10.0 - 20.0 ug/mL) 21.0 H Urines Urinalysis MOD H Urine Color (YEL,AMB,STR) YEL Urine Clarity (CLEAR) HAZY H Urine pH (5.0 - 8.0) 6.0 Ur Specific [place] (1.001 - 1.035) 1.015 Urine Protein (NEG,<30 MG/DL) 30 H Urine Ketones (NEG) NEG Urine Nitrite (NEG) NEG Urine Bilirubin (NEG) NEG@ICTO Urine Urobilinogen (0.1 - 1.0 EU/dl) 4.0 H Ur Leukocyte Esterase (NEG) TRACE H Ur Microscopic SEDIMENT EXAMINED Urine RBC (0 - 5 /HPF) 3-5 Urine WBC (0 - 2 /HPF) 5-10 H Ur Epithelial Cells (NONE,FEW) RARE Urine Bacteria (NEG/NONE) FEW H Granular Casts (NONE /LPF) FEW H Urine Hemoglobin (NEG) LARGE H Urine Glucose (N MG/DL) NEG Last 24 Hours of [place] Results: Blood cultures October 27 2 positive for gram-positive cocci in clusters OR culture October 25 labeled right foot bone positive for Staph hemolyticus Urine culture October 27 negative Recent Imaging Studies: Chest x-ray October 27 reveals no change in the bilateral pulmonary nodular opacities CT of the chest, abdomen and pelvis reveals significant interval progression of disease within the chest with an interval increase in size and number of the multifocal lung nodules, many of which show cavitation, with the development of small bilateral pleural effusions Assessment/Plan ID Impression: Stable, with no further fevers and with his last white blood cell count normal, on Vancomycin for MRSA sepsis, now 3 days status post an open right transmetatarsal amputation for osteomyelitis, with persistent bacteremia, possibly secondary to the right foot, given the persistent purulent ulcer, versus the lungs, with the recent CT scan revealing progression of his opacities , with cavitation suggesting seeding from the bacteremia or emboli from a possible endocarditis. The OR culture of the right foot bone is growing Staph hemolyticus, which is of unclear significance, and suspect the culture was affected by the antibiotics he was on. His Vancomycin trough level is slightly elevated and his dose will need to be adjusted. Vascular Surgery evaluation noted and appreciated. Suggestion: 1. Would pursue a ANNA 2. Podiatry follow-up regarding his right foot 3. Decrease Vancomycin to 1.5 g IV every 24 hours
[2017-10-28 12:00] VITALS: BP 140/60
--- NOTE | 2017-10-28 12:05 | PN- Att Addend ---
Attending Addendum Attending Brief Note Patient seen and examined. Plan of care discussed with the medical team and the patient. Available lab work and radiology test reports were reviewed. Patient is lying in bed this morning and he appears more awake and energetic this morning. He denies any fever or chills overnight and denies pain in the right foot. He denies any difficulty breathing or chest pain. He denies any chest pain difficulty breathing nausea vomiting or abdominal pain. Exam: General: Patient awake lethargic he is partially oriented without any distress; appears pale and edematous CVS: S1 plus S2 without any murmur or gallops Chest: Few scattered crepitation without any wheeze. There is no respiratory distress. Abdomen: Soft non-tender, bowel sound present, no guarding or rebound ROLL TENDER: Awake alert oriented without any focal neuro deficit and follows commands appropriately Extremities: Right foot is covered in dressing; both hands are puffy; no clubbing or cyanosis noted Assessment * Right foot osteomyelitis status post TMA October 25 * Recurrent fever despite TMA * Rule out endocarditis * Persistent MRSA bacteremia likely originating from osteomyelitis * Suspected the pulmonary abscesses from bacteremia which have worsened on recent CT scan * insulin-dependent diabetes mellitus, * rheumatoid arthritis on prednisone & leflunomide, * coronary artery disease status post stenting, * History of left TMA, chronic right foot ulcer * Hypernatremia- resolved Plan * Await ANNA * Continue vancomycin with dose adjustment * Agree with panculture, UA, chest x-ray * Continue stress dose hydrocortisone 12.5 mg twice a day * Decrease Levemir to 6 units twice a day * VASC surgery consultatio Current Medications Sig/Lai Start time Last Medication Dose Route Stop Time Status Admin Acetaminophen 1,000 MG Q6P PRN 10/21 1700 AC 10/26 IV 1220 Aspirin 81 MG DAILY 10/23 1000 AC 10/28 PO 0910 Atorvastatin Calcium 80 MG 1700 10/23 1700 AC 10/27 PO 1909 Carvedilol 3.125 MG BID 10/24 1000 AC 10/28 PO 0910 Folic Acid 1 MG DAILY 10/21 1703 AC 10/28 PO 0910 Heparin Sodium 5,000 UNIT Q8 10/21 2200 AC 10/28 (Porcine) SC 0614 Hydrocortisone 12.5 MG Q12 10/28 1000 AC 10/28 Sodium Succinate IV 0908 Hydrocortisone 25 MG Q12 10/25 1000 DC 10/27 Sodium Succinate IV 2126 Insulin Aspart 0 TIDAC/HS 10/26 1700 AC SC Insulin Detemir 6 UNITS BID 10/28 1000 AC 10/28 SC 0907 Insulin Detemir 8 UNITS BID 10/27 2200 ID 10/27 CT 212 Multivitamins 1 TAB DAILY 10/21 1703 AC 10/28 PO 0910 Nitroglycerin 0.5 GM Q6 10/26 0850 AC 10/28 TOP 0614 Nystatin 1 VANI TID PRN 10/27 1500 10/28 TOP 0908 Vancomycin HCl 1,000 MG Q12 10/24 2200 AC 10/28 Dextrose/Water 250 ML IV 0907 Vitamin A/Vitamin D 1 VANI Q6-PRN PRN 10/27 1500 TOP Laboratory Tests 10/27/17 2142: Vancomycin Trough 21.0 H 10/27/17 1430: Urinalysis MOD H, Urine Color YEL, Urine Clarity HAZY H, Urine pH 6.0, Ur Specific [place] 1.015, Urine Protein 30 H, Urine Ketones NEG, Urine Nitrite NEG, Urine Bilirubin NEG@ICTO, Urine Urobilinogen 4.0 H, Ur Leukocyte Esterase TRACE H, Ur Microscopic SEDIMENT EXAMINED, Urine RBC 3-5, Urine WBC 5-10 H, Ur Epithelial Cells RARE, Urine Bacteria FEW H, Granular Casts FEW H, Urine Hemoglobin LARGE H, Urine Glucose NEG 10/26/17 1500: Troponin I Cancelled 10/26/17 0930: Troponin I 0.15 *H 10/26/17 0700: Anion Gap 12, Estimated GFR > 60, BUN/Creatinine Ratio 33.3 H, CBC w Diff MAN DIFF ORDERED, RBC 3.05 L, MCV 84.5, MCH 28.3, MCHC 33.5, RDW 15.3 H, MPV 9.4, Gran % 89.8 H, Lymphocytes % 9.2 L, Monocytes % 0.5 L, Eosinophils % 0.2, Basophils % 0.3, Absolute Granulocytes 7.3 H, Segmented Neutrophils 85 H, Band Neutrophils 9 H, Absolute Lymphocytes 0.8 L, Lymphocytes 6 L, Absolute Monocytes 0 L, Absolute Eosinophils 0, Absolute Basophils 0, Nucleated RBCs 1 H, Platelet Estimate ADEQUATE, Polychromasia 1+, Hypochromic-Microcytic 1+, Poikilocytosis 1+, Anisocytosis 1+ Microbiology 10/28 1147 BLOOD: Blood Culture - RECD 10/28 1024 BLOOD: Blood Culture - COLB 10/27 1430 URINE ROUT: Urine Culture - RES 10/27 1430 BLOOD: Blood Culture - RES GRAM POSITIVE COCCI 10/27 1415 BLOOD: Blood Culture - RES GRAM POSITIVE COCCI 10/26 09 BLOOD: Blood Culture - COMP METH RESIST STAPH AUREUS 10/26 09 BLOOD: Blood Culture - COMP METH RESIST STAPH AUREUS 10/25 1315 EXTREMITIE: Gross Specimen Examination - COMP STAPHYLOCOCCUS HAEMOLYTICUS 10/25 131 EXTREMITIE: Gram Stain - COMP Vital Signs Date Time Temp Pulse Resp B/P B/P Pulse O2 O2 Flow FiO2 Mean Ox Delivery Rate 10/28 1000 88 140/80 10/28 0910 90 138/70 10/28 0701 98.5 83 20 150/70 95 Room Air 10/27 2250 98.6 85 20 140/60 94 Room Air 10/27 2141 80 140/66 10/27 1600 Room Air 10/27 1600 98.5 83 20 118/44 10/27 1457 98.5 83 20 118/44 95 Room Air Intake & Output 10/28 1600 10/28 0800 10/28 0000 Intake Total 120 430 Output Total Balance 120 430 Intake, IV 250 Intake, Oral 120 180 Number 3 Bowel Movements Output, Urine Patient 200 lb Weight Weight Bed scale Measurement Method Chest x-ray October 27 No appreciable change in the bilateral pulmonary nodular opacities from previous exams. The chest abdomen and pelvis October 27 1. Significant interval progression of disease is noted within the chest, specifically in the lungs bilaterally in the form of interval increase in size as well as number of previously detected multifocal lung nodules including interval development of dense groundglass opacification and pleural-based masses, as described above since the prior study dated 10/21/2017. Many of the nodules shows cavitation. 2. Interval development of small bilateral pleural effusions. 3. No significant change within the abdomen and pelvis since the prior study dated 10/21/2017.
[2017-10-28 14:00] VITALS: BP 152/68
--- NOTE | 2017-10-28 20:58 | PN- Cardiology ---
Subjective Subjective: * No complaints * Staph aureas bacteremia * persistent anemia Objective Vital Signs and I&Os Vital Signs Date Time Temp Pulse Resp B/P B/P Pulse O2 O2 Flow FiO2 Mean Ox Delivery Rate 10/28 2020 Room Air 10/28 1400 98.3 88 20 152/68 94 Room Air 10/28 1200 100 140/60 10/28 1000 88 140/80 10/28 0910 90 138/70 10/28 0701 98.5 83 20 150/70 95 Room Air 10/27 2250 98.6 85 20 140/60 94 Room Air 10/27 2141 80 140/66 Intake & Output 10/28 1600 10/28 0800 10/28 0000 10/27 1600 10/27 0800 10/27 0000 Intake Total 120 430 670 500 480 Output Total 100 Balance 120 430 570 500 480 Intake, IV 250 270 500 Intake, Oral 120 180 400 480 Number 3 1 1 Bowel Movements Output, Urine 100 Patient 200 lb 200 lb Weight Weight Bed scale Bed scale Measurement Method Physical Exam: General: WD/WN male in NAD; alert and oriented x 3 HEENT: NC/AT, PERRL, EOMI Neck: no JVD, no carotid bruit Heart: RRR with 2/6 systolic murmur Lungs: clear bilaterally Abdomen: soft, NT, +ve bowel sounds Extremties: no edema, left TMA, right TMA amputation Assessment/Plan Assessment/Plan * This patient has a mildly increased troponin consistent with a type 2 NH although there may be some artifactual rise in troponin from decreased clearance in the setting of decreased renal function. In consideration of his chest pain and increased cardiac enzymes and peripheral vascular disease it is almost certain that this patient has myocardial ischemia. There is no clear evidence of decompensated congestive heart failure. Increase Coreg to 6.25mg BID and continue his statin, aspirin and NTG paste. * Will plan on a ANNA to assess for endocarditis. Continue telemetry? Yes
[2017-10-29] VITALS (7 sets, daily range): BP systolic 110–150; BP diastolic 50–70
--- NOTE | 2017-10-29 07:35 | PN- Housestaff ---
Subjective Follow-up For: MRSA osteomyelitis with persistent bacteremia s/p Right foot TMA Steroid dependence with adrenal insufficiency Subjective: Seen and examined Patient still remains worried about long hospital stay. Informed that he is going to procedure today. Underwent ANNA and wound closure today. Back to the floor. Review of Systems Constitutional: Reports: see HPI. Objective Last 24 Hrs of Vital Signs/I&O Vital Signs Date Time Temp Pulse Resp B/P B/P Pulse O2 O2 Flow FiO2 Mean Ox Delivery Rate 10/29 0642 99.8 96 20 150/70 93 Room Air 10/28 2248 92 148/74 10/28 2020 Room Air 10/28 1400 98.3 88 20 152/68 94 Room Air 10/28 1200 100 140/60 10/28 1000 88 140/80 10/28 0910 90 138/70 Intake & Output 10/29 0800 10/29 0000 10/28 1600 Intake Total 120 Output Total Balance 120 Intake, Oral 120 Physical Exam General Appearance: Alert, Oriented X3, Cooperative Skin: No Rashes Skin Temp/Moisture Exam: Warm/Dry HEENT: Atraumatic, PERRLA, EOMI Neck: Supple Cardiovascular: Normal S1, Normal S2, sytolic murmur / Lungs: Clear to Auscultation, Normal Air Movement Abdomen: Normal Bowel Sounds, Soft, No Tenderness Neurological: Normal Speech, Normal Tone Extremities: No Clubbing, No Cyanosis Vascular: Normal Pulses Current Medications: Current Medications Sig/Lai Start time Last Medication Dose Route Stop Time Status Admin Acetaminophen 1,000 MG Q6P PRN 10/21 1700 AC 10/26 IV 1220 Aspirin 81 MG DAILY 10/23 1000 AC 10/28 PO 0910 Atorvastatin Calcium 80 MG 1700 10/23 1700 AC 10/28 PO 1649 Carvedilol 6.25 MG BID 10/29 1000 AC 10/29 PO 1512 Carvedilol 3.125 MG BID 10/24 1000 DC 10/28 PO 2248 Dextrose/Water 1,000 ML ONCE ONE 10/28 2215 DC 10/28 IV 10/29 1134 2348 Folic Acid 1 MG DAILY 10/21 1703 AC 10/29 PO 1512 Heparin Sodium 5,000 UNIT Q8 10/21 2200 AC 10/29 (Porcine) SC 1511 Hydrocortisone 50 MG ONCE ONE 10/29 1200 DC Sodium Succinate IV 10/29 1201 Hydrocortisone 50 MG ONE ONE 10/29 0945 DC 10/29 Sodium Succinate IV 10/29 0946 0920 Hydrocortisone 12.5 MG Q12 10/28 1000 DC 10/28 Sodium Succinate IV 2249 Insulin Aspart 0 TIDAC/HS 10/29 1700 AC SC Insulin Aspart 0 TIDAC/HS 10/26 1700 DC 10/28 SC 1248 Insulin Detemir 6 UNITS BID 10/29 2200 AC SC Insulin Detemir 6 UNITS BID 10/28 1000 DC 10/28 SC 2249 Insulin Human Regular 0 Q6 10/28 2359 DC 10/29 SC 0639 Lidocaine 0 .STK-MED ONE 10/29 0816 DC TOP Multivitamins 1 TAB DAILY 10/21 1703 AC 10/29 PO 1512 Nitroglycerin 0.5 GM Q6 10/26 0850 AC 10/29 TOP 1510 Nystatin 1 VANI TID PRN 10/27 1500 AC 10/28 TOP 0908 Potassium Chloride 40 MEQ ONCE ONE 10/29 1800 AC PO 10/29 1801 Potassium Chloride 40 MEQ ONCE ONE 10/29 1445 DC PO 10/29 1446 Potassium Chloride 10 MEQ Q1H 10/29 1315 DC IV 10/29 1416 Vancomycin HCl 1,500 MG Q24 10/29 1000 AC 10/29 Dextrose/Water 250 ML IV 1513 Vancomycin HCl 1,000 MG Q12 10/24 2200 DC 10/28 Dextrose/Water 250 ML IV 0907 Vitamin A/Vitamin D 1 VANI Q6-PRN PRN 10/27 1500 AC TOP Last 24 Hrs of Lab/[place] Results Last 24 Hrs of Labs/Mics: Laboratory Tests 10/29/17 0615: Anion Gap 11, Estimated GFR > 60, BUN/Creatinine Ratio 19.0, Total Bilirubin 2.1 H, Direct Bilirubin 1.8 H, AST 81 H, ALT 59, Alkaline Phosphatase 345 H, Total Protein 4.6 L, Albumin 1.6 L Microbiology 10/29 1546 BLOOD: Blood Culture - ORD 10/29 1546 BLOOD: Blood Culture - ORD 10/28 1800 BLOOD: Blood Culture - RES GRAM POSITIVE COCCI Assessment/Plan Assessment: Patient is a 61-year-old male with past medical history significant for insulin- dependent diabetes mellitus, rheumatoid arthritis on prednisone & leflunomide, coronary artery disease status post stenting, left TMA, chronic right foot ulcer was brought to [facility] after found by spice miller at home altered and unkempt, covered with the urine. Vitals at admission is significant for MAXIMUM TEMPERATURE of 100.6, blood pressure 106/68 mmHg. White count of 13,000 with 72 segments and bands. Troponin of 0.85, elevated d-dimer. Chest x-ray showing patchy opacity in the right upper lobe and mild cardiomegaly. X-ray of Right foot revealed extensive destructive changes in the second to fourth digits. CT of chest is significant for central cavitation and opacities in both lungs. CT abdomen Prominent perinephric edema with prominent prostate. Admitted to ICU initially on 10/21/2017 given sepsis secondary to diabetic foot infection. He did have persistent MRSA bacteremia with extensive seeding into lungs, urine, joints. Once he was hemodynamic stable transferred to telemetry. 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 Initially started broad with IV ceftazidime and Flagyl and transitioned to IV vancomycin after cultures results. MRI did show abscess of right foot. Blood cultures were persistently positive. ESR 125. Underwent tarsometatarsal amputation on 10/25/17. Underwent ANNA and wound closure on . Repeat blood cultures until remain negative...... Initially started on IV vancomycin 1mg Q12 and then reduced to 1.5mg IV vancomycin Q24hrs once trough level is >21. (Iatrogenic) Steroid induced adrenal insufficiency He did have suppression of his pituitary axis secondary to chronic steroid intake. Placed on IV hydrocortisone to maintain his blood pressure. He received stress dose of steroids prior to procedures. Currently on hydrocodone 12.5 mg IV every 12 from tomorrow. * Monitor blood pressure. Insulin-dependent diabetic mellitus HbA1c of 7.2. Sugars remained relatively controlled on current regimen * Continue Levemir 6 units twice a day and NovoLog sliding scale per endocrinology. Intermixed ground glass attenuation on imaging Imaging shows opacities exhibiting reverse halo sign (atoll sign). Also, some of the opacities have central lucencies, suspicious for cavitary change. Given MRSA bacteremia, seeding should be first differential. However patient has been on leflunomide so tuberculosis should be second in the differential. Repeat CT on 10/28/17 yesterday did show dense groundglass opacification is also noted, specifically at left lung apex, along with pleural based opacity seen at posterior ligula. Previous opacities increased in size indicating progressive bacteremia with raining septic emboli. Type II TN Probes trended down. He had a history of CAD with diabetes. Echocardiogram did show EF of 40% with anteroseptal hypokinesis (?old). Mild mitral regurgitation without any obvious digitations. Underwent ANNA. We continued ASA, Coreg, Statin. Encephalopathy Patient was altered despite aggressive treatment of his infection. Improved after giving IV thiamine for few days. Probably alcohol related. Inflammatory anemia H&H of 8.7/25 with ferritin 1500, iron of 12, TIBC 143 suggestive of anemia of chronic disease/inflammation related. Obvious source could be osteomyelitis. Treating current condition should help with his anemia as well. * Monitor H&H * started on oral iron DVT prophylaxis SC heparin Code status full code Problem List: 1. Osteomyelitis of right foot 2. Elevated troponin 3. Bandemia 4. Sepsis Pain Ratin Pain Location: right foot Pain Goal: Pain 4 or less Pain Plan: tylenol prn Tomorrow's Labs & Rationales: cbc to monitor white count and H&H after procedure bep to monitor electrolytes and Cr. Pain Goal: Pain 4 or less Pain Plan: tylenol prn Tomorrow's Labs & Rationales: cbc to monitor white count and H&H after procedure bep to monitor electrolytes and Cr.
--- NOTE | 2017-10-29 10:31 | PN- Infect Dx ---
Subjective Subjective: Afebrile without complaints Objective Last 24 Hrs of Vital Signs/I&O Vital Signs Date Time Temp Pulse Resp B/P B/P Pulse O2 O2 Flow FiO2 Mean Ox Delivery Rate 10/29 0642 99.8 96 20 150/70 93 Room Air 10/28 2248 92 148/74 10/28 2020 Room Air 10/28 1400 98.3 88 20 152/68 94 Room Air 10/28 1200 100 140/60 Intake & Output 10/29 1600 10/29 0800 10/29 0000 Intake Total 120 Output Total Balance 120 Intake, Oral 120 Physical Exam Other Physical Findings: He is awake and alert in no acute distress Lungs are clear Heart regular rhythm with 1/6 systolic ejection murmur Extremities right foot dressing intact Results Last 24 Hours of Lab Results: Laboratory Tests 10/29 614 Chemistry Sodium (137 - 145 mmol/L) 145 Potassium (3.5 - 5.1 mmol/L) 3.0 L Chloride (98 - 107 mmol/L) 117 H Carbon Dioxide (22 - 30 mmol/L) 18 L Anion Gap (5 - 16) 11 BUN (9 - 20 mg/dL) 19 Creatinine (0.7 - 1.2 mg/dL) 1.0 Estimated GFR (>60 ml/min) > 60 BUN/Creatinine Ratio (7 - 25 %) 19.0 Total Bilirubin (0.2 - 1.3 mg/dL) 2.1 H Direct Bilirubin (< 0.4 mg/dL) 1.8 H AST (17 - 59 U/L) 81 H ALT (21 - 72 U/L) 59 Alkaline Phosphatase (< 127 U/L) 345 H Total Protein (6.3 - 8.2 g/dL) 4.6 L Albumin (3.5 - 5.0 g/dL) 1.6 L Last 24 Hours of [place] Results: Blood cultures October 28 one bottle positive for gram-positive cocci in clusters Urine culture October 27 negative Assessment/Plan ID Impression: Stable, with no further fevers and with his last white blood cell count normal, but with persistent MRSA bacteremia, status post 8 days of Vancomycin for MRSA sepsis and 4 days status post an open right transmetatarsal amputation for osteomyelitis. The persistent bacteremia may be secondary to endocarditis or a complication of endocarditis, for example valvular abscess, the right foot, given the persistent purulent ulcer, or the lungs, with the recent CT scan revealing progression of his opacities, with cavitation, presumably secondary to seeding from the bacteremia or emboli from a possible endocarditis. His alkaline phosphatase is elevated, possibly secondary to bone, with the recent CT of the abdomen and pelvis negative for any liver or other abnormalities. Suggestion: 1. Repeat blood cultures 2 2. Await ANNA, scheduled for later today 3. Podiatry follow-up regarding possible need for further debridement/ amputation 4. Continue Vancomycin pending above
--- NOTE | 2017-10-29 12:03 | PN- Att Addend ---
Attending Addendum Attending Brief Note Patient seen and examined. Plan of care discussed with the medical team and the patient. Available lab work and radiology test reports were reviewed. Patient is lying in bed this morning and he appears more awake and energetic this morning. There have been no appreciable change in his clinical status since yesterday. Dressing her right foot was changed. He denies any fever or chills overnight and denies pain in the right foot. He is nothing by mouth for ANNA today. He denies any difficulty breathing or chest pain. He denies any chest pain difficulty breathing nausea vomiting or abdominal pain. Exam: General: Patient awake lethargic he is partially oriented without any distress; appears pale and edematous CVS: S1 plus S2 without any murmur or gallops Chest: Few scattered crepitation without any wheeze. There is no respiratory distress. Abdomen: Soft non-tender, bowel sound present, no guarding or rebound ACCELERATOR TECHNICIAN: Awake alert oriented without any focal neuro deficit and follows commands appropriately Extremities: Right foot is covered in a new dressing; both hands are puffy; no clubbing or cyanosis noted Assessment * Right foot osteomyelitis status post TMA October 25 * Recurrent fever despite TMA * Rule out endocarditis- going for ANNA today * Persistent MRSA bacteremia likely originating from osteomyelitis * Suspected the pulmonary abscesses from bacteremia which have worsened on recent CT scan * insulin-dependent diabetes mellitus, * rheumatoid arthritis on prednisone & leflunomide, * coronary artery disease status post stenting, * History of left TMA, chronic right foot ulcer * Hypernatremia- resolved * Hypokalemia Plan * Plan for ANNA Today * Continue vancomycin * Replace potassium by mouth and recheck potassium tomorrow; * Continue stress dose hydrocortisone 12.5 mg twice a day * Continue Levemir to 6 units twice a day Current Medications Sig/Lai Start time Last Medication Dose Route Stop Time Status Admin Acetaminophen 1,000 MG Q6P PRN 10/21 1700 AC 10/26 IV 1220 Aspirin 81 MG DAILY 10/23 1000 AC 10/28 PO 0910 Atorvastatin Calcium 80 MG 1700 10/23 1700 AC 10/28 PO 1649 Carvedilol 6.25 MG BID 10/29 1000 AC PO Carvedilol 3.125 MG BID 10/24 1000 DC 10/28 PO 2248 Dextrose/Water 1,000 ML ONCE ONE 10/28 2215 DC 10/28 IV 10/29 1134 2348 Folic Acid 1 MG DAILY 10/21 1703 AC 10/28 PO 0910 Heparin Sodium 5,000 UNIT Q8 10/21 2200 AC 10/29 (Porcine) IA 0639 Hydrocortisone 50 MG ONCE ONE 10/29 1200 DC Sodium Succinate IV 10/29 1201 Hydrocortisone 50 MG ONE ONE 10/29 0945 DC 10/29 Sodium Succinate IV 10/29 0946 0920 Hydrocortisone 12.5 MG Q12 10/28 1000 DC 10/28 Sodium Succinate IV 2249 Insulin Aspart 0 TIDAC/HS 10/26 1700 DC 10/28 IA 1248 Insulin Detemir 6 UNITS BID 10/28 1000 DC 10/28 IA 2249 Insulin Human Regular 0 Q6 10/28 2359 AC 10/29 IA 0639 Lidocaine 0 .STK-MED ONE 10/29 0816 SC TOP Multivitamins 1 TAB DAILY 10/21 1703 AC 10/28 PO 0910 Nitroglycerin 0.5 GM Q6 10/26 0850 10/29 TOP 0638 Nystatin 1 VANI TID PRN 10/27 1500 10/28 TOP 0908 Vancomycin HCl 1,500 MG Q24 10/29 1000 AC Dextrose/Water 250 ML IV Vancomycin HCl 1,000 MG Q12 10/24 2200 DC 10/28 Dextrose/Water 250 ML IV 0907 Vitamin A/Vitamin D 1 VANI Q6-PRN PRN 10/27 1500 TOP Laboratory Tests 10/29/17 0615: Anion Gap 11, Estimated GFR > 60, BUN/Creatinine Ratio 19.0, Total Bilirubin 2.1 H, Direct Bilirubin 1.8 H, AST 81 H, ALT 59, Alkaline Phosphatase 345 H, Total Protein 4.6 L, Albumin 1.6 L 10/27/17 2142: Vancomycin Trough 21.0 H 10/27/17 1430: Urinalysis MOD H, Urine Color YEL, Urine Clarity HAZY H, Urine pH 6.0, Ur Specific [place] 1.015, Urine Protein 30 H, Urine Ketones NEG, Urine Nitrite NEG, Urine Bilirubin NEG@ICTO, Urine Urobilinogen 4.0 H, Ur Leukocyte Esterase TRACE H, Ur Microscopic SEDIMENT EXAMINED, Urine RBC 3-5, Urine WBC 5-10 H, Ur Epithelial Cells RARE, Urine Bacteria FEW H, Granular Casts FEW H, Urine Hemoglobin LARGE H, Urine Glucose NEG 03/24/18 1500: Troponin I Cancelled Microbiology 10/28 1800 BLOOD: Blood Culture - RECD 10/28 1245 BLOOD: Blood Culture - RES GRAM POSITIVE COCCI 10/28 1024 BLOOD: Blood Culture - CAN Cancelled: NO SAMPLE COLLECTED 10/27 143 URINE ROUT: Urine Culture - COMP 10/27 1430 BLOOD: Blood Culture - RES METH RESIST STAPH AUREUS 10/27 1415 BLOOD: Blood Culture - RES METH RESIST STAPH AUREUS Vital Signs Date Time Temp Pulse Resp B/P B/P Pulse O2 O2 Flow FiO2 Mean Ox Delivery Rate 10/29 0642 99.8 96 20 150/70 93 Room Air 10/28 2248 92 148/74 10/28 2020 Room Air 10/28 1400 98.3 88 20 152/68 94 Room Air Intake & Output 10/29 1600 10/29 0800 10/29 0000 Intake Total 120 Output Total Balance 120 Intake, Oral 120
--- NOTE | 2017-10-29 12:23 | PN- Diabetes ---
Assessment/Plan Diabetes Assessment: 61-year-old man with past medical history significant for diabetes mellitus and coronary artery disease status post stent placement, was brought in by ambulance for evaluation of altered mental status. Patient has a necrotic, purulent, chronic right foot plantar ulcer. His BP was borderline low. He used to take prednisone chronically for his arthritis. He was placed on stress dose of steroid-- Hydrocortisone 50 mg iv twice a day. Hydrocortisone was gradually decreased to 12.5 mg iv twice a day. The blood culture was positive for Gram positive cocci in cluster ( MRSA). He is going to have ANNA done in the morning and closure of the wound in the afternoon. Currently he is on levemir 6 units twice a day, Novolog coverage before meals. His FSGs were 72, 94, 74 and 90. Plan: 1. stop Levemir; 2. adjust RISS every 6 hours while he is kept NPO for the procedures. --- FSG < 150, no coverage; ---150-200, 2 units ---201-250, 4 units ---251-300, 6 units ---301-350, 8 units ---351-400, 10 units; 3. recommend giving patient stress dose of steroid-- hydrocortisone 50 mg iv before each procedure; 4. replete K; 5. monitor FSGs, vital sign and electrolytes. 6. after he is back from procedure, RISS every 6 hours will be discontinued. He will be on Novolog coverage before meals. --- FSG < 150, no coverage; ---150-200, 2 units ---201-250, 4 units ---251-300, 6 units ---301-350, 8 units ---351-400, 10 units; will follow. Subjective Subjective: He has been kept NPO for procedures. Objective Last 24 Hrs of Vital Signs/I&O Vital Signs Date Time Temp Pulse Resp B/P B/P Pulse O2 O2 Flow FiO2 Mean Ox Delivery Rate 10/29 0642 99.8 96 20 150/70 93 Room Air 10/28 2248 92 148/74 10/28 2020 Room Air 10/28 1400 98.3 88 20 152/68 94 Room Air Intake & Output 10/29 1600 10/29 0800 10/29 0000 Intake Total 120 Output Total Balance 120 Intake, Oral 120 Findings Pertinent Lab/[place] Results: Laboratory Tests 10/29 0615 Chemistry Sodium (137 - 145 mmol/L) 145 Potassium (3.5 - 5.1 mmol/L) 3.0 L Chloride (98 - 107 mmol/L) 117 H Carbon Dioxide (22 - 30 mmol/L) 18 L Anion Gap (5 - 16) 11 BUN (9 - 20 mg/dL) 19 Creatinine (0.7 - 1.2 mg/dL) 1.0 Estimated GFR (>60 ml/min) > 60 BUN/Creatinine Ratio (7 - 25 %) 19.0 Total Bilirubin (0.2 - 1.3 mg/dL) 2.1 H Direct Bilirubin (< 0.4 mg/dL) 1.8 H AST (17 - 59 U/L) 81 H ALT (21 - 72 U/L) 59 Alkaline Phosphatase (< 127 U/L) 345 H Total Protein (6.3 - 8.2 g/dL) 4.6 L Albumin (3.5 - 5.0 g/dL) 1.6 L
--- NOTE | 2017-10-29 12:47 | Operative Report ---
Operative/Inv Procedure Report Surgery Date: 10/29/17 Name of Procedure: 1 open incision and drainage deep to the deep fascia with exposure of the extensor and flexor tendon and tendon sheath multiple sites right foot 2 revision of exposed metatarsal stumps 1, 2, 3, 4 and 5 right foot 3 delayed primary closure of open surgical wound right foot Pre-Operative Diagnosis: 1 open, necrotic wound right foot 2 osteomyelitis right foot Post-Operative Diagnosis: Same Estimated Blood Loss: less than 50ml Surgeon/Vice President Supply Chain: WILLIAM RUSSELL DPM Anesthesia: moderate sedation, block Operative/Procedure Note Note: After obtaining informed consent the patient was brought to the operating room and placed on the operating table in the supine position. The patient isn't securely fastened to the operating table utilizing safety belt. After administration of IV sedation, 10 mL of 0.5% Marcaine plain was infiltrated about the patient's right ankle. The right foot and ankle then scrubbed prepped and draped in usual aseptic manner. Digitorectal right foot, where a full- thickness chronic was identified. A 15 blade visualized sharply sharply revised skin margins. Dissection was then carried down deep to the deep fascia with exposure of the extensor and flexor tendon and tendon sheath multiple sites, both proximally and distally. All necrotic, nonviable infected tissue sharply evacuated from the wound bed. The stumps of the metatarsals were then revised approximately by 2 cm and the distal osseous segments freed and passed the operative field. Specimen sent for pathologic inspection. The open wound was then irrigated with 3 L of normal sterile saline fissure 50,000 units of bacitracin. Following this, the foot was redraped and the surgeon's top was changed clean gloves. Any bleeding vessels identified were cauterized or ligated as encountered. A dorsal plantar flap was then developed and fixated deeply the central margin with 2-0 Vicryl. The septae is tissues were then reapproximated 3-0 Vicryl and the skin edges reapproximated skin genet. Incision was then dressed with Xeroform 4 x 4's Kerlix and an Rene wrap. The patient was noted tolerate both procedure and anesthesia well and the patient was transported from the operating room to recovery with vital signs stable best assess intact to the dorsal and plantar flaps.
--- NOTE | 2017-10-29 16:12 | Discharge Summary ---
Visit Information Visit Dates Admission Date: 10/21/17 Hospital Course Course Attending Physician: Radha CARD,Rebekah Primary Care Physician: Justice CARD,Bryant [place] Hospital Course: Patient is a 61-year-old male with past medical history significant for insulin- dependent diabetes mellitus, rheumatoid arthritis on prednisone & leflunomide, coronary artery disease status post stenting, left TMA, chronic right foot ulcer was brought to [place] after found by canine deputy at home altered and unkempt, covered with the urine. Vitals at admission is significant for MAXIMUM TEMPERATURE of 100.6, blood pressure 106/68 mmHg. White count of 13,000 with 72 segments and bands. Troponin of 0.85, elevated d-dimer. Chest x-ray showing patchy opacity in the right upper lobe and mild cardiomegaly. X-ray of Right foot revealed extensive destructive changes in the second to fourth digits. CT of chest is significant for central cavitation and opacities in both lungs. CT abdomen Prominent perinephric edema with prominent prostate. Admitted to ICU initially on 10/21/2017 given sepsis secondary to diabetic foot infection. He did have persistent MRSA bacteremia with extensive seeding into lungs, urine, joints. Once he was hemodynamic stable transferred to telemetry. 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 Initially started broad with IV ceftazidime and Flagyl and transitioned to IV vancomycin after cultures results. MRI did show abscess of right foot. Blood cultures were persistently positive. ESR 125. Underwent tarsometatarsal amputation on 10/25/17. Underwent ANNA and wound closure on . Repeat blood cultures until remain negative...... Initially started on IV vancomycin 1mg Q12 and then reduced to 1.5mg IV vancomycin Q24hrs once trough level is >21. (Iatrogenic) Steroid induced adrenal insufficiency He did have suppression of his pituitary axis secondary to chronic steroid intake. Placed on IV hydrocortisone to maintain his blood pressure. He received stress dose of steroids prior to procedures. Currently on hydrocodone 12.5 mg IV every 12 from tomorrow. * Monitor blood pressure. Insulin-dependent diabetic mellitus HbA1c of 7.2. Sugars remained relatively controlled on current regimen * Continue Levemir 6 units twice a day and NovoLog sliding scale per endocrinology. Intermixed ground glass attenuation on imaging Imaging shows opacities exhibiting reverse halo sign (atoll sign). Also, some of the opacities have central lucencies, suspicious for cavitary change. Given MRSA bacteremia, seeding should be first differential. However patient has been on leflunomide so tuberculosis should be second in the differential. Repeat CT on 10/28/17 yesterday did show dense groundglass opacification is also noted, specifically at left lung apex, along with pleural based opacity seen at posterior ligula. Previous opacities increased in size indicating progressive bacteremia with raining septic emboli. Type II MD Probes trended down. He had a history of CAD with diabetes. Echocardiogram did show EF of 40% with anteroseptal hypokinesis (?old). Mild mitral regurgitation without any obvious digitations. Underwent ANNA. We continued ASA, Coreg, Statin. Encephalopathy Patient was altered despite aggressive treatment of his infection. Improved after giving IV thiamine for few days. Probably alcohol related. Inflammatory anemia H&H of 8.7/25 with ferritin 1500, iron of 12, TIBC 143 suggestive of anemia of chronic disease/inflammation related. Obvious source could be osteomyelitis. Treating current condition should help with his anemia as well. * Monitor H&H * started on oral iron DVT prophylaxis SC heparin Code status full code Allergies: Coded Allergies: No Known Allergies (10/21/17) Disposition Summary Disposition Principal Diagnosis: Right foot osteomyelitis with persistent bacteremia Additional Diagnosis: Right foot TMA Iatrogenic Adrenal insufficiency IDDM Dense ground glass opacities with central lucencies at multiple regions Type II MD Encephalopathy Inflammatory anemia Discharge Disposition: SNF Discharge Instructions Medications at Discharge Discharge Medications: Start taking the following new medications: Oxycodone HCl (Oxycodone HCl) 15 MG TABLET 1 Tablet ORAL THREE TIMES DAILY Qty = 90 No Refills Carvedilol (Coreg) 12.5 MG TABLET 1 Tablet ORAL TWICE DAILY Qty = 60 No Refills
--- NOTE | 2017-10-29 18:41 | PN- Cardiology ---
Subjective Subjective: * No complaints. * sinus rhythm * a preliminary ANNA report showed no evidence of a vegetation Objective Vital Signs and I&Os Vital Signs Date Time Temp Pulse Resp B/P B/P Pulse O2 O2 Flow FiO2 Mean Ox Delivery Rate 10/29 1800 97.6 77 18 110/50 10/29 1600 Nasal 2.0L Cannula 10/29 1600 97.6 77 18 110/50 10/29 1512 77 110/50 10/29 1400 97.6 77 18 110/50 96 Nasal 3.0L Cannula 10/29 0642 99.8 96 20 150/70 93 Room Air 10/28 2248 92 148/74 10/28 2020 Room Air Intake & Output 10/29 1600 10/29 0800 10/29 0000 10/28 1600 10/28 0800 10/28 0000 Intake Total 1300 120 120 430 Output Total Balance 1300 120 120 430 Intake, IV 1000 250 Intake, Oral 300 120 120 180 Number 2 3 Bowel Movements Output, Urine Patient 200 lb Weight Weight Bed scale Measurement Method Physical Exam: General: WD/WN male in NAD; alert and oriented x 3 HEENT: NC/AT, PERRL, EOMI Neck: no JVD, no carotid bruit Heart: RRR with 2/6 systolic murmur Lungs: clear bilaterally Abdomen: soft, NT, +ve bowel sounds Extremties: no edema, left TMA, right TMA amputation Assessment/Plan Assessment/Plan * This patient has a mildly increased troponin consistent with a type 2 [place] although there may be some artifactual rise in troponin from decreased clearance in the setting of decreased renal function. In consideration of his chest pain and increased cardiac enzymes and peripheral vascular disease it is almost certain that this patient has myocardial ischemia. There is no clear evidence of decompensated congestive heart failure. Continue Coreg at 6.25mg BID and continue his statin, aspirin and NTG paste. * The preliminary echo report did not show any vegetation suggestive of endocarditis. Continue telemetry? Yes
[2017-10-30 06:48] VITALS: BP 120/60
--- NOTE | 2017-10-30 07:05 | PN- Housestaff ---
Subjective Follow-up For: MRSA osteomyelitis with persistent bacteremia s/p Right foot TMA Steroid dependence with adrenal insufficiency Tele-Events Since Last Visit: NSR Rate 67-82 Subjective: Mr Baltazar was seen and examined this morning. Comfortable in bed, states that he is frustrated with the lack of answers to the persistent bacteremia. Apart from the above, feels better. Denies fever, chills, nausea or vomiting. States that his pain is well controlled. Ex Laquita at Bedside. Review of Systems Constitutional: Reports: see HPI. Objective Last 24 Hrs of Vital Signs/I&O Vital Signs Date Time Temp Pulse Resp B/P B/P Pulse O2 O2 Flow FiO2 Mean Ox Delivery Rate 10/30 1506 98.4 68 22 130/62 Nasal 2.0L Cannula 10/30 1418 98.7 71 20 110/70 95 10/30 1247 98.6 66 23 122/58 Nasal 2.0L Cannula 10/30 0928 74 130/58 10/30 0800 Nasal 2.0L Cannula 10/30 0648 97.6 80 20 120/60 95 Room Air 10/29 2212 98.2 77 18 110/58 92 10/29 2200 97.6 84 18 110/58 10/29 2155 84 110/58 10/29 2154 84 110/58 Intake & Output 10/30 1600 10/30 0800 10/30 0000 Intake Total 156 926 3259 Output Total 350 250 Balance 500 -140 1485 Intake, IV 250 10 345 Intake, Oral 890 708 9832 Number 1 Bowel Movements Output, Urine 350 250 Patient 88.269 kg Weight Physical Exam General Appearance: Alert, Oriented X3 Cardiovascular: Regular Rate, Normal S1, Normal S2 Lungs: Clear to Auscultation Abdomen: Normal Bowel Sounds, Soft, No Tenderness Neurological: Normal Speech Extremities: Lower Extremity on Right covered in bandage. Appears clean. Normal pulses. Current Medications: Current Medications Sig/Lai Start time Last Medication Dose Route Stop Time Status Admin Acetaminophen 1,000 MG Q6P PRN 10/21 1700 AC 10/26 IV 1220 Aspirin 81 MG DAILY 10/23 1000 AC 10/30 PO 0843 Atorvastatin Calcium 80 MG 1700 10/23 1700 AC 10/30 PO 1709 Carvedilol 6.25 MG BID 10/29 1000 AC 10/30 PO 0928 Collagenase 1 VANI DAILY PRN 10/30 1615 AC TOP Ferrous Sulfate 325 MG DAILY 10/29 1550 AC 10/30 PO 0843 Folic Acid 1 MG DAILY 10/21 1703 AC 10/30 PO 0842 Heparin Sodium 5,000 UNIT Q8 10/21 2200 AC 10/30 (Porcine) SC 1429 Hydrocortisone 12.5 MG Q12 10/30 1000 AC 10/30 Sodium Succinate IV 0845 Insulin Aspart 0 TIDAC/HS 10/29 1700 AC 10/30 SC 1709 Insulin Detemir 6 UNITS BID 10/29 2200 10/30 MN 0913 Multivitamins 1 TAB DAILY 10/21 1703 AC 10/30 PO 0840 Nitroglycerin 0.5 GM Q6 10/26 0850 AC 10/30 TOP 1709 Nystatin 1 VANI TID PRN 10/27 1500 AC 10/28 TOP 0908 Potassium Chloride 40 MEQ ONCE ONE 10/30 1015 DC 10/30 PO 10/30 1016 1338 Vancomycin HCl 1,500 MG Q24 10/29 1000 AC 10/30 Dextrose/Water 250 ML IV 0854 Vitamin A/Vitamin D 1 VANI Q6-PRN PRN 10/27 1500 TOP Last 24 Hrs of Lab/[place] Results Last 24 Hrs of Labs/Mics: Laboratory Tests 10/30/17 0930: CBC w Diff NO MAN DIFF REQ, RBC 2.24 L, MCV 82.4, MCH 28.1, MCHC 34.1, RDW 15.1 H, MPV 8.9, Gran % 85.7 H, Lymphocytes % 11.5 L, Monocytes % 1.9, Eosinophils % 0.8, Basophils % 0.1, Absolute Granulocytes 8.6 H, Absolute Lymphocytes 1.2, Absolute Monocytes 0.2, Absolute Eosinophils 0.1, Absolute Basophils 0, Retic Count 3.98 H 10/30/17 0650: Anion Gap 10, Estimated GFR > 60, BUN/Creatinine Ratio 22.7, Iron 25 L, TIBC 158 L, CBC w Diff NO MAN DIFF REQ, RBC 2.33 L, MCV 83.0, MCH 28.2, MCHC 33.9, RDW 15.2 H, MPV 9.3, Gran % 86.0 H, Lymphocytes % 11.3 L, Monocytes % 1.8, Eosinophils % 0.6, Basophils % 0.3, Absolute Granulocytes 9.4 H, Absolute Lymphocytes 1.2, Absolute Monocytes 0.2, Absolute Eosinophils 0.1, Absolute Basophils 0 Assessment/Plan Assessment: Patient is a 61-year-old male with past medical history significant for insulin- dependent diabetes mellitus, rheumatoid arthritis on prednisone & leflunomide, coronary artery disease status post stenting, left TMA, chronic right foot ulcer was brought to [place] after found by mounter at home altered and unkempt, covered with the urine. Vitals at admission is significant for MAXIMUM TEMPERATURE of 100.6, blood pressure 106/68 mmHg. White count of 13,000 with 72 segments and bands. Troponin of 0.85, elevated d-dimer. Chest x-ray showing patchy opacity in the right upper lobe and mild cardiomegaly. X-ray of Right foot revealed extensive destructive changes in the second to fourth digits. CT of chest is significant for central cavitation and opacities in both lungs. CT abdomen Prominent perinephric edema with prominent prostate. Admitted to ICU initially on 10/21/2017 given sepsis secondary to diabetic foot infection. He did have persistent MRSA bacteremia with extensive seeding into lungs, urine, joints. Once he was hemodynamic stable transferred to telemetry. 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 Initially started broad with IV ceftazidime and Flagyl and transitioned to IV vancomycin after cultures results. MRI did show abscess of right foot. Blood cultures were persistently positive. ESR 125. Underwent tarsometatarsal amputation on 10/25/17. Underwent ANNA and wound closure on . Initially started on IV vancomycin 1mg Q12 and then reduced to 1.5mg IV vancomycin Q24hrs once trough level is >21. Contine Vancomycin. (Iatrogenic) Steroid induced adrenal insufficiency He did have suppression of his pituitary axis secondary to chronic steroid intake. Placed on IV hydrocortisone to maintain his blood pressure. He received stress dose of steroids prior to procedures. Currently on hydrocodone 12.5 mg IV every 12 from tomorrow. * Monitor blood pressure. Insulin-dependent diabetic mellitus HbA1c of 7.2. Sugars remained relatively controlled on current regimen * Continue Levemir 6 units twice a day and NovoLog sliding scale per endocrinology. Intermixed ground glass attenuation on imaging Imaging shows opacities exhibiting reverse halo sign (atoll sign). Also, some of the opacities have central lucencies, suspicious for cavitary change. Given MRSA bacteremia, seeding should be first differential. However patient has been on leflunomide so tuberculosis should be second in the differential. Repeat CT on 10/28/17 yesterday did show dense groundglass opacification is also noted, specifically at left lung apex, along with pleural based opacity seen at posterior ligula. Previous opacities increased in size indicating progressive bacteremia with raining septic emboli. Type II ME Probes trended down. He had a history of CAD with diabetes. Echocardiogram did show EF of 40% with anteroseptal hypokinesis (?old). Mild mitral regurgitation without any obvious digitations. Underwent ANNA. Negative for any vegetations. Continue ASA, Coreg, Statin. Encephalopathy Patient was altered despite aggressive treatment of his infection. Improved after giving IV thiamine for few days. Probably alcohol related. Anemia H&H of 6.3/18.5. Previous indices ferritin 1500, iron of 12, TIBC 143 suggestive of anemia of chronic disease/inflammation related. Obvious source could be osteomyelitis. Treating current condition should help with his anemia as well. * Monitor H&H * Continue oral iron * Guiac all stools * Transfuse one unit PRBC. Monitor H/H Q12 hours. #Hypokalemia * PO K 40 meq X 1. Monitor K in am. * Keep > 4.0. DVT prophylaxis SC heparin Code status full code Problem List: 1. Osteomyelitis of right foot 2. Bandemia 3. Sepsis 4. Elevated troponin 5. Anemia Pain Ratin Pain Location: Left lower Extrmiety Pain Goal: Remain pain free Pain Plan: tylenol PRN Tomorrow's Labs & Rationales: CBC: Monitor H/H in the setting of anemia And BEP: Monitor K
--- NOTE | 2017-10-30 08:23 | PN- Diabetes ---
Assessment/Plan Diabetes Assessment: 61-year-old man with past medical history significant for diabetes mellitus and coronary artery disease status post stent placement, was brought in by ambulance for evaluation of altered mental status. Patient has a necrotic, purulent, chronic right foot plantar ulcer. His BP was borderline low. He used to take prednisone chronically for his arthritis. He was placed on stress dose of steroid-- Hydrocortisone 50 mg iv twice a day. Hydrocortisone was gradually decreased to 12.5 mg iv twice a day. The blood culture was positive for Gram positive cocci in cluster ( MRSA). He underwent ANNA and closure of the wound in the afternoon and he received two doses of hydrocortisone 50 mg iv on 10/29/2017. Starting today, he will be on hydrocortisone 12.5 mg iv twice a day. Patient was restarted on levemir 6 units twice a day, Novolog coverage before meals. His FSGs were 90, 136, 238 and 218. Plan: Continue the current insulin regimen for now; monitor FSGs. will follow. Subjective Subjective: He feels better this morning. Objective Last 24 Hrs of Vital Signs/I&O Vital Signs Date Time Temp Pulse Resp B/P B/P Pulse O2 O2 Flow FiO2 Mean Ox Delivery Rate 10/30 0648 97.6 80 20 120/60 95 Room Air 10/29 2212 98.2 77 18 110/58 92 10/29 2200 97.6 84 18 110/58 10/29 2155 84 110/58 10/29 2154 84 110/58 10/29 1800 97.6 77 18 110/50 10/29 1600 Nasal 2.0L Cannula 10/29 1600 97.6 77 18 110/50 10/29 1512 77 110/50 10/29 1400 97.6 77 18 110/50 96 Nasal 3.0L Cannula Intake & Output 10/30 1600 10/30 0800 10/30 0000 Intake Total 110 1485 Output Total 250 Balance -140 1485 Intake, IV 10 345 Intake, Oral 100 1140 Output, Urine 250 Patient 195 lb Weight Findings Pertinent Lab/[place] Results: Laboratory Tests 10/30 0650 Chemistry Sodium (137 - 145 mmol/L) 145 Potassium (3.5 - 5.1 mmol/L) 3.5 Chloride (98 - 107 mmol/L) 116 H Carbon Dioxide (22 - 30 mmol/L) 19 L Anion Gap (5 - 16) 10 BUN (9 - 20 mg/dL) 25 H Creatinine (0.7 - 1.2 mg/dL) 1.1 Estimated GFR (>60 ml/min) > 60 BUN/Creatinine Ratio (7 - 25 %) 22.7 Hematology CBC w Diff Pending WBC Pending RBC Pending Hgb Pending Hct Pending MCV Pending MCH Pending MCHC Pending RDW Pending Plt Count Pending MPV Pending
[2017-10-30 08:43] LABS: ABSOLUTE BASOPHIL COUNT 0 /CUMM (0.0-0.2); ABSOLUTE EOSINOPHIL COUNT 0.1 /CUMM (0.0-0.7); ABSOLUTE GRANULOCYTE CT 9.4 /CUMM (1.4-6.5); ABSOLUTE LYMPH COUNT 1.2 /CUMM (1.2-3.4); ABSOLUTE MONOCYTE COUNT 0.2 /CUMM (0.10-0.60); BASOPHIL % 0.3 % (0.0-2.0); EOSINOPHIL % 0.6 % (0-5); MEAN CORPUSCULAR HGB 28.2 PG (27.0-31.0); MEAN CORPUSCULAR HGB CONC 33.9 G/DL (33.0-37.0); MEAN PLATELET VOLUME 9.3 FL (7.4-10.4); RBC DISTRIBUTION WIDTH 15.2 % (11.5-14.5); RED BLOOD CELL CT 2.33 /CUMM (4.70-6.10); WHITE BLOOD CELL COUNT 10.9 /CUMM (4.8-10.8)
[2017-10-30 08:56] LABS: HEMATOCRIT 19.4 % (42-52)
[2017-10-30 09:14] LABS: PLATELET COUNT 258 /CUMM (130-400)
--- NOTE | 2017-10-30 09:42 | ECHOCARDIOGRAM REPORT ---
MICHELA GRUBER Age: 61 : Gender: M Exam Date: 10/29/2017 10:02 Exam Location: [facility] Ht (in): Wt (lb): BSA: BP: / Ordering Physician: Monica Paredes MD Referring Physician: Eliezer Lua MD Technologist: Zuleyma Grubbs Room Number: Indications: INFECTIVE ENDOCARDITIS Rhythm: Sinus Technical Quality: Good Medications TIVA Ease of Transducer Insertion No Difficulty Complications None. Technical Difficulty None. FINDINGS Left Ventricle Left ventriclar size appeared normal. Septal hypokinesis. Mildly abnormal left ventricular ejection fraction estimated at 40%. Right Ventricle Normal right ventricular size and function. Right Atrium Normal right atrial size. Left Atrium Mild left atrial dilatation. LA Appendage Normal left atrial appendage. IA Septum Normal interatrial septum. No evidence of shunt flow by color Doppler or agitated saline ("bubble") study. Mitral Valve Structurally normal-appearing mitral valve. No evidence of mitral valve vegetation. Trace mitral regurgitation. Aortic Valve Structurally normal trileaflet aortic valve. No evidence of aortic valve vegetation. No aortic valve stenosis or regurgitation. Tricuspid Valve Structurally normal appearing tricuspid valve. No evidence of tricuspid valve vegetation. Trace bicuspid regurgitation. Pulmonic Valve Structurally normal appearing pulmonic valve. No evidence of pulmonic valve vegetation. Trace pulmonic regurgitation. Pericardium No pericardial effusion. Great Vessels Normal-appearing aortic root and ascending aorta. CONCLUSIONS Left ventriclar size appeared normal. Septal hypokinesis. Mildly abnormal left ventricular ejection fraction estimated at 40%. Mild left atrial dilatation. Normal left atrial appendage. Normal interatrial septum. Structurally normal appearing mitral, aortic, tricuspid, and pulmonic valves. No evidence of valvular vegetations. No evidence of valvular stenosis. Physiologic valvular regurgitation. Eliezer Lua M.D. (Electronically Signed) Final Date: 30 October 2017 09:42 MEASUREMENTS (Male / Female) Normal Values
[2017-10-30 09:58] VITALS: BP 130/58
[2017-10-30 09:59] LABS: ABSOLUTE BASOPHIL COUNT 0 /CUMM (0.0-0.2); ABSOLUTE EOSINOPHIL COUNT 0.1 /CUMM (0.0-0.7); ABSOLUTE GRANULOCYTE CT 8.6 /CUMM (1.4-6.5); ABSOLUTE LYMPH COUNT 1.2 /CUMM (1.2-3.4); ABSOLUTE MONOCYTE COUNT 0.2 /CUMM (0.10-0.60); BASOPHIL % 0.1 % (0.0-2.0); EOSINOPHIL % 0.8 % (0-5); GRANULOCYTE % 85.7 % (42.2-75.2); MEAN CORPUSCULAR HGB 28.1 PG (27.0-31.0); MEAN CORPUSCULAR HGB CONC 34.1 G/DL (33.0-37.0); MEAN CORPUSCULAR VOLUME 82.4 FL (80.0-94.0); MEAN PLATELET VOLUME 8.9 FL (7.4-10.4); PLATELET COUNT 251 /CUMM (130-400); RBC DISTRIBUTION WIDTH 15.1 % (11.5-14.5); RED BLOOD CELL CT 2.24 /CUMM (4.70-6.10)
[2017-10-30 10:25] LABS: HEMATOCRIT 18.5 % (42-52)
--- NOTE | 2017-10-30 10:59 | PN- Infect Dx ---
Subjective Subjective: Afebrile on steroids without complaints Objective Last 24 Hrs of Vital Signs/I&O Vital Signs Date Time Temp Pulse Resp B/P B/P Pulse O2 O2 Flow FiO2 Mean Ox Delivery Rate 10/30 0958 97.6 74 20 130/58 10/30 0928 74 130/58 10/30 0648 97.6 80 20 120/60 95 Room Air 10/29 2212 98.2 77 18 110/58 92 10/29 2200 97.6 84 18 110/58 10/29 2155 84 110/58 10/29 2154 84 110/58 10/29 1800 97.6 77 18 110/50 10/29 1600 Nasal 2.0L Cannula 10/29 1600 97.6 77 18 110/50 10/29 1512 77 11050 10/29 1400 97.6 77 18 110/50 96 Nasal 3.0L Cannula Intake & Output 10/30 1600 10/30 0800 10/30 0000 Intake Total 110 1485 Output Total 250 Balance -140 1485 Intake, IV 10 345 Intake, Oral 100 1140 Output, Urine 250 Patient 195 lb Weight Physical Exam Other Physical Findings: He is awake and alert but remains confused, in no acute distress Lungs scattered rhonchi Heart regular rhythm with no murmur Abdomen is soft, nontender with positive bowel sounds Extremities right foot dressing intact Results Last 24 Hours of Lab Results: Laboratory Tests 10/30 10/30 0930 0650 Chemistry Sodium (137 - 145 mmol/L) 145 Potassium (3.5 - 5.1 mmol/L) 3.5 Chloride (98 - 107 mmol/L) 116 H Carbon Dioxide (22 - 30 mmol/L) 19 L Anion Gap (5 - 16) 10 BUN (9 - 20 mg/dL) 25 H Creatinine (0.7 - 1.2 mg/dL) 1.1 Estimated GFR (>60 ml/min) > 60 BUN/Creatinine Ratio (7 - 25 %) 22.7 Hematology CBC w Diff NO MAN DIFF REQ NO MAN DIFF REQ WBC (4.8 - 10.8 /CUMM) 10.0 10.9 H RBC (4.70 - 6.10 /CUMM) 2.24 L 2.33 L Hgb (14.0 - 18.0 G/DL) 6.3 *L 6.6 *L Hct (42 - 52 %) 18.5 *L 19.4 *L MCV (80.0 - 94.0 FL) 82.4 83.0 MCH (27.0 - 31.0 PG) 28.1 28.2 MCHC (33.0 - 37.0 G/DL) 34.1 33.9 RDW (11.5 - 14.5 %) 15.1 H 15.2 H Plt Count (130 - 400 /CUMM) 251 258 MPV (7.4 - 10.4 FL) 8.9 9.3 Gran % (42.2 - 75.2 %) 85.7 H 86.0 H Lymphocytes % (20.5 - 51.1 %) 11.5 L 11.3 L Monocytes % (1.7 - 9.3 %) 1.9 1.8 Eosinophils % (0 - 5 %) 0.8 0.6 Basophils % (0.0 - 2.0 %) 0.1 0.3 Absolute Granulocytes (1.4 - 6.5 /CUMM) 8.6 H 9.4 H Absolute Lymphocytes (1.2 - 3.4 /CUMM) 1.2 1.2 Absolute Monocytes (0.10 - 0.60 /CUMM) 0.2 0.2 Absolute Eosinophils (0.0 - 0.7 /CUMM) 0.1 0.1 Absolute Basophils (0.0 - 0.2 /CUMM) 0 0 Last 24 Hours of [place] Results: Blood cultures 2 October 29 negative so far Recent Imaging Studies: ANNA October 29 no evidence of any vegetations Assessment/Plan ID Impression: Stable, with his temperatures and white blood cell count remaining normal, but with persistent MRSA bacteremia, now Day 9 of Vancomycin for MRSA sepsis, status post revision of the exposed metatarsal stumps of the right foot with closure of his wound yesterday, now 5 days status post an open right transmetatarsal amputation for osteomyelitis. The source of his persistent bacteremia remains unclear, with his recent ANNA negative and with his foot not felt by Podiatry to be the source of infection. A pulmonary source is possible, with the recent CT scan revealing progression of his opacities, with cavitation, presumably secondary to seeding from the bacteremia, though he has minimal respiratory symptoms. His H&H has decreased significantly and he will need evaluation for a source of bleeding. His alkaline phosphatase is elevated, possibly secondary to bone, with the recent CT of the abdomen and pelvis negative for any liver or other abnormalities. Suggestion: 1. Check stool guaiacs 2. Further evaluation and management of his anemia per Medicine 3. Continue Vancomycin
--- NOTE | 2017-10-30 11:48 | PN- Att Addend ---
Attending Addendum Attending Brief Note Patient seen and examined. Plan of care discussed with the medical team and the patient. Available lab work and radiology test reports were reviewed. Patient is lying in bed this morning and he appears more awake and energetic this morning. There have been no appreciable change in his clinical status since yesterday. He denies any fever or chills overnight and denies pain in the right foot. He underwent ANNA yesterday. He denies any chest pain difficulty breathing nausea vomiting or abdominal pain. Patient underwent further debridement of right foot on October [address] Pena. Exam: General: Patient awake lethargic he is partially oriented without any distress; appears pale CVS: S1 plus S2 without any murmur or gallops Chest: Few scattered crepitation without any wheeze. There is no respiratory distress. 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 without any focal neuro deficit and follows commands appropriately Extremities: Right foot is covered in a new dressing; both hands are puffy; no clubbing or cyanosis noted Assessment * Right foot osteomyelitis status post TMA October 25 * Recurrent fever despite TMA * Rule out endocarditis- ANNA negative * Persistent MRSA bacteremia likely originating from osteomyelitis * Suspected pulmonary abscesses from bacteremia which have worsened on recent CT scan * insulin-dependent diabetes mellitus, * rheumatoid arthritis on prednisone & leflunomide, * coronary artery disease status post stenting, * History of left TMA, chronic right foot ulcer with the revision debridement October 29 * Hypernatremia- resolved * Hypokalemia- improved * Decubitus ulcer lower back and coccyx area * Severe anemia and drop in hematocrit Plan * Continue vancomycin; await culture report from yesterday * Check guaiac stools; check iron studies and reticulocyte count; transfuse 1 unit and recheck CBC today however the transfusion and again tomorrow morning; minimize blood draw * Replace potassium by mouth 40 mEq 1 and recheck potassium tomorrow; * Continue stress dose hydrocortisone 12.5 mg twice a day * Continue Levemir to 6 units twice a day Current Medications Sig/Lai Start time Last Medication Dose Route Stop Time Status Admin Acetaminophen 1,000 MG Q6P PRN 10/21 1700 AC 10/26 IV 1220 Aspirin 81 MG DAILY 10/23 1000 AC 10/30 PO 0843 Atorvastatin Calcium 80 MG 1700 10/23 1700 AC 10/29 PO 1711 Carvedilol 6.25 MG BID 10/29 1000 AC 10/30 PO 0928 Ferrous Sulfate 325 MG DAILY 10/29 1550 AC 10/30 PO 0843 Folic Acid 1 MG DAILY 10/21 1703 AC 10/30 PO 0842 Heparin Sodium 5,000 UNIT Q8 10/21 2200 AC 10/30 (Porcine) SC 0540 Hydrocortisone 12.5 MG Q12 10/30 1000 AC 10/30 Sodium Succinate IV 0845 Hydrocortisone 50 MG ONCE ONE 10/29 1200 DC 10/29 Sodium Succinate IV 10/29 1201 1723 Insulin Aspart 0 TIDAC/HS 10/29 1700 AC 10/30 SC 0803 Insulin Detemir 6 UNITS BID 10/29 2200 AC 10/30 SC 0913 Insulin Human Regular 0 Q6 10/28 2359 DC 10/29 SC 0639 Multivitamins 1 TAB DAILY 10/21 1703 AC 10/30 PO 0840 Nitroglycerin 0.5 GM Q6 10/26 0850 AC 10/30 TOP 0540 Nystatin 1 VANI TID PRN 10/27 1500 10/28 TOP 0908 Potassium Chloride 40 MEQ ONCE ONE 10/30 1015 DC PO 10/30 1016 Potassium Chloride 40 MEQ ONCE ONE 10/29 1800 DC PO 10/29 1801 Potassium Chloride 40 MEQ ONCE ONE 10/29 1445 DC 10/29 PO 10/29 1446 1711 Potassium Chloride 10 MEQ Q1H 10/29 1315 DC 10/29 IV 10/29 1416 1924 Vancomycin HCl 1,500 MG Q24 10/29 1000 AC 10/30 Dextrose/Water 250 ML IV 0854 Vitamin A/Vitamin D 1 VANI Q6-PRN PRN 10/27 1500 TOP Laboratory Tests 10/30/17 0930: CBC w Diff NO MAN DIFF REQ, RBC 2.24 L, MCV 82.4, MCH 28.1, MCHC 34.1, RDW 15.1 H, MPV 8.9, Gran % 85.7 H, Lymphocytes % 11.5 L, Monocytes % 1.9, Eosinophils % 0.8, Basophils % 0.1, Absolute Granulocytes 8.6 H, Absolute Lymphocytes 1.2, Absolute Monocytes 0.2, Absolute Eosinophils 0.1, Absolute Basophils 0 10/30/17 0650: Anion Gap 10, Estimated GFR > 60, BUN/Creatinine Ratio 22.7, CBC w Diff NO MAN DIFF REQ, RBC 2.33 L, MCV 83.0, MCH 28.2, MCHC 33.9, RDW 15.2 H, MPV 9.3, Gran % 86.0 H, Lymphocytes % 11.3 L, Monocytes % 1.8, Eosinophils % 0.6, Basophils % 0.3, Absolute Granulocytes 9.4 H, Absolute Lymphocytes 1.2, Absolute Monocytes 0.2, Absolute Eosinophils 0.1, Absolute Basophils 0 10/29/17 0615: Anion Gap 11, Estimated GFR > 60, BUN/Creatinine Ratio 19.0, Total Bilirubin 2.1 H, Direct Bilirubin 1.8 H, AST 81 H, ALT 59, Alkaline Phosphatase 345 H, Total Protein 4.6 L, Albumin 1.6 L 10/27/17 2142: Vancomycin Trough 21.0 H 10/27/17 1430: Urinalysis MOD H, Urine Color YEL, Urine Clarity HAZY H, Urine pH 6.0, Ur Specific [place] 1.015, Urine Protein 30 H, Urine Ketones NEG, Urine Nitrite NEG, Urine Bilirubin NEG@ICTO, Urine Urobilinogen 4.0 H, Ur Leukocyte Esterase TRACE H, Ur Microscopic SEDIMENT EXAMINED, Urine RBC 3-5, Urine WBC 5-10 H, Ur Epithelial Cells RARE, Urine Bacteria FEW H, Granular Casts FEW H, Urine Hemoglobin LARGE H, Urine Glucose NEG Microbiology 10/29 1700 BLOOD: Blood Culture - RECD 10/29 1619 BLOOD: Blood Culture - RECD 10/28 1800 BLOOD: Blood Culture - RES GRAM POSITIVE COCCI 10/28 1245 BLOOD: Blood Culture - RES GRAM POSITIVE COCCI 10/28 1024 BLOOD: Blood Culture - CAN Cancelled: NO SAMPLE COLLECTED 10/27 1430 URINE ROUT: Urine Culture - COMP 10/27 143 BLOOD: Blood Culture - RES METH RESIST STAPH AUREUS 10/27 1415 BLOOD: Blood Culture - RES METH RESIST STAPH AUREUS Vital Signs Date Time Temp Pulse Resp B/P B/P Pulse O2 O2 Flow FiO2 Mean Ox Delivery Rate 10/30 0958 97.6 74 20 130/58 10/30 0928 74 130/58 10/30 0648 97.6 80 20 120/60 95 Room Air 10/29 2212 98.2 77 18 110/58 92 10/29 2200 97.6 84 18 110/58 10/29 2155 84 11058 10/29 2154 84 11010/29 1800 97.6 77 18 10/29 1600 Nasal 2.0L Cannula 10/29 1600 97.6 77 18 11010/29 1512 77 11010/29 1400 97.6 77 18 96 Nasal 3.0L Cannula Intake & Output 10/30 1600 10/30 0800 10/30 0000 Intake Total 110 1485 Output Total 250 Balance -140 1485 Intake, IV 10 345 Intake, Oral 100 1140 Output, Urine 250 Patient 195 lb Weight
[2017-10-30 12:47] VITALS: BP 122/58
[2017-10-30 14:18] VITALS: BP 110/70
[2017-10-30 15:06] VITALS: BP 130/62
[2017-10-30 23:44] VITALS: BP 142/70
[2017-10-31 01:17] LABS: ABSOLUTE BASOPHIL COUNT 0 /CUMM (0.0-0.2); ABSOLUTE EOSINOPHIL COUNT 0.1 /CUMM (0.0-0.7); ABSOLUTE GRANULOCYTE CT 10.1 /CUMM (1.4-6.5); ABSOLUTE LYMPH COUNT 0.6 /CUMM (1.2-3.4); ABSOLUTE MONOCYTE COUNT 0 /CUMM (0.10-0.60); BASOPHIL % 0.1 % (0.0-2.0); EOSINOPHIL % 0.5 % (0-5); HEMATOCRIT 22.3 % (42-52); MEAN CORPUSCULAR HGB 27.7 PG (27.0-31.0); MEAN CORPUSCULAR HGB CONC 33.7 G/DL (33.0-37.0); MEAN CORPUSCULAR VOLUME 82.2 FL (80.0-94.0); MEAN PLATELET VOLUME 8.9 FL (7.4-10.4); RBC DISTRIBUTION WIDTH 15.1 % (11.5-14.5); RED BLOOD CELL CT 2.71 /CUMM (4.70-6.10); WHITE BLOOD CELL COUNT 10.8 /CUMM (4.8-10.8)
[2017-10-31 02:21] LABS: GRANULOCYTE % 93.4 % (42.2-75.2); PLATELET COUNT 276 /CUMM (130-400)
--- NOTE | 2017-10-31 05:30 | Event Note ---
Event Note Event Note: I was notified about fever of 101. The patient had a blood transfusion around 4 hours ago. He has also MRSA positive blood culture, last culture was 2 days ago. Blood transfusion reaction is unlikely given no rash, itching, or dyspnea. This is most likely related to bacteremia. We sent blood repeat blood culture and urine culture. Patient was given IV Tylenol.
[2017-10-31 06:52] VITALS: BP 140/66
--- NOTE | 2017-10-31 07:00 | PN- Housestaff ---
Subjective Follow-up For: MRSA osteomyelitis with persistent bacteremia s/p Right foot TMA Steroid dependence with adrenal insufficiency Subjective: Mr Baltazar was seen and examined this morning. He is resting comfortably in bed. Denies any issues overnight. States that he was able to get some rest and feels refreshed this morning. He has been tolerating by mouth intake well. Patient also states that following the transfusion of 1 unit of PRBCs he does feel more energized. This morning he denies any fever, chills, nausea, vomiting. States that his pain is well controlled. Review of Systems Constitutional: Reports: see HPI. Objective Last 24 Hrs of Vital Signs/I&O Vital Signs Date Time Temp Pulse Resp B/P B/P Pulse O2 O2 Flow FiO2 Mean Ox Delivery Rate 10/31 1454 98.7 82 20 132/64 94 Room Air 10/31 0953 83 140/66 10/31 0652 98.6 81 20 140/66 94 Nasal 2.0L Cannula 10/31 0132 100.6 10/31 0128 100.6 95 Nasal 2.0L Cannula 10/31 0045 101.4 10/31 0021 101.4 10/31 0000 95 Nasal 2.0L Cannula 10/30 2344 98.5 106 16 142/70 96 Room Air 10/30 2237 105 142/70 Intake & Output 10/31 1600 10/31 0800 10/31 0000 Intake Total 220 200 Output Total 300 Balance -80 200 Intake, IV 120 Intake, Oral 100 200 Output, Urine 300 Physical Exam General Appearance: Alert, Oriented X3, Cooperative Cardiovascular: Normal S1, Normal S2 Lungs: Clear to Auscultation, Normal Air Movement Abdomen: Normal Bowel Sounds, Soft, No Tenderness Neurological: Normal Speech Extremities: No Edema, Normal Pulses, Left TMA, Right foot wrapped in bandage. No drainage or erythema Current Medications: Current Medications Sig/Lai Start time Last Medication Dose Route Stop Time Status Admin Acetaminophen 1,000 MG Q6P PRN 10/21 1700 AC 10/31 IV 0045 Aspirin 81 MG DAILY 10/23 1000 AC 10/31 PO 0952 Atorvastatin Calcium 80 MG 1700 10/23 1700 DC 10/30 PO 1709 Carvedilol 6.25 MG BID 10/29 1000 AC 10/31 PO 0953 Collagenase 1 VANI DAILY PRN 10/30 1615 AC 10/31 TOP 0936 Daptomycin 900 MG Q24H 10/31 1230 AC 10/31 Sodium Chloride 50 ML IV 1354 Ferrous Sulfate 325 MG TID 10/31 1600 AC PO Ferrous Sulfate 325 MG DAILY 10/29 1550 DC 10/31 PO 0952 Folic Acid 1 MG DAILY 10/21 1703 AC 10/31 PO 0952 Heparin Sodium 5,000 UNIT Q8 10/21 2200 AC 10/31 (Porcine) SC 1355 Hydrocortisone 12.5 MG Q12 10/30 1000 AC 10/31 Sodium Succinate IV 0924 Insulin Aspart 0 TIDAC/HS 10/29 1700 AC 10/31 SC 1356 Insulin Detemir 6 UNITS BID 10/29 2200 AC 10/31 SC 0952 Multivitamins 1 TAB DAILY 10/21 1703 AC 10/31 PO 0952 Nitroglycerin 0.5 GM Q6 10/26 0850 AC 10/31 TOP 1356 Non-Formulary 0 SEE ADMIN CRITERIA 10/31 1215 CAN Medication ANY Non-Formulary 0 SEE ADMIN CRITERIA 10/31 1215 CAN Medication ANY Nystatin 1 VANI TID PRN 10/27 1500 DC 10/28 TOP 0908 Omeprazole 40 MG BID 10/31 1045 AC 10/31 PO 1355 Potassium Chloride 40 MEQ ONCE ONE 10/31 1045 DC 10/31 PO 10/31 1046 1355 Trimethoprim/ 30 ML Q12H 10/31 1245 AC Sulfamethoxazole IV Dextrose/Water 500 ML Vancomycin HCl 1,500 MG Q24 10/29 1000 DC 10/31 Dextrose/Water 250 ML IV 0924 Vitamin A/Vitamin D 1 VANI Q6-PRN PRN 10/27 1500 TOP Last 24 Hrs of Lab/[place] Results Last 24 Hrs of Labs/Mics: Laboratory Tests 10/31/17 0724: Anion Gap 9, Estimated GFR > 60, BUN/Creatinine Ratio 17.3, CBC w Diff NO MAN DIFF REQ, RBC 2.63 L, MCV 83.9, MCH 28.0, MCHC 33.4, RDW 15.3 H, MPV 8.5, Gran % 88.7 H, Lymphocytes % 8.4 L, Monocytes % 2.3, Eosinophils % 0.5, Basophils % 0.1, Absolute Granulocytes 9.9 H, Absolute Lymphocytes 0.9 L, Absolute Monocytes 0.3, Absolute Eosinophils 0.1, Absolute Basophils 0 10/31/17 0030: Urinalysis MOD H, Urine Color YEL, Urine Clarity CLEAR, Urine pH 6.0, Ur Specific [place] 1.010, Urine Protein NEG, Urine Ketones NEG, Urine Nitrite NEG, Urine Bilirubin NEG, Urine Urobilinogen 2.0 H, Ur Leukocyte Esterase TRACE H, Ur Microscopic SEDIMENT EXAMINED, Urine RBC 10-15 H, Ur Epithelial Cells RARE, Urine Mucus FEW, Urine Hemoglobin MOD H, Urine Glucose NEG 10/31/17 0015: CBC w Diff NO MAN DIFF REQ, RBC 2.71 L, MCV 82.2, MCH 27.7, MCHC 33.7, RDW 15.1 H, MPV 8.9, Gran % 93.4 H, Lymphocytes % 5.5 L, Monocytes % 0.5 L, Eosinophils % 0.5, Basophils % 0.1, Absolute Granulocytes 10.1 H, Absolute Lymphocytes 0.6 L, Absolute Monocytes 0 L, Absolute Eosinophils 0.1, Absolute Basophils 0 Microbiology 10/31 44 BLOOD: Blood Culture - RECD 11/01 39 BLOOD: Blood Culture - RECD 10/31 29 URINE ROUT: Urine Culture - RECD Assessment/Plan Assessment: Patient is a 61-year-old male with past medical history significant for insulin- dependent diabetes mellitus, rheumatoid arthritis on prednisone & leflunomide, coronary artery disease status post stenting, left TMA, chronic right foot ulcer was brought to [place] after found by 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 Vitals at admission is significant for MAXIMUM TEMPERATURE of 100.6, blood pressure 106/68 mmHg. White count of 13,000 with 72 segments and bands. Troponin of 0.85, elevated d-dimer. Chest x-ray showing patchy opacity in the right upper lobe and mild cardiomegaly. X-ray of Right foot revealed extensive destructive changes in the second to fourth digits. CT of chest is significant for central cavitation and opacities in both lungs. CT abdomen Prominent perinephric edema with prominent prostate. Admitted to ICU initially on 10/21/2017 given sepsis secondary to diabetic foot infection. He did have persistent MRSA bacteremia with extensive seeding into lungs, urine, joints. Once he was hemodynamic stable transferred to telemetry. Plan Problem list 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 Insulin-dependent diabetic mellitus Cavitation in the lung Type II AK Encephalopathy Inflammatory anemia Hypokalemia MRSA osteomyelitis with persistent bacteremia Appears secondary to uncontrolled diabetes and on steroids giving room for rapid progression. Initially started broad with IV ceftazidime and Flagyl and transitioned to IV vancomycin after cultures results. MRI did show abscess of right foot. Blood cultures were persistently positive. ESR 125. Underwent tarsometatarsal amputation on 10/25/17. Underwent ANNA and wound closure on . Given bacteremia as well as being febrile overnight we will transition and changes antibiotics from vancomycin to daptomycin (900 mg IV every 24 hours.) Will also begin the patient on Bactrim Q 12 hours. CPK added to am labs. Will also discontinue statin in the setting of medication interaction with daptomycin. (Iatrogenic) Steroid induced adrenal insufficiency He did have suppression of his pituitary axis secondary to chronic steroid intake. Placed on IV hydrocortisone to maintain his blood pressure. He received stress dose of steroids prior to procedures. Currently on hydrocodone 12.5 mg IV every 12. May transition to PO prednisone on 11/01/2017. * Monitor blood pressure. Insulin-dependent diabetic mellitus HbA1c of 7.2. Sugars remained relatively controlled on current regimen * Continue Levemir 6 units twice a day and NovoLog sliding scale per endocrinology. Intermixed ground glass attenuation on imaging Imaging shows opacities exhibiting reverse halo sign (atoll sign). Also, some of the opacities have central lucencies, suspicious for cavitary change. Given MRSA bacteremia, seeding should be first differential. However patient has been on leflunomide so tuberculosis should be second in the differential. Repeat CT on 10/28/17 did show dense groundglass opacification is also noted Probes trended down. He had a history of CAD with diabetes. Echocardiogram did show EF of 40% with anteroseptal hypokinesis (?old). Mild mitral regurgitation without any obvious digitations. Underwent ANNA. Negative for any vegetations. Continue ASA, Coreg, Statin. Encephalopathy Patient was altered despite aggressive treatment of his infection. Improved after giving IV thiamine for few days. Probably alcohol related. Anemia H&H of 6.3/18.5. Previous indices ferritin 1500, iron of 12, TIBC 143 suggestive of anemia of chronic disease/inflammation related. Obvious source could be osteomyelitis. Treating current condition should help with his anemia as well. * Monitor H&H * Continue oral iron, increased frequency to TID * Guiac all stools #Hypokalemia * PO K 40 meq X 1. Monitor K in am. * Keep > 4.0. DVT prophylaxis SC heparin Code status full code Problem List: 1. Anemia 2. Osteomyelitis of right foot 3. Bacteremia Pain Ratin Pain Location: No Pain Endorsed Pain Goal: Remain pain free Pain Plan: Acetaminophen PRN Tomorrow's Labs & Rationales: CBC: Monitor H/H in the setting of ABLA. BEP: monitor Electrolytes
[2017-10-31 08:33] LABS: ABSOLUTE BASOPHIL COUNT 0 /CUMM (0.0-0.2); ABSOLUTE LYMPH COUNT 0.9 /CUMM (1.2-3.4); ABSOLUTE MONOCYTE COUNT 0.3 /CUMM (0.10-0.60)
[2017-10-31 08:59] LABS: ABSOLUTE EOSINOPHIL COUNT 0.1 /CUMM (0.0-0.7); ABSOLUTE GRANULOCYTE CT 9.9 /CUMM (1.4-6.5); BASOPHIL % 0.1 % (0.0-2.0); EOSINOPHIL % 0.5 % (0-5); HEMATOCRIT 22.1 % (42-52); MEAN CORPUSCULAR HGB CONC 33.4 G/DL (33.0-37.0); MEAN CORPUSCULAR VOLUME 83.9 FL (80.0-94.0); MEAN PLATELET VOLUME 8.5 FL (7.4-10.4); PLATELET COUNT 298 /CUMM (130-400); RBC DISTRIBUTION WIDTH 15.3 % (11.5-14.5); RED BLOOD CELL CT 2.63 /CUMM (4.70-6.10); WHITE BLOOD CELL COUNT 11.2 /CUMM (4.8-10.8)
[2017-10-31 10:06] LABS: GRANULOCYTE % 88.7 % (42.2-75.2)
--- NOTE | 2017-10-31 10:28 | PN- Att Addend ---
Attending Addendum Attending Brief Note Patient seen and examined. Plan of care discussed with the medical team and the patient. Available lab work and radiology test reports were reviewed. Patient is lying in bed this morning and he appears more awake and energetic this morning. There have been no appreciable change in his clinical status since yesterday. As per nursing staff patient continues to have melena. His by mouth intake remains very poor. He denies any fever or chills overnight and denies pain in the right foot. He denies any chest pain difficulty breathing nausea vomiting or abdominal pain. Patient underwent further debridement of right foot on October [address] Pena. Exam: General: Patient awake lethargic, he is oriented without any distress; appears pale CVS: S1 plus S2 without any murmur or gallops Chest: Few scattered crepitation without any wheeze. There is no respiratory distress. 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 oriented without any focal neuro deficit and follows commands appropriately Extremities: Right foot is covered in a new dressing; edema of the hands seems to have improved; no clubbing or cyanosis noted Assessment * Right foot osteomyelitis status post TMA October 25 * Persistent MRSA bacteremia- likely vancomycin failure * Recurrent fever despite TMA * Rule out endocarditis- ANNA negative * Persistent MRSA bacteremia likely originating from osteomyelitis * Suspected pulmonary abscesses from bacteremia which have worsened on recent CT scan * insulin-dependent diabetes mellitus, * rheumatoid arthritis on prednisone & leflunomide, * coronary artery disease status post stenting, * History of left TMA, chronic right foot ulcer with the revision debridement October 29 * Hypernatremia- resolved * Hypokalemia- improved * Decubitus ulcer lower back and coccyx area * Severe anemia and drop in hematocrit- patient has been having the melena and has required 1 unit of blood transfusion on October 30. Case discussed with Dr. Almonte. At this point no plans for endoscopy unless patient has active GI bleed. Plan * It appears the vancomycin has failed to resolve his bacteremia; I will suggest to consider alternative agents such as linezolid * Check guaiac stools; recheck CBC tomorrow ; add PPI Prilosec twice a day. Suggest starting iron sulfate 325 mg 3 times a day by mouth with food. * Replace potassium by mouth 40 mEq 1 and recheck potassium tomorrow; * Continue stress dose hydrocortisone 12.5 mg twice a day * Continue Levemir to 6 units twice a day * Encourage oral liquids and recheck sodium level tomorrow * If patient continues to drop hematocrit we may need to stop his aspirin. Current Medications Sig/Lai Start time Last Medication Dose Route Stop Time Status Admin Acetaminophen 1,000 MG Q6P PRN 10/21 1700 AC 10/31 IV 0045 Aspirin 81 MG DAILY 10/23 1000 AC 10/31 PO 0952 Atorvastatin Calcium 80 MG 1700 10/23 1700 AC 10/30 PO 1709 Carvedilol 6.25 MG BID 10/29 1000 AC 10/31 PO 0953 Collagenase 1 VANI DAILY PRN 10/30 1615 AC 10/31 TOP 0936 Ferrous Sulfate 325 MG DAILY 10/29 1550 AC 10/31 PO 0952 Folic Acid 1 MG DAILY 10/21 1703 AC 10/31 PO 0952 Heparin Sodium 5,000 UNIT Q8 10/21 2200 AC 10/31 (Porcine) SC 0608 Hydrocortisone 12.5 MG Q12 10/30 1000 AC 10/31 Sodium Succinate IV 0924 Insulin Aspart 0 TIDAC/HS 10/29 1700 AC 10/30 SC 1709 Insulin Detemir 6 UNITS BID 10/29 2200 AC 10/31 SC 0952 Multivitamins 1 TAB DAILY 10/21 1703 AC 10/31 PO 0952 Nitroglycerin 0.5 GM Q6 10/26 0850 AC 10/31 TOP 0607 Nystatin 1 VANI TID PRN 10/27 1500 AC 10/28 TOP 0908 Vancomycin HCl 1,500 MG Q24 10/29 1000 AC 10/31 Dextrose/Water 250 ML IV 0924 Vitamin A/Vitamin D 1 VANI Q6-PRN PRN 10/27 1500 AC TOP Laboratory Tests 10/31/17 0724: Anion Gap 9, Estimated GFR > 60, BUN/Creatinine Ratio 17.3, CBC w Diff NO MAN DIFF REQ, RBC 2.63 L, MCV 83.9, MCH 28.0, MCHC 33.4, RDW 15.3 H, MPV 8.5, Gran % 88.7 H, Lymphocytes % 8.4 L, Monocytes % 2.3, Eosinophils % 0.5, Basophils % 0.1, Absolute Granulocytes 9.9 H, Absolute Lymphocytes 0.9 L, Absolute Monocytes 0.3, Absolute Eosinophils 0.1, Absolute Basophils 0 10/31/17 0030: Urinalysis MOD H, Urine Color YEL, Urine Clarity CLEAR, Urine pH 6.0, Ur Specific [place] 1.010, Urine Protein NEG, Urine Ketones NEG, Urine Nitrite NEG, Urine Bilirubin NEG, Urine Urobilinogen 2.0 H, Ur Leukocyte Esterase TRACE H, Ur Microscopic SEDIMENT EXAMINED, Urine RBC 10-15 H, Ur Epithelial Cells RARE, Urine Mucus FEW, Urine Hemoglobin MOD H, Urine Glucose NEG 10/31/17 0015: CBC w Diff NO MAN DIFF REQ, RBC 2.71 L, MCV 82.2, MCH 27.7, MCHC 33.7, RDW 15.1 H, MPV 8.9, Gran % 93.4 H, Lymphocytes % 5.5 L, Monocytes % 0.5 L, Eosinophils % 0.5, Basophils % 0.1, Absolute Granulocytes 10.1 H, Absolute Lymphocytes 0.6 L, Absolute Monocytes 0 L, Absolute Eosinophils 0.1, Absolute Basophils 0 10/30/17 0930: CBC w Diff NO MAN DIFF REQ, RBC 2.24 L, MCV 82.4, MCH 28.1, MCHC 34.1, RDW 15.1 H, MPV 8.9, Gran % 85.7 H, Lymphocytes % 11.5 L, Monocytes % 1.9, Eosinophils % 0.8, Basophils % 0.1, Absolute Granulocytes 8.6 H, Absolute Lymphocytes 1.2, Absolute Monocytes 0.2, Absolute Eosinophils 0.1, Absolute Basophils 0, Retic Count 3.98 H 10/30/17 0650: Anion Gap 10, Estimated GFR > 60, BUN/Creatinine Ratio 22.7, Iron 25 L, TIBC 158 L, Ferritin 660.0 H, CBC w Diff NO MAN DIFF REQ, RBC 2.33 L, MCV 83.0, MCH 28.2, MCHC 33.9, RDW 15.2 H, MPV 9.3, Gran % 86.0 H, Lymphocytes % 11.3 L , Monocytes % 1.8, Eosinophils % 0.6, Basophils % 0.3, Absolute Granulocytes 9.4 H, Absolute Lymphocytes 1.2, Absolute Monocytes 0.2, Absolute Eosinophils 0.1, Absolute Basophils 0 10/29/17 0615: Anion Gap 11, Estimated GFR > 60, BUN/Creatinine Ratio 19.0, Total Bilirubin 2.1 H, Direct Bilirubin 1.8 H, AST 81 H, ALT 59, Alkaline Phosphatase 345 H, Total Protein 4.6 L, Albumin 1.6 L Microbiology 10/31 0045 BLOOD: Blood Culture - RECD 10/31 0040 BLOOD: Blood Culture - RECD 10/31 0030 URINE ROUT: Urine Culture - RECD 10/29 1700 BLOOD: Blood Culture - RES METH RESIST STAPH AUREUS 10/29 1619 BLOOD: Blood Culture - RES METH RESIST STAPH AUREUS 10/28 1800 BLOOD: Blood Culture - COMP METH RESIST STAPH AUREUS 10/28 1245 BLOOD: Blood Culture - COMP METH RESIST STAPH AUREUS Vital Signs Date Time Temp Pulse Resp B/P B/P Pulse O2 O2 Flow FiO2 Mean Ox Delivery Rate 10/31 0953 83 140/66 10/31 0652 98.6 81 20 140/66 94 Nasal 2.0L Cannula 10/31 0132 100.6 10/31 0128 100.6 95 Nasal 2.0L Cannula 10/31 0045 101.4 10/31 0021 101.4 10/31 0000 95 Nasal 2.0L Cannula 10/30 2344 98.5 106 16 142/70 96 Room Air 10/30 2237 105 142/70 10/30 1506 98.4 68 22 130/62 Nasal 2.0L Cannula 10/30 1418 98.7 71 20 110/70 95 10/30 1247 98.6 66 23 122/58 Nasal 2.0L Cannula Intake & Output 10/31 1600 10/31 0800 10/31 0000 Intake Total 220 200 Output Total 300 Balance -80 200 Intake, IV 120 Intake, Oral 100 200 Output, Urine 300
--- NOTE | 2017-10-31 11:56 | PN- Infect Dx ---
Subjective Subjective: MAXIMUM TEMPERATURE 101.4 on steroids. He complains of abdominal discomfort. He is reportedly having dark, guaiac positive stools. Objective Last 24 Hrs of Vital Signs/I&O Vital Signs Date Time Temp Pulse Resp B/P B/P Pulse O2 O2 Flow FiO2 Mean Ox Delivery Rate 10/31 0953 83 140/66 10/31 0652 98.6 81 20 140/66 94 Nasal 2.0L Cannula 10/31 0132 100.6 10/31 0128 100.6 95 Nasal 2.0L Cannula 10/31 0045 101.4 10/31 0021 101.4 10/31 0000 95 Nasal 2.0L Cannula 10/30 2344 98.5 106 16 142/70 96 Room Air 10/30 2237 105 142/70 10/30 1506 98.4 68 22 130/62 Nasal 2.0L Cannula 10/30 1418 98.7 71 20 110/70 95 10/30 1247 98.6 66 23 122/58 Nasal 2.0L Cannula Intake & Output 10/31 1600 10/31 0800 10/31 0000 Intake Total 220 200 Output Total 300 Balance -80 200 Intake, IV 120 Intake, Oral 100 200 Output, Urine 300 Physical Exam Other Physical Findings: He is mildly lethargic but arousable and in no acute distress Lungs scattered rhonchi Heart regular rhythm with a 1/6 systolic ejection murmur Abdomen is soft, nontender with positive bowel sounds Extremities right foot TMA incision clean, with no erythema or drainage; deep plantar ulcer with no purulent drainage or surrounding erythema Results Last 24 Hours of Lab Results: Laboratory Tests 10/31 10/31 0724 0030 Chemistry Sodium (137 - 145 mmol/L) 148 H Potassium (3.5 - 5.1 mmol/L) 4.0 Chloride (98 - 107 mmol/L) 119 H Carbon Dioxide (22 - 30 mmol/L) 19 L Anion Gap (5 - 16) 9 BUN (9 - 20 mg/dL) 19 Creatinine (0.7 - 1.2 mg/dL) 1.1 Estimated GFR (>60 ml/min) > 60 BUN/Creatinine Ratio (7 - 25 %) 17.3 Hematology CBC w Diff NO MAN DIFF REQ WBC (4.8 - 10.8 /CUMM) 11.2 H RBC (4.70 - 6.10 /CUMM) 2.63 L Hgb (14.0 - 18.0 G/DL) 7.4 *L Hct (42 - 52 %) 22.1 L MCV (80.0 - 94.0 FL) 83.9 MCH (27.0 - 31.0 PG) 28.0 MCHC (33.0 - 37.0 G/DL) 33.4 RDW (11.5 - 14.5 %) 15.3 H Plt Count (130 - 400 /CUMM) 298 MPV (7.4 - 10.4 FL) 8.5 Gran % (42.2 - 75.2 %) 88.7 H Lymphocytes % (20.5 - 51.1 %) 8.4 L Monocytes % (1.7 - 9.3 %) 2.3 Eosinophils % (0 - 5 %) 0.5 Basophils % (0.0 - 2.0 %) 0.1 Absolute Granulocytes (1.4 - 6.5 /CUMM) 9.9 H Absolute Lymphocytes (1.2 - 3.4 /CUMM) 0.9 L Absolute Monocytes (0.10 - 0.60 /CUMM) 0.3 Absolute Eosinophils (0.0 - 0.7 /CUMM) 0.1 Absolute Basophils (0.0 - 0.2 /CUMM) 0 Urines Urinalysis MOD H Urine Color (YEL,AMB,STR) YEL Urine Clarity (CLEAR) CLEAR Urine pH (5.0 - 8.0) 6.0 Ur Specific [place] (1.001 - 1.035) 1.010 Urine Protein (NEG,<30 MG/DL) NEG Urine Ketones (NEG) NEG Urine Nitrite (NEG) NEG Urine Bilirubin (NEG) NEG Urine Urobilinogen (0.1 - 1.0 EU/dl) 2.0 H Ur Leukocyte Esterase (NEG) TRACE H Ur Microscopic SEDIMENT EXAMINED Urine RBC (0 - 5 /HPF) 10-15 H Ur Epithelial Cells (NONE,FEW) RARE Urine Mucus (FEW,NONE) FEW Urine Hemoglobin (NEG) MOD H Urine Glucose (N MG/DL) NEG 10/31 0015 Hematology CBC w Diff NO MAN DIFF REQ WBC (4.8 - 10.8 /CUMM) 10.8 RBC (4.70 - 6.10 /CUMM) 2.71 L Hgb (14.0 - 18.0 G/DL) 7.5 L Hct (42 - 52 %) 22.3 L MCV (80.0 - 94.0 FL) 82.2 MCH (27.0 - 31.0 PG) 27.7 MCHC (33.0 - 37.0 G/DL) 33.7 RDW (11.5 - 14.5 %) 15.1 H Plt Count (130 - 400 /CUMM) 276 MPV (7.4 - 10.4 FL) 8.9 Gran % (42.2 - 75.2 %) 93.4 H Lymphocytes % (20.5 - 51.1 %) 5.5 L Monocytes % (1.7 - 9.3 %) 0.5 L Eosinophils % (0 - 5 %) 0.5 Basophils % (0.0 - 2.0 %) 0.1 Absolute Granulocytes (1.4 - 6.5 /CUMM) 10.1 H Absolute Lymphocytes (1.2 - 3.4 /CUMM) 0.6 L Absolute Monocytes (0.10 - 0.60 /CUMM) 0 L Absolute Eosinophils (0.0 - 0.7 /CUMM) 0.1 Absolute Basophils (0.0 - 0.2 /CUMM) 0 Last 24 Hours of [place] Results: Blood cultures October 29 positive for MRSA Blood cultures October 31 pending Urine culture October 31 pending Assessment/Plan ID Impression: Persistent MRSA bacteremia despite now 10 days of Vancomycin with recent fever and with his white blood cell count mildly elevated. He has no obvious focus of infection, with his ANNA negative for any vegetation and with his right foot not felt to be a source of infection at this time, status post revision of the exposed metatarsal stumps with closure of the wound 2 days ago and a right transmetatarsal amputation 6 days ago. A pulmonary source is possible, with the recent CT scan revealing progression of his opacities, with cavitation, presumably secondary to seeding from the bacteremia, though he has minimal respiratory symptoms. His recent CT of the abdomen did not identify any other focus of infection. His most recent [place] to Vancomycin was 1.5 but, given the persistent bacteremia, feel that his antibiotics will need to be adjusted. His anemia is likely secondary to a GI source, with guaiac positive stool reported, and he will need evaluation for this. Suggestion: 1. GI evaluation 2. Follow-up most recent blood cultures from today 3. Discontinue Vancomycin 4. Begin Daptomycin 900 mg IV every 24 hours and check a baseline CPK 5. Begin Bactrim (480 mg based on the trimethoprim) IV every 12 hours Bev Huffman MD will be covering until November 04
--- NOTE | 2017-10-31 12:13 | PN- Diabetes ---
Assessment/Plan Diabetes Assessment: 61-year-old man with past medical history significant for diabetes mellitus and coronary artery disease status post stent placement, was brought in by ambulance for evaluation of altered mental status. Patient has a necrotic, purulent, chronic right foot plantar ulcer. His BP was borderline low. He used to take prednisone chronically for his arthritis. He was placed on stress dose of steroid-- Hydrocortisone 50 mg iv twice a day. Hydrocortisone was gradually decreased to 12.5 mg iv twice a day. The blood culture was positive for Gram positive cocci in cluster ( MRSA). He underwent ANNA and closure of the wound in the afternoon and he received two doses of hydrocortisone 50 mg iv on 10/29/2017. Currently he is on hydrocortisone 12.5 mg iv twice a day. Patient was restarted on levemir 6 units twice a day, Novolog coverage before meals. His FSGs were 178, 131, 97, 95 and 98. He had fever of 101 last night. Plan: 1. continue the current insulin regimen for now; 2. continue the current hydrocortisone 12.5 mg iv twice a day for now; 3. if he has no more fever, hydrocortisone can be discotinued, he will go back on his usual steroid for RA-- prednisone 5 mg daily. 4. monitor FSGs and electrolytes. will follow. Subjective Subjective: He feels okay. Objective Last 24 Hrs of Vital Signs/I&O Vital Signs Date Time Temp Pulse Resp B/P B/P Pulse O2 O2 Flow FiO2 Mean Ox Delivery Rate 10/31 0953 83 140/66 10/31 0652 98.6 81 20 140/66 94 Nasal 2.0L Cannula 10/31 0132 100.6 10/31 0128 100.6 95 Nasal 2.0L Cannula 10/31 0045 101.4 10/31 0021 101.4 10/31 0000 95 Nasal 2.0L Cannula 10/30 2344 98.5 106 16 142/70 96 Room Air 10/30 2237 105 142/70 10/30 1506 98.4 68 22 130/62 Nasal 2.0L Cannula 10/30 1418 98.7 71 20 110/70 95 10/30 1247 98.6 66 23 122/58 Nasal 2.0L Cannula Intake & Output 10/31 1600 10/31 0800 10/31 0000 Intake Total 220 200 Output Total 300 Balance -80 200 Intake, IV 120 Intake, Oral 100 200 Output, Urine 300 Findings Pertinent Lab/[place] Results: Laboratory Tests 10/31 10/31 0724 0030 Chemistry Sodium (137 - 145 mmol/L) 148 H Potassium (3.5 - 5.1 mmol/L) 4.0 Chloride (98 - 107 mmol/L) 119 H Carbon Dioxide (22 - 30 mmol/L) 19 L Anion Gap (5 - 16) 9 BUN (9 - 20 mg/dL) 19 Creatinine (0.7 - 1.2 mg/dL) 1.1 Estimated GFR (>60 ml/min) > 60 BUN/Creatinine Ratio (7 - 25 %) 17.3 Hematology CBC w Diff NO MAN DIFF REQ WBC (4.8 - 10.8 /CUMM) 11.2 H RBC (4.70 - 6.10 /CUMM) 2.63 L Hgb (14.0 - 18.0 G/DL) 7.4 *L Hct (42 - 52 %) 22.1 L MCV (80.0 - 94.0 FL) 83.9 MCH (27.0 - 31.0 PG) 28.0 MCHC (33.0 - 37.0 G/DL) 33.4 RDW (11.5 - 14.5 %) 15.3 H Plt Count (130 - 400 /CUMM) 298 MPV (7.4 - 10.4 FL) 8.5 Gran % (42.2 - 75.2 %) 88.7 H Lymphocytes % (20.5 - 51.1 %) 8.4 L Monocytes % (1.7 - 9.3 %) 2.3 Eosinophils % (0 - 5 %) 0.5 Basophils % (0.0 - 2.0 %) 0.1 Absolute Granulocytes (1.4 - 6.5 /CUMM) 9.9 H Absolute Lymphocytes (1.2 - 3.4 /CUMM) 0.9 L Absolute Monocytes (0.10 - 0.60 /CUMM) 0.3 Absolute Eosinophils (0.0 - 0.7 /CUMM) 0.1 Absolute Basophils (0.0 - 0.2 /CUMM) 0 Urines Urinalysis MOD H Urine Color (YEL,AMB,STR) YEL Urine Clarity (CLEAR) CLEAR Urine pH (5.0 - 8.0) 6.0 Ur Specific [place] (1.001 - 1.035) 1.010 Urine Protein (NEG,<30 MG/DL) NEG Urine Ketones (NEG) NEG Urine Nitrite (NEG) NEG Urine Bilirubin (NEG) NEG Urine Urobilinogen (0.1 - 1.0 EU/dl) 2.0 H Ur Leukocyte Esterase (NEG) TRACE H Ur Microscopic SEDIMENT EXAMINED Urine RBC (0 - 5 /HPF) 10-15 H Ur Epithelial Cells (NONE,FEW) RARE Urine Mucus (FEW,NONE) FEW Urine Hemoglobin (NEG) MOD H Urine Glucose (N MG/DL) NEG 10/31 0015 Hematology CBC w Diff NO MAN DIFF REQ WBC (4.8 - 10.8 /CUMM) 10.8 RBC (4.70 - 6.10 /CUMM) 2.71 L Hgb (14.0 - 18.0 G/DL) 7.5 L Hct (42 - 52 %) 22.3 L MCV (80.0 - 94.0 FL) 82.2 MCH (27.0 - 31.0 PG) 27.7 MCHC (33.0 - 37.0 G/DL) 33.7 RDW (11.5 - 14.5 %) 15.1 H Plt Count (130 - 400 /CUMM) 276 MPV (7.4 - 10.4 FL) 8.9 Gran % (42.2 - 75.2 %) 93.4 H Lymphocytes % (20.5 - 51.1 %) 5.5 L Monocytes % (1.7 - 9.3 %) 0.5 L Eosinophils % (0 - 5 %) 0.5 Basophils % (0.0 - 2.0 %) 0.1 Absolute Granulocytes (1.4 - 6.5 /CUMM) 10.1 H Absolute Lymphocytes (1.2 - 3.4 /CUMM) 0.6 L Absolute Monocytes (0.10 - 0.60 /CUMM) 0 L Absolute Eosinophils (0.0 - 0.7 /CUMM) 0.1 Absolute Basophils (0.0 - 0.2 /CUMM) 0
[2017-10-31 14:54] VITALS: BP 132/64
[2017-10-31 22:35] VITALS: BP 142/70
[2017-11-01 06:00] VITALS: BP 142/68
--- NOTE | 2017-11-01 07:12 | PN- Housestaff ---
Subjective Follow-up For: MRSA osteomyelitis with persistent bacteremia s/p Right foot TMA Steroid dependence with adrenal insufficiency Tele-Events Since Last Visit: NSR 89-98 No Events Subjective: Mr. Baltazar was seen and examined this morning. He is resting comfortably in bed. Denies any issues overnight. States was able to get some rest, although states that he's not too enthusiastic about the mattress (clinitron) but understands the importance of it. States that his pain is well controlled. Denies any hematochezia or hematemesis. Denies any fever, chills, nausea, vomiting. Review of Systems Constitutional: Reports: see HPI. Objective Last 24 Hrs of Vital Signs/I&O Vital Signs Date Time Temp Pulse Resp B/P B/P Pulse O2 O2 Flow FiO2 Mean Ox Delivery Rate 11/01 1431 97.8 80 23 148/64 93 11/01 1041 91 142/68 11/01 0600 98.3 91 24 142/68 93 10/31 2235 99.1 91 16 142/70 94 Room Air 10/31 2149 96 10/31 1600 96 Room Air Room Air 10/31 1454 98.7 82 20 132/64 94 Room Air Intake & Output 11/01 1600 11/01 0800 11/01 0000 Intake Total 650 161 Output Total 50 Balance 650 111 Intake, IV 550 11 Intake, Oral 100 150 Output, Urine 50 Physical Exam General Appearance: Alert, Oriented X3 Cardiovascular: Regular Rate, Normal S1, Normal S2 Lungs: Clear to Auscultation Abdomen: Normal Bowel Sounds, Soft, No Tenderness Neurological: Normal Speech Extremities: No Cyanosis, No Edema, Normal Pulses, No Edema, Normal Pulses, Left TMA, right foor wrapped in bandage. No drainage or erythema Current Medications: Current Medications Sig/Lai Start time Last Medication Dose Route Stop Time Status Admin Acetaminophen 1,000 MG Q6P PRN 10/21 1700 AC 10/31 IV 0045 Aspirin 81 MG DAILY 10/23 1000 DC 11/01 PO 1040 Carvedilol 6.25 MG BID 10/29 1000 AC 11/01 PO 1041 Collagenase 1 VANI DAILY PRN 10/30 1615 AC 10/31 TOP 0936 Daptomycin 900 MG Q24H 10/31 1230 AC 11/01 Sodium Chloride 50 ML IV 1407 Ferrous Sulfate 325 MG TID 10/31 1600 AC 11/01 PO 1040 Folic Acid 1 MG DAILY 10/21 1703 AC 11/01 PO 1040 Heparin Sodium 5,000 UNIT Q8 10/21 2200 AC 11/01 (Porcine) SC 1407 Hydrocortisone 12.5 MG Q12 10/30 1000 DC 11/01 Sodium Succinate IV 1039 Insulin Aspart 0 TIDAC/HS 10/29 1700 AC 11/01 SC 0829 Insulin Detemir 6 UNITS BID 10/29 2200 AC 11/01 SC 1039 Multivitamins 1 TAB DAILY 10/21 1703 AC 11/01 PO 1040 Nitroglycerin 0.5 GM Q6 10/26 0850 AC 11/01 TOP 1130 Omeprazole 40 MG BID 10/31 1045 AC 11/01 PO 1040 Potassium Chloride 40 MEQ ONCE ONE 11/01 0845 DC 11/01 PO 11/01 0846 1039 Prednisone 5 MG DAILY 11/01 1318 AC PO Trimethoprim/ 30 ML Q12H 10/31 1245 AC 11/01 [place] 0050 Dextrose/Water 500 ML Vitamin A/Vitamin D 1 VANI Q6-PRN PRN 10/27 1500 AC TOP Last 24 Hrs of Lab/[place] Results Last 24 Hrs of Labs/Mics: Laboratory Tests 11/01/17 0646: Anion Gap 10, Estimated GFR > 60, BUN/Creatinine Ratio 12.7, CBC w Diff NO MAN DIFF REQ, RBC 2.45 L, MCV 83.4, MCH 27.9, MCHC 33.5, RDW 15.6 H, MPV 8.5, Gran % 89.0 H, Lymphocytes % 9.0 L, Monocytes % 1.3 L, Eosinophils % 0.5, Basophils % 0.2, Absolute Granulocytes 9.8 H, Absolute Lymphocytes 1.0 L, Absolute Monocytes 0.1, Absolute Eosinophils 0.1, Absolute Basophils 0 Assessment/Plan Assessment: Mr Baltazar is a 61-year-old male with past medical history significant for insulin -dependent diabetes mellitus, rheumatoid arthritis on prednisone & leflunomide, coronary artery disease status post stenting, left TMA, chronic right foot ulcer was brought to [place] after found by law enforcement at home altered and unkempt, covered with urine. Vitals at admission is significant for MAXIMUM TEMPERATURE of 100.6, blood pressure 106/68 mmHg. White count of 13,000 with 72 segments and bands. Troponin of 0.85, elevated d-dimer. Chest x-ray showing patchy opacity in the right upper lobe and mild cardiomegaly. X-ray of Right foot revealed extensive destructive changes in the second to fourth digits. CT of chest is significant for central cavitation and opacities in both lungs. CT abdomen Prominent perinephric edema with prominent prostate. Admitted to ICU initially on 10/21/2017 given sepsis secondary to diabetic foot infection. He did have persistent MRSA bacteremia with extensive seeding into lungs, urine, joints. Once he was hemodynamic stable transferred to telemetry. 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 Initially started broad with IV ceftazidime and Flagyl and transitioned to IV vancomycin after cultures results. MRI did show abscess of right foot. Blood cultures were persistently positive. ESR 125. Underwent tarsometatarsal amputation on 10/25/17. Underwent ANNA and wound closure on . Given bacteremia as well as being febrile overnight we will transition and changes antibiotics from vancomycin to daptomycin (900 mg IV every 24 hours.) Will also begin the patient on Bactrim Q 12 hours. Day two of daptomycin and Bactrim. Will repeat blood cultures 11/02/2017 and if positive may consider Spinal MRI. Monitor LFTs weekly while on daptomycin. CPK added to labs 10/31/2017. Will also discontinue statin in the setting of medication interaction with daptomycin. (Iatrogenic) Steroid induced adrenal insufficiency He did have suppression of his pituitary axis secondary to chronic steroid intake. Placed on IV hydrocortisone to maintain his blood pressure. He received stress dose of steroids prior to procedures. * Monitor blood pressure. * Transitioned to by mouth prednisone 5 mg from 12.5 mg hydro-cortisone BID. * If any signs of hypotension may consider taking back on increased dose of steroids. Insulin-dependent diabetic mellitus HbA1c of 7.2. Sugars remained relatively controlled on current regimen * Continue Levemir 6 units twice a day and NovoLog sliding scale per endocrinology. Intermixed ground glass attenuation on imaging Imaging shows opacities exhibiting reverse halo sign (atoll sign). Also, some of the opacities have central lucencies, suspicious for cavitary change. Given MRSA bacteremia, seeding should be first differential. However patient has been on leflunomide so tuberculosis should be second in the differential. Repeat CT on 10/28/17 did show dense groundglass opacification is also noted Continue Coreg. Encephalopathy Patient was altered despite aggressive treatment of his infection. Improved after giving IV thiamine for few days. Probably alcohol related. Anemia H&H of 6.8/20.4. Previous indices ferritin 1500, iron of 12, TIBC 143 suggestive of anemia of chronic disease/inflammation related. Obvious source could be osteomyelitis. Treating current condition should help with his anemia as well. * Monitor H&H * Continue oral iron, increased frequency to TID * Guiac all stools * Transfuse one unit PRBC, Will check a post transfusion CBC. Goal > 7. If any signs of active bleed consider immediate call to GI for scope. * Stop aspirin. #Hypokalemia * PO K 40 meq X 1. Monitor K in am. * Keep > 4.0. DVT prophylaxis SC heparin Code status full code Problem List: 1. Bacteremia 2. Anemia Pain Ratin Pain Location: No Pain Endorsed Pain Goal: Remain pain free Pain Plan: Acetaminophen Tomorrow's Labs & Rationales: CBC: Monitor H/H in the setting of anemia BEP: Monitor Electrolytes in the setting of K and Mg derangements.
[2017-11-01 08:04] LABS: ABSOLUTE BASOPHIL COUNT 0 /CUMM (0.0-0.2); ABSOLUTE GRANULOCYTE CT 9.8 /CUMM (1.4-6.5); ABSOLUTE MONOCYTE COUNT 0.1 /CUMM (0.10-0.60); BASOPHIL % 0.2 % (0.0-2.0); HEMATOCRIT 20.4 % (42-52); RED BLOOD CELL CT 2.45 /CUMM (4.70-6.10)
[2017-11-01 08:21] LABS: ABSOLUTE EOSINOPHIL COUNT 0.1 /CUMM (0.0-0.7); EOSINOPHIL % 0.5 % (0-5); MEAN CORPUSCULAR HGB 27.9 PG (27.0-31.0); MEAN CORPUSCULAR HGB CONC 33.5 G/DL (33.0-37.0); MEAN CORPUSCULAR VOLUME 83.4 FL (80.0-94.0); MEAN PLATELET VOLUME 8.5 FL (7.4-10.4); PLATELET COUNT 277 /CUMM (130-400); RBC DISTRIBUTION WIDTH 15.6 % (11.5-14.5)
--- NOTE | 2017-11-01 10:49 | PN- Infect Dx ---
Subjective Subjective: Fatigued. Afebrile. Review of Systems Comments: 12 points reviewed as noted, otherwise neg Objective Last 24 Hrs of Vital Signs/I&O Vital Signs Date Time Temp Pulse Resp B/P B/P Pulse O2 O2 Flow FiO2 Mean Ox Delivery Rate 11/01 0600 98.3 91 24 142/68 93 10/31 2235 99.1 91 16 142/70 94 Room Air 10/31 2149 96 10/31 1600 96 Room Air Room Air 10/31 1454 98.7 82 20 132/64 94 Room Air Intake & Output 11/01 1600 11/01 0800 11/01 0000 Intake Total 650 161 Output Total 50 Balance 650 111 Intake, IV 550 11 Intake, Oral 100 150 Output, Urine 50 Physical Exam Other Physical Findings: He is mildly lethargic but arousable and in no acute distress HEENT AT/VNC Neck no JVD Lungs scattered rhonchi Heart regular rhythm with a 1/6 systolic ejection murmur Abdomen is soft, nontender with positive bowel sounds Extremities right foot TMA incision clean, with no erythema or drainage; deep plantar ulcer with no purulent drainage or surrounding erythema Results Last 24 Hours of Lab Results: Laboratory Tests 11/01 645 Chemistry Sodium (137 - 145 mmol/L) 146 H Potassium (3.5 - 5.1 mmol/L) 3.7 Chloride (98 - 107 mmol/L) 116 H Carbon Dioxide (22 - 30 mmol/L) 20 L Anion Gap (5 - 16) 10 BUN (9 - 20 mg/dL) 14 Creatinine (0.7 - 1.2 mg/dL) 1.1 Estimated GFR (>60 ml/min) > 60 BUN/Creatinine Ratio (7 - 25 %) 12.7 Hematology CBC w Diff NO MAN DIFF REQ WBC (4.8 - 10.8 /CUMM) 11.0 H RBC (4.70 - 6.10 /CUMM) 2.45 L Hgb (14.0 - 18.0 G/DL) 6.8 *L Hct (42 - 52 %) 20.4 L MCV (80.0 - 94.0 FL) 83.4 MCH (27.0 - 31.0 PG) 27.9 MCHC (33.0 - 37.0 G/DL) 33.5 RDW (11.5 - 14.5 %) 15.6 H Plt Count (130 - 400 /CUMM) 277 MPV (7.4 - 10.4 FL) 8.5 Gran % (42.2 - 75.2 %) 89.0 H Lymphocytes % (20.5 - 51.1 %) 9.0 L Monocytes % (1.7 - 9.3 %) 1.3 L Eosinophils % (0 - 5 %) 0.5 Basophils % (0.0 - 2.0 %) 0.2 Absolute Granulocytes (1.4 - 6.5 /CUMM) 9.8 H Absolute Lymphocytes (1.2 - 3.4 /CUMM) 1.0 L Absolute Monocytes (0.10 - 0.60 /CUMM) 0.1 Absolute Eosinophils (0.0 - 0.7 /CUMM) 0.1 Absolute Basophils (0.0 - 0.2 /CUMM) 0 Last 24 Hours of [place] Results: PEC #: [id number] JESS: 10/31/17 STATUS: RES RECD: 10/31/[address]: Deni Bundy MD SOURCE: BLOOD ENTR: 10/31/[address] [facility] [address]: Dread CARD,Migue Rodriguez SPDESC: 2ND/VENOUS Radha CARD,Rebekah Rendon MD,Bryant Maria ORDERED: BLOOD CULTURE Procedure Result > BLOOD CULTURE REPORT Preliminary 11/01/17 GRAM STAIN SUGGESTIVE OF: GRAM POSITIVE COCCI IN CLUSTERS Called to/Readback by SIDNEY/ by LAB.SAL/KYA 10/31/172053/11/01/17 0715 CULTURE: METH RESIST STAPH AUREUS ISOLATED Sensitivity to follow CONSISTANT WITH PREVIOUSLY CALLED RESULTS Recent Imaging Studies: ANNA 10/29 CONCLUSIONS Left ventriclar size appeared normal. Septal hypokinesis. Mildly abnormal left ventricular ejection fraction estimated at 40%. Mild left atrial dilatation. Normal left atrial appendage. Normal interatrial septum. Structurally normal appearing mitral, aortic, tricuspid, and pulmonic valves. No evidence of valvular vegetations. No evidence of valvular stenosis. Physiologic valvular regurgitation. Eliezer Lua M.D. (Electronically Signed) Final Date: 30 October 2017 09:42 Assessment/Plan ID Impression: 61-year-old man with a heavy smoking and alcohol history, coronary artery disease, status post stent, diabetes, status post left transmetatarsal amputation, with a chronic plantar ulcer on the right foot for the past 6 months , admitted 10/21/17 * Right foot osteomyelitis status post TMA October 25; History of left TMA, chronic right foot ulcer with the revision debridement October 29 * Persistent MRSA bacteremia with multiple positive BC's for MRSA (most recent positive BC on 10/31; of note BC 10/21 positive MRSA w/ [place] to vancomycin of 2 ( high) * Fever curve trending down; suspected pulmonary abscesses from bacteremia which have worsened on recent CT scan; mild leukocytosis * Diabetes mellitus, CAD, severe anemia * Rheumatoid arthritis on prednisone & leflunomide, * Decubitus ulcer lower back and coccyx area Suggestion: 1. Monitor LFT's weekly while treated with iv daptomycin (D#2). 2. Repeat BC x2 11/02, if positive again for MRSA MRI of the spine r/o diskitis. 3. Monitor CBc, BMP.
--- NOTE | 2017-11-01 12:40 | PN- Att Addend ---
Attending Addendum Attending Brief Note Patient seen and examined. Plan of care discussed with the medical team and the patient. Available lab work and radiology test reports were reviewed. Patient is lying in bed this morning and he appears more awake and energetic this morning. There have been no appreciable change in his clinical status since yesterday. He denies any fever or chills overnight and denies pain in the right foot. He denies any chest pain difficulty breathing nausea vomiting or abdominal pain. Patient states that his by mouth intake is slightly better. Exam: General: Patient awake lethargic, he is oriented without any distress; appears pale as usual; seems to have more energy today CVS: S1 plus S2 without any murmur or gallops Chest: Few scattered crepitation without any wheeze. There is no respiratory distress. 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: Awake alert oriented without any focal neuro deficit and follows commands appropriately Extremities: Right foot is covered in a dressing; edema of the hands seems to have improved; no clubbing or cyanosis noted Assessment * Right foot osteomyelitis status post TMA October 25 * Persistent MRSA bacteremia- likely vancomycin failure; now on daptomycin, culture from yesterday is still positive * Recurrent fever despite TMA * Rule out endocarditis- ANNA negative * Persistent MRSA bacteremia likely originating from osteomyelitis * Suspected pulmonary abscesses from bacteremia which have worsened on recent CT scan * insulin-dependent diabetes mellitus, * rheumatoid arthritis on prednisone & leflunomide, * coronary artery disease status post stenting, * History of left TMA, chronic right foot ulcer with the revision debridement October 29 * Hypernatremia- resolved * Hypokalemia- improved * Decubitus ulcer lower back and coccyx area * Severe anemia and drop in hematocrit- patient has been having the melena and has required 1 unit of blood transfusion on October 30. Case discussed with Dr. Almonte. At this point no plans for endoscopy unless patient has active GI bleed. Plan * Continue daptomycin and Bactrim * Check guaiac stools; recheck CBC tomorrow ; continue Prilosec twice a day. Suggest starting iron sulfate 325 mg 3 times a day by mouth with food. * Can DC hydrocortisone and start prednisone 5 mg daily * 1 unit of blood transfusion today, recheck CBC afterwards and again in the morning * Continue potassium by mouth 40 mEq daily, recheck potassium tomorrow; * Continue Levemir to 6 units twice a day * Encourage oral liquids and recheck sodium level tomorrow * Given continued drop in hematocrit I will stop aspirin at this point Current Medications Sig/Lai Start time Last Medication Dose Route Stop Time Status Admin Acetaminophen 1,000 MG Q6P PRN 10/21 1700 AC 10/31 IV 0045 Aspirin 81 MG DAILY 10/23 1000 AC 11/01 PO 1040 Carvedilol 6.25 MG BID 10/29 1000 AC 11/01 PO 1041 Collagenase 1 VANI DAILY PRN 10/30 1615 AC 10/31 TOP 0936 Daptomycin 900 MG Q24H 10/31 1230 AC 10/31 Sodium Chloride 50 ML IV 1354 Ferrous Sulfate 325 MG TID 10/31 1600 AC 11/01 PO 1040 Folic Acid 1 MG DAILY 10/21 1703 AC 11/01 PO 1040 Heparin Sodium 5,000 UNIT Q8 10/21 2200 AC 11/01 (Porcine) SC 0615 Hydrocortisone 12.5 MG Q12 10/30 1000 AC 11/01 Sodium Succinate IV 1039 Insulin Aspart 0 TIDAC/HS 10/29 1700 AC 11/01 SC 0829 Insulin Detemir 6 UNITS BID 10/29 2200 AC 11/01 SC 1039 Multivitamins 1 TAB DAILY 10/21 1703 AC 11/01 PO 1040 Nitroglycerin 0.5 GM Q6 10/26 0850 AC 11/01 TOP 1130 Nystatin 1 VANI TID PRN 10/27 1500 DC 10/28 TOP 0908 Omeprazole 40 MG BID 10/31 1045 AC 11/01 PO 1040 Potassium Chloride 40 MEQ ONCE ONE 11/01 0845 DC 11/01 PO 11/01 0846 1039 Trimethoprim/ 30 ML Q12H 10/31 1245 AC 11/01 [place] 0050 Dextrose/Water 500 ML Vitamin A/Vitamin D 1 VANI Q6-PRN PRN 10/27 1500 AC TOP Laboratory Tests 11/01/17 0646: Anion Gap 10, Estimated GFR > 60, BUN/Creatinine Ratio 12.7, CBC w Diff NO MAN DIFF REQ, RBC 2.45 L, MCV 83.4, MCH 27.9, MCHC 33.5, RDW 15.6 H, MPV 8.5, Gran % 89.0 H, Lymphocytes % 9.0 L, Monocytes % 1.3 L, Eosinophils % 0.5, Basophils % 0.2, Absolute Granulocytes 9.8 H, Absolute Lymphocytes 1.0 L, Absolute Monocytes 0.1, Absolute Eosinophils 0.1, Absolute Basophils 0 10/31/17 0724: Anion Gap 9, Estimated GFR > 60, BUN/Creatinine Ratio 17.3, Creatine Kinase 48 L, CBC w Diff NO MAN DIFF REQ, RBC 2.63 L, MCV 83.9, MCH 28.0, MCHC 33.4, RDW 15.3 H, MPV 8.5, Gran % 88.7 H, Lymphocytes % 8.4 L, Monocytes % 2.3, Eosinophils % 0.5, Basophils % 0.1, Absolute Granulocytes 9.9 H, Absolute Lymphocytes 0.9 L, Absolute Monocytes 0.3, Absolute Eosinophils 0.1, Absolute Basophils 0 10/31/17 0030: Urinalysis MOD H, Urine Color YEL, Urine Clarity CLEAR, Urine pH 6.0, Ur Specific [place] 1.010, Urine Protein NEG, Urine Ketones NEG, Urine Nitrite NEG, Urine Bilirubin NEG, Urine Urobilinogen 2.0 H, Ur Leukocyte Esterase TRACE H, Ur Microscopic SEDIMENT EXAMINED, Urine RBC 10-15 H, Ur Epithelial Cells RARE, Urine Mucus FEW, Urine Hemoglobin MOD H, Urine Glucose NEG 10/31/17 0015: CBC w Diff NO MAN DIFF REQ, RBC 2.71 L, MCV 82.2, MCH 27.7, MCHC 33.7, RDW 15.1 H, MPV 8.9, Gran % 93.4 H, Lymphocytes % 5.5 L, Monocytes % 0.5 L, Eosinophils % 0.5, Basophils % 0.1, Absolute Granulocytes 10.1 H, Absolute Lymphocytes 0.6 L, Absolute Monocytes 0 L, Absolute Eosinophils 0.1, Absolute Basophils 0 10/30/17 0930: CBC w Diff NO MAN DIFF REQ, RBC 2.24 L, MCV 82.4, MCH 28.1, MCHC 34.1, RDW 15.1 H, MPV 8.9, Gran % 85.7 H, Lymphocytes % 11.5 L, Monocytes % 1.9, Eosinophils % 0.8, Basophils % 0.1, Absolute Granulocytes 8.6 H, Absolute Lymphocytes 1.2, Absolute Monocytes 0.2, Absolute Eosinophils 0.1, Absolute Basophils 0, Retic Count 3.98 H 10/30/17 0650: Anion Gap 10, Estimated GFR > 60, BUN/Creatinine Ratio 22.7, Iron 25 L, TIBC 158 L, Ferritin 660.0 H, CBC w Diff NO MAN DIFF REQ, RBC 2.33 L, MCV 83.0, MCH 28.2, MCHC 33.9, RDW 15.2 H, MPV 9.3, Gran % 86.0 H, Lymphocytes % 11.3 L , Monocytes % 1.8, Eosinophils % 0.6, Basophils % 0.3, Absolute Granulocytes 9.4 H, Absolute Lymphocytes 1.2, Absolute Monocytes 0.2, Absolute Eosinophils 0.1, Absolute Basophils 0 Microbiology 10/31 0045 BLOOD: Blood Culture - RES GRAM POSITIVE COCCI 10/31 004 BLOOD: Blood Culture - RES METH RESIST STAPH AUREUS 10/31 0030 URINE ROUT: Urine Culture - RES 10/29 1700 BLOOD: Blood Culture - COMP METH RESIST STAPH AUREUS 10/29 1619 BLOOD: Blood Culture - COMP METH RESIST STAPH AUREUS Vital Signs Date Time Temp Pulse Resp B/P B/P Pulse O2 O2 Flow FiO2 Mean Ox Delivery Rate 11/01 1041 91 142/68 11/01 0600 98.3 91 24 142/68 93 10/31 2235 99.1 91 16 142/70 94 Room Air 10/31 2149 96 10/31 1600 96 Room Air Room Air 10/31 1454 98.7 82 20 132/64 94 Room Air Intake & Output 11/01 1600 11/01 0800 11/01 0000 Intake Total 650 161 Output Total 50 Balance 650 111 Intake, IV 550 11 Intake, Oral 100 150 Output, Urine 50
--- NOTE | 2017-11-01 13:22 | PN- Diabetes ---
Assessment/Plan Diabetes Assessment: 61-year-old man with past medical history significant for diabetes mellitus and coronary artery disease status post stent placement, was brought in by ambulance for evaluation of altered mental status. Patient has a necrotic, purulent, chronic right foot plantar ulcer. His BP was borderline low. He used to take prednisone chronically for his arthritis. He was placed on stress dose of steroid-- Hydrocortisone 50 mg iv twice a day. Hydrocortisone was gradually decreased to 12.5 mg iv twice a day. The blood culture was positive for Gram positive cocci in cluster ( MRSA). He underwent ANNA and closure of the wound in the afternoon and he received two doses of hydrocortisone 50 mg iv on 10/29/2017. Currently he is on hydrocortisone 12.5 mg iv twice a day. Patient was restarted on levemir 6 units twice a day, Novolog coverage before meals. His FSGs were 193, 144 and 136. His temperature has been stable over past 24 hours. Plan: 1. continue the current insulin regimen for now; 2. d/c hydrocortisone; 3. start his usual steroid-- prednisone 5 mg daily due to RA; 4. stress dose of steroid as needed before major procedure; 5. monitor FSGs and vital signs. will follow. Subjective Subjective: He feels well. Objective Last 24 Hrs of Vital Signs/I&O Vital Signs Date Time Temp Pulse Resp B/P B/P Pulse O2 O2 Flow FiO2 Mean Ox Delivery Rate 11/01 1041 91 142/68 11/01 0600 98.3 91 24 142/68 93 10/31 2235 99.1 91 16 142/70 94 Room Air 10/31 2149 96 10/31 1600 96 Room Air Room Air 10/31 1454 98.7 82 20 132/64 94 Room Air Intake & Output 11/01 1600 11/01 0800 11/01 0000 Intake Total 650 161 Output Total 50 Balance 650 111 Intake, IV 550 11 Intake, Oral 100 150 Output, Urine 50 Findings Pertinent Lab/[place] Results: Laboratory Tests 11/01 06 Chemistry Sodium (137 - 145 mmol/L) 146 H Potassium (3.5 - 5.1 mmol/L) 3.7 Chloride (98 - 107 mmol/L) 116 H Carbon Dioxide (22 - 30 mmol/L) 20 L Anion Gap (5 - 16) 10 BUN (9 - 20 mg/dL) 14 Creatinine (0.7 - 1.2 mg/dL) 1.1 Estimated GFR (>60 ml/min) > 60 BUN/Creatinine Ratio (7 - 25 %) 12.7 Hematology CBC w Diff NO MAN DIFF REQ WBC (4.8 - 10.8 /CUMM) 11.0 H RBC (4.70 - 6.10 /CUMM) 2.45 L Hgb (14.0 - 18.0 G/DL) 6.8 *L Hct (42 - 52 %) 20.4 L MCV (80.0 - 94.0 FL) 83.4 MCH (27.0 - 31.0 PG) 27.9 MCHC (33.0 - 37.0 G/DL) 33.5 RDW (11.5 - 14.5 %) 15.6 H Plt Count (130 - 400 /CUMM) 277 MPV (7.4 - 10.4 FL) 8.5 Gran % (42.2 - 75.2 %) 89.0 H Lymphocytes % (20.5 - 51.1 %) 9.0 L Monocytes % (1.7 - 9.3 %) 1.3 L Eosinophils % (0 - 5 %) 0.5 Basophils % (0.0 - 2.0 %) 0.2 Absolute Granulocytes (1.4 - 6.5 /CUMM) 9.8 H Absolute Lymphocytes (1.2 - 3.4 /CUMM) 1.0 L Absolute Monocytes (0.10 - 0.60 /CUMM) 0.1 Absolute Eosinophils (0.0 - 0.7 /CUMM) 0.1 Absolute Basophils (0.0 - 0.2 /CUMM) 0
[2017-11-01 14:31] VITALS: BP 148/64
[2017-11-01 19:53] LABS: ABSOLUTE BASOPHIL COUNT 0 /CUMM (0.0-0.2); ABSOLUTE EOSINOPHIL COUNT 0 /CUMM (0.0-0.7); ABSOLUTE GRANULOCYTE CT 10.3 /CUMM (1.4-6.5); ABSOLUTE LYMPH COUNT 0.7 /CUMM (1.2-3.4); ABSOLUTE MONOCYTE COUNT 0.3 /CUMM (0.10-0.60)
[2017-11-01 19:58] LABS: BASOPHIL % 0.1 % (0.0-2.0); EOSINOPHIL % 0.3 % (0-5); MEAN CORPUSCULAR HGB 27.2 PG (27.0-31.0); MEAN CORPUSCULAR HGB CONC 33.1 G/DL (33.0-37.0); MEAN CORPUSCULAR VOLUME 82.4 FL (80.0-94.0); MEAN PLATELET VOLUME 8.2 FL (7.4-10.4); PLATELET COUNT 274 /CUMM (130-400); RBC DISTRIBUTION WIDTH 15.7 % (11.5-14.5); RED BLOOD CELL CT 2.55 /CUMM (4.70-6.10); WHITE BLOOD CELL COUNT 11.3 /CUMM (4.8-10.8)
[2017-11-01 20:12] LABS: GRANULOCYTE % 91.2 % (42.2-75.2)
[2017-11-01 23:38] VITALS: BP 122/60
[2017-11-02 06:56] VITALS: BP 128/64
--- NOTE | 2017-11-02 11:07 | PN- Att Addend ---
Attending Addendum Attending Brief Note Patient seen and examined. Plan of care discussed with the medical team and the patient. Available lab work and radiology test reports were reviewed. There has been no major clinical change overnight. Patient is lying in bed this morning and he appears more awake and energetic this morning. There have been no appreciable change in his clinical status since yesterday. He denies any fever or chills overnight and denies pain in the right foot. He denies any chest pain difficulty breathing nausea vomiting or abdominal pain. Patient states that his by mouth intake is slightly better. Exam: General: Patient awake lethargic, he is oriented without any distress; appears pale as usual; seems to have more energy today CVS: S1 plus S2 without any murmur or gallops Chest: Few scattered crepitation without any wheeze. There is no respiratory distress. Abdomen: Soft non-tender, bowel sound present, no guarding or rebound MILL SET UP: Awake alert oriented without any focal neuro deficit and follows commands appropriately Extremities: Right foot is covered in a dressing; edema of the hands seems to have improved; no clubbing or cyanosis noted Assessment * Right foot osteomyelitis status post TMA October 25 * Persistent MRSA bacteremia- likely vancomycin failure; now on daptomycin and Bactrim, culture from yesterday November 01 pending * Recurrent fever despite TMA * Rule out endocarditis- ANNA negative * Persistent MRSA bacteremia likely originating from osteomyelitis * Suspected pulmonary abscesses from bacteremia which have worsened on recent CT scan * insulin-dependent diabetes mellitus, * rheumatoid arthritis on prednisone & leflunomide, * coronary artery disease status post stenting, * History of left TMA, chronic right foot ulcer with the revision debridement October 29 * Hypernatremia- resolved * Hypokalemia- improved * Decubitus ulcer lower back and coccyx area * Severe anemia and drop in hematocrit- patient has been having the melena and has required 1 unit of blood transfusion on October 30. Case discussed with Dr. Almonte. At this point no plans for endoscopy unless patient has active GI bleed. Plan * Continue daptomycin and Bactrim * Continue Prilosec twice a day. Continue iron sulfate 325 mg 3 times a day by mouth with food. * Continue prednisone 5 mg daily * Continue potassium by mouth 40 mEq daily, follow potassium level today * Continue Levemir to 6 units twice a day * Encourage oral liquids and follow-up sodium level today * Continue to hold aspirin Current Medications Sig/Lai Start time Last Medication Dose Route Stop Time Status Admin Acetaminophen 1,000 MG Q6P PRN 10/21 1700 AC 10/31 IV 0045 Aspirin 81 MG DAILY 10/23 1000 DC 11/01 PO 1040 Carvedilol 6.25 MG BID 10/29 1000 AC 11/02 PO 1000 Collagenase 1 VANI DAILY PRN 10/30 1615 AC 10/31 TOP 0936 Daptomycin 900 MG Q24H 10/31 1230 AC 11/01 Sodium Chloride 50 ML IV 1407 Ferrous Sulfate 325 MG TID 10/31 1600 AC 11/02 PO 1001 Folic Acid 1 MG DAILY 10/21 1703 AC 11/02 PO 1001 Heparin Sodium 5,000 UNIT Q8 10/21 2200 AC 11/02 (Porcine) SC 0629 Hydrocortisone 12.5 MG Q12 10/30 1000 DC 11/01 Sodium Succinate IV 1039 Insulin Aspart 0 TIDAC/HS 10/29 1700 AC 11/02 SC 0802 Insulin Detemir 6 UNITS BID 10/29 2200 AC 11/02 SC 0802 Multivitamins 1 TAB DAILY 10/21 1703 AC 11/02 PO 1001 Nitroglycerin 0.5 GM Q6 10/26 0850 AC 11/02 TOP 0629 Omeprazole 40 MG BID 10/31 1045 AC 11/02 PO 1001 Prednisone 5 MG DAILY 11/01 1318 AC 11/02 PO 1001 Trimethoprim/ 30 ML Q12H 10/31 1245 AC 11/02 Sulfamethoxazole IV 0108 Dextrose/Water 500 ML Vitamin A/Vitamin D 1 VANI Q6-PRN PRN 10/27 1500 TOP Laboratory Tests 11/01/17 1920: CBC w Diff NO MAN DIFF REQ, RBC 2.55 L, MCV 82.4, MCH 27.2, MCHC 33.1, RDW 15.7 H, MPV 8.2, Gran % 91.2 H, Lymphocytes % 6.0 L, Monocytes % 2.4, Eosinophils % 0.3, Basophils % 0.1, Absolute Granulocytes 10.3 H, Absolute Lymphocytes 0.7 L, Absolute Monocytes 0.3, Absolute Eosinophils 0, Absolute Basophils 0 11/01/17 0646: Anion Gap 10, Estimated GFR > 60, BUN/Creatinine Ratio 12.7, CBC w Diff NO MAN DIFF REQ, RBC 2.45 L, MCV 83.4, MCH 27.9, MCHC 33.5, RDW 15.6 H, MPV 8.5, Gran % 89.0 H, Lymphocytes % 9.0 L, Monocytes % 1.3 L, Eosinophils % 0.5, Basophils % 0.2, Absolute Granulocytes 9.8 H, Absolute Lymphocytes 1.0 L, Absolute Monocytes 0.1, Absolute Eosinophils 0.1, Absolute Basophils 0 10/31/17 0724: Anion Gap 9, Estimated GFR > 60, BUN/Creatinine Ratio 17.3, Creatine Kinase 48 L, CBC w Diff NO MAN DIFF REQ, RBC 2.63 L, MCV 83.9, MCH 28.0, MCHC 33.4, RDW 15.3 H, MPV 8.5, Gran % 88.7 H, Lymphocytes % 8.4 L, Monocytes % 2.3, Eosinophils % 0.5, Basophils % 0.1, Absolute Granulocytes 9.9 H, Absolute Lymphocytes 0.9 L, Absolute Monocytes 0.3, Absolute Eosinophils 0.1, Absolute Basophils 0 10/31/17 0030: Urinalysis MOD H, Urine Color YEL, Urine Clarity CLEAR, Urine pH 6.0, Ur Specific [place] 1.010, Urine Protein NEG, Urine Ketones NEG, Urine Nitrite NEG, Urine Bilirubin NEG, Urine Urobilinogen 2.0 H, Ur Leukocyte Esterase TRACE H, Ur Microscopic SEDIMENT EXAMINED, Urine RBC 10-15 H, Ur Epithelial Cells RARE, Urine Mucus FEW, Urine Hemoglobin MOD H, Urine Glucose NEG 10/31/17 0015: CBC w Diff NO MAN DIFF REQ, RBC 2.71 L, MCV 82.2, MCH 27.7, MCHC 33.7, RDW 15.1 H, MPV 8.9, Gran % 93.4 H, Lymphocytes % 5.5 L, Monocytes % 0.5 L, Eosinophils % 0.5, Basophils % 0.1, Absolute Granulocytes 10.1 H, Absolute Lymphocytes 0.6 L, Absolute Monocytes 0 L, Absolute Eosinophils 0.1, Absolute Basophils 0 Microbiology 11/02 629 BLOOD: Blood Culture - RECD 11/02 629 BLOOD: Blood Culture - RECD 10/31 44 BLOOD: Blood Culture - COMP METH RESIST STAPH AUREUS 11/01 39 BLOOD: Blood Culture - COMP METH RESIST STAPH AUREUS 03/29 0030 URINE ROUT: Urine Culture - COMP Vital Signs Date Time Temp Pulse Resp B/P B/P Pulse O2 O2 Flow FiO2 Mean Ox Delivery Rate 11/02 1000 74 134/70 11/02 0656 98.4 71 22 128/64 93 Room Air 11/01 2338 98.3 78 22 122/60 95 Room Air 11/01 2215 76 128/76 11/01 1431 97.8 80 23 148/64 93 Intake & Output 11/02 1600 11/02 0800 11/02 0000 Intake Total 1040 725 Output Total Balance 1040 725 Intake, Blood 320 Product Intake, IV 520 325 Intake, Oral 200 400
--- NOTE | 2017-11-02 12:34 | PN- Diabetes ---
Assessment/Plan Diabetes Assessment: 61-year-old man with past medical history significant for diabetes mellitus and coronary artery disease status post stent placement, was brought in by ambulance for evaluation of altered mental status. Patient has a necrotic, purulent, chronic right foot plantar ulcer. His BP was borderline low. He used to take prednisone chronically for his arthritis. He was placed on stress dose of steroid-- Hydrocortisone 50 mg iv twice a day. Hydrocortisone was gradually decreased. The blood culture was positive for Gram positive cocci in cluster ( MRSA). He underwent ANNA and closure of the wound 10/29/2017. Currently he is on his usual steroid ---prednisone 5 mg daily for RA. Patient was restarted on levemir 6 units twice a day, Novolog coverage before meals. His FSGs were 137, 146 and 145. Plan: continue the current insulinr egimen for now; monitor FSGs. will follow. Subjective Subjective: He feels okay this morning. Objective Last 24 Hrs of Vital Signs/I&O Vital Signs Date Time Temp Pulse Resp B/P B/P Pulse O2 O2 Flow FiO2 Mean Ox Delivery Rate 11/02 1000 74 134/70 11/02 0656 98.4 71 22 128/64 93 Room Air 11/01 2338 98.3 78 22 122/60 95 Room Air 11/01 2215 76 128/76 11/01 1431 97.8 80 23 148/64 93 Intake & Output 11/02 1600 11/02 0800 11/02 0000 Intake Total 1040 725 Output Total Balance 1040 725 Intake, Blood 320 Product Intake, IV 520 325 Intake, Oral 200 400 Findings Pertinent Lab/[place] Results: Laboratory Tests 11/02 1919 Hematology CBC w Diff NO MAN DIFF REQ WBC (4.8 - 10.8 /CUMM) 11.3 H RBC (4.70 - 6.10 /CUMM) 2.55 L Hgb (14.0 - 18.0 G/DL) 6.9 *L Hct (42 - 52 %) 21.0 L MCV (80.0 - 94.0 FL) 82.4 MCH (27.0 - 31.0 PG) 27.2 MCHC (33.0 - 37.0 G/DL) 33.1 RDW (11.5 - 14.5 %) 15.7 H Plt Count (130 - 400 /CUMM) 274 MPV (7.4 - 10.4 FL) 8.2 Gran % (42.2 - 75.2 %) 91.2 H Lymphocytes % (20.5 - 51.1 %) 6.0 L Monocytes % (1.7 - 9.3 %) 2.4 Eosinophils % (0 - 5 %) 0.3 Basophils % (0.0 - 2.0 %) 0.1 Absolute Granulocytes (1.4 - 6.5 /CUMM) 10.3 H Absolute Lymphocytes (1.2 - 3.4 /CUMM) 0.7 L Absolute Monocytes (0.10 - 0.60 /CUMM) 0.3 Absolute Eosinophils (0.0 - 0.7 /CUMM) 0 Absolute Basophils (0.0 - 0.2 /CUMM) 0
--- NOTE | 2017-11-02 14:18 | PN- Infect Dx ---
Subjective Subjective: No fever; poor oral intake. Review of Systems Comments: 12 points reviewed as noted, otherwise negative. Objective Last 24 Hrs of Vital Signs/I&O Vital Signs Date Time Temp Pulse Resp B/P B/P Pulse O2 O2 Flow FiO2 Mean Ox Delivery Rate 11/02 1000 74 134/70 11/02 0656 98.4 71 22 128/64 93 Room Air 11/01 2338 98.3 78 22 122/60 95 Room Air 11/01 2215 76 128/76 11/01 1431 97.8 80 23 148/64 93 Intake & Output 11/02 1600 11/02 0800 11/02 0000 Intake Total 1040 725 Output Total Balance 1040 725 Intake, Blood 320 Product Intake, IV 520 325 Intake, Oral 200 400 Physical Exam Other Physical Findings: No acute distress Skin pale; sacral area pressure ulcer HEENT AT/NC, sclera anicteric Neck no JVD Lungs scattered rhonchi Heart regular rhythm with a 1/6 systolic ejection murmur Abdomen is soft, nontender with positive bowel sounds Extremities right foot TMA; dressing in place Results Last 24 Hours of Lab Results: Laboratory Tests 11/02 1919 Hematology CBC w Diff NO MAN DIFF REQ WBC (4.8 - 10.8 /CUMM) 11.3 H RBC (4.70 - 6.10 /CUMM) 2.55 L Hgb (14.0 - 18.0 G/DL) 6.9 *L Hct (42 - 52 %) 21.0 L MCV (80.0 - 94.0 FL) 82.4 MCH (27.0 - 31.0 PG) 27.2 MCHC (33.0 - 37.0 G/DL) 33.1 RDW (11.5 - 14.5 %) 15.7 H Plt Count (130 - 400 /CUMM) 274 MPV (7.4 - 10.4 FL) 8.2 Gran % (42.2 - 75.2 %) 91.2 H Lymphocytes % (20.5 - 51.1 %) 6.0 L Monocytes % (1.7 - 9.3 %) 2.4 Eosinophils % (0 - 5 %) 0.3 Basophils % (0.0 - 2.0 %) 0.1 Absolute Granulocytes (1.4 - 6.5 /CUMM) 10.3 H Absolute Lymphocytes (1.2 - 3.4 /CUMM) 0.7 L Absolute Monocytes (0.10 - 0.60 /CUMM) 0.3 Absolute Eosinophils (0.0 - 0.7 /CUMM) 0 Absolute Basophils (0.0 - 0.2 /CUMM) 0 Last 24 Hours of [place] Results: RECD: 11/02/17-[address]: Katya CARD,Nhi SOURCE: BLOOD ENTR: 11/02/17-[address]: Dread CARD,Miuge Rodriguez SPDESC: 2ND/VENOUS Radha CARD,Rebekah Rendon MD,Bryant Maria ORDERED: BLOOD CULTURE Procedure Result BLOOD CULTURE PENDING Recent Imaging Studies: reviewed Assessment/Plan ID Impression: 61-year-old man with a heavy smoking and alcohol history, coronary artery disease, status post stent, diabetes, status post left transmetatarsal amputation, with a chronic plantar ulcer on the right foot for the past 6 months , admitted 10/21/17 * Right foot osteomyelitis status post TMA October 25; History of left TMA, chronic right foot ulcer with the revision 10/29 * Persistent MRSA bacteremia with multiple positive BC's for MRSA (most recent positive BC on 10/31; of note BC 10/21 positive MRSA w/ [place] to vancomycin of 2 ( high; predictive of failure to iv vancomycin) * Febrile illness resolved(afebrile since 10/31); suspected pulmonary abscesses from bacteremia which have worsened on recent CT scan; mild leukocytosis * Diabetes mellitus, CAD, severe anemia * Rheumatoid arthritis on prednisone & leflunomide, * Decubitus ulcer lower back and coccyx area Suggestion: 1. Monitor LFT's, CPK weekly while treated with iv daptomycin (D#3). 2. F/U BC from today, if positive again for MRSA MRI of the spine r/o diskitis. 3. Monitor CBC, BMP. ESR, albumin level weekly. 4. Skin care.
[2017-11-02 15:04] VITALS: BP 120/50
[2017-11-02 15:51] LABS: ABSOLUTE BASOPHIL COUNT 0 /CUMM (0.0-0.2); ABSOLUTE EOSINOPHIL COUNT 0.1 /CUMM (0.0-0.7); ABSOLUTE GRANULOCYTE CT 12.6 /CUMM (1.4-6.5); ABSOLUTE LYMPH COUNT 0.7 /CUMM (1.2-3.4); ABSOLUTE MONOCYTE COUNT 0.3 /CUMM (0.10-0.60); BASOPHIL % 0 % (0.0-2.0); EOSINOPHIL % 0.4 % (0-5); GRANULOCYTE % 92.4 % (42.2-75.2); HEMATOCRIT 25.8 % (42-52); MEAN CORPUSCULAR HGB 27.8 PG (27.0-31.0); MEAN CORPUSCULAR HGB CONC 33.6 G/DL (33.0-37.0); MEAN CORPUSCULAR VOLUME 82.8 FL (80.0-94.0); MEAN PLATELET VOLUME 7.7 FL (7.4-10.4); PLATELET COUNT 313 /CUMM (130-400); RBC DISTRIBUTION WIDTH 15.7 % (11.5-14.5); RED BLOOD CELL CT 3.11 /CUMM (4.70-6.10); WHITE BLOOD CELL COUNT 13.6 /CUMM (4.8-10.8)
[2017-11-02 22:39] VITALS: BP 142/70
[2017-11-03 07:19] VITALS: BP 144/66
--- NOTE | 2017-11-03 08:07 | PN- Infect Dx ---
Subjective Subjective: No fever. Fatigued. Review of Systems Comments: 12 points reviewed as noted, otherwise nega Objective Last 24 Hrs of Vital Signs/I&O Vital Signs Date Time Temp Pulse Resp B/P B/P Pulse O2 O2 Flow FiO2 Mean Ox Delivery Rate 11/03 0719 98.7 79 20 144/66 92 Room Air 11/03 0000 93 Room Air 11/02 2239 98.1 72 20 142/70 93 Room Air 11/02 2132 76 142/70 11/02 1600 Room Air 11/02 1504 98.0 79 22 120/50 91 11/02 1000 74 134/70 Intake & Output 11/03 1600 11/03 0800 11/03 0000 Intake Total 530 720 Output Total 200 Balance 530 520 Intake, IV 530 Intake, Oral 0 720 Number 2 1 Bowel Movements Output, Urine 200 Physical Exam Other Physical Findings: No acute distress Skin pale; sacral area pressure ulcer HEENT AT/NC, sclera anicteric Neck no JVD Lungs scattered rhonchi Heart regular rhythm with a 1/6 systolic ejection murmur Abdomen is soft, nontender with positive bowel sounds Extremities right foot TMA; dressing in place Results Last 24 Hours of Lab Results: Laboratory Tests 11/03 11/02 0715 1539 Chemistry Sodium (137 - 145 mmol/L) Pending 139 Potassium (3.5 - 5.1 mmol/L) Pending 4.0 Chloride (98 - 107 mmol/L) Pending 111 H Carbon Dioxide (22 - 30 mmol/L) Pending 17 L Anion Gap (5 - 16) Pending 11 BUN (9 - 20 mg/dL) Pending 14 Creatinine (0.7 - 1.2 mg/dL) Pending 1.1 Estimated GFR (>60 ml/min) > 60 BUN/Creatinine Ratio (7 - 25 %) Pending 12.7 Total Bilirubin Pending Direct Bilirubin Pending AST Pending ALT Pending Alkaline Phosphatase Pending Total Protein Pending Albumin Pending Hematology CBC w Diff Pending MAN DIFF ORDERED WBC (4.8 - 10.8 /CUMM) Pending 13.6 H RBC (4.70 - 6.10 /CUMM) Pending 3.11 L Hgb (14.0 - 18.0 G/DL) Pending 8.7 L Hct (42 - 52 %) Pending 25.8 L MCV (80.0 - 94.0 FL) Pending 82.8 MCH (27.0 - 31.0 PG) Pending 27.8 MCHC (33.0 - 37.0 G/DL) Pending 33.6 RDW (11.5 - 14.5 %) Pending 15.7 H Plt Count (130 - 400 /CUMM) Pending 313 MPV (7.4 - 10.4 FL) Pending 7.7 Gran % (42.2 - 75.2 %) 92.4 H Lymphocytes % (20.5 - 51.1 %) 5.3 L Monocytes % (1.7 - 9.3 %) 1.9 Eosinophils % (0 - 5 %) 0.4 Basophils % (0.0 - 2.0 %) 0 Absolute Granulocytes (1.4 - 6.5 /CUMM) 12.6 H Segmented Neutrophils (42.2 - 75.2 %) 89 H Band Neutrophils (0.0 - 5.0 %) 4 Absolute Lymphocytes (1.2 - 3.4 /CUMM) 0.7 L Lymphocytes (20.5 - 51.1 %) 5 L Monocytes (1.7 - 9.3 %) 1 L Absolute Monocytes (0.10 - 0.60 /CUMM) 0.3 Absolute Eosinophils (0.0 - 0.7 /CUMM) 0.1 Absolute Basophils (0.0 - 0.2 /CUMM) 0 Metamyelocytes (0.0 - 1.0 %) 1 Platelet Estimate (ADEQUATE) ADEQUATE Polychromasia 1+ Microcytic Cells 1+ ESR Westergren Pending Last 24 Hours of [place] Results: BC 11/02 GPC Recent Imaging Studies: reviewed Assessment/Plan ID Impression: 61-year-old man with a heavy smoking and alcohol history, coronary artery disease, status post stent, diabetes, status post left transmetatarsal amputation, with a chronic plantar ulcer on the right foot for the past 6 months , admitted 10/21/17 * Persistent MRSA bacteremia with multiple positive BC's for MRSA (most recent positive BC on 10/31; of note BC 10/21 positive MRSA w/ [place] to vancomycin of 2 ( high; predictive of failure to iv vancomycin); repeat BC 11/02 positive (while treated w/ iv Daptomycin); raising the question og MRSA resistance to vancomycin vs persistent bacteremia due to occult abscess. Right foot osteomyelitis status post TMA October 25; History of left TMA, chronic right foot ulcer with the revision 10/29 * Febrile illness resolved(afebrile since 10/31); suspected pulmonary abscesses from bacteremia which have worsened on recent CT scan; mild leukocytosis * Diabetes mellitus, CAD, severe anemia * Rheumatoid arthritis on prednisone & leflunomide, * Decubitus ulcer lower back and coccyx area Suggestion: 1. Monitor LFT's, CPK weekly while treated with iv daptomycin (D#4). 2. Please ask micro lab to run sensitivity (E test to Vancomycin and Daptomycin) for BC from 11/02, consider MRI of the spine r/o diskitis. Repeat BC x2 on 11/04. 3. Monitor CBC, BMP. ESR, albumin level weekly. 4. Skin care.
[2017-11-03 08:22] LABS: ABSOLUTE BASOPHIL COUNT 0.1 /CUMM (0.0-0.2); ABSOLUTE EOSINOPHIL COUNT 0.1 /CUMM (0.0-0.7); ABSOLUTE GRANULOCYTE CT 11.2 /CUMM (1.4-6.5); ABSOLUTE LYMPH COUNT 1.2 /CUMM (1.2-3.4); ABSOLUTE MONOCYTE COUNT 0.3 /CUMM (0.10-0.60); BASOPHIL % 0.4 % (0.0-2.0); EOSINOPHIL % 0.7 % (0-5); GRANULOCYTE % 87.3 % (42.2-75.2); HEMATOCRIT 26.5 % (42-52); MEAN CORPUSCULAR HGB CONC 33.8 G/DL (33.0-37.0); MEAN CORPUSCULAR VOLUME 82.9 FL (80.0-94.0); MEAN PLATELET VOLUME 7.9 FL (7.4-10.4); PLATELET COUNT 334 /CUMM (130-400); RBC DISTRIBUTION WIDTH 15.8 % (11.5-14.5); WHITE BLOOD CELL COUNT 12.8 /CUMM (4.8-10.8)
--- NOTE | 2017-11-03 09:34 | PN- Housestaff ---
GerardMiranda 11/03/17 0932: Subjective Follow-up For: MRSA osteomyelitis with persistent bacteremia s/p Right foot TMA Steroid dependence with adrenal insufficiency Tele-Events Since Last Visit: NSR 70-80s Subjective: No overnight event. Patient had been afebrile. Resting in bed sleeping, no specific complaint. Review of Systems Constitutional: Reports: see HPI. Objective Last 24 Hrs of Vital Signs/I&O Vital Signs Date Time Temp Pulse Resp B/P B/P Pulse O2 O2 Flow FiO2 Mean Ox Delivery Rate 11/03 0719 98.7 79 20 144/66 92 Room Air 11/03 0000 93 Room Air 11/02 2239 98.1 72 20 142/70 93 Room Air 11/02 2132 76 142/70 11/02 1600 Room Air 11/02 1504 98.0 79 22 120/50 91 11/02 1000 74 134/70 Intake & Output 11/03 1600 11/03 0800 11/03 0000 Intake Total 530 720 Output Total 200 Balance 530 520 Intake, IV 530 Intake, Oral 0 720 Number 2 1 Bowel Movements Output, Urine 200 Physical Exam General Appearance: Sleeping in bed Cardiovascular: Regular Rate Lungs: Clear to Auscultation, Normal Air Movement Extremities: RLE foot in surgical wrapping Current Medications: Current Medications Sig/Lai Start time Last Medication Dose Route Stop Time Status Admin Acetaminophen 1,000 MG Q6P PRN 10/21 1700 AC 10/31 IV 0045 Carvedilol 6.25 MG BID 10/29 1000 AC 11/02 PO 2132 Collagenase 1 VANI DAILY PRN 10/30 1615 AC 10/31 TOP 0936 Daptomycin 900 MG Q24H 10/31 1230 AC 11/02 Sodium Chloride 50 ML IV 1214 Ferrous Sulfate 325 MG TID 10/31 1600 AC 11/02 PO 2132 Folic Acid 1 MG DAILY 10/21 1703 AC 11/02 PO 1001 Heparin Sodium 5,000 UNIT Q8 10/21 2200 AC 11/03 (Porcine) SC 0552 Insulin Aspart 0 TIDAC/HS 10/29 1700 AC 11/02 SC 1726 Insulin Detemir 6 UNITS BID 10/29 2200 AC 11/02 SC 2132 Multivitamins 1 TAB DAILY 10/21 1703 AC 11/02 PO 1001 Nitroglycerin 0.5 GM Q6 10/26 0850 AC 11/03 TOP 0552 Omeprazole 40 MG BID 10/31 1045 11/02 PO 2132 Potassium Chloride 40 MEQ DAILY 11/03 1000 AC PO Prednisone 5 MG DAILY 11/01 1318 AC 11/02 PO 1001 Trimethoprim/ 30 ML Q12H 10/31 1245 11/03 Sulfamethox[place] 0030 Dextrose/Water 500 ML Vitamin A/Vitamin D 1 VANI Q6-PRN PRN 10/27 1500 [facility] Last 24 Hrs of Lab/[place] Results Last 24 Hrs of Labs/Mics: Laboratory Tests 11/03/17 0715: Anion Gap 9, Estimated GFR > 60, BUN/Creatinine Ratio 14.0, Total Bilirubin 1.1, Direct Bilirubin 1.0 H, AST 30, ALT 42, Alkaline Phosphatase 308 H, Total Protein 5.4 L, Albumin 2.0 L, CBC w Diff MAN DIFF ORDERED, RBC 3.20 L, MCV 82.9, MCH 28.0, MCHC 33.8, RDW 15.8 H, MPV 7.9, Gran % 87.3 H, Lymphocytes % 9.3 L, Monocytes % 2.3, Eosinophils % 0.7, Basophils % 0.4, Absolute Granulocytes 11.2 H, Segmented Neutrophils Pending, Absolute Lymphocytes 1.2, Absolute Monocytes 0.3, Absolute Eosinophils 0.1, Absolute Basophils 0.1, ESR Westergren Pending 11/02/17 1539: Anion Gap 11, Estimated GFR > 60, BUN/Creatinine Ratio 12.7, CBC w Diff MAN DIFF ORDERED, RBC 3.11 L, MCV 82.8, MCH 27.8, MCHC 33.6, RDW 15.7 H, MPV 7.7, Gran % 92.4 H, Lymphocytes % 5.3 L, Monocytes % 1.9, Eosinophils % 0.4, Basophils % 0, Absolute Granulocytes 12.6 H, Segmented Neutrophils 89 H, Band Neutrophils 4, Absolute Lymphocytes 0.7 L, Lymphocytes 5 L, Monocytes 1 L, Absolute Monocytes 0.3, Absolute Eosinophils 0.1, Absolute Basophils 0, Metamyelocytes 1, Platelet Estimate ADEQUATE, Polychromasia 1+, Microcytic Cells 1+ Assessment/Plan Assessment: Mr Baltazar is a 61-year-old male with past medical history significant for insulin -dependent diabetes mellitus, rheumatoid arthritis on prednisone & leflunomide, coronary artery disease status post stenting, left TMA, chronic right foot ulcer was brought to [place] after found by law enforcement at home altered and unkempt, covered with urine. Vitals at admission is significant for MAXIMUM TEMPERATURE of 100.6, blood pressure 106/68 mmHg. White count of 13,000 with 72 segments and bands. Troponin of 0.85, elevated d-dimer. Chest x-ray showing patchy opacity in the right upper lobe and mild cardiomegaly. X-ray of Right foot revealed extensive destructive changes in the second to fourth digits. CT of chest is significant for central cavitation and opacities in both lungs. CT abdomen Prominent perinephric edema with prominent prostate. Admitted to ICU initially on 10/21/2017 given sepsis secondary to diabetic foot infection. He did have persistent MRSA bacteremia with extensive seeding into lungs, urine, joints. Once he was hemodynamic stable transferred to telemetry. Plan Problem list 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 Insulin-dependent diabetic mellitus Cavitation in the lung Type II [place] Encephalopathy Inflammatory anemia Hypokalemia MRSA osteomyelitis with persistent bacteremia Appears secondary to uncontrolled diabetes and on steroids giving room for rapid progression. Initially started broad with IV ceftazidime and Flagyl and transitioned to IV vancomycin after cultures results. MRI did show abscess of right foot. Blood cultures were persistently positive. ESR 125. Underwent tarsometatarsal amputation on 10/25/17. Underwent ANNA and wound closure on . Given bacteremia as well as being febrile overnight we will transition and changes antibiotics from vancomycin to daptomycin (900 mg IV every 24 hours.) Will also begin the patient on Bactrim Q 12 hours. - Day 4 of daptomycin and Bactrim. - Will repeat blood cultures 11/02/2017 and if positive may consider Spinal MRI. - Monitor LFTs weekly while on daptomycin. - CPK added to labs 10/31/2017 showed 48, remarkably decreased from 10/21/2017 lab of 1485. Will also discontinue statin in the setting of medication interaction with daptomycin. (Iatrogenic) Steroid induced adrenal insufficiency He did have suppression of his pituitary axis secondary to chronic steroid intake. Placed on IV hydrocortisone to maintain his blood pressure. He received stress dose of steroids prior to procedures. * Monitor blood pressure. * Transitioned to by mouth prednisone 5 mg from 12.5 mg hydro-cortisone BID. * If any signs of hypotension may consider taking back on increased dose of steroids. Insulin-dependent diabetic mellitus HbA1c of 7.2. Sugars remained relatively controlled on current regimen * Continue Levemir 6 units twice a day and NovoLog sliding scale per endocrinology. Intermixed ground glass attenuation on imaging Imaging shows opacities exhibiting reverse halo sign (atoll sign). Also, some of the opacities have central lucencies, suspicious for cavitary change. Given MRSA bacteremia, seeding should be first differential. However patient has been on leflunomide so tuberculosis should be second in the differential. Repeat CT on 10/28/17 did show dense groundglass opacification is also noted - Continue Coreg. Encephalopathy Patient was altered despite aggressive treatment of his infection. Improved after giving IV thiamine for few days. Probably alcohol related. Anemia H&H of 6.8/20.4. Previous indices ferritin 1500, iron of 12, TIBC 143 suggestive of anemia of chronic disease/inflammation related. Obvious source could be osteomyelitis. Treating current condition should help with his anemia as well. * Monitor H&H, 9.0/26.5 on latest lab. * Continue oral iron, increased frequency to TID * Guiac all stools * s/p 3U PRBC in total, last BT on 11/01. Goal > 7. If any signs of active bleed consider immediate call to GI for scope. * Stopped aspirin. #Hypokalemia * PO K 40 meq X 1. Monitor K in am, K 4.0 on latest lab. * Keep > 4.0. DVT prophylaxis SC heparin Code status full code Problem List: 1. Bacteremia Pain Ratin Pain Location: NA Pain Goal: Remain pain free Pain Plan: see AP Tomorrow's Labs & Rationales: CBC/BEP Franchesca CARD,Amir 11/03/17 1043: Attending MD Review Statement Attending Statement Attending MD Statement: examined this patient, discuss w/resident/PA/CORK PRESSING MACHINE OPERATOR, agreed w/resident/PA/CORK PRESSING MACHINE OPERATOR, reviewed EMR data (avail), discussed with nursing Attending Assessment/Plan: Pt was seen and evalauted. Currently deneis f/c/n/v. No CP or SOB. Bld Cx +ve for GPC. Appreciate ID eval. Will likely need MRI. Rest of the plan as per resident's note
--- NOTE | 2017-11-03 13:34 | PN- Diabetes ---
Assessment/Plan Diabetes Assessment: 61-year-old man with past medical history significant for diabetes mellitus and coronary artery disease status post stent placement, was brought in by ambulance for evaluation of altered mental status. Patient has a necrotic, purulent, chronic right foot plantar ulcer. His BP was borderline low. He used to take prednisone chronically for his arthritis. He was placed on stress dose of steroid-- Hydrocortisone 50 mg iv twice a day. Hydrocortisone was gradually decreased. The blood culture was positive for Gram positive cocci in cluster ( MRSA). He underwent ANNA and closure of the wound 10/29/2017. Currently he is on his usual steroid ---prednisone 5 mg daily for RA. Patient was restarted on levemir 6 units twice a day, Novolog coverage before meals. His FSGs were72, 193, 121, 66. Plan: 1. stop Levemir; 2. adjust Novolog coverage before meals; detail see the inpatient DM order; 3. continue the current Novolog coverage at bedtime; 4. monitor FSGs. will follow. Inpatient Diabetes Orders Before Each Meal: Bolus Insulin: Novolog < 80 mg/dl: no coverage 80-100 mg/dl: no coverage 101-120 mg/dl: 2 units 121-150 mg/dl: 2 units 151-200 mg/dl: 3 units 201-250 mg/dl: 4 units 251-300 mg/dl: 5 units 301-350 mg/dl: 6 units 351-400 mg/dl: 7 units > 400 mg/dl: 8 units Subjective Subjective: Overall, he feels okay. Objective Last 24 Hrs of Vital Signs/I&O Vital Signs Date Time Temp Pulse Resp B/P B/P Pulse O2 O2 Flow FiO2 Mean Ox Delivery Rate 11/03 0950 79 144/66 11/03 0719 98.7 79 20 144/66 92 Room Air 11/03 0000 93 Room Air 11/02 2239 98.1 72 20 142/70 93 Room Air 11/02 2132 76 142/70 11/02 1600 Room Air 11/02 1504 98.0 79 22 120/50 91 Intake & Output 11/03 1600 11/03 0800 11/03 0000 Intake Total 530 720 Output Total 200 Balance 530 520 Intake, IV 530 Intake, Oral 0 720 Number 2 1 Bowel Movements Output, Urine 200 Findings Pertinent Lab/[place] Results: Laboratory Tests 11/03 11/02 0715 1539 Chemistry Sodium (137 - 145 mmol/L) 139 139 Potassium (3.5 - 5.1 mmol/L) 4.0 4.0 Chloride (98 - 107 mmol/L) 111 H 111 H Carbon Dioxide (22 - 30 mmol/L) 18 L 17 L Anion Gap (5 - 16) 9 11 BUN (9 - 20 mg/dL) 14 14 Creatinine (0.7 - 1.2 mg/dL) 1.0 1.1 Estimated GFR (>60 ml/min) > 60 > 60 BUN/Creatinine Ratio (7 - 25 %) 14.0 12.7 Total Bilirubin (0.2 - 1.3 mg/dL) 1.1 Direct Bilirubin (< 0.4 mg/dL) 1.0 H AST (17 - 59 U/L) 30 ALT (21 - 72 U/L) 42 Alkaline Phosphatase (< 127 U/L) 308 H Total Protein (6.3 - 8.2 g/dL) 5.4 L Albumin (3.5 - 5.0 g/dL) 2.0 L Hematology CBC w Diff MAN DIFF ORDERED MAN DIFF ORDERED WBC (4.8 - 10.8 /CUMM) 12.8 H 13.6 H RBC (4.70 - 6.10 /CUMM) 3.20 L 3.11 L Hgb (14.0 - 18.0 G/DL) 9.0 L 8.7 L Hct (42 - 52 %) 26.5 L 25.8 L MCV (80.0 - 94.0 FL) 82.9 82.8 MCH (27.0 - 31.0 PG) 28.0 27.8 MCHC (33.0 - 37.0 G/DL) 33.8 33.6 RDW (11.5 - 14.5 %) 15.8 H 15.7 H Plt Count (130 - 400 /CUMM) 334 313 MPV (7.4 - 10.4 FL) 7.9 7.7 Gran % (42.2 - 75.2 %) 87.3 H 92.4 H Lymphocytes % (20.5 - 51.1 %) 9.3 L 5.3 L Monocytes % (1.7 - 9.3 %) 2.3 1.9 Eosinophils % (0 - 5 %) 0.7 0.4 Basophils % (0.0 - 2.0 %) 0.4 0 Absolute Granulocytes (1.4 - 6.5 /CUMM) 11.2 H 12.6 H Segmented Neutrophils (42.2 - 75.2 %) 89 H Band Neutrophils (0.0 - 5.0 %) 4 Absolute Lymphocytes (1.2 - 3.4 /CUMM) 1.2 0.7 L Lymphocytes (20.5 - 51.1 %) 5 L Monocytes (1.7 - 9.3 %) 1 L Absolute Monocytes (0.10 - 0.60 /CUMM) 0.3 0.3 Absolute Eosinophils (0.0 - 0.7 /CUMM) 0.1 0.1 Absolute Basophils (0.0 - 0.2 /CUMM) 0.1 0 Metamyelocytes (0.0 - 1.0 %) 1 Platelet Estimate (ADEQUATE) VERIFIED BY SMEAR ADEQUATE Polychromasia 1+ 1+ Poikilocytosis 1+ Anisocytosis 1+ Microcytic Cells 1+ Ovalocytes 1+ [place] Cells 1+ ESR Westergren (0 - 10 MM) 119 H
[2017-11-03 14:16] VITALS: BP 136/60
[2017-11-03 22:44] VITALS: BP 138/70
[2017-11-04 06:39] VITALS: BP 134/70
--- NOTE | 2017-11-04 07:11 | PN- Housestaff ---
Katya CARD,[facility] 11/04/17 0710: Subjective Follow-up For: MRSA osteomyelitis with persistent bacteremia s/p Right foot TMA Steroid dependence with adrenal insufficiency Tele-Events Since Last Visit: NSR 70-95 Subjective: Mr. Baltazar was seen and examined this morning. He is resting comfortably in bed. Denies any issues overnight. States that he is feeling better. States p.o. intake is still diminished owing to the fact that he prefers food from home. He denies any fever, chills, nausea, vomiting. States that pain is better controlled. Looking forward to going home soon. He denies any fever, chills, nausea, vomiting. Review of Systems Constitutional: Reports: see HPI. Objective Last 24 Hrs of Vital Signs/I&O Vital Signs Date Time Temp Pulse Resp B/P B/P Pulse O2 O2 Flow FiO2 Mean Ox Delivery Rate 11/04 0803 82 144/64 11/04 0800 Room Air 11/04 0639 99.0 79 18 134/70 93 Room Air 11/03 2305 97.5 80 18 94 Room Air 11/03 2244 86 138/70 11/03 2200 Room Air 11/03 2126 84 138/70 11/03 1416 99.3 82 20 136/60 93 Room Air 11/03 0950 79 144/66 Intake & Output 11/04 1600 11/04 0800 11/04 0000 Intake Total 610 360 Output Total Balance 610 360 Intake, IV 560 Intake, Oral 50 360 Number 0 Bowel Movements Physical Exam General Appearance: Alert, Oriented X3, Cooperative Cardiovascular: Regular Rate, Normal S1, Normal S2 Lungs: Clear to Auscultation Abdomen: Normal Bowel Sounds, Soft, No Tenderness Neurological: Normal Speech Extremities: No Clubbing, No Cyanosis, No Edema, left TMA. Right foot wrapped in bandage. No drainage or erythema Vascular: Normal Pulses Current Medications: Current Medications Sig/Lai Start time Last Medication Dose Route Stop Time Status Admin Acetaminophen 1,000 MG Q6P PRN 10/21 1700 AC 10/31 IV 0045 Carvedilol 6.25 MG BID 10/29 1000 AC 11/04 PO 0803 Collagenase 1 VANI DAILY PRN 10/30 1615 AC 11/03 TOP 2203 Daptomycin 900 MG Q24H 10/31 1230 AC 11/03 Sodium Chloride 50 ML IV 1230 Ferrous Sulfate 325 MG TID 10/31 1600 AC 11/04 PO 0803 Folic Acid 1 MG DAILY 10/21 1703 AC 11/04 PO 0803 Heparin Sodium 5,000 UNIT Q8 10/21 2200 AC 11/04 (Porcine) SC 0612 Insulin Aspart 0 TIDAC/HS 10/29 1700 AC 11/02 SC 1726 Insulin Detemir 6 UNITS BID 10/29 2200 DC 11/03 SC 1024 Multivitamins 1 TAB DAILY 10/21 1703 AC 11/04 PO 0804 Nitroglycerin 0.5 GM Q6 10/26 0850 AC 11/04 TOP 0612 Omeprazole 40 MG BID 10/31 1045 AC 11/04 PO 0804 Potassium Chloride 40 MEQ DAILY 11/03 1000 AC 11/03 PO 0951 Prednisone 5 MG DAILY 11/01 1318 AC 11/04 PO 0804 Trimethoprim/ 30 ML Q12H 10/31 1245 AC 11/04 Sulfamethoxazole IV 0138 Dextrose/Water 500 ML Vitamin A/Vitamin D 1 VANI Q6-PRN PRN 10/27 1500 AC TOP Last 24 Hrs of Lab/[place] Results Last 24 Hrs of Labs/Mics: Laboratory Tests 11/04/17 0844: Sodium Pending, Potassium Pending, Chloride Pending, Carbon Dioxide Pending, Anion Gap Pending, BUN Pending, Creatinine Pending, BUN/Creatinine Ratio Pending , CBC w Diff Pending, WBC Pending, RBC Pending, Hgb Pending, Hct Pending, MCV Pending, MCH Pending, MCHC Pending, RDW Pending, Plt Count Pending, MPV Pending Microbiology 11/04 0710 BLOOD: Blood Culture - RECD 11/04 704 BLOOD: Blood Culture - RECD Orders Miscellaneous Findings: SERVICE DATE: 11/04/17- EXAM TYPE: MRI - MRI-LUMBAR SPINE EXAMINATION: MR LUMBAR SPINE WITHOUT CONTRAST CLINICAL INFORMATION: MRSA bacteremia. Decubitus ulcer and the coccyx region. COMPARISON: CT of the abdomen and pelvis from 10/27/2017 TECHNIQUE: MRI of the lumbar spine without contrast was obtained using routine sequences. Per technologist note, the patient declined additional imaging due to pain and claustrophobia. No contrast was administered. FINDINGS: The axial images are motion degraded. VERTEBRAL BODIES AND PARASPINAL STRUCTURES: There are 5 nonrib-bearing lumbar type vertebral bodies. There is mild height loss along the superior endplates of T12 and L1 with associated Schmorl's nodes and Modic type II endplate changes, chronic. Otherwise vertebral body height is maintained. There is moderate intervertebral disc height loss at L4-L5 with disc desiccation. There is near complete intervertebral disc height loss at L5-S1 with some central disc desiccation and marginal intradiscal bright signal on the STIR sequence. Faint Modic type II and edematous endplate changes visualized at L5-S1. Otherwise there is no marrow edema in the lower thoracic, lumbar, or sacral spine. The distal coccyx is not visualized. There is mild presacral edema. There is edema within the posterior paraspinal musculature bilaterally, with some perceived involvement of the right greater than left psoas musculature, and some edema in the parasagittal partially visualized gluteal muscles as well, all best visualized on the STIR sequence. No discrete fluid collections are evident. The aorta appears normal in caliber. No adenopathy is evident. The imaged SI joints appear mildly degenerated. CONUS MEDULLARIS AND CAUDA EQUINA: The conus appears to terminate at the L1 level. No gross intrathecal signal abnormalities are visualized. SPINAL LEVELS: T11-T12 and T12-L1: There is minor disc osteophyte complex and facet hypertrophy with mild canal and minor bilateral foraminal stenosis. L1-L2: Normal disc morphology. No canal or foraminal stenosis. Trace facet effusions. L2-L3: Normal disc morphology without canal or foraminal stenosis. L3-L4: Normal disc morphology without canal or foraminal stenosis. Trace facet effusions. L4-L5: There is disc osteophyte complex with a broad-based central to right subarticular disc extrusion with inferior migration, resulting in moderate narrowing of the thecal sac and appearing to impinge upon the traversing right L5 nerve root. There is facet hypertrophy with a small right facet effusion. The foramina are mildly narrowed. L5-S1: There is disc osteophyte complex and mild facet hypertrophy. There is mild flattening of the ventral thecal sac potentially contacting the traversing right S1 nerve root and possibly the left. There is moderate right and mild to moderate left foraminal stenosis. IMPRESSION: L5-S1: There is near complete intervertebral disc height loss with some intradiscal signal abnormality and faint edematous endplate change. This is suspected to be degenerative, although given history of bacteremia, an early discitis/osteomyelitis would be hard to exclude. Short-term follow-up can be considered if clinical concern persists. There is mild flattening of the ventral thecal sac, right more than left, appearing to contact the traversing right S1 nerve root. Moderate right foraminal stenosis. There is some partially visualized nonspecific presacral edema as well as edema in the paraspinal musculature, right more than left. No discrete fluid collection. The distal coccyx is not visualized. Elsewhere lumbar spondylosis including moderate right greater than left narrowing of the thecal sac at L4-L5, impinging upon the traversing right L5 nerve root. Remote mild compression deformities along the superior endplates of T12 and L1. DICTATED BY: Castillo Cordova MD Assessment/Plan Assessment: Mr Baltazar is a 61-year-old male with past medical history significant for insulin -dependent diabetes mellitus, rheumatoid arthritis on prednisone & leflunomide, coronary artery disease status post stenting, left TMA, chronic right foot ulcer was brought to [place] after found by law enforcement at home altered and unkempt, covered with urine. Vitals at admission is significant for MAXIMUM TEMPERATURE of 100.6, blood pressure 106/68 mmHg. White count of 13,000 with 72 segments and bands. Troponin of 0.85, elevated d-dimer. Chest x-ray showing patchy opacity in the right upper lobe and mild cardiomegaly. X-ray of Right foot revealed extensive destructive changes in the second to fourth digits. CT of chest is significant for central cavitation and opacities in both lungs. CT abdomen Prominent perinephric edema with prominent prostate. Admitted to ICU initially on 10/21/2017 given sepsis secondary to diabetic foot infection. He did have persistent MRSA bacteremia with extensive seeding into lungs, urine, joints. Once he was hemodynamic stable transferred to telemetry. 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 Initially started broad with IV ceftazidime and Flagyl and transitioned to IV vancomycin after cultures results. MRI did show abscess of right foot. Blood cultures were persistently positive. ESR 125. Underwent tarsometatarsal amputation on 10/25/17. Underwent ANNA and wound closure on . Given bacteremia as well as being febrile overnight we will transition and changes antibiotics from vancomycin to daptomycin (900 mg IV every 24 hours.) Will also begin the patient on Bactrim Q 12 hours. - Day 5 of daptomycin and Bactrim. - Repeated blood cultures 11/04/2017 and if positive may consider WBC scan and possible repeat ANNA. - Monitor LFTs weekly while on daptomycin. - CPK added to labs 10/31/2017 showed 48, remarkably decreased from 10/21/2017 lab of 1485. Will also discontinue statin in the setting of medication interaction with daptomycin. (Iatrogenic) Steroid induced adrenal insufficiency He did have suppression of his pituitary axis secondary to chronic steroid intake. Placed on IV hydrocortisone to maintain his blood pressure. He received stress dose of steroids prior to procedures. * Monitor blood pressure. * Transitioned to by mouth prednisone 5 mg from 12.5 mg hydro-cortisone BID. * If any signs of hypotension may consider taking back on increased dose of steroids. Insulin-dependent diabetic mellitus HbA1c of 7.2. Sugars remained relatively controlled on current regimen NovoLog sliding scale per endocrinology. Intermixed ground glass attenuation on imaging Imaging shows opacities exhibiting reverse halo sign (atoll sign). Also, some of the opacities have central lucencies, suspicious for cavitary change. Given MRSA bacteremia, seeding should be first differential. However patient has been on leflunomide so tuberculosis should be second in the differential. Repeat CT on 10/28/17 did show dense groundglass opacification is also noted - Continue Coreg. Encephalopathy Patient was altered despite aggressive treatment of his infection. Improved after giving IV thiamine for few days. Probably alcohol related. Anemia Previous indices ferritin 1500, iron of 12, TIBC 143 suggestive of anemia of chronic disease/inflammation related. Obvious source could be osteomyelitis. Treating current condition should help with his anemia as well. * Monitor H&H, 8.2/24.2 on latest lab. * Continue oral iron, increased frequency to TID * Guiac all stools * s/p 3U PRBC in total, last BT on 11/01. Goal > 7. If any signs of active bleed consider immediate call to GI for scope. * Stopped aspirin. #Hypokalemia #Revolved * PO K 40 meq X 1. Monitor K in am, K 4.0 on latest lab. * Keep > 4.0. DVT prophylaxis SC heparin Code status full code Problem List: 1. Bacteremia 2. Sepsis Pain Ratin Pain Location: No Pain endrosed Pain Goal: Remain pain free Pain Plan: Tylenol PRN Tomorrow's Labs & Rationales: CBC: Monitor H/H BEP: Monitor K/NA [facility] 11/04/17 1135: Attending MD Review Statement Attending Statement Attending MD Statement: examined this patient, discuss w/resident/PA/PLANNED GIVING OFFICER, agreed w/resident/PA/PLANNED GIVING OFFICER, discussed with family, reviewed EMR data (avail), discussed with nursing, discussed with case mgmt, reviewed images, amended to note Attending Assessment/Plan: ASSESSMENT Right foot osteomyelitis status post TMA October 25 Persistent MRSA bacteremia- likely vancomycin failure; now on daptomycin and Bactrim, Recurrent fever despite TMA Rule out endocarditis- ANNA negative Persistent MRSA bacteremia likely originating from osteomyelitis Suspected pulmonary abscesses from bacteremia which have worsened on recent CT scan insulin-dependent diabetes mellitus, rheumatoid arthritis on prednisone & leflunomide, coronary artery disease status post stenting, History of left TMA, chronic right foot ulcer with the revision debridement October 29 Decubitus ulcer lower back and coccyx area Severe anemia and drop in hematocrit- patient has been having the melena and has required 1 unit of blood transfusion on October 30. Case discussed with Dr. Almonte. At this point no plans for endoscopy unless patient has active GI bleed. Plan Continue daptomycin and Bactrim, Abx as per ID. Plan for work up as ID. Duration of abx as per ID. Continue PPI. Continue iron sulfate 325 mg 3 times a day by mouth with food. Continue prednisone 5 mg daily Continue potassium by mouth 40 mEq daily, follow potassium level today Continue Levemir to 6 units twice a day Continue to hold aspirin
[2017-11-04 09:53] LABS: ABSOLUTE BASOPHIL COUNT 0.1 /CUMM (0.0-0.2); ABSOLUTE EOSINOPHIL COUNT 0.1 /CUMM (0.0-0.7); ABSOLUTE GRANULOCYTE CT 8.5 /CUMM (1.4-6.5); ABSOLUTE LYMPH COUNT 1.2 /CUMM (1.2-3.4); ABSOLUTE MONOCYTE COUNT 0.2 /CUMM (0.10-0.60); BASOPHIL % 0.6 % (0.0-2.0); EOSINOPHIL % 0.8 % (0-5); GRANULOCYTE % 84.7 % (42.2-75.2); HEMATOCRIT 24.2 % (42-52); MEAN CORPUSCULAR HGB 28.1 PG (27.0-31.0); MEAN CORPUSCULAR HGB CONC 33.7 G/DL (33.0-37.0); MEAN CORPUSCULAR VOLUME 83.2 FL (80.0-94.0); MEAN PLATELET VOLUME 7.6 FL (7.4-10.4); PLATELET COUNT 319 /CUMM (130-400); RBC DISTRIBUTION WIDTH 15.9 % (11.5-14.5); RED BLOOD CELL CT 2.91 /CUMM (4.70-6.10); WHITE BLOOD CELL COUNT 10.1 /CUMM (4.8-10.8)
--- NOTE | 2017-11-04 11:14 | PN- Diabetes ---
Assessment/Plan Diabetes Assessment: 61-year-old man with past medical history significant for diabetes mellitus and coronary artery disease status post stent placement, was brought in by ambulance for evaluation of altered mental status. Patient has a necrotic, purulent, chronic right foot plantar ulcer. His BP was borderline low. He used to take prednisone chronically for his arthritis. He was placed on stress dose of steroid-- Hydrocortisone 50 mg iv twice a day. Hydrocortisone was gradually decreased. The blood culture was positive for Gram positive cocci in cluster ( MRSA). He underwent ANNA and closure of the wound 10/29/2017. Currently he is on his usual steroid ---prednisone 5 mg daily for RA. He is on Novolog coverage before meals. His FSGs were 66, 72, 77 and 99. His po intake has been poor. Plan: adjust Novolog coverage before meals; detail see the inpatient DM order; monitor FSGs. will follow. Inpatient Diabetes Orders Before Each Meal: Bolus Insulin: Novolog < 80 mg/dl: no coverage 80-100 mg/dl: no coverage 101-120 mg/dl: no coverage 121-150 mg/dl: no coverage 151-200 mg/dl: 2 units 201-250 mg/dl: 3 units 251-300 mg/dl: 4 units 301-350 mg/dl: 5 units 351-400 mg/dl: 6 units > 400 mg/dl: 7 units Subjective Subjective: He feels okay. Objective Last 24 Hrs of Vital Signs/I&O Vital Signs Date Time Temp Pulse Resp B/P B/P Pulse O2 O2 Flow FiO2 Mean Ox Delivery Rate 11/04 0803 82 144/64 11/04 08 Room Air 11/04 0639 99.0 79 18 134/70 93 Room Air 11/03 2305 97.5 80 18 94 Room Air 11/03 2244 86 138/70 11/03 2200 Room Air 11/03 2126 84 138/70 11/03 1416 99.3 82 20 136/60 93 Room Air Intake & Output 11/04 1600 11/04 0800 11/04 0000 Intake Total 610 360 Output Total Balance 610 360 Intake, IV 560 Intake, Oral 50 360 Number 0 Bowel Movements Findings Pertinent Lab/[place] Results: Laboratory Tests 11/04 0844 Chemistry Sodium (137 - 145 mmol/L) 134 L Potassium (3.5 - 5.1 mmol/L) 4.1 Chloride (98 - 107 mmol/L) 107 Carbon Dioxide (22 - 30 mmol/L) 18 L Anion Gap (5 - 16) 8 BUN (9 - 20 mg/dL) 11 Creatinine (0.7 - 1.2 mg/dL) 1.0 Estimated GFR (>60 ml/min) > 60 BUN/Creatinine Ratio (7 - 25 %) 11.0 Hematology CBC w Diff NO MAN DIFF REQ WBC (4.8 - 10.8 /CUMM) 10.1 RBC (4.70 - 6.10 /CUMM) 2.91 L Hgb (14.0 - 18.0 G/DL) 8.2 L Hct (42 - 52 %) 24.2 L MCV (80.0 - 94.0 FL) 83.2 MCH (27.0 - 31.0 PG) 28.1 MCHC (33.0 - 37.0 G/DL) 33.7 RDW (11.5 - 14.5 %) 15.9 H Plt Count (130 - 400 /CUMM) 319 MPV (7.4 - 10.4 FL) 7.6 Gran % (42.2 - 75.2 %) 84.7 H Lymphocytes % (20.5 - 51.1 %) 11.5 L Monocytes % (1.7 - 9.3 %) 2.4 Eosinophils % (0 - 5 %) 0.8 Basophils % (0.0 - 2.0 %) 0.6 Absolute Granulocytes (1.4 - 6.5 /CUMM) 8.5 H Absolute Lymphocytes (1.2 - 3.4 /CUMM) 1.2 Absolute Monocytes (0.10 - 0.60 /CUMM) 0.2 Absolute Eosinophils (0.0 - 0.7 /CUMM) 0.1 Absolute Basophils (0.0 - 0.2 /CUMM) 0.1
--- NOTE | 2017-11-04 13:41 | MRI REPORT ---
EXAMINATION: MR LUMBAR SPINE WITHOUT CONTRAST CLINICAL INFORMATION: MRSA bacteremia. Decubitus ulcer and the coccyx region. COMPARISON: CT of the abdomen and pelvis from 10/27/2017 TECHNIQUE: MRI of the lumbar spine without contrast was obtained using routine sequences. Per technologist note, the patient declined additional imaging due to pain and claustrophobia. No contrast was administered. FINDINGS: The axial images are motion degraded. VERTEBRAL BODIES AND PARASPINAL STRUCTURES: There are 5 nonrib-bearing lumbar type vertebral bodies. There is mild height loss along the superior endplates of T12 and L1 with associated Schmorl's nodes and Modic type II endplate changes, chronic. Otherwise vertebral body height is maintained. There is moderate intervertebral disc height loss at L4-L5 with disc desiccation. There is near complete intervertebral disc height loss at L5-S1 with some central disc desiccation and marginal intradiscal bright signal on the STIR sequence. Faint Modic type II and edematous endplate changes visualized at L5-S1. Otherwise there is no marrow edema in the lower thoracic, lumbar, or sacral spine. The distal coccyx is not visualized. There is mild presacral edema. There is edema within the posterior paraspinal musculature bilaterally, with some perceived involvement of the right greater than left psoas musculature, and some edema in the parasagittal partially visualized gluteal muscles as well, all best visualized on the STIR sequence. No discrete fluid collections are evident. The aorta appears normal in caliber. No adenopathy is evident. The imaged SI joints appear mildly degenerated. CONUS MEDULLARIS AND CAUDA EQUINA: The conus appears to terminate at the L1 level. No gross intrathecal signal abnormalities are visualized. SPINAL LEVELS: T11-T12 and T12-L1: There is minor disc osteophyte complex and facet hypertrophy with mild canal and minor bilateral foraminal stenosis. L1-L2: Normal disc morphology. No canal or foraminal stenosis. Trace facet effusions. L2-L3: Normal disc morphology without canal or foraminal stenosis. L3-L4: Normal disc morphology without canal or foraminal stenosis. Trace facet effusions. L4-L5: There is disc osteophyte complex with a broad-based central to right subarticular disc extrusion with inferior migration, resulting in moderate narrowing of the thecal sac and appearing to impinge upon the traversing right L5 nerve root. There is facet hypertrophy with a small right facet effusion. The foramina are mildly narrowed. L5-S1: There is disc osteophyte complex and mild facet hypertrophy. There is mild flattening of the ventral thecal sac potentially contacting the traversing right S1 nerve root and possibly the left. There is moderate right and mild to moderate left foraminal stenosis. IMPRESSION: L5-S1: There is near complete intervertebral disc height loss with some intradiscal signal abnormality and faint edematous endplate change. This is suspected to be degenerative, although given history of bacteremia, an early discitis/osteomyelitis would be hard to exclude. Short-term follow-up can be considered if clinical concern persists. There is mild flattening of the ventral thecal sac, right more than left, appearing to contact the traversing right S1 nerve root. Moderate right foraminal stenosis. There is some partially visualized nonspecific presacral edema as well as edema in the paraspinal musculature, right more than left. No discrete fluid collection. The distal coccyx is not visualized. Elsewhere lumbar spondylosis including moderate right greater than left narrowing of the thecal sac at L4-L5, impinging upon the traversing right L5 nerve root. Remote mild compression deformities along the superior endplates of T12 and L1.
--- NOTE | 2017-11-04 14:29 | PN- Infect Dx ---
Subjective Subjective: Afebrile on steroids. He does complain of low back pain. Objective Last 24 Hrs of Vital Signs/I&O Vital Signs Date Time Temp Pulse Resp B/P B/P Pulse O2 O2 Flow FiO2 Mean Ox Delivery Rate 11/04 802 82 144/64 11/04 0800 Room Air 11/04 0639 99.0 79 18 134/70 93 Room Air 11/03 2305 97.5 80 18 94 Room Air 11/03 2244 86 138/70 11/03 2200 Room Air 11/03 2126 84 138/70 Intake & Output 11/04 1600 11/04 0800 11/04 0000 Intake Total 610 360 Output Total 700 Balance -700 610 360 Intake, IV 560 Intake, Oral 50 360 Number 0 Bowel Movements Output, Urine 700 Physical Exam Other Physical Findings: He appears comfortable in no acute distress Lungs are clear Heart regular rhythm with a 1/6 systolic ejection murmur Abdomen is soft, nontender with positive bowel sounds Extremities right foot dressing intact Results Last 24 Hours of Lab Results: Laboratory Tests 11/05 843 Chemistry Sodium (137 - 145 mmol/L) 134 L Potassium (3.5 - 5.1 mmol/L) 4.1 Chloride (98 - 107 mmol/L) 107 Carbon Dioxide (22 - 30 mmol/L) 18 L Anion Gap (5 - 16) 8 BUN (9 - 20 mg/dL) 11 Creatinine (0.7 - 1.2 mg/dL) 1.0 Estimated GFR (>60 ml/min) > 60 BUN/Creatinine Ratio (7 - 25 %) 11.0 Hematology CBC w Diff NO MAN DIFF REQ WBC (4.8 - 10.8 /CUMM) 10.1 RBC (4.70 - 6.10 /CUMM) 2.91 L Hgb (14.0 - 18.0 G/DL) 8.2 L Hct (42 - 52 %) 24.2 L MCV (80.0 - 94.0 FL) 83.2 MCH (27.0 - 31.0 PG) 28.1 MCHC (33.0 - 37.0 G/DL) 33.7 RDW (11.5 - 14.5 %) 15.9 H Plt Count (130 - 400 /CUMM) 319 MPV (7.4 - 10.4 FL) 7.6 Gran % (42.2 - 75.2 %) 84.7 H Lymphocytes % (20.5 - 51.1 %) 11.5 L Monocytes % (1.7 - 9.3 %) 2.4 Eosinophils % (0 - 5 %) 0.8 Basophils % (0.0 - 2.0 %) 0.6 Absolute Granulocytes (1.4 - 6.5 /CUMM) 8.5 H Absolute Lymphocytes (1.2 - 3.4 /CUMM) 1.2 Absolute Monocytes (0.10 - 0.60 /CUMM) 0.2 Absolute Eosinophils (0.0 - 0.7 /CUMM) 0.1 Absolute Basophils (0.0 - 0.2 /CUMM) 0.1 Last 24 Hours of [place] Results: Blood cultures November 02 one bottle positive for MRSA Blood cultures 2 November 04 pending Recent Imaging Studies: MRI of the lumbar spine November 04 (without contrast as patient refused) reveals near-complete intervertebral disc height loss, felt to be degenerative in etiology; nonspecific presacral edema and edema in the paraspinal musculature, right greater than left, with no discrete fluid collection. Assessment/Plan ID Impression: Persistent MRSA bacteremia, now on Daptomycin and Bactrim, begun 4 days ago because of a persistent bacteremia after 10 days of Vancomycin. The source of his persistent bacteremia remains unclear, with the recent MRI not suggestive of any infectious process and with the ANNA and recent CT of the abdomen and pelvis also negative. His right foot is not felt by Podiatry to be the source of infection at this time, status post revision of the exposed metatarsal stumps with closure of the wound 6 days ago, now 10 days status post a right transmetatarsal amputation. A pulmonary source is possible, with the most recent CT scan revealing progression of his opacities, with cavitation, though he has minimal respiratory symptoms. His anemia is likely secondary to a GI source, with guaiac positive stools reported, though, apparently, no GI evaluation is planned. Suggestion: 1. Follow-up recent repeat blood cultures 2. GI evaluation if guaiac positive stools and anemia recur 3. Would obtain a baseline postop x-ray of the right foot 4. Further evaluation, including a white blood cell scan and, possibly, a repeat ANNA if his blood cultures remain positive 5. Continue Daptomycin and Bactrim
[2017-11-04 14:40] VITALS: BP 132/70
[2017-11-04 22:32] VITALS: BP 132/60
[2017-11-05 06:38] VITALS: BP 138/76
--- NOTE | 2017-11-05 07:16 | PN- Housestaff ---
Katya CARD,[facility] 11/05/17 0716: Subjective Follow-up For: MRSA osteomyelitis with persistent bacteremia s/p Right foot TMA Steroid dependence with adrenal insufficiency Subjective: Mr Baltazar was seen and examined this morning. Resting comfortably in bed. Denies any issues overnight. States that he feels that he is getting better. Still continues to endorse diminished PO intake owing to the fact that he has not had much of an appetite. Denies any fever, chills, nausea, vomiting. States pain is well controlled. Review of Systems Constitutional: Reports: see HPI. Objective Last 24 Hrs of Vital Signs/I&O Vital Signs Date Time Temp Pulse Resp B/P B/P Pulse O2 O2 Flow FiO2 Mean Ox Delivery Rate 11/05 1541 98.7 45 22 148/56 96 11/05 0816 138/76 11/05 0638 99.1 76 22 138/76 91 Room Air 11/04 2232 99.6 81 25 132/60 91 Room Air 11/04 2227 90 Room Air 11/04 2057 81 132/60 Intake & Output 11/05 1600 11/05 0800 11/05 0000 Intake Total 770 542 Output Total 300 700 Balance 470 -158 Intake, IV 530 Intake, Oral 240 542 Number 0 Bowel Movements Output, Urine 300 700 Patient 81.873 kg Weight Weight Bed scale Measurement Method Physical Exam General Appearance: Alert, Oriented X3, Cooperative Cardiovascular: Normal S1, Normal S2 Lungs: Clear to Auscultation Abdomen: Normal Bowel Sounds, Soft, No Tenderness Neurological: Normal Speech Extremities: No Clubbing, No Cyanosis, No Edema, No clubbing or cyanosis. Left TMA. Right foot wrapped in bandage. No drainage or erythema Vascular: Normal Pulses Current Medications: Current Medications Sig/Lai Start time Last Medication Dose Route Stop Time Status Admin Acetaminophen 1,000 MG Q6P PRN 10/21 1700 AC 10/31 IV 0045 Carvedilol 6.25 MG BID 10/29 1000 AC 11/05 PO 0816 Collagenase 1 VANI DAILY PRN 10/30 1615 AC 11/04 TOP 1129 Daptomycin 900 MG Q24H 10/31 1230 AC 11/05 Sodium Chloride 50 ML IV 1214 Ferrous Sulfate 325 MG TID 10/31 1600 AC 11/05 PO 0816 Folic Acid 1 MG DAILY 10/21 1703 AC 11/05 PO 0816 Heparin Sodium 5,000 UNIT Q8 10/21 2200 AC 11/05 (Porcine) SC 1304 Insulin Aspart 0 TIDAC/HS 10/29 1700 AC 11/04 SC 1253 Multivitamins 1 TAB DAILY 10/21 1703 AC 11/05 PO 0816 Nicotine 21 MG DAILY 11/05 1447 AC TOP Nitroglycerin 0.5 GM Q6 10/26 0850 AC 11/05 TOP 1214 Omeprazole 40 MG BID 10/31 1045 AC 11/05 PO 0816 Prednisone 5 MG DAILY 11/01 1318 AC 11/05 PO 0816 Trimethoprim/ 30 ML Q12H 10/31 1245 AC 11/05 Sulfamethoxazole IV 1214 Dextrose/Water 500 ML Vitamin A/Vitamin D 1 VANI Q6-PRN PRN 10/27 1500 AC TOP Last 24 Hrs of Lab/[place] Results Last 24 Hrs of Labs/Mics: Laboratory Tests 11/05/17 0658: CBC w Diff NO MAN DIFF REQ, RBC 2.81 L, MCV 83.1, MCH 28.1, MCHC 33.9, RDW 15.7 H, MPV 7.4, Gran % 80.3 H, Lymphocytes % 13.1 L, Monocytes % 4.6, Eosinophils % 1.1, Basophils % 0.9, Absolute Granulocytes 7.7 H, Absolute Lymphocytes 1.3, Absolute Monocytes 0.4, Absolute Eosinophils 0.1, Absolute Basophils 0.1 11/05/17 0655: Anion Gap 8, Estimated GFR > 60, BUN/Creatinine Ratio 9.1 Assessment/Plan Assessment: Mr Baltazar is a 61-year-old male with past medical history significant for insulin -dependent diabetes mellitus, rheumatoid arthritis on prednisone & leflunomide, coronary artery disease status post stenting, left TMA, chronic right foot ulcer was brought to [place] after found by law enforcement at home altered and unkempt, covered with urine. Vitals at admission is significant for MAXIMUM TEMPERATURE of 100.6, blood pressure 106/68 mmHg. White count of 13,000 with 72 segments and bands. Troponin of 0.85, elevated d-dimer. Chest x-ray showing patchy opacity in the right upper lobe and mild cardiomegaly. X-ray of Right foot revealed extensive destructive changes in the second to fourth digits. CT of chest is significant for central cavitation and opacities in both lungs. CT abdomen Prominent perinephric edema with prominent prostate. Admitted to ICU initially on 10/21/2017 given sepsis secondary to diabetic foot infection. He did have persistent MRSA bacteremia with extensive seeding into lungs, urine, joints. Once he was hemodynamic stable transferred to telemetry. 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 Initially started broad with IV ceftazidime and Flagyl and transitioned to IV vancomycin after cultures results. MRI did show abscess of right foot. Blood cultures were persistently positive. ESR 125. Underwent tarsometatarsal amputation on 10/25/17. Underwent ANNA and wound closure on . Given bacteremia as well as being febrile overnight we will transition and changes antibiotics from vancomycin to daptomycin (900 mg IV every 24 hours.) Will also begin the patient on Bactrim Q 12 hours. - Day 6 of daptomycin and Bactrim. - Repeated blood cultures 11/04/2017 and if positive may consider WBC scan and possible repeat ANNA. - Monitor LFTs weekly while on daptomycin. - CPK added to labs 10/31/2017 showed 48, remarkably decreased from 10/21/2017 lab of 1485. Will also discontinue statin in the setting of medication interaction with daptomycin. (Iatrogenic) Steroid induced adrenal insufficiency He did have suppression of his pituitary axis secondary to chronic steroid intake. Placed on IV hydrocortisone to maintain his blood pressure. He received stress dose of steroids prior to procedures. * Monitor blood pressure. * Transitioned to by mouth prednisone 5 mg from 12.5 mg hydro-cortisone BID. * If any signs of hypotension may consider taking back on increased dose of steroids. Insulin-dependent diabetic mellitus HbA1c of 7.2. Sugars remained relatively controlled on current regimen NovoLog sliding scale per endocrinology. Intermixed ground glass attenuation on imaging Imaging shows opacities exhibiting reverse halo sign (atoll sign). Also, some of the opacities have central lucencies, suspicious for cavitary change. Given MRSA bacteremia, seeding should be first differential. However patient has been on leflunomide so tuberculosis should be second in the differential. Repeat CT on 10/28/17 did show dense groundglass opacification is also noted - Continue Coreg. Encephalopathy Patient was altered despite aggressive treatment of his infection. Improved after giving IV thiamine for few days. Probably alcohol related. Anemia Previous indices ferritin 1500, iron of 12, TIBC 143 suggestive of anemia of chronic disease/inflammation related. Obvious source could be osteomyelitis. Treating current condition should help with his anemia as well. * Monitor H&H, 7.9/23.4 on latest lab. * Continue oral iron, increased frequency to TID * Guiac all stools * s/p 3U PRBC in total, last BT on 11/01. Goal > 7. If any signs of active bleed consider immediate call to GI for scope. * Stopped aspirin. #Hypokalemia #Revolved * PO K 40 meq X 1. Monitor K in am, K 4.0 on latest lab. * Keep > 4.0. DVT prophylaxis SC heparin Code status full code Problem List: 1. Bacteremia 2. Anemia 3. Osteomyelitis of right foot Pain Ratin Pain Location: No Pain Endorsed Pain Goal: Remain pain free Pain Plan: Tylenol PRN Tomorrow's Labs & Rationales: CBC: monitor H/H in the setting of acute illness BEP; Monitor electrolytes Johnson Long 11/05/17 1054: Attending MD Review Statement Attending Statement Attending MD Statement: examined this patient, discuss w/resident/PA/BAG CHECKER, agreed w/resident/PA/BAG CHECKER, discussed with family, reviewed EMR data (avail), discussed with nursing, discussed with case mgmt, reviewed images, amended to note Attending Assessment/Plan: Patient seen/examiend bedside. Patient is aaox 2-3 oriented. No chest pain. Vitals stable. Patient afebrile but have persistent bacteremia and generalised weakness. Patient is being followed by infectious disease. Patient repeat blood cultures remain positive. MRI spine ID not convinced it is OM, Plan for WBC scan in future during this week if blood culture remains persistent bacteremic. Patient can be transferred to [facility] for further managmenet.
[2017-11-05 08:25] LABS: ABSOLUTE BASOPHIL COUNT 0.1 /CUMM (0.0-0.2); ABSOLUTE EOSINOPHIL COUNT 0.1 /CUMM (0.0-0.7); ABSOLUTE GRANULOCYTE CT 7.7 /CUMM (1.4-6.5); ABSOLUTE LYMPH COUNT 1.3 /CUMM (1.2-3.4); ABSOLUTE MONOCYTE COUNT 0.4 /CUMM (0.10-0.60); BASOPHIL % 0.9 % (0.0-2.0); EOSINOPHIL % 1.1 % (0-5); GRANULOCYTE % 80.3 % (42.2-75.2); HEMATOCRIT 23.4 % (42-52); MEAN CORPUSCULAR HGB 28.1 PG (27.0-31.0); MEAN CORPUSCULAR HGB CONC 33.9 G/DL (33.0-37.0); MEAN CORPUSCULAR VOLUME 83.1 FL (80.0-94.0); MEAN PLATELET VOLUME 7.4 FL (7.4-10.4); PLATELET COUNT 324 /CUMM (130-400); RBC DISTRIBUTION WIDTH 15.7 % (11.5-14.5); RED BLOOD CELL CT 2.81 /CUMM (4.70-6.10); WHITE BLOOD CELL COUNT 9.6 /CUMM (4.8-10.8)
--- NOTE | 2017-11-05 08:34 | PN- Diabetes ---
Assessment/Plan Diabetes Assessment: 61-year-old man with past medical history significant for diabetes mellitus and coronary artery disease status post stent placement, was brought in by ambulance for evaluation of altered mental status. Patient has a necrotic, purulent, chronic right foot plantar ulcer. His BP was borderline low. He used to take prednisone chronically for his arthritis. He was placed on stress dose of steroid-- Hydrocortisone 50 mg iv twice a day. Hydrocortisone was gradually decreased. The blood culture was positive for Gram positive cocci in cluster ( MRSA). He underwent ANNA and closure of the wound 10/29/2017. Currently he is on his usual steroid ---prednisone 5 mg daily for RA. He is on Novolog coverage before meals (the coverage starts when his FSG is above 150). His FSGs were 177, 135, 102 and 101. Plan: continue the current insulin regimen for now; monitor FSGs. will follow. Subjective Subjective: He feels okay. Objective Last 24 Hrs of Vital Signs/I&O Vital Signs Date Time Temp Pulse Resp B/P B/P Pulse O2 O2 Flow FiO2 Mean Ox Delivery Rate 11/05 0816 138/76 11/05 0638 99.1 76 22 138/76 91 Room Air / 2232 99.6 81 25 132/60 91 Room Air / 2227 90 Room Air / 2057 81 132/60 / 1600 Room Air 11/04 1440 98.6 83 18 132/70 90 Room Air Intake & Output 11/05 1600 11/05 0800 11/05 0000 Intake Total 770 542 Output Total 300 700 Balance 470 -158 Intake, IV 530 Intake, Oral 240 542 Number 0 Bowel Movements Output, Urine 300 700 Patient 181 lb Weight Weight Bed scale Measurement Method Findings Pertinent Lab/[place] Results: Laboratory Tests 11/05 11/05 11/04 0658 0655 0844 Chemistry Sodium (137 - 145 mmol/L) Pending 134 L Potassium (3.5 - 5.1 mmol/L) Pending 4.1 Chloride (98 - 107 mmol/L) Pending 107 Carbon Dioxide (22 - 30 mmol/L) Pending 18 L Anion Gap (5 - 16) Pending 8 BUN (9 - 20 mg/dL) Pending 11 Creatinine (0.7 - 1.2 mg/dL) Pending 1.0 Estimated GFR (>60 ml/min) > 60 BUN/Creatinine Ratio (7 - 25 %) Pending 11.0 Hematology CBC w Diff Pending NO MAN DIFF REQ WBC (4.8 - 10.8 /CUMM) Pending 10.1 RBC (4.70 - 6.10 /CUMM) Pending 2.91 L Hgb (14.0 - 18.0 G/DL) Pending 8.2 L Hct (42 - 52 %) Pending 24.2 L MCV (80.0 - 94.0 FL) Pending 83.2 MCH (27.0 - 31.0 PG) Pending 28.1 MCHC (33.0 - 37.0 G/DL) Pending 33.7 RDW (11.5 - 14.5 %) Pending 15.9 H Plt Count (130 - 400 /CUMM) Pending 319 MPV (7.4 - 10.4 FL) Pending 7.6 Gran % (42.2 - 75.2 %) 84.7 H Lymphocytes % (20.5 - 51.1 %) 11.5 L Monocytes % (1.7 - 9.3 %) 2.4 Eosinophils % (0 - 5 %) 0.8 Basophils % (0.0 - 2.0 %) 0.6 Absolute Granulocytes (1.4 - 6.5 /CUMM) 8.5 H Absolute Lymphocytes (1.2 - 3.4 /CUMM) 1.2 Absolute Monocytes (0.10 - 0.60 /CUMM) 0.2 Absolute Eosinophils (0.0 - 0.7 /CUMM) 0.1 Absolute Basophils (0.0 - 0.2 /CUMM) 0.1
--- NOTE | 2017-11-05 10:37 | PN- Infect Dx ---
Subjective Subjective: Afebrile without complaints Objective Last 24 Hrs of Vital Signs/I&O Vital Signs Date Time Temp Pulse Resp B/P B/P Pulse O2 O2 Flow FiO2 Mean Ox Delivery Rate 11/06 0716 138/76 11/05 0638 99.1 76 22 138/76 91 Room Air 11/04 2232 99.6 81 25 132/60 91 Room Air 11/04 2227 90 Room Air 11/04 2057 81 132/60 11/04 1600 Room Air 11/04 1440 98.6 83 18 132/70 90 Room Air Intake & Output 11/05 1600 11/05 0800 11/05 0000 Intake Total 770 542 Output Total 300 700 Balance 470 -158 Intake, IV 530 Intake, Oral 240 542 Number 0 Bowel Movements Output, Urine 300 700 Patient 181 lb Weight Weight Bed scale Measurement Method Physical Exam Other Physical Findings: He appears comfortable in no acute distress Lungs decreased breath sounds Heart regular rhythm with no murmur Abdomen is soft, nontender with positive bowel sounds Extremities right foot dressing intact Results Last 24 Hours of Lab Results: Laboratory Tests 11/05 11/05 0658 0655 Chemistry Sodium (137 - 145 mmol/L) 132 L Potassium (3.5 - 5.1 mmol/L) 4.2 Chloride (98 - 107 mmol/L) 106 Carbon Dioxide (22 - 30 mmol/L) 18 L Anion Gap (5 - 16) 8 BUN (9 - 20 mg/dL) 10 Creatinine (0.7 - 1.2 mg/dL) 1.1 Estimated GFR (>60 ml/min) > 60 BUN/Creatinine Ratio (7 - 25 %) 9.1 Hematology CBC w Diff NO MAN DIFF REQ WBC (4.8 - 10.8 /CUMM) 9.6 RBC (4.70 - 6.10 /CUMM) 2.81 L Hgb (14.0 - 18.0 G/DL) 7.9 L Hct (42 - 52 %) 23.4 L MCV (80.0 - 94.0 FL) 83.1 MCH (27.0 - 31.0 PG) 28.1 MCHC (33.0 - 37.0 G/DL) 33.9 RDW (11.5 - 14.5 %) 15.7 H Plt Count (130 - 400 /CUMM) 324 MPV (7.4 - 10.4 FL) 7.4 Gran % (42.2 - 75.2 %) 80.3 H Lymphocytes % (20.5 - 51.1 %) 13.1 L Monocytes % (1.7 - 9.3 %) 4.6 Eosinophils % (0 - 5 %) 1.1 Basophils % (0.0 - 2.0 %) 0.9 Absolute Granulocytes (1.4 - 6.5 /CUMM) 7.7 H Absolute Lymphocytes (1.2 - 3.4 /CUMM) 1.3 Absolute Monocytes (0.10 - 0.60 /CUMM) 0.4 Absolute Eosinophils (0.0 - 0.7 /CUMM) 0.1 Absolute Basophils (0.0 - 0.2 /CUMM) 0.1 Last 24 Hours of [place] Results: Blood cultures November 04 negative Assessment/Plan ID Impression: Persistent MRSA bacteremia, on Daptomycin and Bactrim, begun 5 days ago because of a persistent bacteremia despite 10 days of Vancomycin. The source of his persistent bacteremia remains unclear, with the recent MRI not suggestive of any infectious process and with the ANNA and recent CT of the abdomen and pelvis also negative. His right foot is not felt by Podiatry to be the source of infection at this time, status post revision of the exposed metatarsal stumps with closure of the wound 7 days ago, now 11 days status post a right transmetatarsal amputation. A pulmonary source is possible, with the most recent CT scan revealing progression of his opacities, with cavitation, though he has minimal respiratory symptoms. His anemia is likely secondary to a GI source, with guaiac positive stools reported, though, apparently, no GI evaluation is planned. Suggestion: 1. Follow-up recent repeat blood cultures 2. GI evaluation if guaiac positive stools and anemia recur 3. Would obtain a baseline postop x-ray of the right foot 4. Further evaluation, including a white blood cell scan and, possibly, a repeat ANNA if his blood cultures remain positive 5. Continue Daptomycin and Bactrim
[2017-11-05 15:41] VITALS: BP 148/56
--- NOTE | 2017-11-05 16:36 | RADIOLOGY REPORT ---
EXAMINATION: XR FOOT, RIGHT CLINICAL INFORMATION: Compare to previous imaging study which was positive for osteomyelitis COMPARISON: X-ray 10/21/2017. MRI of the right foot 10/23/2017 TECHNIQUE: AP, lateral, and oblique views of the right foot. FINDINGS: The patient has undergone interval transmetatarsal amputation. The cortical amputation margins are well-defined. There are 2 residual bony fragments between the first and second metatarsal stumps, likely the first metatarsal head sesamoids. There are overlying skin genet and postoperative soft tissue swelling. No soft tissue gas seen.. Normal tarsal-metatarsal alignment. There is joint space narrowing and sclerosis of the calcaneonavicular articulation. IMPRESSION: Status post interval transmetatarsal amputation; the cortical amputation margins are well-defined.
[2017-11-05 23:53] VITALS: BP 142/60
[2017-11-06 06:36] VITALS: BP 140/80
--- NOTE | 2017-11-06 07:09 | PN- Housestaff ---
Katya CARD,[facility] 11/06/17 0708: Subjective Follow-up For: Persistent bacteremia. Subjective: Mr. Baltazar was seen and examined this morning. Resting comfortably in bed. Denies any issues overnight. States he was able to sleep well. Denies any back pain. Denies any fever, chills, nausea, vomiting. States that pain is well controlled. Still endorses decreased by mouth intake owing to the fact that he prefers food from home. Review of Systems Constitutional: Reports: see HPI. Objective Last 24 Hrs of Vital Signs/I&O Vital Signs Date Time Temp Pulse Resp B/P B/P Pulse O2 O2 Flow FiO2 Mean Ox Delivery Rate 11/06 1428 100.6 88 20 142/62 98 Room Air 11/06 0957 140/80 11/06 0636 98.0 52 20 140/80 92 11/06 0000 95 Room Air 11/05 2353 98.6 81 16 142/60 92 Room Air 11/05 2344 82 142/60 Intake & Output 11/06 1600 11/06 0800 11/06 0000 Intake Total 840 760 400 Output Total Balance 840 760 400 Intake, IV 600 510 Intake, Oral 240 250 400 Number 0 Bowel Movements Physical Exam General Appearance: Alert, Oriented X3, Cooperative Skin: No Rashes Skin Temp/Moisture Exam: Warm/Dry Cardiovascular: Regular Rate, Normal S1, Normal S2 Lungs: Clear to Auscultation Abdomen: Normal Bowel Sounds, Soft, No Tenderness Neurological: Normal Speech Extremities: No Edema, No Tenderness/Swelling, LEft TMA, Right foot wrapped in bandage. No Drainage or erythema Vascular: Normal Pulses Current Medications: Current Medications Sig/Lai Start time Last Medication Dose Route Stop Time Status Admin Acetaminophen 650 MG ONCE ONE 11/06 0600 DC 11/06 PO 11/06 0601 0010 Acetaminophen 650 MG .STK-MED ONE 11/05 2346 DC PO 11/05 2347 Acetaminophen 1,000 MG Q6P PRN 10/21 1700 AC 10/31 IV 0045 Carvedilol 6.25 MG BID 10/29 1000 AC 11/06 PO 0957 Collagenase 1 VANI DAILY PRN 10/30 1615 AC 11/06 TOP 0958 Daptomycin 900 MG Q24H 10/31 1230 AC 11/06 Sodium Chloride 50 ML IV 1300 Ferrous Sulfate 325 MG TID 10/31 1600 AC 11/06 PO 0957 Folic Acid 1 MG DAILY 10/21 1703 AC 11/06 PO 0957 Heparin Sodium 5,000 UNIT Q8 10/21 2200 AC 11/06 (Porcine) SC 1348 Insulin Aspart 0 TIDAC/HS 10/29 1700 AC 11/05 SC 1701 Linezolid 600 MG BID 11/06 1400 AC PO Multivitamins 1 TAB DAILY 10/21 1703 AC 11/06 PO 0958 Nicotine 21 MG DAILY 11/05 1447 AC 11/06 TOP 0957 Nitroglycerin 0.5 GM Q6 10/26 0850 AC 11/06 TOP 1135 Omeprazole 40 MG BID 10/31 1045 AC 11/06 PO 0957 Prednisone 5 MG DAILY 11/01 1318 AC 11/06 PO 0957 Sodium Chloride 2 SPRAY Q6-PRN PRN 11/05 1745 AC LORELEI Trimethoprim/ 30 ML Q12H 10/31 1245 AC 11/06 Sulfamethoxazole IV 1347 Dextrose/Water 500 ML Vitamin A/Vitamin D 1 VANI Q6-PRN PRN 10/27 1500 AC 11/06 TOP 0958 Last 24 Hrs of Lab/[place] Results Last 24 Hrs of Labs/Mics: Laboratory Tests 11/06/17 0643: Anion Gap 7, Estimated GFR > 60, BUN/Creatinine Ratio 9.2, Creatine Kinase 73, CBC w Diff NO MAN DIFF REQ, RBC 2.79 L, MCV 83.4, MCH 28.0, MCHC 33.6, RDW 16.6 H, MPV 7.3 L, Gran % 76.5 H, Lymphocytes % 16.7 L, Monocytes % 4.6, Eosinophils % 1.4, Basophils % 0.8, Absolute Granulocytes 5.6, Absolute Lymphocytes 1.2, Absolute Monocytes 0.3, Absolute Eosinophils 0.1, Absolute Basophils 0.1 Microbiology 11/06 1739 BLOOD: Blood Culture - RES 11/06 1739 BLOOD: Blood Culture - RES Assessment/Plan Assessment: Mr Baltazar is a 61-year-old male with past medical history significant for insulin -dependent diabetes mellitus, rheumatoid arthritis on prednisone & leflunomide, coronary artery disease status post stenting, left TMA, chronic right foot ulcer was brought to [place] after found by law enforcement at home altered and unkempt, covered with urine. Vitals at admission is significant for MAXIMUM TEMPERATURE of 100.6, blood pressure 106/68 mmHg. White count of 13,000 with 72 segments and bands. Troponin of 0.85, elevated d-dimer. Chest x-ray showing patchy opacity in the right upper lobe and mild cardiomegaly. X-ray of Right foot revealed extensive destructive changes in the second to fourth digits. CT of chest is significant for central cavitation and opacities in both lungs. CT abdomen Prominent perinephric edema with prominent prostate. Admitted to ICU initially on 10/21/2017 given sepsis secondary to diabetic foot infection. He did have persistent MRSA bacteremia with extensive seeding into lungs, urine, joints. Once he was hemodynamic stable transferred to telemetry. 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 Initially started broad with IV ceftazidime and Flagyl and transitioned to IV vancomycin after cultures results. MRI did show abscess of right foot. Blood cultures were persistently positive. ESR 125. Underwent tarsometatarsal amputation on 10/25/17. Underwent ANNA and wound closure on . Given bacteremia as well as being febrile overnight we will transition and changes antibiotics from vancomycin to daptomycin (900 mg IV every 24 hours.) Will also begin the patient on Bactrim Q 12 hours. - Day 7 of daptomycin and Bactrim. -Linezoid started 11/06/2017 for improved coverage of potential pulmonary source. 600 mg BID - Repeated blood cultures 11/04/2017 and if positive may consider WBC scan and possible repeat ANNA. - Monitor LFTs weekly while on daptomycin. - CPK added to labs 10/31/2017 showed 48, remarkably decreased from 10/21/2017 lab of 1485. Will also discontinue statin in the setting of medication interaction with daptomycin. CPK level 11/06/2017: 73 -Patient will have a WBC scan tomorrow. (Iatrogenic) Steroid induced adrenal insufficiency He did have suppression of his pituitary axis secondary to chronic steroid intake. Placed on IV hydrocortisone to maintain his blood pressure. He received stress dose of steroids prior to procedures. * Monitor blood pressure. * Transitioned to by mouth prednisone 5 mg from 12.5 mg hydro-cortisone BID. * If any signs of hypotension may consider taking back on increased dose of steroids. Insulin-dependent diabetic mellitus HbA1c of 7.2. Sugars remained relatively controlled on current regimen NovoLog sliding scale per endocrinology. Intermixed ground glass attenuation on imaging Imaging shows opacities exhibiting reverse halo sign (atoll sign). Also, some of the opacities have central lucencies, suspicious for cavitary change. Given MRSA bacteremia, seeding should be first differential. However patient has been on leflunomide so tuberculosis should be second in the differential. Repeat CT on 10/28/17 did show dense groundglass opacification is also noted - Continue Coreg. Encephalopathy Patient was altered despite aggressive treatment of his infection. Improved after giving IV thiamine for few days. Probably alcohol related. Anemia Previous indices ferritin 1500, iron of 12, TIBC 143 suggestive of anemia of chronic disease/inflammation related. Obvious source could be osteomyelitis. Treating current condition should help with his anemia as well. * Monitor H&H, 7.8/23.3 on latest lab. * Continue oral iron, increased frequency to TID * Guiac all stools * s/p 3U PRBC in total, last BT on 11/01. Goal > 7. If any signs of active bleed consider immediate call to GI for scope. * Stopped aspirin. DVT prophylaxis SC heparin Code status full code Problem List: 1. Bacteremia 2. Anemia Pain Ratin Pain Location: No Pain Pain Goal: Remain pain free Pain Plan: Tylenol PRN Tomorrow's Labs & Rationales: CBC: Monitor H/H In the setting of acute illness BEP: Monitor Electrolytes Ethan,Johnson 11/06/17 1106: Attending MD Review Statement Attending Statement Attending MD Statement: examined this patient, discuss w/resident/PA/CONCRETER, agreed w/resident/PA/CONCRETER, discussed with family, reviewed EMR data (avail), discussed with nursing, discussed with case mgmt, reviewed images, amended to note Attending Assessment/Plan: Patient seen/examiend bedside. Patient is aaox 2-3 oriented. No chest pain. Vitals stable. Patient afebrile but have persistent bacteremia and generalised weakness. Patient is being followed by infectious disease. Patient repeat blood cultures remain positive. MRI spine ID not convinced it is OM, Plan for WBC scan in future during this week if blood culture remains persistent bacteremic. Patient can be transferred to [facility] for further managmenet.
[2017-11-06 08:07] LABS: ABSOLUTE BASOPHIL COUNT 0.1 /CUMM (0.0-0.2); ABSOLUTE EOSINOPHIL COUNT 0.1 /CUMM (0.0-0.7); ABSOLUTE GRANULOCYTE CT 5.6 /CUMM (1.4-6.5); ABSOLUTE LYMPH COUNT 1.2 /CUMM (1.2-3.4); ABSOLUTE MONOCYTE COUNT 0.3 /CUMM (0.10-0.60); BASOPHIL % 0.8 % (0.0-2.0); EOSINOPHIL % 1.4 % (0-5); GRANULOCYTE % 76.5 % (42.2-75.2); HEMATOCRIT 23.3 % (42-52); MEAN CORPUSCULAR HGB CONC 33.6 G/DL (33.0-37.0); MEAN CORPUSCULAR VOLUME 83.4 FL (80.0-94.0); MEAN PLATELET VOLUME 7.3 FL (7.4-10.4); PLATELET COUNT 303 /CUMM (130-400); RBC DISTRIBUTION WIDTH 16.6 % (11.5-14.5); RED BLOOD CELL CT 2.79 /CUMM (4.70-6.10); WHITE BLOOD CELL COUNT 7.4 /CUMM (4.8-10.8)
--- NOTE | 2017-11-06 08:29 | PN- Diabetes ---
Assessment/Plan Diabetes Assessment: 61-year-old man with past medical history significant for diabetes mellitus and coronary artery disease status post stent placement, was brought in by ambulance for evaluation of altered mental status. Patient has a necrotic, purulent, chronic right foot plantar ulcer. His BP was borderline low. He used to take prednisone chronically for his arthritis. He was placed on stress dose of steroid-- Hydrocortisone 50 mg iv twice a day. Hydrocortisone was gradually decreased. The blood culture was positive for Gram positive cocci in cluster ( MRSA). He underwent ANNA and closure of the wound 10/29/2017. Currently he is on his usual steroid ---prednisone 5 mg daily for RA. He is on Novolog coverage before meals (the coverage starts when his FSG is above 150). His FSGs were 127, 179, 83 and 97. Plan: 1. continue the current insulin regimen for now; monitor FSGs. 2. He has been on prednisone chronically for RA. Patient will need stress dose of steroid if he is going to have the major procedure done. 3. clinically, from endocrine stand point, he has been stable. I will sign off at this point. Please let me know if the further assistance needed. Subjective Subjective: He feels okay this morning. Objective Last 24 Hrs of Vital Signs/I&O Vital Signs Date Time Temp Pulse Resp B/P B/P Pulse O2 O2 Flow FiO2 Mean Ox Delivery Rate 11/06 0636 98.0 52 20 140/80 92 11/06 0000 95 Room Air 11/05 2353 98.6 81 16 142/60 92 Room Air 11/05 2344 82 142/60 11/05 1541 98.7 45 22 148/56 96 Intake & Output 11/06 1600 11/06 0800 11/06 0000 Intake Total 760 400 Output Total Balance 760 400 Intake, IV 510 Intake, Oral 250 400 Findings Pertinent Lab/[place] Results: Laboratory Tests 11/06 0643 Chemistry Sodium Pending Potassium Pending Chloride Pending Carbon Dioxide Pending Anion Gap Pending BUN Pending Creatinine Pending BUN/Creatinine Ratio Pending Hematology CBC w Diff NO MAN DIFF REQ WBC (4.8 - 10.8 /CUMM) 7.4 RBC (4.70 - 6.10 /CUMM) 2.79 L Hgb (14.0 - 18.0 G/DL) 7.8 L Hct (42 - 52 %) 23.3 L MCV (80.0 - 94.0 FL) 83.4 MCH (27.0 - 31.0 PG) 28.0 MCHC (33.0 - 37.0 G/DL) 33.6 RDW (11.5 - 14.5 %) 16.6 H Plt Count (130 - 400 /CUMM) 303 MPV (7.4 - 10.4 FL) 7.3 L Gran % (42.2 - 75.2 %) 76.5 H Lymphocytes % (20.5 - 51.1 %) 16.7 L Monocytes % (1.7 - 9.3 %) 4.6 Eosinophils % (0 - 5 %) 1.4 Basophils % (0.0 - 2.0 %) 0.8 Absolute Granulocytes (1.4 - 6.5 /CUMM) 5.6 Absolute Lymphocytes (1.2 - 3.4 /CUMM) 1.2 Absolute Monocytes (0.10 - 0.60 /CUMM) 0.3 Absolute Eosinophils (0.0 - 0.7 /CUMM) 0.1 Absolute Basophils (0.0 - 0.2 /CUMM) 0.1
--- NOTE | 2017-11-06 11:17 | PN- Infect Dx ---
Subjective Subjective: Afebrile on steroids. He complains of the recent onset of blurred vision in the right eye (despite cataract surgery) and continued blurred vision in the left eye. He does not complain of back pain at this time. He has no cough, shortness of breath or chest pain. He has no pain in the right foot. Objective Last 24 Hrs of Vital Signs/I&O Vital Signs Date Time Temp Pulse Resp B/P B/P Pulse O2 O2 Flow FiO2 Mean Ox Delivery Rate 11/06 0957 140/80 11/06 0636 98.0 52 20 140/80 92 11/06 0000 95 Room Air 11/05 2353 98.6 81 16 142/60 92 Room Air 11/05 2344 82 142/60 11/05 1541 98.7 45 22 148/56 96 Intake & Output 11/06 1600 11/06 0800 11/06 0000 Intake Total 760 400 Output Total Balance 760 400 Intake, IV 510 Intake, Oral 250 400 Physical Exam Other Physical Findings: He appears comfortable in no acute distress HEENT negative Lungs decreased breath sounds bilaterally Heart regular rhythm with a 1/6 systolic ejection murmur Abdomen is soft, nontender with positive bowel sounds Back no CVA tenderness Extremities right foot TMA incision clean, with no erythema or drainage; plantar ulcer clean with no surrounding inflammation Results Last 24 Hours of Lab Results: Laboratory Tests 11/06 06 Chemistry Sodium (137 - 145 mmol/L) 134 L Potassium (3.5 - 5.1 mmol/L) 4.2 Chloride (98 - 107 mmol/L) 105 Carbon Dioxide (22 - 30 mmol/L) 21 L Anion Gap (5 - 16) 7 BUN (9 - 20 mg/dL) 11 Creatinine (0.7 - 1.2 mg/dL) 1.2 Estimated GFR (>60 ml/min) > 60 BUN/Creatinine Ratio (7 - 25 %) 9.2 Hematology CBC w Diff NO MAN DIFF REQ WBC (4.8 - 10.8 /CUMM) 7.4 RBC (4.70 - 6.10 /CUMM) 2.79 L Hgb (14.0 - 18.0 G/DL) 7.8 L Hct (42 - 52 %) 23.3 L MCV (80.0 - 94.0 FL) 83.4 MCH (27.0 - 31.0 PG) 28.0 MCHC (33.0 - 37.0 G/DL) 33.6 RDW (11.5 - 14.5 %) 16.6 H Plt Count (130 - 400 /CUMM) 303 MPV (7.4 - 10.4 FL) 7.3 L Gran % (42.2 - 75.2 %) 76.5 H Lymphocytes % (20.5 - 51.1 %) 16.7 L Monocytes % (1.7 - 9.3 %) 4.6 Eosinophils % (0 - 5 %) 1.4 Basophils % (0.0 - 2.0 %) 0.8 Absolute Granulocytes (1.4 - 6.5 /CUMM) 5.6 Absolute Lymphocytes (1.2 - 3.4 /CUMM) 1.2 Absolute Monocytes (0.10 - 0.60 /CUMM) 0.3 Absolute Eosinophils (0.0 - 0.7 /CUMM) 0.1 Absolute Basophils (0.0 - 0.2 /CUMM) 0.1 Last 24 Hours of [place] Results: Blood cultures November 04 one bottle positive for gram-positive cocci in clusters Blood cultures 2 November 05 negative so far Recent Imaging Studies: X-ray of the right foot November 05 status post TMA with the cortical amputation margins well-defined Assessment/Plan ID Impression: Persistent MRSA bacteremia despite a change in his antibiotics 6 days ago to Daptomycin and Bactrim after 10 days of Vancomycin. The source of his persistent bacteremia remains unclear, with the recent MRI not suggestive of any infectious process, the ANNA 8 days ago negative and a CT of the abdomen and pelvis 10 days ago also negative. Though his right foot was likely the initial source of his bacteremia it does not appear to be the source of infection at this time, status post revision of the exposed metatarsal stumps with closure of the wound 8 days ago and 12 days status post a right transmetatarsal amputation. A pulmonary source is possible, with the last CT scan revealing progression of his opacities, with cavitation, though he has minimal respiratory symptoms. His antibiotics will again need to be adjusted but he will also require further evaluation, including a repeat ANNA to rule out endocarditis/valvular abscess, a white blood cell scan to rule out an unrecognized focus and, if these are negative, repeat CT of the chest, abdomen and pelvis and repeat MRI of the lumbosacral spine (with contrast). Suggestion: 1. Would pursue a white blood cell scan 2. Repeat ANNA 3. Repeat CPK 4 Repeat EKG 5. Add Linezolid 600 mg po every 12 hours 6. Continue Daptomycin and Bactrim
[2017-11-06 14:28] VITALS: BP 142/62
[2017-11-06 22:06] VITALS: BP 146/60
--- NOTE | 2017-11-07 06:58 | PN- Housestaff ---
Katya CARD,[facility] 11/07/17 0657: Subjective Follow-up For: Persistent bacteremia Subjective: Mr. Baltazar was seen and examined this morning. Resting comfortably in bed. Denies any issues overnight. States that he feels about the same. Denies any pain. He does endorse some blurring of his vision of his right eye. Patient states this blurring is similar to what happened with his vision prior to his cataract procedure with Dr. Hansen ems manager in [place]. Currently scheduled to undergo a white blood cell scan later today. Denies any melena, hematochezia or hematemesis. Denies any fever, chills, nausea, vomiting. Review of Systems Constitutional: Reports: see HPI. Objective Last 24 Hrs of Vital Signs/I&O Vital Signs Date Time Temp Pulse Resp B/P B/P Pulse O2 O2 Flow FiO2 Mean Ox Delivery Rate 11/07 1243 99.9 70 18 100/50 90 11/07 1031 76 120/76 11/07 0704 99.2 76 20 120/76 90 Room Air 11/07 0703 99.2 76 20 120/76 90 Room Air 11/06 2234 84 148/64 11/06 2206 98.9 84 20 146/60 97 Room Air Intake & Output 11/07 1600 11/07 0800 11/07 0000 Intake Total 240 770 Output Total Balance 240 770 Intake, IV 520 Intake, Oral 240 250 Physical Exam General Appearance: Alert, Oriented X3, Cooperative HEENT: PERRLA, Mucous Membr. moist/pink, EOMI, No devaition. Was unable to perform exam with snellen chart as patient states that the chart "looked like a blank piece of paper" Cardiovascular: Regular Rate, Normal S1, Normal S2 Lungs: Clear to Auscultation Abdomen: Normal Bowel Sounds, Soft, No Tenderness Neurological: Normal Speech Current Medications: Current Medications Sig/Lai Start time Last Medication Dose Route Stop Time Status Admin Acetaminophen 1,000 MG Q6P PRN 10/21 1700 AC 10/31 IV 0045 Carvedilol 6.25 MG BID 10/29 1000 AC 11/07 PO 1031 Collagenase 1 VANI DAILY PRN 10/30 1615 AC 11/06 TOP 0958 Daptomycin 900 MG Q24H 10/31 1230 AC 11/07 Sodium Chloride 50 ML IV 1307 Ferrous Sulfate 325 MG TID 10/31 1600 AC 11/07 PO 1031 Folic Acid 1 MG DAILY 10/21 1703 AC 11/07 PO 1031 Heparin Sodium 5,000 UNIT Q8 10/21 2200 AC 11/07 (Porcine) SC 0503 Insulin Aspart 0 TIDAC/HS 10/29 1700 AC 11/06 SC 1649 Linezolid 600 MG BID 11/06 1400 AC 11/07 PO 1032 Multivitamins 1 TAB DAILY 10/21 1703 AC 11/07 PO 1031 Nicotine 21 MG DAILY 11/05 1447 AC 11/07 TOP 1030 Nitroglycerin 0.5 GM Q6 10/26 0850 AC 11/07 TOP 1307 Omeprazole 40 MG BID 10/31 1045 AC 11/07 PO 1032 Prednisone 5 MG DAILY 11/01 1318 AC 11/07 PO 1031 Sodium Chloride 2 SPRAY Q6-PRN PRN 11/05 1745 AC LORELEI Trimethoprim/ 30 ML Q12H 10/31 1245 AC 11/07 Sulfamethoxazole IV 0017 Dextrose/Water 500 ML Vitamin A/Vitamin D 1 VANI Q6-PRN PRN 10/27 1500 AC 11/06 TOP 0958 Last 24 Hrs of Lab/[place] Results Last 24 Hrs of Labs/Mics: Laboratory Tests 11/07/17 0635: Anion Gap 7, Estimated GFR > 60, BUN/Creatinine Ratio 10.9, CBC w Diff NO MAN DIFF REQ, RBC 2.64 L, MCV 83.2, MCH 28.0, MCHC 33.7, RDW 16.3 H, MPV 7.5, Gran % 74.7, Lymphocytes % 17.2 L, Monocytes % 5.8, Eosinophils % 1.6, Basophils % 0.7, Absolute Granulocytes 5.4, Absolute Lymphocytes 1.2, Absolute Monocytes 0.4 , Absolute Eosinophils 0.1, Absolute Basophils 0 Assessment/Plan Assessment: Mr Baltazar is a 61-year-old male with past medical history significant for insulin -dependent diabetes mellitus, rheumatoid arthritis on prednisone & leflunomide, coronary artery disease status post stenting, left TMA, chronic right foot ulcer was brought to [place] after found by law enforcement at home altered and unkempt, covered with urine. Vitals at admission is significant for MAXIMUM TEMPERATURE of 100.6, blood pressure 106/68 mmHg. White count of 13,000 with 72 segments and bands. Troponin of 0.85, elevated d-dimer. Chest x-ray showing patchy opacity in the right upper lobe and mild cardiomegaly. X-ray of Right foot revealed extensive destructive changes in the second to fourth digits. CT of chest is significant for central cavitation and opacities in both lungs. CT abdomen Prominent perinephric edema with prominent prostate. Admitted to ICU initially on 10/21/2017 given sepsis secondary to diabetic foot infection. He did have persistent MRSA bacteremia with extensive seeding into lungs, urine, joints. Once he was hemodynamic stable transferred to telemetry. 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 Initially started broad with IV ceftazidime and Flagyl and transitioned to IV vancomycin after cultures results. MRI did show abscess of right foot. Blood cultures were persistently positive. ESR 125. Underwent tarsometatarsal amputation on 10/25/17. Underwent ANNA and wound closure on . Given bacteremia as well as being febrile overnight we will transition and changes antibiotics from vancomycin to daptomycin (900 mg IV every 24 hours.) Will also begin the patient on Bactrim Q 12 hours. - Day 7 of daptomycin and Bactrim. -Linezoid started 11/06/2017 for improved coverage of potential pulmonary source. 600 mg BID - Repeated blood cultures 11/04/2017 and if positive may consider WBC scan and possible repeat ANNA. - Monitor LFTs weekly while on daptomycin. - CPK added to labs 10/31/2017 showed 48, remarkably decreased from 10/21/2017 lab of 1485. Will also discontinue statin in the setting of medication interaction with daptomycin. CPK level 11/06/2017: 73 -Pending WBC scan. (Iatrogenic) Steroid induced adrenal insufficiency He did have suppression of his pituitary axis secondary to chronic steroid intake. Placed on IV hydrocortisone to maintain his blood pressure. He received stress dose of steroids prior to procedures. * Monitor blood pressure. * Transitioned to by mouth prednisone 5 mg from 12.5 mg hydro-cortisone BID. * If any signs of hypotension may consider taking back on increased dose of steroids. Insulin-dependent diabetic mellitus HbA1c of 7.2. Sugars remained relatively controlled on current regimen NovoLog sliding scale per endocrinology. Intermixed ground glass attenuation on imaging Imaging shows opacities exhibiting reverse halo sign (atoll sign). Also, some of the opacities have central lucencies, suspicious for cavitary change. Given MRSA bacteremia, seeding should be first differential. However patient has been on leflunomide so tuberculosis should be second in the differential. Repeat CT on 10/28/17 did show dense groundglass opacification is also noted - Continue Coreg. Encephalopathy Patient was altered despite aggressive treatment of his infection. Improved after giving IV thiamine for few days. Probably alcohol related. Anemia Previous indices ferritin 1500, iron of 12, TIBC 143 suggestive of anemia of chronic disease/inflammation related. Obvious source could be osteomyelitis. Treating current condition should help with his anemia as well. * Continue oral iron, increased frequency to TID * Guiac all stools * s/p 3U PRBC in total, last BT on 11/01. Goal > 8. If any signs of active bleed consider immediate call to GI for scope. Will order one more unit PRBC * Stopped aspirin. Blurry Vision No redness or acute pathology noted. Likley caused by ?secondary cataract of the right eye. Spoke with Dr Bryce Sun, attempted to do a vision exam with a snellen chart, this was unsuccessful. Will request old records fom previous optahlmologist and will continue to monitor. DVT prophylaxis SC heparin Code status full code Problem List: 1. Bacteremia 2. Anemia Pain Ratin Pain Location: No Pain endorsed Pain Goal: Remain pain free Pain Plan: NA Tomorrow's Labs & Rationales: CBC: Monitor H/H in the setting of Acute ill ness and anemia BEP: Monitor Electrolytes in the setting of acute illness Johnson Long 11/07/17 1049: Attending MD Review Statement Attending Statement Attending MD Statement: examined this patient, discuss w/resident/PA/EXCHANGE CLERK, agreed w/resident/PA/EXCHANGE CLERK, discussed with family, reviewed EMR data (avail), discussed with nursing, discussed with case mgmt, reviewed images, amended to note Attending Assessment/Plan: Patient seen/examiend bedside. No chest pain. C/o blurred vision yesterday. Vitals stable. Patient with low grade temp but have persistent bacteremia and generalised weakness. Patient is being followed by infectious disease. Patient repeat blood cultures remain positive. MRI spine ID not convinced it is OM, Plan for WBC scan today and Ophthalmology consult. F/u ID recs. Patient can be transferred to [facility] for further managmenet. F/u case management reagrding insurance issues.
[2017-11-07 07:03] VITALS: BP 120/76
[2017-11-07 07:04] VITALS: BP 120/76
[2017-11-07 08:18] LABS: ABSOLUTE EOSINOPHIL COUNT 0.1 /CUMM (0.0-0.7); ABSOLUTE LYMPH COUNT 1.2 /CUMM (1.2-3.4); ABSOLUTE MONOCYTE COUNT 0.4 /CUMM (0.10-0.60); BASOPHIL % 0.7 % (0.0-2.0); MEAN PLATELET VOLUME 7.5 FL (7.4-10.4); RBC DISTRIBUTION WIDTH 16.3 % (11.5-14.5); RED BLOOD CELL CT 2.64 /CUMM (4.70-6.10)
[2017-11-07 08:45] LABS: ABSOLUTE BASOPHIL COUNT 0 /CUMM (0.0-0.2); ABSOLUTE GRANULOCYTE CT 5.4 /CUMM (1.4-6.5); EOSINOPHIL % 1.6 % (0-5); GRANULOCYTE % 74.7 % (42.2-75.2); MEAN CORPUSCULAR HGB CONC 33.7 G/DL (33.0-37.0); MEAN CORPUSCULAR VOLUME 83.2 FL (80.0-94.0); PLATELET COUNT 293 /CUMM (130-400); WHITE BLOOD CELL COUNT 7.3 /CUMM (4.8-10.8)
--- NOTE | 2017-11-07 11:34 | PN- Infect Dx ---
Subjective Subjective: MAXIMUM TEMPERATURE 100.6. He continues to complain of blurry vision in both eyes but offers no other complaints. Objective Last 24 Hrs of Vital Signs/I&O Vital Signs Date Time Temp Pulse Resp B/P B/P Pulse O2 O2 Flow FiO2 Mean Ox Delivery Rate 11/07 1031 76 120/76 11/07 0704 99.2 76 20 120/76 90 Room Air 11/07 0703 99.2 76 20 120/76 90 Room Air 11/06 2234 84 148/64 11/06 2206 98.9 84 20 146/60 97 Room Air 11/06 1428 100.6 88 20 142/62 98 Room Air Intake & Output 11/07 1600 11/07 0800 11/07 0000 Intake Total 770 Output Total Balance 770 Intake, IV 520 Intake, Oral 250 Physical Exam Other Physical Findings: He appears comfortable in no acute distress HEENT no inflammation Lungs are clear Heart regular rhythm with a 1/6 systolic ejection murmur Abdomen is soft, nontender with positive bowel sounds Extremities right foot dressing intact; rheumatoid nodules in the left elbow unchanged, with no inflammation Results Last 24 Hours of Lab Results: Laboratory Tests 11/07 0635 Chemistry Sodium (137 - 145 mmol/L) 132 L Potassium (3.5 - 5.1 mmol/L) 4.3 Chloride (98 - 107 mmol/L) 105 Carbon Dioxide (22 - 30 mmol/L) 19 L Anion Gap (5 - 16) 7 BUN (9 - 20 mg/dL) 12 Creatinine (0.7 - 1.2 mg/dL) 1.1 Estimated GFR (>60 ml/min) > 60 BUN/Creatinine Ratio (7 - 25 %) 10.9 Hematology CBC w Diff NO MAN DIFF REQ WBC (4.8 - 10.8 /CUMM) 7.3 RBC (4.70 - 6.10 /CUMM) 2.64 L Hgb (14.0 - 18.0 G/DL) 7.4 *L Hct (42 - 52 %) 22.0 L MCV (80.0 - 94.0 FL) 83.2 MCH (27.0 - 31.0 PG) 28.0 MCHC (33.0 - 37.0 G/DL) 33.7 RDW (11.5 - 14.5 %) 16.3 H Plt Count (130 - 400 /CUMM) 293 MPV (7.4 - 10.4 FL) 7.5 Gran % (42.2 - 75.2 %) 74.7 Lymphocytes % (20.5 - 51.1 %) 17.2 L Monocytes % (1.7 - 9.3 %) 5.8 Eosinophils % (0 - 5 %) 1.6 Basophils % (0.0 - 2.0 %) 0.7 Absolute Granulocytes (1.4 - 6.5 /CUMM) 5.4 Absolute Lymphocytes (1.2 - 3.4 /CUMM) 1.2 Absolute Monocytes (0.10 - 0.60 /CUMM) 0.4 Absolute Eosinophils (0.0 - 0.7 /CUMM) 0.1 Absolute Basophils (0.0 - 0.2 /CUMM) 0 Last 24 Hours of [place] Results: Blood cultures November 05 remain negative Assessment/Plan ID Impression: Persistent MRSA bacteremia (though his blood cultures from 2 days ago are so far negative) despite a change in his antibiotics 1 week ago to Daptomycin and Bactrim after 10 days of Vancomycin, with Linezolid added yesterday. Though his right foot was likely the initial source of his bacteremia it does not appear to be the source of infection at this time, now 13 days status post a TMA and 9 days status post revision of the exposed metatarsal stumps with closure of the wound, and the source of his persistent bacteremia remains unclear, with the MRI of the lumbosacral spine (3 days ago), ANNA (9 days ago) and CT of the abdomen and pelvis (11 days ago) all negative. A pulmonary source is possible, with the last CT scan revealing progression of his opacities, with cavitation, though he has minimal respiratory symptoms. He is scheduled for a white blood cell scan today and a repeat ANNA tomorrow, and he will need further evaluation, for example repeat CT of the chest, abdomen and pelvis and repeat MRI of the lumbosacral spine (with contrast), if these tests are negative and his blood cultures remain positive. The etiology of his blurred vision is unclear and Ophthalmology evaluation would be helpful. Suggestion: 1. Ophthalmology evaluation 2. Await white blood cell scan today 3. Await ANNA in the a.m. 4. Continue Daptomycin, Bactrim and Linezolid
[2017-11-07 12:43] VITALS: BP 100/50
--- NOTE | 2017-11-07 17:36 | NUCLEAR MEDICINE REPORT ---
EXAMINATION: TC-99M CERETEC WHITE BLOOD CELL STUDY CLINICAL INFORMATION: Persistent bacteremia. Question unrecognized focus of infection. COMPARISON: No previous labeled white cell study is available for comparison. Radiographs of the right foot dated 11/05/2017 are available for comparison. MRI of the right foot dated 10/23/2017 is also available for comparison. TECHNIQUE: Multiple gamma scintillation camera images of the whole-body were performed 2.25 hours following the intravenous administration of 21.4 millicuries technetium 99m Ceretec labeled autologous white cells. FINDINGS: There is mildly increased activity visualized laterally in the mid right thigh. This appears to be in the soft tissues, and well lateral to the bone. There is also minimally increased activity present in the distal aspect of the medial right foot. This is in the region of a recent amputation which is a transmetatarsal amputation of all digits. The minimal activity is only present medially. No other foci of abnormal activity are visualized. A small amount of focal activity in the right forearm is presumably some residual radiopharmaceutical at the injection site or the intravenous line used to inject the labeled white cells. All of the other activity appears physiological. IMPRESSION: 1. An ill-defined region of mild abnormal activity is present laterally in the mid right thigh. This probably represents an indolent soft tissue infection at this site. 2. Very minimally increased activity medially at amputation site in the distal right foot is noted, and this mild intensity is consistent with recent postsurgical changes.
[2017-11-07 21:58] VITALS: BP 128/80
[2017-11-08 00:05] VITALS: BP 120/58
[2017-11-08 07:01] VITALS: BP 130/62
--- NOTE | 2017-11-08 07:23 | PN- Housestaff ---
See Addendum Subjective Follow-up For: Persistent Bacteremia Subjective: Mr Baltazar was seen and examined this morning. He is resting comfortably in bed. States that he was able was able to get some rest over the course of the evening. He prefers the second floor to the first. Patient denies any fever, chills, nausea, vomiting. Last evening, he did endorse some lower back pain after prolonged duration of white blood cell scan. Currently nothing by mouth following to ANNA scheduled for late this morning ( 1.00pm). Vision continues to be blurry although does not endorse any acute changes or any pain. Review of Systems Constitutional: Reports: see HPI. Objective Last 24 Hrs of Vital Signs/I&O Vital Signs Date Time Temp Pulse Resp B/P B/P Pulse O2 O2 Flow FiO2 Mean Ox Delivery Rate 11/08 0850 82 140/70 11/08 0701 98.3 77 20 130/62 93 Room Air 11/08 0423 91 Room Air 11/08 0005 99.0 81 20 120/58 89 Room Air 11/07 2158 98.6 81 20 128/80 92 Room Air 11/07 2135 79 134/60 Intake & Output 11/08 1600 11/08 0800 11/08 0000 Intake Total 500 560 Output Total 500 Balance -500 500 560 Intake, IV 500 380 Intake, Oral 180 Output, Urine 500 Physical Exam General Appearance: Alert, Oriented X3 Skin Temp/Moisture Exam: Warm/Dry HEENT: PERRLA, EOMI, Mucous Membr. moist/pink, No proptosis or Opthalmoplegia. H test WNL. Cardiovascular: Regular Rate, Normal S1, Normal S2 Lungs: Clear to Auscultation Abdomen: Normal Bowel Sounds, Soft, No Tenderness Neurological: Normal Speech, Strength at 5/5 X4 Ext Extremities: Left TMA. Right foot wrapped in bandage. No drainage or erythema , Right Thigh Wound present, currently dressed. Vascular: Normal Pulses Current Medications: Current Medications Sig/Lai Start time Last Medication Dose Route Stop Time Status Admin Acetaminophen 1,000 MG Q6P PRN 10/21 1700 AC 10/31 IV 0045 Carvedilol 6.25 MG BID 10/29 1000 AC 11/08 PO 0850 Collagenase 1 VANI DAILY PRN 10/30 1615 AC 11/07 TOP 2000 Daptomycin 900 MG Q24H 10/31 1230 AC 11/07 Sodium Chloride 50 ML IV 1307 Ferrous Sulfate 325 MG TID 10/31 1600 AC 11/08 PO 0850 Folic Acid 1 MG DAILY 10/21 1703 11/08 PO 0850 Heparin Sodium 5,000 UNIT Q8 10/21 2200 AC 11/08 (Porcine) SC 0612 Insulin Aspart 0 TIDAC/HS 10/29 1700 DC 11/06 SC 1649 Insulin Human Regular 0 Q6 11/08 0600 11/08 SC 1227 Lidocaine 0 .STK-MED ONE 11/08 1252 DC TOP Linezolid 600 MG BID 11/06 1400 11/08 PO 0851 Multivitamins 1 TAB DAILY 10/21 1703 11/08 PO 0851 Nicotine 21 MG DAILY 11/05 1447 11/08 TOP 0850 Nitroglycerin 0.5 GM Q6 10/26 0850 11/08 TOP 1231 Omeprazole 40 MG BID 10/31 1045 11/08 PO 0851 Oxycodone/ 1 TAB ONCE ONE 11/07 1700 DC 11/07 Acetaminophen PO 11/07 1701 1702 Prednisone 5 MG DAILY 11/01 1318 11/08 PO 0850 Sodium Chloride 2 SPRAY Q6-PRN PRN 11/05 1745 AC LORELEI Trimethoprim/ 30 ML Q12H 10/31 1245 AC 11/08 Sulfamethoxazole IV 1228 Dextrose/Water 500 ML Vitamin A/Vitamin D 1 VANI Q6-PRN PRN 10/27 1500 11/06 TOP 0958 Last 24 Hrs of Lab/[place] Results Last 24 Hrs of Labs/[place]: Laboratory Tests 11/08/17 0730: Anion Gap 11, Estimated GFR > 60, BUN/Creatinine Ratio 9.1, CBC w Diff NO MAN DIFF REQ, RBC 2.82 L, MCV 83.5, MCH 28.3, MCHC 33.9, RDW 16.2 H, MPV 7.2 L, Gran % 77.0 H, Lymphocytes % 16.1 L, Monocytes % 4.8, Eosinophils % 1.4, Basophils % 0.7, Absolute Granulocytes 5.4, Absolute Lymphocytes 1.1 L, Absolute Monocytes 0.3, Absolute Eosinophils 0.1, Absolute Basophils 0 11/07/17 1800: CBC w Diff Cancelled, WBC Cancelled, RBC Cancelled, Hgb Cancelled, Hct Cancelled , MCV Cancelled, MCH Cancelled, MCHC Cancelled, RDW Cancelled, Plt Count Cancelled, MPV Cancelled Orders Radiology Findings: SERVICE DATE: 11/06/17 EXAM TYPE: NUC - WBC ABSCESS LOCALIZATION-FULL EXAMINATION: TC-99M CERETEC WHITE BLOOD CELL STUDY CLINICAL INFORMATION: Persistent bacteremia. Question unrecognized focus of infection. COMPARISON: No previous labeled white cell study is available for comparison. Radiographs of the right foot dated 11/05/2017 are available for comparison. MRI of the right foot dated 10/23/2017 is also available for comparison. TECHNIQUE: Multiple gamma scintillation camera images of the whole-body were performed 2.25 hours following the intravenous administration of 21.4 millicuries technetium 99m Ceretec labeled autologous white cells. FINDINGS: There is mildly increased activity visualized laterally in the mid right thigh. This appears to be in the soft tissues, and well lateral to the bone. There is also minimally increased activity present in the distal aspect of the medial right foot. This is in the region of a recent amputation which is a transmetatarsal amputation of all digits. The minimal activity is only present medially. No other foci of abnormal activity are visualized. A small amount of focal activity in the right forearm is presumably some residual radiopharmaceutical at the injection site or the intravenous line used to inject the labeled white cells. All of the other activity appears physiological. IMPRESSION: 1. An ill-defined region of mild abnormal activity is present laterally in the mid right thigh. This probably represents an indolent soft tissue infection at this site. 2. Very minimally increased activity medially at amputation site in the distal right foot is noted, and this mild intensity is consistent with recent postsurgical changes. DICTATED BY: Rob Parrish MD Assessment/Plan Assessment: Mr Baltazar is a 61-year-old male with past medical history significant for insulin -dependent diabetes mellitus, rheumatoid arthritis on prednisone & leflunomide, coronary artery disease status post stenting, left TMA, chronic right foot ulcer was brought to [facility] after found by law enforcement at home altered and unkempt, covered with urine. Vitals at admission is significant for MAXIMUM TEMPERATURE of 100.6, blood pressure 106/68 mmHg. White count of 13,000 with 72 segments and bands. Troponin of 0.85, elevated d-dimer. Chest x-ray showing patchy opacity in the right upper lobe and mild cardiomegaly. X-ray of Right foot revealed extensive destructive changes in the second to fourth digits. CT of chest is significant for central cavitation and opacities in both lungs. CT abdomen Prominent perinephric edema with prominent prostate. Admitted to ICU initially on 10/21/2017 given sepsis secondary to diabetic foot infection. He did have persistent MRSA bacteremia with extensive seeding into lungs, urine, joints. Once he was hemodynamic stable transferred to telemetry. 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 Initially started broad with IV ceftazidime and Flagyl and transitioned to IV vancomycin after cultures results. MRI did show abscess of right foot. Blood cultures were persistently positive. ESR 125. Underwent tarsometatarsal amputation on 10/25/17. Underwent ANNA and wound closure on . Given bacteremia as well as being febrile overnight we will transition and changes antibiotics from vancomycin to daptomycin (900 mg IV every 24 hours.) Will also begin the patient on Bactrim Q 12 hours. - Day 9 of daptomycin and Bactrim. -Linezoid started 11/06/2017 for improved coverage of potential pulmonary source. 600 mg BID. Day Three - Repeated blood cultures 11/05/2017 - Monitor LFTs weekly while on daptomycin. - CPK added to labs 10/31/2017 showed 48, remarkably decreased from 10/21/2017 lab of 1485. Will also discontinue statin in the setting of medication interaction with daptomycin. CPK level 11/06/2017: 73 -WBC scan conducted on 11/07/2017. Results attached -ANNA Scheduled for today. (Iatrogenic) Steroid induced adrenal insufficiency He did have suppression of his pituitary axis secondary to chronic steroid intake. Placed on IV hydrocortisone to maintain his blood pressure. He received stress dose of steroids prior to procedures. * Monitor blood pressure. * Transitioned to by mouth prednisone 5 mg from 12.5 mg hydro-cortisone BID. * If any signs of hypotension may consider taking back on increased dose of steroids. Insulin-dependent diabetic mellitus HbA1c of 7.2. Sugars remained relatively controlled on current regimen NovoLog sliding scale per endocrinology. FS,139,126,118 Intermixed ground glass attenuation on imaging Imaging shows opacities exhibiting reverse halo sign (atoll sign). Also, some of the opacities have central lucencies, suspicious for cavitary change. Given MRSA bacteremia, seeding should be first differential. However patient has been on leflunomide so tuberculosis should be second in the differential. Repeat CT on 10/28/17 did show dense groundglass opacification is also noted - Continue Coreg. Encephalopathy Patient was altered despite aggressive treatment of his infection. Improved after giving IV thiamine for few days. Probably alcohol related. Anemia Previous indices ferritin 1500, iron of 12, TIBC 143 suggestive of anemia of chronic disease/inflammation related. Obvious source could be osteomyelitis. Treating current condition should help with his anemia as well. * H/H 8.0/23.5 * Continue oral iron, increased frequency to TID * Guiac all stools * s/p 4U PRBC in total, last BT on 11/01. Goal > 8. If any signs of active bleed consider immediate call to GI for scope. * Stopped aspirin. Blurry Vision No redness or acute pathology noted. Likley caused by ?secondary cataract of the right eye. on 11/07/2017, Spoke with Dr Bryce Sun, attempted to do a vision exam with a snellen chart, this was unsuccessful. Will request old records fom previous optahlmologist and will continue to monitor. DVT prophylaxis SC heparin Code status full code Problem List: 1. Bacteremia 2. Anemia Pain Ratin Pain Location: No Pain Pain Goal: Remain pain free Pain Plan: Tylenol ?percocet PRN Tomorrow's Labs & Rationales: CBC: monitor H/H in the setting of anemia BEP: monitor electrolytes in the setting of acute illness
[2017-11-08 08:44] LABS: ABSOLUTE BASOPHIL COUNT 0 /CUMM (0.0-0.2); ABSOLUTE EOSINOPHIL COUNT 0.1 /CUMM (0.0-0.7); ABSOLUTE GRANULOCYTE CT 5.4 /CUMM (1.4-6.5); ABSOLUTE LYMPH COUNT 1.1 /CUMM (1.2-3.4); ABSOLUTE MONOCYTE COUNT 0.3 /CUMM (0.10-0.60); BASOPHIL % 0.7 % (0.0-2.0); EOSINOPHIL % 1.4 % (0-5); HEMATOCRIT 23.5 % (42-52); MEAN CORPUSCULAR HGB 28.3 PG (27.0-31.0); MEAN CORPUSCULAR HGB CONC 33.9 G/DL (33.0-37.0); MEAN CORPUSCULAR VOLUME 83.5 FL (80.0-94.0); MEAN PLATELET VOLUME 7.2 FL (7.4-10.4); PLATELET COUNT 277 /CUMM (130-400); RBC DISTRIBUTION WIDTH 16.2 % (11.5-14.5); RED BLOOD CELL CT 2.82 /CUMM (4.70-6.10)
--- NOTE | 2017-11-08 10:43 | PN- Infect Dx ---
Subjective Subjective: Afebrile without complaints Objective Last 24 Hrs of Vital Signs/I&O Vital Signs Date Time Temp Pulse Resp B/P B/P Pulse O2 O2 Flow FiO2 Mean Ox Delivery Rate 11/08 0850 82 140/70 11/08 0701 98.3 77 20 130/62 93 Room Air 11/08 0423 91 Room Air 11/08 0005 99.0 81 20 120/58 89 Room Air 11/07 2158 98.6 81 20 128/80 92 Room Air 11/07 2135 79 134/60 11/07 1243 99.9 70 18 100/50 90 Intake & Output 11/08 1600 11/08 0800 11/08 0000 Intake Total 500 560 Output Total Balance 500 560 Intake, IV 500 380 Intake, Oral 180 Physical Exam Other Physical Findings: He appears comfortable in no acute distress Lungs are clear Heart regular rhythm with a 1/6 systolic ejection murmur Extremities right thigh abrasion, with no erythema or induration; right foot dressing intact Results Last 24 Hours of Lab Results: Laboratory Tests 11/08 11/07 0730 1800 Chemistry Sodium (137 - 145 mmol/L) 135 L Potassium (3.5 - 5.1 mmol/L) 4.2 Chloride (98 - 107 mmol/L) 105 Carbon Dioxide (22 - 30 mmol/L) 19 L Anion Gap (5 - 16) 11 BUN (9 - 20 mg/dL) 10 Creatinine (0.7 - 1.2 mg/dL) 1.1 Estimated GFR (>60 ml/min) > 60 BUN/Creatinine Ratio (7 - 25 %) 9.1 Hematology CBC w Diff NO MAN DIFF REQ Cancelled WBC (4.8 - 10.8 /CUMM) 7.0 Cancelled RBC (4.70 - 6.10 /CUMM) 2.82 L Cancelled Hgb (14.0 - 18.0 G/DL) 8.0 L Cancelled Hct (42 - 52 %) 23.5 L Cancelled MCV (80.0 - 94.0 FL) 83.5 Cancelled MCH (27.0 - 31.0 PG) 28.3 Cancelled MCHC (33.0 - 37.0 G/DL) 33.9 Cancelled RDW (11.5 - 14.5 %) 16.2 H Cancelled Plt Count (130 - 400 /CUMM) 277 Cancelled MPV (7.4 - 10.4 FL) 7.2 L Cancelled Gran % (42.2 - 75.2 %) 77.0 H Lymphocytes % (20.5 - 51.1 %) 16.1 L Monocytes % (1.7 - 9.3 %) 4.8 Eosinophils % (0 - 5 %) 1.4 Basophils % (0.0 - 2.0 %) 0.7 Absolute Granulocytes (1.4 - 6.5 /CUMM) 5.4 Absolute Lymphocytes (1.2 - 3.4 /CUMM) 1.1 L Absolute Monocytes (0.10 - 0.60 /CUMM) 0.3 Absolute Eosinophils (0.0 - 0.7 /CUMM) 0.1 Absolute Basophils (0.0 - 0.2 /CUMM) 0 Last 24 Hours of [place] Results: Blood cultures 2 November 05 remain negative Recent Imaging Studies: White blood cell scan November 06 reveals increased activity in the lateral right thigh with very minimally increased activity at the amputation site in the distal right foot ("consistent with postsurgical changes") Assessment/Plan ID Impression: Persistent MRSA bacteremia (though his blood cultures from 3 days ago are so far negative) despite a change in his antibiotics 8 days ago to Daptomycin and Bactrim after 10 days of Vancomycin, with Linezolid added 2 days ago. Though his right foot was likely the initial source of his bacteremia it does not appear to be the source of infection at this time, now 2 weeks status post a TMA and 10 days status post revision of the exposed metatarsal stumps with closure of the wound, and the source of his persistent bacteremia remains unclear, with the MRI of the lumbosacral spine (4 days ago), ANNA (10 days ago) and CT of the abdomen and pelvis (12 days ago) all negative. A pulmonary source is possible, with the last CT scan revealing progression of his opacities, with cavitation, though he has minimal respiratory symptoms. His white blood cell scan only reveals increased activity in the right thigh, which corresponds to the superficial lesion that was likely related to trauma prior to admission and the right foot, which is felt to be postsurgical. He is scheduled for a repeat ANNA today and he will need further evaluation, for example repeat CT of the chest, abdomen and pelvis and repeat MRI of the lumbosacral spine (with contrast), if the ANNA is negative AND his blood cultures remain positive. Suggestion: 1. Await ANNA 2. Continue Daptomycin, Bactrim and Linezolid
[2017-11-08 22:30] VITALS: BP 130/64
[2017-11-09 06:57] VITALS: BP 132/62
--- NOTE | 2017-11-09 08:42 | ECHOCARDIOGRAM REPORT ---
MICHELA GRUBER Age: 61 : Gender: M Exam Date: 11/08/2017 13:31 Exam Location: [address] [place] Ht (in): 75 Wt (lb): 180 BSA: 2.07 BP: 93 / 64 Ordering Physician: Nhi Aldana MD Referring Physician: Nhi Aldana MD Technologist: Devin Gregory [facility] Room Number: [id number] Indications: Acute/Subacute Bacterial Endocarditis Rhythm: Sinus Technical Quality: good Medications Lidocaine [place]. Propofol administered by Anesthesiology. Ease of Transducer Insertion No Difficulty Complications None. Technical Difficulty FINDINGS Left Ventricle Normal size left ventricle. No obvious regional wall motion abnormalities. Normal left ventricular ejection fraction estimated at 55-60%. Right Ventricle Normal right ventricular size and function. Right Atrium Normal right atrial size. Left Atrium Left atrial size at the upper limits of normal. LA Appendage Normal left atrial appendage. IA Septum Normal interatrial septum. Mitral Valve Mitral valve thickened. Trace to mild mitral regurgitation. Aortic Valve Trileaflet aortic valve. Diffuse thickening (sclerosis) of the aortic valve cusps without reduced excursion. No aortic stenosis. No aortic regurgitation. Tricuspid Valve Tricuspid valve not well visualized, grossly normal. Trace to mild tricuspid regurgitation. Pulmonic Valve Structurally normal pulmonic valve. Trace pulmonic regurgitation. Pericardium No pericardial effusion. Great Vessels Grade II plaque seen in the aortic arch. Grade II plaque seen in the descending aorta. Normal size aortic root and proximal ascending aorta. CONCLUSIONS 1. There are no definite vegetative lesions detected on this examination. 2. Aortic sclerosis is present with no significant valvular stenosis or insufficiency. 3. Mitral leaflet thickening is present with minimal to mild mitral insufficiency and upper normal left atrial size. On the left atrial aspect of the mitral leaflets they're are tiny mobile echodensities noted which are most consistent with tiny ruptured tertiary cords or Lambl's lesions. 4. The left atrial appendage is normal in size with no evidence of mass or thrombus and normal contractility 5. The pulmonary venous anatomy is normal bilaterally with normal Doppler flow profiles. 6. Right heart structures are grossly normal. No vegetative lesions are noted. Minimal to mild tricuspid and pulmonic insufficiency are present. 7. The atrial septum appears anatomically intact. There is no evidence of atrial level shunt by agitated saline contrast injection, color flow imaging, or Doppler examination. 8. A eustachian valve remnant is present in the right atrial cavity 9. The descending thoracic aorta appears normal in size. Grade 2 atheromatous plaque is noted in the distal transverse aortic arch and descending thoracic aorta. 10. A left pleural effusion is present. Gema Tate M.D. (Electronically Signed) Final Date: 09 November 2017 08:42 MEASUREMENTS (Male / Female) Normal Values
[2017-11-09 08:57] LABS: ABSOLUTE BASOPHIL COUNT 0.1 /CUMM (0.0-0.2); ABSOLUTE EOSINOPHIL COUNT 0.1 /CUMM (0.0-0.7); ABSOLUTE GRANULOCYTE CT 5.1 /CUMM (1.4-6.5); ABSOLUTE LYMPH COUNT 1.1 /CUMM (1.2-3.4); ABSOLUTE MONOCYTE COUNT 0.4 /CUMM (0.10-0.60); BASOPHIL % 0.8 % (0.0-2.0); EOSINOPHIL % 2.2 % (0-5); GRANULOCYTE % 74.5 % (42.2-75.2); HEMATOCRIT 22.6 % (42-52); MEAN CORPUSCULAR HGB 28.5 PG (27.0-31.0); MEAN CORPUSCULAR HGB CONC 34.6 G/DL (33.0-37.0); MEAN CORPUSCULAR VOLUME 82.3 FL (80.0-94.0); MEAN PLATELET VOLUME 7.1 FL (7.4-10.4); PLATELET COUNT 270 /CUMM (130-400); RBC DISTRIBUTION WIDTH 16.6 % (11.5-14.5); RED BLOOD CELL CT 2.75 /CUMM (4.70-6.10); WHITE BLOOD CELL COUNT 6.9 /CUMM (4.8-10.8)
--- NOTE | 2017-11-09 14:01 | PN- Infect Dx ---
Subjective Subjective: Afebrile on steroids. He continues to complain of blurred vision. Objective Last 24 Hrs of Vital Signs/I&O Vital Signs Date Time Temp Pulse Resp B/P B/P Pulse O2 O2 Flow FiO2 Mean Ox Delivery Rate 11/09 1038 73 134/60 11/09 0657 98.9 74 20 132/62 95 Nasal 2.0L Cannula 11/09 0000 95 Nasal 2.0L Cannula 11/08 2230 99.0 91 20 130/64 94 11/08 1600 95 Nasal 2.0L Cannula Intake & Output 11/09 1600 11/09 0800 11/09 0000 Intake Total 600 1275 Output Total Balance 600 1275 Intake, IV 600 675 Intake, Oral 0 600 Number 0 Bowel Movements Patient 175 lb Weight Weight Bed scale Measurement Method Physical Exam Other Physical Findings: He appears comfortable in no acute distress Lungs are clear Heart regular rhythm with a 1/6 systolic ejection murmur Abdomen is soft, nontender with positive bowel sounds Extremities right foot dressing intact Results Last 24 Hours of Lab Results: Laboratory Tests 11/09 0758 Chemistry Sodium (137 - 145 mmol/L) 133 L Potassium (3.5 - 5.1 mmol/L) 4.0 Chloride (98 - 107 mmol/L) 105 Carbon Dioxide (22 - 30 mmol/L) 20 L Anion Gap (5 - 16) 8 BUN (9 - 20 mg/dL) 9 Creatinine (0.7 - 1.2 mg/dL) 1.1 Estimated GFR (>60 ml/min) > 60 BUN/Creatinine Ratio (7 - 25 %) 8.2 Hematology CBC w Diff NO MAN DIFF REQ WBC (4.8 - 10.8 /CUMM) 6.9 RBC (4.70 - 6.10 /CUMM) 2.75 L Hgb (14.0 - 18.0 G/DL) 7.8 L Hct (42 - 52 %) 22.6 L MCV (80.0 - 94.0 FL) 82.3 MCH (27.0 - 31.0 PG) 28.5 MCHC (33.0 - 37.0 G/DL) 34.6 RDW (11.5 - 14.5 %) 16.6 H Plt Count (130 - 400 /CUMM) 270 MPV (7.4 - 10.4 FL) 7.1 L Gran % (42.2 - 75.2 %) 74.5 Lymphocytes % (20.5 - 51.1 %) 16.7 L Monocytes % (1.7 - 9.3 %) 5.8 Eosinophils % (0 - 5 %) 2.2 Basophils % (0.0 - 2.0 %) 0.8 Absolute Granulocytes (1.4 - 6.5 /CUMM) 5.1 Absolute Lymphocytes (1.2 - 3.4 /CUMM) 1.1 L Absolute Monocytes (0.10 - 0.60 /CUMM) 0.4 Absolute Eosinophils (0.0 - 0.7 /CUMM) 0.1 Absolute Basophils (0.0 - 0.2 /CUMM) 0.1 Last 24 Hours of [place] Results: Blood cultures 2 November 05 remain negative Recent Imaging Studies: ANNA November 08 negative for any vegetations Assessment/Plan ID Impression: Stable, with temperatures and white blood cell count remaining normal and with his blood cultures from 4 days ago so far negative, now on Daptomycin Day 9, Bactrim Day 9 and Linezolid Day 3 for a 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 His right foot was likely the initial source of his bacteremia, but it does not appear to be the source of infection at this time, now 15 days status post a TMA and 11 days status post revision of the exposed metatarsal stumps with closure of the wound. Additional workup has included an MRI of the lumbosacral spine and a repeat ANNA, neither of which suggested a focus of infection. His blurred vision persists and is felt secondary to cataracts. Suggestion: 1. Ophthalmology referral for his blurred vision 2. Repeat blood cultures 2 today 3. Would proceed with PICC on November 11 if his blood cultures remain negative 4. Continue Daptomycin, Bactrim and Linezolid
--- NOTE | 2017-11-09 14:37 | PN- Att Addend ---
Attending Addendum Attending Brief Note Patient seen and examined. Plan of care discussed with the medical team and the patient. Available lab work and radiology test reports were reviewed. Patient' s ex- and his daughter are at the bedside. Patient complains of for vision problems in both eyes. Is able to perceive light and can count fingers however cannot read or watch TV. He denies any fever or chills overnight and denies pain in the right foot. He denies any chest pain difficulty breathing nausea vomiting or abdominal pain. Patient states that his by mouth intake is slightly better. Exam: General: Patient awake and alert he is oriented without any distress; appears pale as usual; CVS: S1 plus S2 without any murmur or gallops Chest: Few scattered crepitation without any wheeze. There is no respiratory distress. 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 focal neuro deficit and follows commands appropriately; Assessment * Right foot osteomyelitis status post TMA October 25 * Persistent MRSA bacteremia- failed vancomycin, now on daptomycin, Bactrim, and linezolid recent cultures so far negative * Recurrent fever despite TMA * Rule out endocarditis- ANNA negative 2 * Persistent MRSA bacteremia likely originating from osteomyelitis * Suspected pulmonary abscesses from bacteremia which have worsened on recent CT scan * insulin-dependent diabetes mellitus, * rheumatoid arthritis on prednisone & leflunomide, * coronary artery disease status post stenting, * History of left TMA, chronic right foot ulcer with the revision debridement October 29 Plan * Continue linezolid * Await culture report * Continue other medications * Patient may need evaluation of his eyes Current Medications Sig/Lai Start time Last Medication Dose Route Stop Time Status Admin Acetaminophen 1,000 MG Q6P PRN 10/21 1700 AC 10/31 IV 0045 Carvedilol 6.25 MG BID 10/29 1000 AC 11/09 PO 1038 Collagenase 1 VANI DAILY PRN 10/30 1615 AC 11/07 TOP 2000 Daptomycin 900 MG Q24H 10/31 1230 AC 11/09 Sodium Chloride 50 ML IV 1343 Ferrous Sulfate 325 MG TID 10/31 1600 AC 11/09 PO 1038 Folic Acid 1 MG DAILY 10/21 1703 AC 11/09 PO 1039 Heparin Sodium 5,000 UNIT Q8 10/21 2200 AC 11/09 (Porcine) SC 1342 Insulin Aspart 0 TIDAC 11/09 0800 AC SC Insulin Aspart 2 UNITS .STK-MED ONE 11/08 191 DC TN 11/08 191 Insulin Human Regular 0 Q6 11/08 0600 DC 11/08 SC 1227 Linezolid 600 MG BID 11/06 1400 AC 11/09 PO 1046 Multivitamins 1 TAB DAILY 10/21 1703 AC 11/09 PO 1041 Nicotine 21 MG DAILY 11/05 1447 11/08 TOP 0850 Nitroglycerin 0.5 GM Q6 10/26 0850 11/09 TOP 1248 Omeprazole 40 MG BID 10/31 1045 AC 11/09 PO 1040 Polyethylene Glycol 17 GM DAILY PRN 11/09 0100 AC PO Prednisone 5 MG DAILY 11/01 1318 AC 11/09 PO 1040 Sodium Chloride 2 SPRAY Q6-PRN PRN 11/05 1745 AC LORELEI Trimethoprim/ 30 ML Q12H 10/31 1245 AC 11/09 Sulfamethoxazole IV 0130 Dextrose/Water 500 ML Vitamin A/Vitamin D 1 VANI Q6-PRN PRN 10/27 1500 11/06 TOP 0958 Laboratory Tests 11/09/17 0758: Anion Gap 8, Estimated GFR > 60, BUN/Creatinine Ratio 8.2, CBC w Diff NO MAN DIFF REQ, RBC 2.75 L, MCV 82.3, MCH 28.5, MCHC 34.6, RDW 16.6 H, MPV 7.1 L, Gran % 74.5, Lymphocytes % 16.7 L, Monocytes % 5.8, Eosinophils % 2.2, Basophils % 0.8, Absolute Granulocytes 5.1, Absolute Lymphocytes 1.1 L, Absolute Monocytes 0.4, Absolute Eosinophils 0.1, Absolute Basophils 0.1 11/08/17 0730: Anion Gap 11, Estimated GFR > 60, BUN/Creatinine Ratio 9.1, CBC w Diff NO MAN DIFF REQ, RBC 2.82 L, MCV 83.5, MCH 28.3, MCHC 33.9, RDW 16.2 H, MPV 7.2 L, Gran % 77.0 H, Lymphocytes % 16.1 L, Monocytes % 4.8, Eosinophils % 1.4, Basophils % 0.7, Absolute Granulocytes 5.4, Absolute Lymphocytes 1.1 L, Absolute Monocytes 0.3, Absolute Eosinophils 0.1, Absolute Basophils 0 11/07/17 1800: CBC w Diff Cancelled, WBC Cancelled, RBC Cancelled, Hgb Cancelled, Hct Cancelled , MCV Cancelled, MCH Cancelled, MCHC Cancelled, RDW Cancelled, Plt Count Cancelled, MPV Cancelled 11/07/17 0635: Anion Gap 7, Estimated GFR > 60, BUN/Creatinine Ratio 10.9, CBC w Diff NO MAN DIFF REQ, RBC 2.64 L, MCV 83.2, MCH 28.0, MCHC 33.7, RDW 16.3 H, MPV 7.5, Gran % 74.7, Lymphocytes % 17.2 L, Monocytes % 5.8, Eosinophils % 1.6, Basophils % 0.7, Absolute Granulocytes 5.4, Absolute Lymphocytes 1.2, Absolute Monocytes 0.4 , Absolute Eosinophils 0.1, Absolute Basophils 0 Vital Signs Date Time Temp Pulse Resp B/P B/P Pulse O2 O2 Flow FiO2 Mean Ox Delivery Rate 11/09 1038 73 134/60 11/09 0657 98.9 74 20 132/62 95 Nasal 2.0L Cannula 11/09 0000 95 Nasal 2.0L Cannula 11/08 2230 99.0 91 20 130/64 94 11/08 1600 95 Nasal 2.0L Cannula Intake & Output 11/09 1600 11/09 0800 11/09 0000 Intake Total 600 1275 Output Total Balance 600 1275 Intake, IV 600 675 Intake, Oral 0 600 Number 0 Bowel Movements Patient 175 lb Weight Weight Bed scale Measurement Method
[2017-11-09 14:48] VITALS: BP 128/64
[2017-11-09 22:10] VITALS: BP 112/80
[2017-11-10 06:33] VITALS: BP 130/70
[2017-11-10 08:27] LABS: ABSOLUTE BASOPHIL COUNT 0.1 /CUMM (0.0-0.2); ABSOLUTE EOSINOPHIL COUNT 0.2 /CUMM (0.0-0.7); ABSOLUTE GRANULOCYTE CT 5.5 /CUMM (1.4-6.5); ABSOLUTE LYMPH COUNT 1.1 /CUMM (1.2-3.4); ABSOLUTE MONOCYTE COUNT 0.3 /CUMM (0.10-0.60); BASOPHIL % 0.7 % (0.0-2.0); EOSINOPHIL % 2.4 % (0-5); GRANULOCYTE % 76.7 % (42.2-75.2); HEMATOCRIT 25.6 % (42-52); MEAN CORPUSCULAR HGB 27.9 PG (27.0-31.0); MEAN CORPUSCULAR HGB CONC 33.4 G/DL (33.0-37.0); MEAN CORPUSCULAR VOLUME 83.7 FL (80.0-94.0); MEAN PLATELET VOLUME 6.9 FL (7.4-10.4); PLATELET COUNT 269 /CUMM (130-400); RED BLOOD CELL CT 3.06 /CUMM (4.70-6.10); WHITE BLOOD CELL COUNT 7.1 /CUMM (4.8-10.8)
--- NOTE | 2017-11-10 09:46 | PN- Housestaff ---
See Addendum Subjective Follow-up For: Osteomyelitis with vancomycin-resistant MRSA bacteremia Subjective: No overnight events. Patient complaining of some mild pain but it is well controlled. He had no fevers, chest pain, shortness of breath, bowel pain, or other complaints. Review of Systems Constitutional: Reports: no symptoms. EENTM: Reports: no symptoms. Cardiovascular: Reports: no symptoms. Respiratory: Reports: no symptoms. Gastrointestinal: Reports: no symptoms. Genitourinary: Reports: no symptoms. Musculoskeletal: Reports: see HPI. Skin: Reports: no symptoms. Neurological/Psychological: Reports: no symptoms. Hematologic/Endocrine: Reports: no symptoms. Immunologic/Allergic: Reports: no symptoms. Objective Last 24 Hrs of Vital Signs/I&O Vital Signs Date Time Temp Pulse Resp B/P B/P Pulse O2 O2 Flow FiO2 Mean Ox Delivery Rate 11/10 0633 98.0 70 18 130/70 95 11/09 2210 98.1 68 20 112/80 97 Room Air 11/09 2155 81 128/64 11/09 1600 92 Room Air 11/09 1448 97.7 81 20 128/64 95 07 1038 73 134/60 Intake & Output 11/10 1600 11/10 0800 11/10 0000 Intake Total 700 200 Output Total Balance 700 200 Intake, IV 500 Intake, Oral 200 200 Physical Exam General Appearance: Alert, Oriented X3, Cooperative, No Acute Distress Cardiovascular: Regular Rate Lungs: Clear to Auscultation Abdomen: Normal Bowel Sounds, Soft Extremities: Feet wraped, no edema Current Medications: Current Medications Sig/Lai Start time Last Medication Dose Route Stop Time Status Admin Acetaminophen 1,000 MG Q6P PRN 10/21 1700 AC 11/10 IV 0817 Carvedilol 6.25 MG BID 10/29 1000 AC 11/09 PO 2155 Collagenase 1 VANI DAILY PRN 10/30 1615 AC 11/07 TOP 2000 Daptomycin 900 MG Q24H 10/31 1230 AC 11/09 Sodium Chloride 50 ML IV 1343 Ferrous Sulfate 325 MG TID 10/31 1600 AC 11/09 PO 2155 Folic Acid 1 MG DAILY 10/21 1703 AC 11/09 PO 1039 Heparin Sodium 5,000 UNIT Q8 10/21 2200 AC 11/10 (Porcine) SC 0601 Ibuprofen 400 MG ONCE ONE 11/09 1715 DC 11/09 PO 11/09 1716 1721 Insulin Aspart 0 TIDAC 11/09 0800 11/09 SC 1721 Linezolid 600 MG BID 11/06 1400 AC 11/09 PO 2156 Multivitamins 1 TAB DAILY 10/21 1703 AC 11/09 PO 1041 Nicotine 21 MG DAILY 11/05 1447 11/08 TOP 0850 Nitroglycerin 0.5 GM Q6 10/26 0850 AC 11/10 TOP 0601 Omeprazole 40 MG BID 10/31 1045 AC 11/09 PO 2155 Polyethylene Glycol 17 GM DAILY PRN 11/09 0100 AC PO Prednisone 5 MG DAILY 11/01 1318 AC 11/09 PO 1040 Sodium Chloride 2 SPRAY Q6-PRN PRN 11/05 1745 AC LORELEI Trimethoprim/ 30 ML Q12H 10/31 1245 AC 11/09 Sulfamethoxazole IV 2346 Dextrose/Water 500 ML Vitamin A/Vitamin D 1 VANI Q6-PRN PRN 10/27 1500 AC 11/06 TOP 0958 Last 24 Hrs of Lab/[place] Results Last 24 Hrs of Labs/Mics: Laboratory Tests 11/10/17 0805: Anion Gap 10, Estimated GFR > 60, BUN/Creatinine Ratio 10.0, CBC w Diff NO MAN DIFF REQ, RBC 3.06 L, MCV 83.7, MCH 27.9, MCHC 33.4, RDW 17.0 H, MPV 6.9 L, Gran % 76.7 H, Lymphocytes % 15.3 L, Monocytes % 4.9, Eosinophils % 2.4, Basophils % 0.7, Absolute Granulocytes 5.5, Absolute Lymphocytes 1.1 L, Absolute Monocytes 0.3, Absolute Eosinophils 0.2, Absolute Basophils 0.1 Microbiology 11/09 180 BLOOD: Blood Culture - RECD 11/09 1800 BLOOD: Blood Culture - RECD Assessment/Plan Assessment: Mr Baltazar is a 61-year-old male with past medical history significant for insulin -dependent diabetes mellitus, rheumatoid arthritis on prednisone & leflunomide, coronary artery disease status post stenting, left TMA, chronic right foot ulcer was brought to [place] after found by law enforcement at home altered and unkempt, covered with urine. Admitted to ICU initially on 10/21/2017 given sepsis secondary to diabetic foot infection. He did have persistent MRSA bacteremia with extensive seeding into lungs, urine, joints. Once he was hemodynamic stable transferred to telemetry. Plan Problem list 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 Insulin-dependent diabetic mellitus Cavitation in the lung Type II AL Encephalopathy Inflammatory anemia Anemia Blurry Vision ?secondary cataract MRSA osteomyelitis with persistent bacteremia Appears secondary to uncontrolled diabetes and on steroids giving room for rapid progression. Initially started broad with IV ceftazidime and Flagyl and transitioned to IV vancomycin after cultures results. MRI did show abscess of right foot. Blood cultures were persistently positive. ESR 125. Underwent tarsometatarsal amputation on 10/25/17. Underwent ANNA and wound closure on . Given bacteremia as well as being febrile overnight we will transition and changes antibiotics from vancomycin to daptomycin (900 mg IV every 24 hours.) Will also begin the patient on Bactrim Q 12 hours. - Day 10 of daptomycin and Bactrim. -Linezoid started 11/06/2017 for improved coverage of potential pulmonary source. 600 mg BID. Day four - Repeated blood cultures 11/05/2017 - Monitor LFTs weekly while on daptomycin. - CPK added to labs 10/31/2017 showed 48, remarkably decreased from 10/21/2017 lab of 1485. Will also discontinue statin in the setting of medication interaction with daptomycin. CPK level 11/06/2017: 73 -WBC scan conducted on 11/07/2017. Results attached (Iatrogenic) Steroid induced adrenal insufficiency He did have suppression of his pituitary axis secondary to chronic steroid intake. Placed on IV hydrocortisone to maintain his blood pressure. He received stress dose of steroids prior to procedures. * Monitor blood pressure. * Transitioned to by mouth prednisone 5 mg from 12.5 mg hydro-cortisone BID. * If any signs of hypotension may consider taking back on increased dose of steroids. Insulin-dependent diabetic mellitus HbA1c of 7.2. Sugars remained relatively controlled on current regimen NovoLog sliding scale per endocrinology. FS,139,126,118 Intermixed ground glass attenuation on imaging Imaging shows opacities exhibiting reverse halo sign (atoll sign). Also, some of the opacities have central lucencies, suspicious for cavitary change. Given MRSA bacteremia, seeding should be first differential. However patient has been on leflunomide so tuberculosis should be second in the differential. Repeat CT on 10/28/17 did show dense groundglass opacification is also noted - Continue Coreg. Encephalopathy Patient was altered despite aggressive treatment of his infection. Improved after giving IV thiamine for few days. Probably alcohol related. Resolved. Anemia Previous indices ferritin 1500, iron of 12, TIBC 143 suggestive of anemia of chronic disease/inflammation related. Obvious source could be osteomyelitis. Treating current condition should help with his anemia as well. * H/H 8.0/23.5 * Continue oral iron, increased frequency to TID * Guiac all stools * s/p 4U PRBC in total, last BT on 11/01. Goal > 8. If any signs of active bleed consider immediate call to GI for scope. * Stopped aspirin. Blurry Vision No redness or acute pathology noted. Likley caused by ?secondary cataract of the right eye. on 11/07/2017, Spoke with Dr Bryce Sun, attempted to do a vision exam with a snellen chart, this was unsuccessful. Will request old records fom previous optahlmologist and will continue to monitor. DVT prophylaxis SC heparin Code status full code Problem List: 1. Bacteremia Pain Ratin Pain Location: no Pain Goal: Remain pain free Pain Plan: see a/p Tomorrow's Labs & Rationales: cbc, bep
--- NOTE | 2017-11-10 12:50 | PN- Att Addend ---
Attending Addendum Attending Brief Note Patient seen and examined. Plan of care discussed with the medical team and the patient. Available lab work and radiology test reports were reviewed. There has been no appreciable change in his clinical status. Patient complains of for vision problems in both eyes. Is able to perceive light and can count fingers however cannot read or watch TV. He denies any fever or chills overnight and denies pain in the right foot. He denies any chest pain difficulty breathing nausea vomiting or abdominal pain. Patient states that his by mouth intake is slightly better. Exam: General: Patient awake and alert he is oriented without any distress; appears pale as usual; CVS: S1 plus S2 without any murmur or gallops Chest: Few scattered crepitation without any wheeze. There is no respiratory distress. 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 without any focal neuro deficit and follows commands appropriately; patient is able to count fingers and perceive light but cannot read Assessment * Right foot osteomyelitis status post TMA October 25 * Persistent MRSA bacteremia- failed vancomycin, now on daptomycin, Bactrim, and linezolid recent cultures so far negative * Recurrent fever despite TMA * Rule out endocarditis- ANNA negative 2 * Persistent MRSA bacteremia likely originating from osteomyelitis * Suspected pulmonary abscesses from bacteremia which have worsened on recent CT scan * insulin-dependent diabetes mellitus, * rheumatoid arthritis on prednisone & leflunomide, * coronary artery disease status post stenting, * History of left TMA, chronic right foot ulcer with the revision debridement October 29 * Bilateral vision problems with history of for cataract surgery right eye and history of cataract left eye which was not operated Plan * Continue linezolid and other antibiotics * Await culture report * Continue other medications * Continue gabapentin * Patient may need evaluation of his eyes; please perform funduscopy tomorrow; also please arrange a retina picture tomorrow. Please get in touch with the [facility] [phone] tomorrow she may be able to take the retina picture and show it to our retina specialist. Current Medications Sig/Lai Start time Last Medication Dose Route Stop Time Status Admin Acetaminophen 1,000 MG Q6P PRN 10/21 1700 AC 11/10 IV 0817 Carvedilol 6.25 MG BID 10/29 1000 AC 11/10 PO 1053 Collagenase 1 VANI DAILY PRN 10/30 1615 AC 11/07 TOP 2000 Daptomycin 900 MG Q24H 10/31 1230 AC 11/10 Sodium Chloride 50 ML IV 1231 Ferrous Sulfate 325 MG TID 10/31 1600 AC 11/10 PO 1053 Folic Acid 1 MG DAILY 10/21 1703 AC 11/10 PO 1056 Gabapentin 100 MG Q8 11/10 1400 AC PO Heparin Sodium 5,000 UNIT Q8 10/21 2200 AC 11/10 (Porcine) SC 0601 Ibuprofen 400 MG Q6P PRN 11/10 1030 AC 11/10 PO 1055 Ibuprofen 400 MG ONCE ONE 11/09 1715 DC 11/09 PO 11/09 1716 1721 Insulin Aspart 0 TIDAC 11/09 0800 AC 11/10 SC 1231 Linezolid 600 MG BID 11/06 1400 AC 11/10 PO 1222 Multivitamins 1 TAB DAILY 10/21 1703 AC 11/10 PO 1057 Nicotine 21 MG DAILY 11/05 1447 AC 11/08 TOP 0850 Nitroglycerin 0.5 GM Q6 10/26 0850 11/10 TOP 1231 Omeprazole 40 MG BID 10/31 1045 AC 11/10 PO 1057 Polyethylene Glycol 17 GM DAILY PRN 11/09 0100 AC PO Prednisone 5 MG DAILY 11/01 1318 AC 11/10 PO 1057 Sodium Chloride 2 SPRAY Q6-PRN PRN 11/05 1745 AC LORELEI Trimethoprim/ 30 ML Q12H 10/31 1245 AC 11/09 Sulfamethoxazole IV 2346 Dextrose/Water 500 ML Vitamin A/Vitamin D 1 VANI Q6-PRN PRN 10/27 1500 AC 11/06 TOP 0958 Laboratory Tests 11/10/17 0805: Anion Gap 10, Estimated GFR > 60, BUN/Creatinine Ratio 10.0, CBC w Diff NO MAN DIFF REQ, RBC 3.06 L, MCV 83.7, MCH 27.9, MCHC 33.4, RDW 17.0 H, MPV 6.9 L, Gran % 76.7 H, Lymphocytes % 15.3 L, Monocytes % 4.9, Eosinophils % 2.4, Basophils % 0.7, Absolute Granulocytes 5.5, Absolute Lymphocytes 1.1 L, Absolute Monocytes 0.3, Absolute Eosinophils 0.2, Absolute Basophils 0.1 11/09/17 0758: Anion Gap 8, Estimated GFR > 60, BUN/Creatinine Ratio 8.2, CBC w Diff NO MAN DIFF REQ, RBC 2.75 L, MCV 82.3, MCH 28.5, MCHC 34.6, RDW 16.6 H, MPV 7.1 L, Gran % 74.5, Lymphocytes % 16.7 L, Monocytes % 5.8, Eosinophils % 2.2, Basophils % 0.8, Absolute Granulocytes 5.1, Absolute Lymphocytes 1.1 L, Absolute Monocytes 0.4, Absolute Eosinophils 0.1, Absolute Basophils 0.1 11/08/17 0730: Anion Gap 11, Estimated GFR > 60, BUN/Creatinine Ratio 9.1, CBC w Diff NO MAN DIFF REQ, RBC 2.82 L, MCV 83.5, MCH 28.3, MCHC 33.9, RDW 16.2 H, MPV 7.2 L, Gran % 77.0 H, Lymphocytes % 16.1 L, Monocytes % 4.8, Eosinophils % 1.4, Basophils % 0.7, Absolute Granulocytes 5.4, Absolute Lymphocytes 1.1 L, Absolute Monocytes 0.3, Absolute Eosinophils 0.1, Absolute Basophils 0 11/07/17 1800: CBC w Diff Cancelled, WBC Cancelled, RBC Cancelled, Hgb Cancelled, Hct Cancelled , MCV Cancelled, MCH Cancelled, MCHC Cancelled, RDW Cancelled, Plt Count Cancelled, MPV Cancelled Microbiology 11/09 1805 BLOOD: Blood Culture - RES 11/09 1800 BLOOD: Blood Culture - RES Vital Signs Date Time Temp Pulse Resp B/P B/P Pulse O2 O2 Flow FiO2 Mean Ox Delivery Rate 11/10 1053 76 132/68 11/10 0633 98.0 70 18 130/70 95 11/09 2210 98.1 68 20 112/80 97 Room Air 11/09 2155 81 128/64 11/09 1600 92 Room Air 11/09 1448 97.7 81 20 128/64 95 Intake & Output 11/10 1600 11/10 0800 11/10 0000 Intake Total 700 200 Output Total Balance 700 200 Intake, IV 500 Intake, Oral 200 200
[2017-11-10 13:59] VITALS: BP 118/72
[2017-11-10 22:28] VITALS: BP 130/80
[2017-11-11 05:52] VITALS: BP 112/66
--- NOTE | 2017-11-11 07:15 | PN- Housestaff ---
See Addendum Subjective Follow-up For: Persistent Bacteremia Subjective: Mr Baltazar was seen and examined this morning. Resting comfortably in bed. Denies any issues overnight. States that he feelsbetter and has been able to increase his by mouth intake over the course of the weekend. He feels more energized. Still concerned about his vision especially as it relates to not be able to see out of the right eye. States that although the vision was not great in the right he was still able to drive. He does not think you be able to do so at this moment. Denies fever, chills, nausea, vomiting. States he is expressing some mild pain which traditionally responds well to Percocet. Request some pain medications prior to working with physical therapy. Review of Systems Constitutional: Reports: see HPI. Objective Last 24 Hrs of Vital Signs/I&O Vital Signs Date Time Temp Pulse Resp B/P B/P Pulse O2 O2 Flow FiO2 Mean Ox Delivery Rate 11/12 0708 97.2 70 20 112/66 11/11 0800 Nasal 1.0L Cannula 11/11 0552 97.2 70 20 112/66 95 Nasal 1.0L Cannula 11/11 0000 95 Nasal 1.0L Cannula 11/10 2228 98.7 87 20 130/80 95 Nasal Cannula 11/10 1600 Nasal 1.0L Cannula 11/10 1359 99.2 67 20 118/72 94 Intake & Output 11/11 1600 11/11 0800 11/11 0000 Intake Total 740 Output Total 200 Balance 740 -200 Intake, IV 500 Intake, Oral 240 Output, Urine 200 Physical Exam General Appearance: Alert, Oriented X3, Cooperative Skin Temp/Moisture Exam: Warm/Dry HEENT: PERRLA, EOMI, H Test Normal. , No Proptosis or opthalmoplegia Cardiovascular: Regular Rate, Normal S1, Normal S2 Lungs: Clear to Auscultation, Normal Air Movement Abdomen: Normal Bowel Sounds, Soft, No Tenderness Neurological: Normal Gait, Normal Speech Extremities: No Clubbing, No Cyanosis, No Edema, Left TMA, Right foot wrapped in bandage. No Drainage or erythema Vascular: Normal Pulses Current Medications: Current Medications Sig/Lai Start time Last Medication Dose Route Stop Time Status Admin Acetaminophen 1,000 MG Q6P PRN 10/21 1700 AC 11/10 IV 0817 Carvedilol 6.25 MG BID 10/29 1000 AC 11/11 PO 0808 Collagenase 1 VANI DAILY PRN 10/30 1615 AC 11/07 TOP 2000 Daptomycin 900 MG Q24H 10/31 1230 AC 11/11 Sodium Chloride 50 ML IV 1313 Ferrous Sulfate 325 MG TID 10/31 1600 AC 11/11 PO 0809 Folic Acid 1 MG DAILY 10/21 1703 AC 11/11 PO 0809 Gabapentin 100 MG Q8 11/10 1400 AC 11/11 PO 1314 Heparin Sodium 5,000 UNIT Q8 10/21 2200 AC 11/11 (Porcine) SC 1313 Ibuprofen 400 MG Q6P PRN 11/10 1030 AC 11/10 PO 2133 Insulin Aspart 0 TIDAC 11/09 0800 AC 11/10 SC 1708 Linezolid 600 MG BID 11/06 1400 AC 11/11 PO 0812 Multivitamins 1 TAB DAILY 10/21 1703 AC 11/11 PO 0811 Nicotine 21 MG DAILY 11/05 1447 11/11 TOP 0809 Nitroglycerin 0.5 GM Q6 10/26 0850 11/11 TOP 1313 Omeprazole 40 MG BID 10/31 1045 11/11 PO 0810 Oxycodone/ 1 TAB ONCE ONE 11/11 0930 DC 11/11 Acetaminophen PO 11/11 0931 0936 Polyethylene Glycol 17 GM DAILY PRN 11/09 0100 PO Prednisone 5 MG DAILY 11/01 1318 AC 11/11 PO 0810 Sodium Chloride 2 SPRAY Q6-PRN PRN 11/05 1745 AC LORELEI Trimethoprim/ 30 ML Q12H 10/31 1245 AC 11/11 Sulfamethoxazole IV 1313 Dextrose/Water 500 ML Vitamin A/Vitamin D 1 VANI Q6-PRN PRN 10/27 1500 11/06 TOP 0958 Last 24 Hrs of Lab/[place] Results Last 24 Hrs of Labs/Mics: Laboratory Tests 11/11/17 0615: Anion Gap 10, Estimated GFR > 60, BUN/Creatinine Ratio 10.9, CBC w Diff NO MAN DIFF REQ, RBC 2.71 L, MCV 84.1, MCH 27.8, MCHC 33.1, RDW 17.5 H, MPV 6.9 L, Gran % 74.4, Lymphocytes % 17.4 L, Monocytes % 4.5, Eosinophils % 3.0, Basophils % 0.7, Absolute Granulocytes 5.1, Absolute Lymphocytes 1.2, Absolute Monocytes 0.3, Absolute Eosinophils 0.2, Absolute Basophils 0 Orders ECHO Findings: MICHELA BALTAZAR Age: 61 : Gender: M Exam Date: 11/08/2017 13:31 Exam Location: [address] [place] [address] Ht (in): 75 Wt (lb): 180 BSA: 2.07 BP: 93 / 64 Ordering Physician: Nhi Aldana MD Referring Physician: Nhi Aldana MD Technologist: Devin Gregory [facility] Room Number: [id number] Indications: Acute/Subacute Bacterial Endocarditis Rhythm: Sinus Technical Quality: good Medications Lidocaine [place]. Propofol administered by Anesthesiology. Ease of Transducer Insertion No Difficulty Complications None. Technical Difficulty FINDINGS Left Ventricle Normal size left ventricle. No obvious regional wall motion abnormalities. Normal left ventricular ejection fraction estimated at 55-60%. Right Ventricle Normal right ventricular size and function. Right Atrium Normal right atrial size. Left Atrium Left atrial size at the upper limits of normal. LA Appendage Normal left atrial appendage. IA Septum Normal interatrial septum. Mitral Valve Mitral valve thickened. Trace to mild mitral regurgitation. Aortic Valve Trileaflet aortic valve. Diffuse thickening (sclerosis) of the aortic valve cusps without reduced excursion. No aortic stenosis. No aortic regurgitation. Tricuspid Valve Tricuspid valve not well visualized, grossly normal. Trace to mild tricuspid regurgitation. Pulmonic Valve Structurally normal pulmonic valve. Trace pulmonic regurgitation. Pericardium No pericardial effusion. Great Vessels Grade II plaque seen in the aortic arch. Grade II plaque seen in the descending aorta. Normal size aortic root and proximal ascending aorta. CONCLUSIONS 1. There are no definite vegetative lesions detected on this examination. 2. Aortic sclerosis is present with no significant valvular stenosis or insufficiency. 3. Mitral leaflet thickening is present with minimal to mild mitral insufficiency and upper normal left atrial size. On the left atrial aspect of the mitral leaflets they're are tiny mobile echodensities noted which are most consistent with tiny ruptured tertiary cords or Lambl's lesions. 4. The left atrial appendage is normal in size with no evidence of mass or thrombus and normal contractility 5. The pulmonary venous anatomy is normal bilaterally with normal Doppler flow profiles. 6. Right heart structures are grossly normal. No vegetative lesions are noted. Minimal to mild tricuspid and pulmonic insufficiency are present. 7. The atrial septum appears anatomically intact. There is no evidence of atrial level shunt by agitated saline contrast injection, color flow imaging, or Doppler examination. 8. A eustachian valve remnant is present in the right atrial cavity 9. The descending thoracic aorta appears normal in size. Grade 2 atheromatous plaque is noted in the distal transverse aortic arch and descending thoracic aorta. 10. A left pleural effusion is present. Gema Tate M.D. Assessment/Plan Assessment: Mr Baltazar is a 61-year-old male with past medical history significant for insulin -dependent diabetes mellitus, rheumatoid arthritis on prednisone & leflunomide, coronary artery disease status post stenting, left TMA, chronic right foot ulcer was brought to [place] after found by law enforcement at home altered and unkempt, covered with urine. Admitted to ICU initially on 10/21/2017 given sepsis secondary to diabetic foot infection. He did have persistent MRSA bacteremia with extensive seeding into lungs, urine, joints. Once he was hemodynamic stable transferred to telemetry. [place] . 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 Initially started broad with IV ceftazidime and Flagyl and transitioned to IV vancomycin after cultures results. MRI did show abscess of right foot. Blood cultures were persistently positive. ESR 125. Underwent tarsometatarsal amputation on 10/25/17. Underwent ANNA and wound closure on . Given bacteremia as well as being febrile overnight we will transition and changes antibiotics from vancomycin to daptomycin (900 mg IV every 24 hours.) Will also begin the patient on Bactrim Q 12 hours. -Linezoid started 11/06/2017 for improved coverage of potential pulmonary source. 600 mg BID. - Repeated blood cultures 11/05/2017 - Monitor LFTs weekly while on daptomycin. - CPK added to labs 10/31/2017 showed 48, remarkably decreased from 10/21/2017 lab of 1485. Will also discontinue statin in the setting of medication interaction with daptomycin. CPK level 11/06/2017: 73 -WBC scan conducted on 11/07/2017. 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 Placed on IV hydrocortisone to maintain his blood pressure. He received stress dose of steroids prior to procedures. * Monitor blood pressure. * Transitioned to by mouth prednisone 5 mg from 12.5 mg hydro-cortisone BID. * If any signs of hypotension may consider taking back on increased dose of steroids. Insulin-dependent diabetic mellitus HbA1c of 7.2. Sugars remained relatively controlled on current regimen NovoLog sliding scale per endocrinology. Intermixed ground glass attenuation on imaging Imaging shows opacities exhibiting reverse halo sign (atoll sign). Also, some of the opacities have central lucencies, suspicious for cavitary change. Given MRSA bacteremia, seeding should be first differential. However patient has been on leflunomide so tuberculosis should be second in the differential. Repeat CT on 10/28/17 did show dense groundglass opacification is also noted - Continue Coreg. Encephalopathy Patient was altered despite aggressive treatment of his infection. Improved after giving IV thiamine for few days. Probably alcohol related. Resolved. Anemia Previous indices ferritin 1500, iron of 12, TIBC 143 suggestive of anemia of chronic disease/inflammation related. Obvious source could be osteomyelitis. Treating current condition should help with his anemia as well. * H/H 7.5/22.8 * Continue oral iron, increased frequency to TID * Guiac all stools * s/p 4U PRBC in total, last BT on 11/01. Goal > 8. If any signs of active bleed consider immediate call to GI for scope. * Will transfuse One unit PRBC * Stopped aspirin. Blurry Vision No redness or acute pathology noted. Likley caused by ?secondary cataract of the right eye. on 11/07/2017, Spoke with Dr Bryce Sun, attempted to do a vision exam with a snellen chart, this was unsuccessful. Will request old records fom previous optahlmologist and will continue to monitor. * Optahlmology reconsulted, Dr Sun will come and evaluate the patient 2017 Problem List: 1. Bacteremia 2. Osteomyelitis of right foot Pain Ratin Pain Location: Generalized Pain Goal: Remain pain free Pain Plan: Percocet Tomorrow's Labs & Rationales: CbC BEP
[2017-11-11 08:53] LABS: ABSOLUTE BASOPHIL COUNT 0 /CUMM (0.0-0.2); ABSOLUTE EOSINOPHIL COUNT 0.2 /CUMM (0.0-0.7); ABSOLUTE GRANULOCYTE CT 5.1 /CUMM (1.4-6.5); ABSOLUTE LYMPH COUNT 1.2 /CUMM (1.2-3.4); ABSOLUTE MONOCYTE COUNT 0.3 /CUMM (0.10-0.60); BASOPHIL % 0.7 % (0.0-2.0); GRANULOCYTE % 74.4 % (42.2-75.2); HEMATOCRIT 22.8 % (42-52); MEAN CORPUSCULAR HGB 27.8 PG (27.0-31.0); MEAN CORPUSCULAR HGB CONC 33.1 G/DL (33.0-37.0); MEAN CORPUSCULAR VOLUME 84.1 FL (80.0-94.0); MEAN PLATELET VOLUME 6.9 FL (7.4-10.4); PLATELET COUNT 259 /CUMM (130-400); RBC DISTRIBUTION WIDTH 17.5 % (11.5-14.5); RED BLOOD CELL CT 2.71 /CUMM (4.70-6.10); WHITE BLOOD CELL COUNT 6.9 /CUMM (4.8-10.8)
--- NOTE | 2017-11-11 14:47 | PN- Infect Dx ---
Subjective Subjective: Afebrile. He continues to complain of blurry vision. Objective Last 24 Hrs of Vital Signs/I&O Vital Signs Date Time Temp Pulse Resp B/P B/P Pulse O2 O2 Flow FiO2 Mean Ox Delivery Rate 11/12 0708 97.2 70 20 112/66 11/11 0800 Nasal 1.0L Cannula 11/11 0552 97.2 70 20 112/66 95 Nasal 1.0L Cannula 11/11 0000 95 Nasal 1.0L Cannula 11/10 2228 98.7 87 20 130/80 95 Nasal Cannula 11/10 1600 Nasal 1.0L Cannula Intake & Output 11/11 1600 11/11 0811/11 0000 Intake Total 1350 740 Output Total 400 200 Balance 950 740 -200 Intake, IV 550 500 Intake, Oral 800 240 Output, Urine 400 200 Physical Exam Other Physical Findings: He appears comfortable in no acute distress Lungs are clear Heart regular rhythm with a 1/6 systolic ejection murmur Abdomen is soft, nontender with positive bowel sounds Extremities right foot dressing intact Results Last 24 Hours of Lab Results: Laboratory Tests 11/11 614 Chemistry Sodium (137 - 145 mmol/L) 136 L Potassium (3.5 - 5.1 mmol/L) 4.5 Chloride (98 - 107 mmol/L) 105 Carbon Dioxide (22 - 30 mmol/L) 21 L Anion Gap (5 - 16) 10 BUN (9 - 20 mg/dL) 12 Creatinine (0.7 - 1.2 mg/dL) 1.1 Estimated GFR (>60 ml/min) > 60 BUN/Creatinine Ratio (7 - 25 %) 10.9 Hematology CBC w Diff NO MAN DIFF REQ WBC (4.8 - 10.8 /CUMM) 6.9 RBC (4.70 - 6.10 /CUMM) 2.71 L Hgb (14.0 - 18.0 G/DL) 7.5 L Hct (42 - 52 %) 22.8 L MCV (80.0 - 94.0 FL) 84.1 MCH (27.0 - 31.0 PG) 27.8 MCHC (33.0 - 37.0 G/DL) 33.1 RDW (11.5 - 14.5 %) 17.5 H Plt Count (130 - 400 /CUMM) 259 MPV (7.4 - 10.4 FL) 6.9 L Gran % (42.2 - 75.2 %) 74.4 Lymphocytes % (20.5 - 51.1 %) 17.4 L Monocytes % (1.7 - 9.3 %) 4.5 Eosinophils % (0 - 5 %) 3.0 Basophils % (0.0 - 2.0 %) 0.7 Absolute Granulocytes (1.4 - 6.5 /CUMM) 5.1 Absolute Lymphocytes (1.2 - 3.4 /CUMM) 1.2 Absolute Monocytes (0.10 - 0.60 /CUMM) 0.3 Absolute Eosinophils (0.0 - 0.7 /CUMM) 0.2 Absolute Basophils (0.0 - 0.2 /CUMM) 0 Last 24 Hours of [place] Results: Blood cultures November 05 negative Blood cultures November 09 negative Assessment/Plan ID Impression: Stable, with temperatures and white blood cell count remaining normal and with his blood cultures from 6 days (and again 2 days) ago remaining negative, on Daptomycin Day 11, Bactrim Day11 and Linezolid Day 5 for a 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 His right foot was likely the initial source of his bacteremia, but it does not appear to be the source of infection at this time, now 17 days status post a TMA and 13 days status post revision of the exposed metatarsal stumps with closure of the wound. His blurred vision persists of unclear etiology. Suggestion: 1. Ophthalmology evaluation 2. Would proceed with PICC 3. Continue Daptomycin, Bactrim and Linezolid
[2017-11-11 14:56] VITALS: BP 122/86
--- NOTE | 2017-11-11 19:00 | Discharge Summary ---
Visit Information Visit Dates Admission Date: 10/21/17 Discharge Date: 11/11/2017 Hospital Course Course Attending Physician: Charles Koehler MD Primary Care Physician: Patient Has No Primary Care Dr Hospital Course: Mr Baltazar is a 61-year-old male with past medical history significant for insulin -dependent diabetes mellitus, rheumatoid arthritis on prednisone & leflunomide, coronary artery disease status post stenting, left TMA, chronic right foot ulcer was brought to [place] after found by law enforcement at home altered and unkempt, covered with urine. Admitted to ICU initially on 10/21/2017 given sepsis secondary to diabetic foot infection. He did have persistent MRSA bacteremia with extensive seeding into lungs, urine, joints. Once he was hemodynamic stable transferred to telemetry. [place]. At ICU he had the following issues: 1. Acute hypoxic respiratory failure 2/2 congestive heart failure 2. Sepsis 2/2 Right Foot Osteomyeltitis 3. Gram Positive Bacteremia 4. AMS 2/2 Sepsis 5. Hyperglycemia 6. Diabetes Mellitus 7. ANURAG 8. Adrenal Insufficiency 9. Cavitary Pulmonary Lesions 10. Anemia 11. 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 Initially started broad with IV ceftazidime and Flagyl and transitioned to IV vancomycin after cultures results. MRI did show abscess of right foot. Blood cultures were persistently positive. ESR 125. Underwent tarsometatarsal amputation on 10/25/17. Underwent ANNA and wound closure on . Given bacteremia as well as being febrile overnight we will transition and changes antibiotics from vancomycin to daptomycin (900 mg IV every 24 hours.) Will also begin the patient on Bactrim Q 12 hours. -Linezoid started 11/06/2017 for improved coverage of potential pulmonary source. 600 mg BID. - Repeated blood cultures 11/05/2017 - Monitor LFTs weekly while on daptomycin. - CPK added to labs 10/31/2017 showed 48, remarkably decreased from 10/21/2017 lab of 1485. Will also discontinue statin in the setting of medication interaction with daptomycin. CPK level 11/06/2017: 73 -WBC scan conducted on 11/07/2017. Results attached -ID service recommended PICC line #(Iatrogenic) Steroid induced adrenal insufficiency He did have suppression of his pituitary axis secondary to chronic steroid intake. Placed on IV hydrocortisone to maintain his blood pressure. He received stress dose of steroids prior to procedures. * Monitor blood pressure. * Transitioned to by mouth prednisone 5 mg from 12.5 mg hydro-cortisone BID. * If any signs of hypotension may consider taking back on increased dose of steroids. #Insulin-dependent diabetic mellitus HbA1c of 7.2. Sugars remained relatively controlled on current regimen NovoLog sliding scale per endocrinology. #Intermixed ground glass attenuation on imaging Imaging shows opacities exhibiting reverse halo sign (atoll sign). Also, some of the opacities have central lucencies, suspicious for cavitary change. Given MRSA bacteremia, seeding should be first differential. However patient has been on leflunomide so tuberculosis should be second in the differential. Repeat CT on 10/28/17 did show dense groundglass opacification is also noted - Continue Coreg. #Encephalopathy Patient was altered despite aggressive treatment of his infection. Improved after giving IV thiamine for few days. Probably alcohol related. Resolved. #Anemia Previous indices ferritin 1500, iron of 12, TIBC 143 suggestive of anemia of chronic disease/inflammation related. Obvious source could be osteomyelitis. Treating current condition should help with his anemia as well. * H/H 7.5/22.8 * Continue oral iron, increased frequency to TID * Guiac all stools * s/p 4U PRBC in total, last BT on 11/01. Goal > 8. If any signs of active bleed consider immediate call to GI for scope. * He received 1 unit of blood today (during this hospitalization he received a total of 4 units of blood) * Stopped aspirin. #Blurry Vision No redness or acute pathology noted. Likley caused by ?secondary cataract of the right eye. on 11/07/2017, Spoke with Dr Bryce Sun, attempted to do a vision exam with a snellen chart, this was unsuccessful. Will request old records fom previous optahlmologist and will continue to monitor. * Optahlmology reconsulted, came and evaluated the patient 11/11/2017 , he recommended to transfer the patient to [place] for possible retinal detachment , vitreous hemorrhage Complications: None Allergies: Coded Allergies: No Known Allergies (10/21/17) Significant Procedures: 1 open TMA right foot 10/25/17 At 10/29/2017: 1 open incision and drainage deep to the deep fascia with exposure of the extensor and flexor tendon and tendon sheath multiple sites right foot 2 revision of exposed metatarsal stumps 1, 2, 3, 4 and 5 right foot 3 delayed primary closure of open surgical wound right foot Pertinent Lab Results: Disposition Summary Disposition Principal Diagnosis: 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 Insulin-dependent diabetic mellitus Cavitation in the lung Type II PR Encephalopathy Inflammatory anemia Anemia Blurry Vision ?secondary cataract Additional Diagnosis: rheumatoid arthritis on prednisone & leflunomide, coronary artery disease status post stenting, left TMA Discharge Disposition: other general hospital Discharge Instructions General Discharge Information Code Status: Full Code Patient's Diet: Diabetic diet Patient's Activity: As tolerated Follow-Up Instructions/Appts: Follow-up with ID Follow-up with your primary care physician as an outpatient Taking medication as prescribed Follow with your agriculture department chair as an outpatient Medications at Discharge Discharge Medications: Start taking the following new medications: Oxycodone HCl (Oxycodone HCl) 15 MG TABLET 1 Tablet ORAL THREE TIMES DAILY Qty = 90 No Refills Carvedilol (Coreg) 12.5 MG TABLET 1 Tablet ORAL TWICE DAILY Qty = 60 No Refills Copies To: Charles Koehler MD
--- NOTE | 2017-11-11 19:01 | Patient Discharge Instructions ---
Discharge Instructions General Discharge Information You were seen/treated for: MRSA bacteremia + osteomyelitis Steroid induced adrenal insufficiency Cavitation in the lung Type II AR Encephalopathy You had these procedures: none Special Instructions: Follow-up with your primary care physician within 7 days of discharge. Please continue taking antibiotics as prescribed. You kerline will be considered for PICC line placement for long-term antibiotics. Please follow-up with infectious diseases consultation once you've been discharged. We have provided you with the necessary referrals. Diet Recommended Diet: Diabetic Activity Other activity limits: As tolerated Acute Coronary Syndrome Inclusion Criteria At DC or during hospital stay patient has or had the following: ACS DIAGNOSIS No Discharge Core Measures Meds if any: Prescribed or Continued at Discharge Meds if any: NOT Prescribed or Continued at Discharge Congestive Heart Failure Inclusion Criteria At DC or during hospital stay patient has or had the following: CHF DIAGNOSIS No Discharge Core Measures Meds if any: Prescribed or Continued at Discharge Meds if any: NOT Prescribed or Continued at Discharge Cerebrovascular accident Inclusion Criteria At DC or during hospital stay patient has or had the following: CVA/TIA Diagnosis No Discharge Core Measures Meds if any: Prescribed or Continued at Discharge Meds if any: NOT Prescribed or Continued at Discharge Venous thromboembolism Inclusion Criteria VTE Diagnosis No VTE Type NONE VTE Confirmed by (Test) NONE Discharge Core Measures - Per Current guidelines, there needs to be overlap - treatment for the first 5 days of Warfarin therapy. - If discharged on Warfarin prior to 5 days of - overlap therapy, the patient will need to be - assessed for post discharge needs including - *Post discharge parental anticoagulation - *Warfarin and/or parental anticoagulation education - *Follow up date to check INR post discharge At least 5 days overlap therapy as Inpatient No Meds if any: Prescribed or Continued at Discharge Note: Overlap Therapy is Warfarin and Anticoagulant Meds if any: NOT Prescribed or Continued at Discharge
[2017-11-11] MEDS ORDERED: FERROUS SULFAT325 M2 PO (19:15)
[2017-11-11] MEDS ORDERED: GABAPENTIN100 M2 PO (19:15)
[2017-11-11] MEDS ORDERED: SANTYL30 GM TOP (19:15)
[2017-11-11] MEDS ORDERED: VITAMIN A & D56.7 GM TOP (19:15)
[2017-11-11] MEDS ORDERED: OMEPRAZOLE20 M2 PO (19:15)
[2017-11-11] MEDS ORDERED: ZYVOX600 M1 PO (19:15)
[2017-11-11] MEDS ORDERED: ONE DAILY MULT1 EAC2 PO (19:15)
[2017-11-11] MEDS ORDERED: DAPTOMYCIN500 MG IV (19:15)
[2017-11-11] MEDS ORDERED: FOLIC ACID1 M1 PO (19:15)
[2017-11-11] MEDS ORDERED: SULFAMETHOXAZOLE5 ML IV (19:21)
[2017-11-11 22:26] VITALS: BP 148/72
--- NOTE | 2017-11-12 04:48 | Event Note ---
Event Note Event Note: Spoke to [facility] about transferring the patient as the hand washer had a suspicion of retinal detachment and vitreous hemorrhage after seeing the patient today. The Ophthamologist at [facility] recommended transfer in the morning as it was not urgent. Updated the attending for the patient Dr. Koehler and the house staff team. Patient will be transferred in the morning to the hospitalist service at [facility] with ophthalmology on consult.
[2017-11-12 06:49] VITALS: BP 140/68
--- NOTE | 2017-11-12 07:18 | PN- Housestaff ---
Katya CARD,[facility] 11/12/17 0718: Subjective Follow-up For: Persistent Bactermia Subjective: Mr Baltazar was seen and examined this morning. No issues overnight. States that he was able to get some rest. Pain control control. States that he worked extensively with shale planer operator helper yesterday. Also reports that his vision is slightly better. No pain endorsed in extremities. Denies any fever, chills, nausea, vomiting. Review of Systems Constitutional: Reports: see HPI. Objective Last 24 Hrs of Vital Signs/I&O Vital Signs Date Time Temp Pulse Resp B/P B/P Pulse O2 O2 Flow FiO2 Mean Ox Delivery Rate 11/13 799 Nasal 1.0L Cannula 11/12 0649 98.4 84 20 140/68 93 Nasal 1.0L Cannula 11/12 0000 Nasal 1.0L Cannula 11/11 2226 98.6 80 18 148/72 94 Nasal 1.0L Cannula 11/11 2106 80 148/72 11/11 1830 98.1 11/11 1456 98.8 92 20 122/86 96 Intake & Output 11/12 1600 11/12 0800 11/12 0000 Intake Total 710 650 Output Total 450 300 Balance 260 350 Intake, IV 530 350 Intake, Oral 180 300 Number 0 Bowel Movements Output, Urine 450 300 Physical Exam General Appearance: Alert, Oriented X3, Cooperative Skin: No Rashes HEENT: PERRLA, EOMI, Mucous Membr. moist/pink, No proptosis or pain endorsed Cardiovascular: Regular Rate, Normal S1, Normal S2 Lungs: Clear to Auscultation Abdomen: Normal Bowel Sounds, Soft, No Tenderness Neurological: Normal Speech Extremities: No Edema Current Medications: Current Medications Sig/Lai Start time Last Medication Dose Route Stop Time Status Admin Acetaminophen 1,000 MG Q6P PRN 10/21 1700 DCD 11/10 IV 0817 Carvedilol 6.25 MG BID 10/29 1000 DCD 11/12 PO 1034 Collagenase 1 VANI DAILY PRN 10/30 1615 DCD 11/07 TOP 2000 Daptomycin 900 MG Q24H 10/31 1230 DCD 11/12 Sodium Chloride 50 ML IV 1243 Ferrous Sulfate 325 MG TID 10/31 1600 DCD 11/12 PO 1544 Folic Acid 1 MG DAILY 10/21 1703 DCD 11/12 PO 1035 Gabapentin 100 MG Q8 11/10 1400 DCD 11/12 PO 1544 Heparin Sodium 5,000 UNIT Q8 10/21 2200 DCD 11/12 (Porcine) SC 1544 Ibuprofen 400 MG Q6P PRN 11/10 1030 DCD 11/10 PO 2133 Insulin Aspart 0 TIDAC 11/09 0800 DCD 11/12 SC 1748 Linezolid 600 MG BID 11/06 1400 DCD 11/12 PO 1036 Multivitamins 1 TAB DAILY 10/21 1703 DCD 11/12 PO 1036 Nicotine 21 MG DAILY 11/05 1447 DCD 11/12 TOP 1035 Nitroglycerin 0.5 GM Q6 10/26 0850 DCD 11/12 TOP 1749 Omeprazole 40 MG BID 10/31 1045 DCD 11/12 PO 1036 Polyethylene Glycol 17 GM DAILY PRN 11/09 0100 DCD PO Prednisone 5 MG DAILY 11/01 1318 DCD 11/12 PO 1035 Sodium Chloride 2 SPRAY Q6-PRN PRN 11/05 1745 DCD LORELEI Trimethoprim/ 30 ML Q12H 10/31 1245 DCD 11/12 Sulfamethoxazole IV 1243 Dextrose/Water 500 ML Vitamin A/Vitamin D 1 VANI Q6-PRN PRN 10/27 1500 DCD 11/06 TOP 0958 Assessment/Plan Assessment: Mr Baltazar is a 61-year-old male with past medical history significant for insulin -dependent diabetes mellitus, rheumatoid arthritis on prednisone & leflunomide, coronary artery disease status post stenting, left TMA, chronic right foot ulcer was brought to [place] after found by law enforcement at home altered and unkempt, covered with urine. Admitted to ICU initially on 10/21/2017 given sepsis secondary to diabetic foot infection. He did have persistent MRSA bacteremia with extensive seeding into lungs, urine, joints. Once he was hemodynamic stable transferred to telemetry. Lorna ON GM. 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 Initially started broad with IV ceftazidime and Flagyl and transitioned to IV vancomycin after cultures results. MRI did show abscess of right foot. Blood cultures were persistently positive. ESR 125. Underwent tarsometatarsal amputation on 10/25/17. Underwent ANNA and wound closure on . Given bacteremia as well as being febrile overnight we will transition and changes antibiotics from vancomycin to daptomycin (900 mg IV every 24 hours.) Will also continue the patient on Bactrim Q 12 hours. -Linezoid started 11/06/2017 for improved coverage of potential pulmonary source. 600 mg BID. - Repeated blood cultures 11/05/2017 - Monitor LFTs weekly while on daptomycin. - CPK added to labs 10/31/2017 showed 48, remarkably decreased from 10/21/2017 lab of 1485. Will also discontinue statin in the setting of medication interaction with daptomycin. CPK level 11/06/2017: 73 -WBC scan conducted on 11/07/2017. 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 Placed on IV hydrocortisone to maintain his blood pressure. He received stress dose of steroids prior to procedures. * Monitor blood pressure. * Transitioned to by mouth prednisone 5 mg from 12.5 mg hydro-cortisone BID. * If any signs of hypotension may consider taking back on increased dose of steroids. Insulin-dependent diabetic mellitus HbA1c of 7.2. Sugars remained relatively controlled on current regimen NovoLog sliding scale per endocrinology. Intermixed ground glass attenuation on imaging Imaging shows opacities exhibiting reverse halo sign (atoll sign). Also, some of the opacities have central lucencies, suspicious for cavitary change. Given MRSA bacteremia, seeding should be first differential. However patient has been on leflunomide so tuberculosis should be second in the differential. Repeat CT on 10/28/17 did show dense groundglass opacification is also noted - Continue Coreg. Encephalopathy Patient was altered despite aggressive treatment of his infection. Improved after giving IV thiamine for few days. Probably alcohol related. Resolved. Anemia, #Stable Previous indices ferritin 1500, iron of 12, TIBC 143 suggestive of anemia of chronic disease/inflammation related. Obvious source could be osteomyelitis. Treating current condition should help with his anemia as well. * H/H 7.5/22.8 * Continue oral iron, increased frequency to TID * Guiac all stools * s/p 4U PRBC in total, last BT on 11/01. Goal > 8. If any signs of active bleed consider immediate call to GI for scope. * Will transfuse One unit PRBC * Stopped aspirin. Blurry Vision No redness or acute pathology noted. Alexaley caused by ?secondary cataract of the right eye. on 11/07/2017, Spoke with Dr Bryce Sun, attempted to do a vision exam with a snellen chart, this was unsuccessful. Ophthalmology consultation obtained on previous day. Recommends transfer to [place] for adequate workup and close monitoring. * Problem List: 1. Bacteremia 2. Anemia 3. Blurry vision Pain Ratin Pain Location: No Pain Pain Goal: Remain pain free Pain Plan: NA Tomorrow's Labs & Rationales: Charles Mckeon MD 11/12/17 1011: Attending MD Review Statement Attending Statement Attending MD Statement: examined this patient, discuss w/resident/PA/UTILITY PERSON, agreed w/resident/PA/UTILITY PERSON, reviewed EMR data (avail), discussed with nursing, discussed with case mgmt, amended to note Attending Assessment/Plan: The patient was seen and discussed with house staff. Appreciate ophthalmology input. In process of transfer to [facility] ([facility]) for urgent ophthalmology evaluation for vitreous hemorrhage and possible retinal detachment OD. Spoke with shale planer operator helper at [place] (Dr. Haider) and awaiting to hear back from Hospitalist team.
[2017-11-12 08:28] LABS: ABSOLUTE BASOPHIL COUNT 0.1 /CUMM (0.0-0.2); ABSOLUTE EOSINOPHIL COUNT 0.3 /CUMM (0.0-0.7); ABSOLUTE GRANULOCYTE CT 5.5 /CUMM (1.4-6.5); ABSOLUTE LYMPH COUNT 1.1 /CUMM (1.2-3.4); ABSOLUTE MONOCYTE COUNT 0.4 /CUMM (0.10-0.60); BASOPHIL % 0.8 % (0.0-2.0); EOSINOPHIL % 3.9 % (0-5); GRANULOCYTE % 74.8 % (42.2-75.2); HEMATOCRIT 25.2 % (42-52); MEAN CORPUSCULAR HGB 28.7 PG (27.0-31.0); MEAN CORPUSCULAR HGB CONC 33.9 G/DL (33.0-37.0); MEAN CORPUSCULAR VOLUME 84.5 FL (80.0-94.0); MEAN PLATELET VOLUME 6.4 FL (7.4-10.4); PLATELET COUNT 257 /CUMM (130-400); RBC DISTRIBUTION WIDTH 16.8 % (11.5-14.5); RED BLOOD CELL CT 2.98 /CUMM (4.70-6.10); WHITE BLOOD CELL COUNT 7.4 /CUMM (4.8-10.8)
--- NOTE | 2017-11-12 10:00 | Discharge Summary ---
Visit Information Visit Dates Admission Date: 10/21/17 Discharge Date: 11/12/2017 Hospital Course Course Attending Physician: Charles Koehler MD Primary Care Physician: Patient Has No Primary Care Dr Hospital Course: Mr Baltazar is a 61-year-old male with past medical history significant for insulin -dependent diabetes mellitus, rheumatoid arthritis on prednisone & leflunomide, coronary artery disease status post stenting, left TMA, chronic right foot ulcer was brought to [place] after found by commissions analyst at home altered and unkempt, covered with the urine. Vitals at admission is significant for MAXIMUM TEMPERATURE of 100.6, blood pressure 106/68 mmHg. White count of 13,000 with 72 segments and bands. Troponin of 0.85, elevated d-dimer. Chest x-ray showing patchy opacity in the right upper lobe and mild cardiomegaly. X-ray of Right foot revealed extensive destructive changes in the second to fourth digits. CT of chest is significant for central cavitation and opacities in both lungs. CT abdomen Prominent perinephric edema with prominent prostate. Admitted to ICU initially on 10/21/2017 given sepsis secondary to diabetic foot infection. He did have persistent MRSA bacteremia with extensive seeding into lungs, urine, joints. He was transferred to the Telemetry service on 10/25/2017. After monitored on telemetry he was subsequently downgraded to the Gen. medical service where he continued to receive treatment. Below is a summary of the care received. Problem List: 1. Acute hypoxic respiratory failure 2/2 congestive heart failure 2. Sepsis 2/2 Right Foot Osteomyeltitis 3. Gram Positive Bacteremia 4. AMS 2/2 Sepsis 5. Hyperglycemia 6. Diabetes Mellitus 7. ANURAG 8. Adrenal Insufficiency 9. Cavitary Pulmonary Lesions 10. Anemia 11. Chronic wound of Right 5th Digit 12. Blurry vision. Sepsis secondary to right foot osteomyelitis and gram positive bacteremia Patient was initially being covered with Vancomycin, Ceftazidine and Flagyl for MRSA, gram negative coverage including pseudomonas and anaerobic organisms in the setting of open necrotic diabetic foot infection. Patient's cultures from and 10/23 growing gram positive cocci in clusters. Right foot MRI showing osteomyelitis. Patient had cavitary lesions in the lungs on CT which was concerning for septic emboli raising concern for endocarditis however these may be due to seeding from bacteremia. He underwent procedure with the geotechnician on 10/25 Right TMA(reports attached). He was kept on vancomycin for 10 days. Despite adequate BRYAN, still remained persistently bacteremic. He was started on daptomycin 900 mg IV Daily and Bactrim (480 mg based on the trimethoprim) IV every 12 hours 10/31/2017. On Linezolid 600 mg PO was added. Last blood cultures drawn on 11/09 Remained negative. A white blood cell scan was also performed as well as a repeat ANNA results of which have been attached. It was recommended that the patient will likely require a PICC line for long- term antibiotics. Acute hypoxic respiratory failure in setting of congestive heart failure: Patient had increased respiratory effort with with clinical evidence of hypervolemia with CXR showing vascular congestion and elevated proBNP. Patient received 6L of NS boluses on day of admission due to sepsis and lactic acidosis. Patient was diuresed cautiously with lasix x 1 with imrpovement in respiration and was weaned off oxygen. Patient vitals were monitored closely. Respiratory therapy provided treatments as needed. Encephalopathy CT head was negative for acute intracranial pathology. Patient has no focal neurological deficits except for decreased sensation in his feet bilaterally which is likely in diabetic neuropathy. While in the ICU, Patient failed formal psychiatry evaluation for competency. Patient's daughter is the person to contact regarding consent for procedures. Patient also has known alcohol use which leads to consideration of wernicke's encephalopathy. Patient was started on high dose IV thiamine. UTI/Pyelonephritis Urine culture growing staph aureus likely seeding from bacteremia. CT Abd showed perinephric stranding indicating possible pyelonephritis. No stones or hydronephrosis seen. Patient has no CVA tenderness at this time. Type II NV On 10/22/2017 patient's troponins peaked to 0.87. EKG showing a left bundle branch block. Elevated troponins likely due to supply demand ischemia in the setting of sepsis. Patient seen by cardiology. Recommended aspirin, statin, rene inhibitor and coreg. The latter two have been held in the setting of acute renal failure and hypotension. ECHO was done showing mildly decreased EF of 45% with anteroseptal hypokinesis. Echo report has been attached. Diabetes Patient presented with hyperglycemia with an elevated anion gap without ketones with a normal pH. Due to patient's multiple comorbidities and perisitently high sugars he was started on an insulin drip which was discontinued after a few hours. Tendon endocrinology consultation and she was originally started on a sliding scale as well as Levemir. Over the course of the admission these were both gradually decreased.Prior to discharge due to normal glycemia patient sliding scale was discontinued. Adrenal Insufficiency Patient was on chronic steroids prior to admission. He was initially started on hydrocortisone 50 twice a day. Was given stress dose steroids prior to anesthesia. Subsequently weaned down on steroids to prednisone PO 5 mg. ANURAG: Likely in the setting of prerenal azotemia and hypoperfusion due to sepsis. Patient has received multiple fluid boluses. IV fluids are currently being used cautiously in setting of congestive heart failure and respiratory distress. Over the course of the admission the patient's creatinine normalized. Last creatinine 1.0 on November 12. Anemia: The course of admission patient had an acute drop in hemoglobin and hematocrit to 6.6/19.4 subsequently was transfused. Iron was also added to his regimen. No evidence of any acute bleeding although stools were guaiac positive. H&H was routinely monitored and patient was transfused to maintain a goal of above 8. Over the course of admission the patient received 5 units of PRBCs. Last transfusion 11/11/2017. Blurry vision. Patient did complain of blurry vision. He does has a history of bilaterral cataracts with a left cataract procedure done by Dr. Hansen in [place] of the right eye. An ophthalmology consultation was obtained. On 11/11/2017 recommendations from ophthalmology stated that the patient be transferred to [place] for evaluation of possible retinal detachment/vitreous hemorrhage Electrolytes routinely monitored and supplemented accordingly. Maintained on heparin For DVT prophylaxis. On a consistent carbohydrate 2 diet. Patient was a full code over the course of admission. Allergies: Coded Allergies: No Known Allergies (10/21/17) Significant Procedures: Surgery Date: 10/29/17 Name of Procedure: 1 open incision and drainage deep to the deep fascia with exposure of the extensor and flexor tendon and tendon sheath multiple sites right foot 2 revision of exposed metatarsal stumps 1, 2, 3, 4 and 5 right foot 3 delayed primary closure of open surgical wound right foot Pre-Operative Diagnosis: 1 open, necrotic wound right foot 2 osteomyelitis right foot Post-Operative Diagnosis: Same Estimated Blood Loss: less than 50ml Surgeon/Framing Mill Supervisor: WILLIAM RUSSELL DPM Anesthesia: moderate sedation, block Operative/Procedure Note Note: After obtaining informed consent the patient was brought to the operating room and placed on the operating table in the supine position. The patient isn't securely fastened to the operating table utilizing safety belt. After administration of IV sedation, 10 mL of 0.5% Marcaine plain was infiltrated about the patient's right ankle. The right foot and ankle then scrubbed prepped and draped in usual aseptic manner. Digitorectal right foot, where a full- thickness chronic was identified. A 15 blade visualized sharply sharply revised skin margins. Dissection was then carried down deep to the deep fascia with exposure of the extensor and flexor tendon and tendon sheath multiple sites, both proximally and distally. All necrotic, nonviable infected tissue sharply evacuated from the wound bed. The stumps of the metatarsals were then revised approximately by 2 cm and the distal osseous segments freed and passed the operative field. Specimen sent for pathologic inspection. The open wound was then irrigated with 3 L of normal sterile saline fissure 50,000 units of bacitracin. Following this, the foot was redraped and the surgeon's top was changed clean gloves. Any bleeding vessels identified were cauterized or ligated as encountered. A dorsal plantar flap was then developed and fixated deeply the central margin with 2-0 Vicryl. The septae is tissues were then reapproximated 3-0 Vicryl and the skin edges reapproximated skin genet. Incision was then dressed with Xeroform 4 x 4's Kerlix and an Rene wrap. The patient was noted tolerate both procedure and anesthesia well and the patient was transported from the operating room to recovery with vital signs stable best assess intact to the dorsal and plantar flaps. DICTATED BY: Tyson Wilkinson DPM Surgery Date: 10/25/17 Name of Procedure: 1 open TMA right foot Pre-Operative Diagnosis: 1 osteomyelitis right forefoot Post-Operative Diagnosis: The same Estimated Blood Loss: less than 50ml Surgeon/Framing Mill Supervisor: TYSON WILKINSON DPM Anesthesia: moderate sedation, block Operative/Procedure Note Note: After obtaining informed consent the patient was brought to the operating room and placed on the operating table in the supine position. The patient isn't securely fastened to the operating table utilizing safety belt. After administration of IV sedation, 10 mL of 0.5% Marcaine plain was infiltrated about the patient's right ankle. The right foot and ankle then scrubbed prepped and draped in usual aseptic manner. Attention directed right foot, where a fishmouth-type and sedation encompassing the first and fifth digits was marked out a skin marker. A 15 blade was utilized to develop full-thickness flaps dorsally and plantarly. A sagittal bone saw was utilized performed through and through osteotomies to the first, second, third, fourth and fifth metatarsal shaft. The distal osseous segment was freed and passed from the operative field. Specimen was sent for both microbiologic and pathologic inspection. The open wound was then irrigated with 3 L of normal sterile saline infusion 50,000 units of bacitracin. Following this, the foot was redraped and surgeon's top was changed clean gloves. Any bleeding vessels identified were cauterized or ligated as encountered. Nipple was then packed with iodoform and 3-0 nylon retention sutures were placed. The foot was then dressed with 4 x 4's EBD pad Kerlix and Rene wrap. The patient is noted tolerate both procedure and anesthesia well and the patient was transported from the operating room to recovery with vital signs stable. DICTATED BY: Tyson Wilkinson DPM Pertinent Lab Results: SERVICE DATE: 11/06/17 EXAM TYPE: NUC - WBC ABSCESS LOCALIZATION-FULL IMPRESSION: 1. An ill-defined region of mild abnormal activity is present laterally in the mid right thigh. This probably represents an indolent soft tissue infection at this site. 2. Very minimally increased activity medially at amputation site in the distal right foot is noted, and this mild intensity is consistent with recent postsurgical changes. DICTATED BY: Rob Parrish MD SERVICE DATE: 11/06/17- EXAM TYPE: CARD - TRANSESOPHAGEAL ECHO CONCLUSIONS 1. There are no definite vegetative lesions detected on this examination. 2. Aortic sclerosis is present with no significant valvular stenosis or insufficiency. 3. Mitral leaflet thickening is present with minimal to mild mitral insufficiency and upper normal left atrial size. On the left atrial aspect of the mitral leaflets they're are tiny mobile echodensities noted which are most consistent with tiny ruptured tertiary cords or Lambl's lesions. 4. The left atrial appendage is normal in size with no evidence of mass or thrombus and normal contractility 5. The pulmonary venous anatomy is normal bilaterally with normal Doppler flow profiles. 6. Right heart structures are grossly normal. No vegetative lesions are noted. Minimal to mild tricuspid and pulmonic insufficiency are present. 7. The atrial septum appears anatomically intact. There is no evidence of atrial level shunt by agitated saline contrast injection, color flow imaging, or Doppler examination. 8. A eustachian valve remnant is present in the right atrial cavity 9. The descending thoracic aorta appears normal in size. Grade 2 atheromatous plaque is noted in the distal transverse aortic arch and descending thoracic aorta. 10. A left pleural effusion is present. Gema Tate M.D. SERVICE DATE: 11/05/17- EXAM TYPE: RAD - XRY-FOOT COMPLETE, R IMPRESSION: Status post interval transmetatarsal amputation; the cortical amputation margins are well-defined. DICTATED BY: Jeffery Pinzon MD SERVICE DATE: 11/04/17- EXAM TYPE: MRI - MRI-LUMBAR SPINE IMPRESSION: L5-S1: There is near complete intervertebral disc height loss with some intradiscal signal abnormality and faint edematous endplate change. This is suspected to be degenerative, although given history of bacteremia, an early discitis/osteomyelitis would be hard to exclude. Short-term follow-up can be considered if clinical concern persists. There is mild flattening of the ventral thecal sac, right more than left, appearing to contact the traversing right S1 nerve root. Moderate right foraminal stenosis. There is some partially visualized nonspecific presacral edema as well as edema in the paraspinal musculature, right more than left. No discrete fluid collection. The distal coccyx is not visualized. Elsewhere lumbar spondylosis including moderate right greater than left narrowing of the thecal sac at L4-L5, impinging upon the traversing right L5 nerve root. Remote mild compression deformities along the superior endplates of T12 and L1. DICTATED BY: Castillo Cordova MD SERVICE DATE: 10/29/17- EXAM TYPE: CARD - TRANSESOPHAGEAL ECHO CONCLUSIONS Left ventriclar size appeared normal. Septal hypokinesis. Mildly abnormal left ventricular ejection fraction estimated at 40%. Mild left atrial dilatation. Normal left atrial appendage. Normal interatrial septum. Structurally normal appearing mitral, aortic, tricuspid, and pulmonic valves. No evidence of valvular vegetations. No evidence of valvular stenosis. Physiologic valvular regurgitation. Eliezer Lua M.D. SERVICE DATE: 10/23/17- EXAM TYPE: MRI - MRI-RT FOOT W/O [place] IMPRESSION: 1. Soft tissue defect/wound on the plantar aspect of the midfoot measuring 2.6 x 2.8 cm. Fluid collection in the plantar soft tissues measuring 0.8 x 0.6 cm, which could represent an abscess. 2. Absence of the distal 2nd metatarsal. This may be secondary to destructive changes or postsurgical changes. Abnormal edema in the distal aspect of the residual 2nd metatarsal shaft, suspicious for osteomyelitis. 3. Marked abnormality associated with the 1st and 5th MTP joint. Marked abnormality in the hallux sesamoids as well. These findings are suspected to represent advanced arthritic changes. Infectious etiology cannot be excluded in the appropriate clinical circumstance. If there is clinical concern for infection in this region, further evaluation with a WBC bone scan may be helpful. 4. Destructive changes/postsurgical changes of the distal aspect of the 3rd and 4th metatarsals. No definite acute osteomyelitis is evident by MRI. DICTATED BY: [facility] SERVICE DATE: 10/21/17 EXAM TYPE: CARD - ECHOCARDIOGRAM CONCLUSIONS 1. Mildly decreased EF of 45% with anteroseptal hypokinesis. 2. Mild left ventricular hypertrophy. 3. Mild left atrial enalargement. 4. Mild mitrak regurgitationl 5. Trace pulmonic regurgitation. Chencho Hansen M.D. SERVICE DATE: 10/21/17 EXAM TYPE: NUC - LUNG SCAN (V/Q) IMPRESSION: Very low probability of pulmonary embolism. SERVICE DATE: 10/21/17 EXAM TYPE: CAT - CT HEAD WO IV CONTRAST IMPRESSION: No acute intracranial pathology. Scattered and fairly extensive inflammatory disease within the paranasal sinuses asymmetrically on the right. Partially visualized postsurgical changes involving the left maxillary sinus with sclerosis and thickening of the left maxillary wall compatible with sequela of chronic inflammation. DICTATED BY: Art [facility] SERVICE DATE: 10/21/17 EXAM TYPE: CAT - CT ABD & PELVIS W/O IV CONTRAS; CT CHEST WO IV CONTRAST EXAMINATION: CT CHEST WITHOUT IV CONTRAST CT ABDOMEN AND PELVIS WITHOUT IV CONTRAST IMPRESSION: - Within the chest, there is mild pulmonary edema without pleural effusions. There are patchy nodular and airspace opacities in both lungs, and some of the pulmonary opacities have central cavitation. Also, some of the lesions exhibit the reversed halo sign (i.e., atoll sign), as may be seen in infectious disease and other disorders, such as vasculitis. Unable to exclude septic emboli. Other findings in the chest include atherosclerotic disease of coronary arteries and cardiomegaly. The mild hilar and mediastinal lymphadenopathy is likely reactive to the pulmonary disease. - Within the abdomen, findings include bilateral perinephric edema without ureterolithiasis or hydronephrosis. Also, there is perivesical and periprostatic edema within the pelvis. Urinary tract infection and prostatitis are possible. Consider correlation with urinalysis and urine culture. DICTATED BY: Saran Lizama MD SERVICE DATE: 10/21/17 EXAM TYPE: RAD - XRY-FOOT COMPLETE, R IMPRESSION: 1. Extensive bony destructive changes are present in the second through fourth digits, most concerning in the second and third digits with non corticated distal aspects of the remaining portion of the metadiaphysis of the second and third digits. Findings are concerning for acute osteomyelitis. 2. Open wound with skin defect identified on the plantar aspect of the midfoot, the ulcer is present at the level of the mid foot closer to the tarsal metatarsal joint spaces rather than the distal metatarsal regions however. DICTATED BY: Shoshana Chen MD Disposition Summary Disposition Principal Diagnosis: Persistent bacteremia. Additional Diagnosis: Refer to Above Discharge Disposition: other general hospital Discharge Instructions General Discharge Information Code Status: Full Code Patient's Diet: Heart Healthy Patient's Activity: As tolerated. Follow-Up Instructions/Appts: Follow-up with your primary care physician within 7 days of discharge. Please continue taking antibiotics as prescribed. You likley will be considered for PICC line placement for long-term antibiotics. Please follow-up with infectious diseases consultation once you've been discharged. We have provided you with the necessary referrals. Medications at Discharge Discharge Medications: Stop taking the following medications: Leflunomide (Arava) 20 MG TABLET ORAL DAILY Lisinopril (Lisinopril) 20 MG TABLET ORAL DAILY Clopidogrel Bisulfate (Clopidogrel) 75 MG TABLET ORAL DAILY Continue taking these medications: Prednisone (Prednisone) 5 MG TABLET 1 Tablet ORAL DAILY Comments: Last Taken:11/12/17 Time:1030 Ibuprofen (Motrin Ib) 200 MG TABLET 1 Tablet ORAL Q6H as needed for PAIN Insulin Regular (Novolin R Inj) 1,000 UNITS/10 ML KELVIN 15 Units Inject into fatty tissue TWICE DAILY Start taking the following new medications: Sulfamethoxazole/Trimethoprim (Sulfamethoxazole-Tmp Inj Vial) 80 MG-16 MG/ML VIAL 0 INTRAVEN EVERY 12 HOURS Qty = 28 No Refills Instructions: Dose base on TMP (480 mg of TMP) 2400/480 Comments: Last Taken:11/12/17 Time:1230 Linezolid (Zyvox) 600 MG TABLET 600 Milligram ORAL TWICE DAILY Qty = 60 No Refills Comments: Last Taken:11/12/17 Time:10AM Ferrous Sulfate (Ferrous Sulfate) 325 MG (65 MG IRON) TABLET. 325 Milligram ORAL THREE TIMES DAILY Qty = 90 No Refills Comments: Last Taken:11/12/17 Time:1630 Gabapentin (Gabapentin) 100 MG CAPSULE 100 Milligram ORAL EVERY 8 HOURS Qty = 60 No Refills Comments: Last Taken:11/12/17 Time:1630 Omeprazole (Omeprazole) 20 MG CAPSULE. 40 Milligram ORAL TWICE DAILY Qty = 30 No Refills Comments: Last Taken:11/12/17 Time:1000 Vitamin A & D (Vitamin A & D Ointment) 56.7 GM OINT...G. 1 Application On the skin EVERY 6 HOURS NEEDED as needed for rash Qty = 1 No Refills Comments: Last Taken:11/12/17 Time:1000 Collagenase Clostridium Hist. (Santyl) 250 UNIT/GRAM OINT...G. 1 Application On the skin DAILY as needed for WOUND Qty = 1 No Refills Comments: Last Taken:11/12/17 Time:1000 Folic Acid (Folic Acid) 1 MG TABLET 1 Milligram ORAL DAILY Qty = 30 No Refills Comments: Last Taken:11/12/17 Time: 1000 Multivitamin (One Daily Multivitamin) 1 EACH TABLET 1 Tablet ORAL DAILY Qty = 30 No Refills Comments: Last Taken:11/12/17 Time:1000 Oxycodone HCl (Oxycodone HCl) 15 MG TABLET 1 Tablet ORAL THREE TIMES DAILY Qty = 90 No Refills Comments: NOT GIVEN Carvedilol (Coreg) 12.5 MG TABLET 1 Tablet ORAL TWICE DAILY Qty = 60 No Refills Comments: Last Taken: 6.25MG GIVEN AT 11/12/17 10AM DAPTOmycin (DAPTOmycin) 500 MG VIAL 900 Milligram INTRAVEN EVERY 24 HOURS Qty = 14 No Refills Comments: Last Taken:11/12/17 Time:1240 Copies To: Tobin CARD,Tobin; Dino CARD,Bryce Goldman; Charles Koehler MD; Ricco CARD,Leo Bartlett; Salvador CARD,Miguel A; Jade CARD PHD,Chencho Sheridan Attending MD Review Statement Documenting Attending: Charles Koehler MD Other Findings: The patient was seen on the day of discharge and agree with the plan of care as outlined. To be transferred to [place] for ophthalmologic evaluation and completion of medical treatment (will need PICC line placed for IV antibiotics). Will need STR and prefers to be closer to his family in [facility] for STR.
[2017-11-12] MEDS ORDERED: SULFAMETHOXAZOLE5 ML IV (10:14)
--- NOTE | 2017-11-12 11:04 | PN- Infect Dx ---
Subjective Subjective: Afebrile without new complaints. He continues to complain of blurred vision in both eyes. Objective Last 24 Hrs of Vital Signs/I&O Vital Signs Date Time Temp Pulse Resp B/P B/P Pulse O2 O2 Flow FiO2 Mean Ox Delivery Rate 11/12 1034 98.4 84 20 140/68 11/12 0800 Nasal 1.0L Cannula 11/12 0649 98.4 84 20 140/68 93 Nasal 1.0L Cannula 11/12 0000 Nasal 1.0L Cannula 11/11 2226 98.6 80 18 148/72 94 Nasal 1.0L Cannula 11/11 2106 80 148/72 11/11 1830 98.1 11/11 1456 98.8 92 20 122/86 96 Intake & Output 11/12 1600 11/12 0800 11/12 0000 Intake Total 710 650 Output Total 450 450 300 Balance -450 260 350 Intake, IV 530 350 Intake, Oral 180 300 Number 0 Bowel Movements Output, Urine 450 450 300 Physical Exam Other Physical Findings: He appears comfortable in no acute distress Lungs are clear Heart regular rhythm with a 1/6 systolic ejection murmur Extremities right foot dressing intact Results Last 24 Hours of Lab Results: Laboratory Tests 11/12 0737 Chemistry Sodium (137 - 145 mmol/L) 134 L Potassium (3.5 - 5.1 mmol/L) 4.3 Chloride (98 - 107 mmol/L) 106 Carbon Dioxide (22 - 30 mmol/L) 21 L Anion Gap (5 - 16) 8 BUN (9 - 20 mg/dL) 11 Creatinine (0.7 - 1.2 mg/dL) 1.0 Estimated GFR (>60 ml/min) > 60 BUN/Creatinine Ratio (7 - 25 %) 11.0 Hematology CBC w Diff NO MAN DIFF REQ WBC (4.8 - 10.8 /CUMM) 7.4 RBC (4.70 - 6.10 /CUMM) 2.98 L Hgb (14.0 - 18.0 G/DL) 8.6 L Hct (42 - 52 %) 25.2 L MCV (80.0 - 94.0 FL) 84.5 MCH (27.0 - 31.0 PG) 28.7 MCHC (33.0 - 37.0 G/DL) 33.9 RDW (11.5 - 14.5 %) 16.8 H Plt Count (130 - 400 /CUMM) 257 MPV (7.4 - 10.4 FL) 6.4 L Gran % (42.2 - 75.2 %) 74.8 Lymphocytes % (20.5 - 51.1 %) 15.1 L Monocytes % (1.7 - 9.3 %) 5.4 Eosinophils % (0 - 5 %) 3.9 Basophils % (0.0 - 2.0 %) 0.8 Absolute Granulocytes (1.4 - 6.5 /CUMM) 5.5 Absolute Lymphocytes (1.2 - 3.4 /CUMM) 1.1 L Absolute Monocytes (0.10 - 0.60 /CUMM) 0.4 Absolute Eosinophils (0.0 - 0.7 /CUMM) 0.3 Absolute Basophils (0.0 - 0.2 /CUMM) 0.1 Last 24 Hours of [place] Results: Blood cultures November 05 negative Blood cultures November 09 negative Assessment/Plan ID Impression: Overall stable, with temperatures and white blood cell count remaining normal and with his blood cultures from 1 week (and again 3 days) ago remaining negative, on Daptomycin Day 12, Bactrim Day 12 and Linezolid Day 6 for a 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 His right foot was felt to be the initial source of his bacteremia, now 18 days status post a TMA and 2 weeks status post revision of the exposed metatarsal stumps with closure of the wound. Ophthalmology evaluation noted with concern of a vitreous hemorrhage and possible retinal detachment and transfer to [place] is planned for later today. Suggestion: 1. Repeat ESR 2. Repeat CPK in the a.m. 3. Await transfer to [place] 4. Continue Daptomycin, Bactrim and Linezolid
[2017-11-12 14:23] VITALS: BP 138/58
== END 2017-11-12 19:54 | disposition short-term general hospital (02) | DRG 710 ==
LOC: ERH 11:21 → 2NA 18:09 → CRI 18:09 → 1NO 18:09 → ERHI 18:09 → ENRESERV 18:17 → CRI 19:28 → 1NO 10-24 20:45 → ENTRNSPT 10-25 14:39 → EDTRNSPTSTS 10-25 14:45 → EDTRNSPT 10-25 14:46 → CMPTRNSPT 10-25 15:14 → 1NO 10-28 07:52 → ENTRNSPT 11-07 11:13 → EDTRNSPT 11-07 11:38 → EDTRNSPTSTS 11-07 11:38 → 2NA 11-07 11:44 → CMPTRNSPT 11-07 11:55 → 2NA 11-08 16:07 → ENPENDDIS 11-12 14:09 → 2NA 11-12 19:54
PROVIDERS: Internal Medicine; Internal Medicine Interventional Cardiology; Physician Assistant; Student in an Organized Health Care Education/Training Program
PROC: 0Y6M0Z9 Detachment at Right Foot, Partial 1st Ray, Open Approach (ICD-10-PCS; principal; 2017-10-25)
PROC: 0Y6M0ZB Detachment at Right Foot, Partial 2nd Ray, Open Approach (ICD-10-PCS; 2017-10-25)
PROC: 0Y6M0ZC Detachment at Right Foot, Partial 3rd Ray, Open Approach (ICD-10-PCS; 2017-10-25)
PROC: 0Y6M0ZD Detachment at Right Foot, Partial 4th Ray, Open Approach (ICD-10-PCS; 2017-10-25)
PROC: 0Y6M0ZF Detachment at Right Foot, Partial 5th Ray, Open Approach (ICD-10-PCS; 2017-10-25)
PROC: 0Y6M0Z9 Detachment at Right Foot, Partial 1st Ray, Open Approach (ICD-10-PCS; 2017-10-29)
PROC: 0Y6M0ZB Detachment at Right Foot, Partial 2nd Ray, Open Approach (ICD-10-PCS; 2017-10-29)
PROC: 0Y6M0ZC Detachment at Right Foot, Partial 3rd Ray, Open Approach (ICD-10-PCS; 2017-10-29)
PROC: 0Y6M0ZD Detachment at Right Foot, Partial 4th Ray, Open Approach (ICD-10-PCS; 2017-10-29)
PROC: 0Y6M0ZF Detachment at Right Foot, Partial 5th Ray, Open Approach (ICD-10-PCS; 2017-10-29)
PROC: B24BZZ4 Ultrasonography of Heart with Aorta, Transesophageal (ICD-10-PCS; 2017-10-29)
PROC: 30233N1 Transfusion of Nonautologous Red Blood Cells into Peripheral Vein, Percutaneous Approach (ICD-10-PCS; 2017-10-30)
PROC: B24BZZ4 Ultrasonography of Heart with Aorta, Transesophageal (ICD-10-PCS; 2017-11-06)
DX: A41.02 Sepsis due to Methicillin resistant Staphylococcus aureus (principal); G92 Toxic encephalopathy; N17.9 Acute kidney failure, unspecified; E87.2 Acidosis; M86.8X7 Other osteomyelitis, ankle and foot; L97.419 Non-pressure chronic ulcer of right heel and midfoot with unspecified severity; E11.65 Type 2 diabetes mellitus with hyperglycemia; R41.82 Altered mental status, unspecified; R62.7 Adult failure to thrive; F17.210 Nicotine dependence, cigarettes, uncomplicated; F12.99 Cannabis use, unspecified with unspecified cannabis-induced disorder; I44.7 Left bundle-branch block, unspecified; L98.499 Non-pressure chronic ulcer of skin of other sites with unspecified severity; Y90.0 Blood alcohol level of less than 20 mg/100 ml; N41.9 Inflammatory disease of prostate, unspecified; J96.01 Acute respiratory failure with hypoxia; E87.0 Hyperosmolality and hypernatremia; B95.62 Methicillin resistant Staphylococcus aureus infection as the cause of diseases classified elsewhere; F10.20 Alcohol dependence, uncomplicated; S61.206A Unspecified open wound of right little finger without damage to nail, initial encounter; I21.A1 Myocardial infarction type 2; E27.3 Drug-induced adrenocortical insufficiency; T38.0X5A Adverse effect of glucocorticoids and synthetic analogues, initial encounter; E87.6 Hypokalemia; Z79.52 Long term (current) use of systemic steroids; M06.9 Rheumatoid arthritis, unspecified; I25.10 Atherosclerotic heart disease of native coronary artery without angina pectoris; Z98.61 Coronary angioplasty status; D64.9 Anemia, unspecified; E51.2 Wernicke's encephalopathy; N39.0 Urinary tract infection, site not specified; H53.8 Other visual disturbances; A15.0 Tuberculosis of lung; F12.90 Cannabis use, unspecified, uncomplicated; G89.4 Chronic pain syndrome; Z89.422 Acquired absence of other left toe(s); L03.011 Cellulitis of right finger; J18.9 Pneumonia, unspecified organism; N12 Tubulo-interstitial nephritis, not specified as acute or chronic; R74.0 Nonspecific elevation of levels of transaminase and lactic acid dehydrogenase [LDH]; L89.109 Pressure ulcer of unspecified part of back, unspecified stage; L89.159 Pressure ulcer of sacral region, unspecified stage; H53.19 Other subjective visual disturbances; E11.69 Type 2 diabetes mellitus with other specified complication; M86.171 Other acute osteomyelitis, right ankle and foot; E11.52 Type 2 diabetes mellitus with diabetic peripheral angiopathy with gangrene; I96 Gangrene, not elsewhere classified
CPT/HCPCS: 1NP; 2NAP; 72148; 75657; 86618; 87070; 87075; 87184; CCU; 36415; 36592; 71045; 71046; 73140-RT; 73630-RT; 74176; 78582; 80307; 81001; 82436; 83010; 86920; 87040; 87086; 87147; 87804; 87804-59; 88304; 88307; 93005; 93010; 93306; 93325; 96360; 96361; 96372; 96374; 96375; 96376; 97110-GO; 97112-GO; 97161-GP; 97167-GO; 97530-GO; 99233; 99291; A9540; A9558; A9569; G0480; J0131; J0713; J0878; J1644; J1720; J1815; J1940; J2001; J3370; J3490; J7040; J7042; J7060; J7512; P9016; S5012